=== PATIENT | male | born 1955 | race Hispanic/Latino ===

== ENCOUNTER 2020-08-14 13:07 | Inpatient (IN) | payer BC, OTHER ==
[~2020-08-14] VITALS: Ht 177.8 cm; Wt 139.5 kg
[2020-08-14] MEDS ORDERED: SODIUM CHLORIDE 0.9% 1000ML 1,000 ML IV STA (13:44)
[2020-08-14] MEDS ORDERED: CEFEPIME 2 GM/NS 0.9% 100 ML 100 ML IV ONE (14:00)
[2020-08-14 14:28] LABS: BASOPHILS % 0.3 % (0.0-1.0); EOSINOPHILS # (AUTO) 0.1 (0.0-0.4); EOSINOPHILS % 0.5 % (0.0-6.0); HEMATOCRIT 44.2 % (38.2-49.6); HEMOGLOBIN 14.3 g/dL (14.0-18.0); LYMPHOCYTES # (AUTO) 1.3 (1.0-3.2); LYMPHOCYTES % 14.4 % (18.0-39.1); MEAN CORPUSCULAR HGB CONC 32.4 g/dL (31-35); MEAN CORPUSCULAR VOLUME 92.9 fL (81-99); MONOCYTES # (AUTO) 0.8 (0.2-0.8); MONOCYTES % 8.4 % (4.4-11.3); NEUTROPHILS # (AUTO) 6.9 (2.1-6.9); NEUTROPHILS % 75.1 % (38.7-80.0); PLATELET COUNT 181 x10e3/uL (140-360); RED BLOOD COUNT 4.76 x10e6/uL (4.3-5.7); RED CELL DISTRIBUTION WIDTH 12.2 % (11.7-14.4)
[2020-08-14] MEDS ORDERED: VANCOMYCIN 1GM/NS 250 ML 250 ML IV ONE (14:30)
[2020-08-14 14:39] LABS: INR 1.09; PROTHROMBIN TIME 14.7 seconds (11.9-14.5)
[2020-08-14 14:40] LABS: PARTIAL THROMBOPLASTIN TIME 32.8 seconds (23.8-35.5)
--- NOTE | 2020-08-14 14:41 | Diagnostic Imaging Report ---
EXAMINATION: CHEST SINGLE (PORTABLE) INDICATION: Lower extremity edema COMPARISON: None FINDINGS: LINES/TUBES:None LUNGS:The lungs are well-inflated. There is perihilar fullness and indistinctness of the pulmonary vasculature. Patchy left greater than right bibasilar opacities. PLEURA:No pleural effusion or pneumothorax. MEDIASTINUM:The cardiomediastinal silhouette appears enlarged. BONES/SOFT TISSUES:No acute osseous injury. ABDOMEN:No free air under the diaphragm. IMPRESSION: Very megaly and pulmonary interstitial edema. Left greater than right patchy bibasilar opacities may represent component of airspace edema or subsegmental atelectasis. Superimposed aspiration or pneumonia is less likely. Signed by: Annamaria Briseno MD on 08/14/2020 2:37 PM
[2020-08-14 14:43] LABS: ALBUMIN 3.9 g/dL (3.5-5.0); ALBUMIN/GLOBULIN RATIO 1.2 (0.8-2.0); ANION GAP 15.3 mmol/L (8-16); CALCIUM 8.9 mg/dL (8.4-10.2); CREATININE, SERUM 1.89 mg/dL (0.72-1.25); POTASSIUM 5.3 mmol/L (3.5-5.1)
[2020-08-14 15:00] LABS: B-TYPE NATRIURETIC PEPTIDE2 117.1 pg/mL (0-100)
[2020-08-14] MEDS ORDERED: INSULIN REGULAR, HUMAN 100 UNIT/1 ML 3ML VIAL IV ONE (15:30)
--- NOTE | 2020-08-14 15:47 | NUR ---
REPEAT LACTIC ACID LEVEL DRAWN AND SENT TO LAB
--- NOTE | 2020-08-14 17:03 | Emergency Department Note ---
History of Present Illnes History of Present Illness Chief Complaint: Extremity Trauma/Pain History of Present Illness This is a 65 year old male Patient in from home after being sent by Dr. Soares's office for evaluation of a red and swollen left lower extremity for DVT. Patient reports that his leg began to get red and swollen on Wednesday afternoon. Patient reports that it is very painful. Patient states that he has h ad a blood clot in his leg in the past and has been on Eliquis since then 5mg PO BID. Historian: Patient Arrival Mode: Car Freight Booker Required: No Onset (how long ago): week(s) Location: LEFT LEG Quality: SWELLING, RED Radiation: Reports non-radiation Severity: moderate Onset quality: gradual Timing of current episode: constant Progression: worsening Chronicity: recurrent Context: Denies recent illness Relieving factors: none Exacerbating factors: none Associated symptoms: Reports denies other symptoms Past Medical/Family History Physician Review I have reviewed the patient's past medical and family history. Any updates have been documented here. Past Medical History Recent Fever: No Clinical Suspicion of Infectio: No New/Unexplained Change in Ment: No Past Medical History: Hypertension, Diabetes, A-Fib, DVT/PE, Chronic Kidney Disease Other Surgery: Nail in right toe. Social History Smoking Cessation: Unknown if ever smoked Counseling Performed: No Alcohol Use: None Any Illegal Drug Use: No TB Exposure/Symptoms: No Physically hurt or threatened: No Family History Family history of heart diseas: No Other Any Pre-Existing Lines (PICC,: No Review of Systems Review of Systems Constitutional: Reports no symptoms EENTM: Reports no symptoms Cardiovascular: Reports no symptoms Respiratory: Reports no symptoms Gastrointestinal: Reports no symptoms Genitourinary: Reports no symptoms Musculoskeletal: Reports as per HPI Integumentary: Reports as per HPI Neurological: Reports no symptoms Psychological: Reports no symptoms Endocrine: Reports no symptoms Hematological/Lymphatic: Reports no symptoms Physical Exam Related Data Allergies: Coded Allergies: No Known Allergies (Unverified , 08/14/20) Triage Vital Signs Vital Signs Date Time Temp Pulse Resp B/P (MAP) Pulse Ox O2 Delivery O2 Flow Rate FiO2 08/14/20 13:27 97.7 113 17 127/91 100 Room Air Vital signs reviewed: Yes Physical Exam CONSTITUTIONAL Constitutional: Present well-developed, Present well-nourished, Present obese HENT HENT: Present normocephalic, Present atraumatic, Present oropharynx clear/moist, Present nose normal HENT L/R: Present left ext ear normal, Present right ext ear normal EYES Eyes: Reports PERRL, Reports conjunctivae normal NECK Neck: Present ROM normal PULMONARY Pulmonary: Present effort normal, Present breath sounds normal CARDIOVASCULAR Cardiovascular: Present regular rhythm, Present heart sounds normal, Present capillary refill normal, Present normal rate GASTROINTESTINAL Abdominal: Present soft, Present nontender, Present bowel sounds normal GENITOURINARY Genitourinary: Present exam deferred SKIN Skin: Present erythema (LLE FROM FOOT TO KNEE, SLIGHT INCREASED WARMTH) MUSCULOSKELETAL Musculoskeletal: Present edema (3+ LLE, TENDERNESS CIRCUMFERENTIALLY) NEUROLOGICAL Neurological: Present alert, Present oriented x 3, Present no gross motor or sensory deficits PSYCHOLOGICAL Psychological: Present mood/affect normal, Present judgement normal Results Laboratory Result Diagram: 08/14/20 1353 08/14/20 1353 Laboratory Laboratory Tests Test 08/14/20 15:40 08/14/20 13:53 Lactic Acid Level 1.4 mmol/L (0.5-2.0) 2.8 mmol/L (0.5-2.0) White Blood Count 9.18 x10e3/uL (4.8-10.8) Red Blood Count 4.76 x10e6/uL (4.3-5.7) Hemoglobin 14.3 g/dL (14.0-18.0) Hematocrit 44.2 % (38.2-49.6) Mean Corpuscular Volume 92.9 fL (81-99) Mean Corpuscular Hemoglobin 30.0 pg (28-32) Mean Corpuscular Hemoglobin Concent 32.4 g/dL (31-35) Red Cell Distribution Width 12.2 % (11.7-14.4) Platelet Count 181 x10e3/uL (140-360) Neutrophils (%) (Auto) 75.1 % (38.7-80.0) Lymphocytes (%) (Auto) 14.4 % (18.0-39.1) Monocytes (%) (Auto) 8.4 % (4.4-11.3) Eosinophils (%) (Auto) 0.5 % (0.0-6.0) Basophils (%) (Auto) 0.3 % (0.0-1.0) Neutrophils # (Auto) 6.9 (2.1-6.9) Lymphocytes # (Auto) 1.3 (1.0-3.2) Monocytes # (Auto) 0.8 (0.2-0.8) Eosinophils # (Auto) 0.1 (0.0-0.4) Basophils # (Auto) 0.0 (0.0-0.1) Absolute Immature Granulocyte (auto 0.12 x10e3/uL (0-0.1) Prothrombin Time 14.7 seconds (11.9-14.5) Prothromb Time International Ratio 1.09 Activated Partial Thromboplast Time 32.8 seconds (23.8-35.5) D-Dimer Quantitative (PE/DVT) 0.37 ug/mLFEU (0.00-0.45) Sodium Level 137 mmol/L (136-145) Potassium Level 5.3 mmol/L (3.5-5.1) Chloride Level 99 mmol/L (98-107) Carbon Dioxide Level 28 mmol/L (22-29) Anion Gap 15.3 mmol/L (8-16) Blood Urea Nitrogen 24 mg/dL (7-26) Creatinine 1.89 mg/dL (0.72-1.25) Estimat Glomerular Filtration Rate 36 ML/MIN (60-) BUN/Creatinine Ratio 13 (6-25) Glucose Level 445 mg/dL (74-118) Calcium Level 8.9 mg/dL (8.4-10.2) Total Bilirubin 0.7 mg/dL (0.2-1.2) Aspartate Amino Transf (AST/SGOT) 17 IU/L (5-34) Alanine Aminotransferase (ALT/SGPT) 25 IU/L (0-55) Alkaline Phosphatase 129 IU/L (40-150) Creatine Kinase 43 IU/L (30-200) Creatine Kinase MB 2.00 ng/mL (0-5.0) Troponin I 0.011 ng/mL (0-0.300) B-Type Natriuretic Peptide 117.1 pg/mL (0-100) Total Protein 7.1 g/dL (6.5-8.1) Albumin 3.9 g/dL (3.5-5.0) Globulin 3.2 g/dL (2.3-3.5) Albumin/Globulin Ratio 1.2 (0.8-2.0) Lab results reviewed: Yes Imaging Imaging results reviewed: Yes Assessment & Plan Medical Decision Making MDM LLE EXTREMITY ERYTHEMA/WARMTH/SWELLING - CBC, CHEM, ECG, CARDIACS, LACTIC, BLOOD CX'S, D-DIMER, VENOUS DOPPLER - R/O CELLULITIS VS DVT, SEPSIS, RENAL INSUFF, ELECTROLYTE ABNL Reassessment Reassessment ADMIT TO DR SOARES, ALSO SPOKE WITH DR CABRERA Assessment & Plan Final Impression: (1) Cellulitis (2) Hyperglycemia (3) Renal insufficiency Depart Disposition: ADMITTED Last Vital Signs Date Time Temp Pulse Resp B/P (MAP) Pulse Ox O2 Delivery O2 Flow Rate FiO2 08/14/20 13:58 97.9 102 18 132/88 97 08/14/20 13:27 Room Air Medications in the ED Sodium Chloride 1,000 ml @ 0 mls/hr Q0M STAT IV Last administered on 08/14/20at 14:27; Admin Dose 250 MLS/HR; Start 08/14/20 at 13:44; Stop 08/14/20 at 13:48; Status DC Vancomycin HCl 250 ml @ 167 mls/hr NOW ONCE IV Last administered on 08/14/20at 14:47; Admin Dose 167 MLS/HR; Start 08/14/20 at 14:30; Stop 08/14/20 at 15:59; Status DC Cefepime HCl 100 ml @ 200 mls/hr NOW ONCE IV Last administered on 08/14/20at 14:27; Admin Dose 200 MLS/HR; Start 08/14/20 at 14:00; Stop 08/14/20 at 14:29; Status DC Insulin Human Regular 12 unit ONCE ONCE IV Last administered on 08/14/20at 15:48; Admin Dose 12 UNIT; Start 08/14/20 at 15:30; Stop 08/14/20 at 15:33; Status DC ANGUS BENDER MD Aug 14, 2020 17:03
[2020-08-14] MEDS ORDERED: SODIUM CHLORIDE 0.9% 1000ML 1,000 ML IV SCH (17:30)
[2020-08-14] MEDS ORDERED: ONDANSETRON HCL INJ 2MG/ML 2ML 2 MG/ML VIAL IV PRN (17:30)
[2020-08-14] MEDS ORDERED: DEXTROSE 50% SYRINGE 50 ML IV PRN (17:45)
--- NOTE | 2020-08-14 19:01 | NUR ---
RECEIVED REPORT FROM Tayo SHEFFIELD. PATIENT ARRIVED TO THE UNIT @ 1834. PATIENT IN STABLE CONDITION, NO S/S OF DISTRESS NOTED. RESPIRATIONS EVEN AND NONLABORED. TELEMETRY APPLIED. IV SITE ASYMPTOMATIC AND PATENT, TRANSPARENT DRESSING C/D/I. BED IN LOWEST POSITION AND LOCKED, SIDE RAILS X 2, NONSKID SOCKS APPLIED. CALL LIGHT WITHIN REACH.
--- NOTE | 2020-08-14 19:13 | NUR ---
COMPLETED BEDSIDE REPORT AND ROUNDING WITH ONCOMING NIGHT NURSE.PATIENT IN STABLE CONDITION, NO S/S OF DISTRESS NOTED. RESPIRATIONS EVEN AND NONLABORED. TELEMETRY APPLIED. IV SITE ASYMPTOMATIC AND PATENT, TRANSPARENT DRESSING C/D/I. BED IN LOWEST POSITION AND LOCKED, SIDE RAILS X 2, NONSKID SOCKS APPLIED. CALL LIGHT WITHIN REACH.
[2020-08-14 20:00] VITALS: BP 139/91
[2020-08-14 20:45] VITALS: BP 139/91
[2020-08-14] MEDS: INSULIN LISPRO 100 UNIT/1 ML 3ML VIAL SQ SCH (21:00)
[2020-08-14 21:25] VITALS: BP 139/91
[2020-08-14 22:38] LABS: CREATINE KINASE MB 2.3 ng/mL (0-5.0)
[2020-08-15] VITALS (8 sets, daily range): BP systolic 123–144; BP diastolic 82–98
[2020-08-15] MEDS: CEFEPIME 1GM/NS 0.9% 50 ML 50 ML IV SCH ×2 (01:33→13:37)
[2020-08-15 05:11] LABS: BASOPHILS # (AUTO) 0.1 (0.0-0.1); BASOPHILS % 0.5 % (0.0-1.0); EOSINOPHILS # (AUTO) 0.1 (0.0-0.4); EOSINOPHILS % 0.7 % (0.0-6.0); HEMATOCRIT 39.1 % (38.2-49.6); HEMOGLOBIN 12.8 g/dL (14.0-18.0); LYMPHOCYTES # (AUTO) 1.3 (1.0-3.2); LYMPHOCYTES % 13.1 % (18.0-39.1); MEAN CORPUSCULAR HEMOGLOBIN 29.6 pg (28-32); MEAN CORPUSCULAR HGB CONC 32.7 g/dL (31-35); MEAN CORPUSCULAR VOLUME 90.5 fL (81-99); MONOCYTES # (AUTO) 0.9 (0.2-0.8); MONOCYTES % 9.2 % (4.4-11.3); NEUTROPHILS # (AUTO) 7.6 (2.1-6.9); NEUTROPHILS % 75.2 % (38.7-80.0); PLATELET COUNT 163 x10e3/uL (140-360); RED BLOOD COUNT 4.32 x10e6/uL (4.3-5.7); RED CELL DISTRIBUTION WIDTH 12.4 % (11.7-14.4)
[2020-08-15 05:45] LABS: ALBUMIN 3.4 g/dL (3.5-5.0); ALBUMIN/GLOBULIN RATIO 1.2 (0.8-2.0); CALCIUM 8.3 mg/dL (8.4-10.2); CREATININE, SERUM 1.53 mg/dL (0.72-1.25)
[2020-08-15 06:19] LABS: CREATINE KINASE MB 2.6 ng/mL (0-5.0)
--- NOTE | 2020-08-15 07:00 | NUR ---
RECEIVED BEDSIDE REPORT WITH OFF GOING NIGHT NURSE. PATIENT IN STABLE CONDITION, NO S/S OF DISTRESS NOTED. RESPIRATIONS EVEN AND NONLABORED. IV SITE ASYMPTOMATIC AND PATENT, TRANSPARENT DRESSING C/D/I. BED IN LOWEST POSITION AND LOCKED, SIDE RAILS X 2, NONSKID SOCKS APPLIED. CALL LIGHT WITHIN REACH.
[2020-08-15] MEDS: INSULIN LISPRO 100 UNIT/1 ML 3ML VIAL SQ SCH ×5 (07:30→21:30)
[2020-08-15] MEDS ORDERED: ATORVASTATIN CA20 MG PO (08:27)
[2020-08-15] MEDS ORDERED: GLIPIZIDE5 MG PO (08:27)
[2020-08-15] MEDS ORDERED: METOPROLOL TART25 MG PO (08:27)
[2020-08-15] MEDS ORDERED: LISINOPRIL10 MG PO (08:27)
[2020-08-15] MEDS ORDERED: ELIQUIS5 M1 PO (08:27)
[2020-08-15] MEDS ORDERED: AMIODARONE HCL200 MG PO (08:27)
[2020-08-15] MEDS ORDERED: TRAZODONE HCL50 MG PO (08:27)
[2020-08-15] MEDS ORDERED: SODIUM CHLORIDE 0.9% 250ML 250 ML ONE (13:42)
[2020-08-15] MEDS: VANCOMYCIN 1GM/NS 250 ML 250 ML IV SCH (17:44)
--- NOTE | 2020-08-15 19:38 | Progress Note ---
DATE: SUBJECTIVE: The patient is seen and evaluated. Available labs and notes reviewed. Discussed with Dr. Martínez. REVIEW OF SYSTEMS: No nausea, vomiting, fever, chills, chest pain, or shortness of breath. Complaining of left leg edema and redness which started on Wednesday with progressive worsening. Otherwise, no nausea, vomiting, fever, chills, chest pain, or shortness of breath. MEDICATIONS: The patient is on cefepime. LABORATORY STUDIES: White count 10.09, hemoglobin 12.8, and platelet 163. Sodium 138, potassium 5, and creatinine 1.53. Serology; COVID-19 PCR pending. MICROBIOLOGY: Blood culture negative so far. PHYSICAL EXAMINATION: VITAL SIGNS: Temperature 99.3, pulse 98, respirations 20, blood pressure 123/82. GENERAL: Alert and oriented, in no acute distress. CV: S1-S2. CHEST: Equal expansion. Clear to auscultation. No acute distress. HEENT: Moist. No pallor. No JVD. EXTREMITIES: Left lower extremity erythema from the toes up to the knee, some pinkish color and tight skin. ASSESSMENT AND PLAN: 1. Cellulitis of left lower extremity. 2. Acute on chronic renal insufficiency. 3. Diabetes. 4. Left lower extremity pain. 5. Hypertension. Status post venous Doppler, start the patient on cefepime. Creatinine improved. We will add vancomycin IV a g a day in addition to cefepime. We will change his cefepime to daily from q.12 hours. Further management of this patient is based on daily findings on laboratory and physical examination. Dictated by Lorenzo Harris PA-C (Al) Angel Martínez MD /MODL /[id number]
[2020-08-16] VITALS (8 sets, daily range): BP systolic 128–158; BP diastolic 83–100
[2020-08-16] MEDS ORDERED: CEFEPIME HCL 1 GM VIAL IV SCH (09:00)
[2020-08-16] MEDS: CEFEPIME 1GM/NS 0.9% 50 ML 50 ML IV SCH (09:05)
--- NOTE | 2020-08-16 09:39 | Progress Note ---
DATE: 08/16/2020 SUBJECTIVE: Mr. Amin is a 65-year-old male with history of diabetes, hypertension, hyperlipidemia, and acute renal failure. He came to the clinic to see me complaining of left lower extremity edema, erythema and pain. He was sent to the emergency room for admission, admitted, and he was found to have cellulitis and was started on IV antibiotics. PHYSICAL EXAMINATION: GENERAL: Today, he is awake and alert. VITAL SIGNS: Temperature is 98.4, blood pressure 133/99. HEART: Regular rate. LUNGS: Clear to auscultation. ABDOMEN: Distended and soft. EXTREMITIES: The left lower extremity still with edema and erythema. LABORATORY DATA: Blood cultures, no growth. Chest x-ray negative. On the blood work, white count 10.09, hemoglobin 12.8, and hematocrit 39.1. COVID test negative. Potassium 5.0, creatinine 1.53. Glucose 280. ASSESSMENT AND PLAN: On this patient is, 1. Left lower extremity cellulitis. 2. Acute on chronic renal failure. 3. Diabetes type 2 with hyperglycemia. 4. 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 5. Hypertension. 6. Hyperlipidemia. The plan at the present time is to continue IV antibiotics. We are going to follow up on the progress. Once the patient is a little more stable, he may be switched to p.o. antibiotics previous to discharge home. Continue ADA diet. Continue with sliding scale with insulin and continue other home medications. All this was discussed with the patient. All questions were answered to satisfaction. MD NATALYA Artis/MIGUE /[id number]
[2020-08-16] MEDS: INSULIN LISPRO 100 UNIT/1 ML 3ML VIAL SQ SCH ×3 (10:50→16:30)
--- NOTE | 2020-08-16 11:09 | NUR ---
Called/Paged Dr. Oates answering service at [phone] regarding medication reconciliation. Awaiting call back.
[2020-08-16] MEDS ORDERED: LISINOPRIL 20 MG TAB PO ONE (11:45)
[2020-08-16] MEDS ORDERED: AMIODARONE HCL 200 MG TAB PO ONE (11:45)
[2020-08-16] MEDS ORDERED: ACETAMINOPHEN 325 MG TAB PO PRN (11:45)
[2020-08-16] MEDS: APIXABAN 5 MG TABLET PO SCH (16:31)
[2020-08-16] MEDS: GLIPIZIDE 5 MG TAB PO SCH (16:31)
[2020-08-16] MEDS: METOPROLOL TARTRATE 25 MG TAB PO SCH (16:32)
[2020-08-16] MEDS: VANCOMYCIN 1GM/NS 250 ML 250 ML IV SCH (18:30)
--- NOTE | 2020-08-16 19:10 | NUR ---
BEDSIDE SHIFT REPORT RECEIVED. PATIENT IS RESTING IN BED, AAOX3. RESP EVEN AND UNLABORED. LEFT LEG CELLULITIS, RED AND SWOLLEN NOTED. EDUCATED PT ABOUT FALL PRECAUTIONS. PT VERBALIZED UNDERSTANDING. BED IS LOW AND LOCKED. SIDE RAILS X2. CALL LIGHT WITH IN EASY REACH. BED ALARM IS ON. ALL SAFETY MEASURES IN PLACE. PT DENIES NEEDS AT THIS TIME.
--- NOTE | 2020-08-16 19:51 | Progress Note ---
DATE: SUBJECTIVE: The patient is seen and evaluated. Available labs and notes reviewed. Discussed with Dr. Martínez. REVIEW OF SYSTEMS: Improved left lower extremity cellulitis, erythema, and edema. No nausea, vomiting, fever, chills, chest pain, shortness of breath, headache, rash, or dysuria. PHYSICAL EXAMINATION: VITAL SIGNS: Temperature 98.1, pulse 96, respirations 22, and blood pressure 128/95. GENERAL: Alert and oriented, in no acute distress. CV: S1 and S2. CHEST: Equal expansion. Clear to auscultation. No acute distress. HEENT: Moist. No pallor. No JVD. EXTREMITIES: Improved left lower extremity erythema and edema. The patient seems to be happy with his progress. MEDICATIONS: List reviewed. From ID point of view, the patient is on vancomycin IV and cefepime. LABORATORY STUDIES: White count of 10.09, hemoglobin 12.8, and platelet 163. Creatinine 1.53. No new CBC or BMP from today yet. Blood culture, negative 48 hours. Doppler left lower extremity negative for acute DVT, however, the patient has a chronic DVT in FV and POPV. ASSESSMENT AND PLAN: 1. Cellulitis of left lower extremity, improved. 2. Chronic acute renal insufficiency, improved creatinine. 3. Diabetes. 4. Left lower extremity pain. 5. Chronic deep venous thrombosis, left lower extremity. 6. Hypertension. 7. Continue with vancomycin IV and cefepime. Monitor the patient's renal function. PT/OT. Elevate lower extremities. Further management of this patient is based on daily findings on laboratory and physical examination. Discussed with Dr. Martínez in details. Dictated by Lorenzo Harris PA-C (Al) Angel Martínez MD /MODL /[id number]
[2020-08-16] MEDS: ATORVASTATIN 20 MG TAB PO SCH (20:43)
[2020-08-16] MEDS: TRAZODONE HCL 50 MG TAB PO SCH (20:43)
[2020-08-16] MEDS ORDERED: TRAZODONE HCL 50 MG TAB PO PRN (21:00)
[2020-08-17] VITALS (9 sets, daily range): BP systolic 126–146; BP diastolic 75–99
[2020-08-17] MEDS: INSULIN LISPRO 100 UNIT/1 ML 3ML VIAL SQ SCH ×4 (07:30→21:15)
[2020-08-17] MEDS: CEFEPIME 1GM/NS 0.9% 50 ML 50 ML IV SCH (09:06)
[2020-08-17] MEDS: APIXABAN 5 MG TABLET PO SCH ×2 (09:07→16:18)
[2020-08-17] MEDS: AMIODARONE HCL 200 MG TAB PO SCH (09:07)
[2020-08-17] MEDS: LISINOPRIL 20 MG TAB PO SCH (09:07)
[2020-08-17] MEDS: METOPROLOL TARTRATE 25 MG TAB PO SCH ×2 (09:07→16:20)
[2020-08-17] MEDS: GLIPIZIDE 5 MG TAB PO SCH ×2 (09:08→16:18)
[2020-08-17] MEDS: VANCOMYCIN 1GM/NS 250 ML 250 ML IV SCH (13:22)
--- NOTE | 2020-08-17 13:59 | Progress Note ---
DATE: SUBJECTIVE: The patient is seen and evaluated. Available labs and notes reviewed. REVIEW OF SYSTEMS: The patient is happy with his progress. Left lower extremity erythema has improved. Edema has improved. Pain improved. Pain is only when he puts his foot there. PHYSICAL EXAMINATION: VITAL SIGNS: Temperature 98.1, pulse 82, respirations 16, blood pressure 135/80. GENERAL: Alert and oriented, no acute distress. CV: S1, S2. CHEST: Equal expansion. Clear to auscultation. No acute distress. ABDOMEN: Soft, nontender. No distention. HEENT: Moist. No pallor. No JVD. EXTREMITIES: Left lower extremity cellulitis, improved, erythema and edema, not as tender. MEDICATIONS: Reviewed. From ID point of view, the patient is on cefepime and vancomycin IV. LABORATORY STUDIES: No new CBC or BMP available. Serology: Coronavirus PCR 08/14 negative. Toxicology: Vancomycin trough 7.4. MICROBIOLOGY: Blood culture negative. RADIOLOGY STUDIES: No new radiology studies available. ASSESSMENT AND PLAN: 1. Left lower extremity cellulitis, improved. 2. Chronic on acute renal insufficiency. 3. Diabetes. 4. History of chronic deep venous thrombosis, left lower extremity. 5. Hypertension. 6. Obesity. 7. Continue with antibiotics. Vancomycin level is low. We will increase the dosage. Continue with the elevation of his left lower extremity. Continue PT/OT. Further management of this patient is based on daily findings on laboratory and physical examination. Dictated by Lorenzo Harris PA-C (Al) Angel Martínez MD /MODL /[id number]
--- NOTE | 2020-08-17 19:07 | NUR ---
report given to oncoming nurse, walking rounds complete.
[2020-08-17] MEDS: TRAZODONE HCL 50 MG TAB PO SCH (20:32)
[2020-08-17] MEDS: ATORVASTATIN 20 MG TAB PO SCH (20:32)
[2020-08-18] VITALS (7 sets, daily range): BP systolic 115–146; BP diastolic 85–95
[2020-08-18] MEDS: VANCOMYCIN 1GM/NS 250 ML 250 ML IV SCH (00:59)
[2020-08-18] MEDS: METOPROLOL TARTRATE 25 MG TAB PO SCH ×2 (09:00→17:00)
[2020-08-18] MEDS: AMIODARONE HCL 200 MG TAB PO SCH (09:04)
[2020-08-18] MEDS: APIXABAN 5 MG TABLET PO SCH ×2 (09:05→17:00)
[2020-08-18] MEDS: LISINOPRIL 20 MG TAB PO SCH (09:05)
[2020-08-18] MEDS: CEFEPIME 1GM/NS 0.9% 50 ML 50 ML IV SCH (09:05)
[2020-08-18] MEDS: GLIPIZIDE 5 MG TAB PO SCH ×2 (09:05→16:30)
[2020-08-18] MEDS: INSULIN LISPRO 100 UNIT/1 ML 3ML VIAL SQ SCH ×4 (10:19→21:00)
--- NOTE | 2020-08-18 11:58 | NUR ---
INFECTIOUS DISEASE PROGRESS NOTE DR MJ CABRERA SUBJECTIVE: The patient is seen and evaluated. Available labs and notes reviewed. REVIEW OF SYSTEMS: The patient is happy with his progress. Left lower extremity erythema has improved. Edema has improved. Pain improved ALL 14 POINT ROS NEG UNLESS OTHERWISE DOCUMENTED PHYSICAL EXAMINATION: VITAL SIGNS: reviewed GENERAL: Alert and oriented, no acute distress. CV: S1, S2. CHEST: Equal expansion. Clear to auscultation. No acute distress. ABDOMEN: Soft, nontender. No distention. HEENT: Moist. No pallor. No JVD. EXTREMITIES: Left lower extremity cellulitis, improved, erythema and edema, not as tender. MEDICATIONS: Reviewed. LABORATORY STUDIES: per chart MICROBIOLOGY: Blood culture negative. RADIOLOGY STUDIES: No new radiology studies available. ASSESSMENT AND PLAN: 1. Left lower extremity cellulitis, improved. 2. Chronic on acute renal insufficiency. 3. Diabetes. 4. History of chronic deep venous thrombosis, left lower extremity. 5. Hypertension. 6. Obesity. Repeat CMP today Changed to Clindamycin Can keep Cefepime leg clinically improved Will likely d/c home with oral Doxy and Cipro if continues to improve Sissy Santos MSN, [employer], [employer]- Mj Cabrera M.D
[2020-08-18 12:49] LABS: ALBUMIN 3.6 g/dL (3.5-5.0); ANION GAP 15.3 mmol/L (8-16); CALCIUM 9.3 mg/dL (8.4-10.2); CREATININE, SERUM 1.79 mg/dL (0.72-1.25); POTASSIUM 5.3 mmol/L (3.5-5.1)
[2020-08-18] MEDS: CLINDAMYCIN 600MG / 50ML 50 ML IV SCH ×2 (13:14→18:06)
--- OUTSIDE RECORDS SUMMARY | 2020-08-18 15:37 | XMS REPORT | Continuity of Care Document ---
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 Name Role Phone [employer] Information Exchange Unavailable Un available Problems Problem Status Onset Date Classification Date Reported Comments Source LEG PAIN OR INJURY Active 02/24/2019 [facility] PULMONARY EMBOLUS, DVT Active 02/24/2019 [facility] DX: EDEMA, LEG PAIN Active 02/17/2019 [facility] Type 2 diabetes mellitus with foot ulcer 10/27/2018 05/10/2019 [facility] UNK Active 1 12/19/2017 [facility] RT DX: STAT NOT CLA Active 10/18/2018 [facility] Discharge Diagnosis: Abrasion of ankle, left, infected 07/13/2016 07/16/2016 [facility] Discharge Diagnosis: Leg edema, left 07/13/2016 07/16/2016 [facility] CELLULITIS Active 07/13/2016 [facility] ABDOMINAL PAIN Active 10/28/2015 [facility] HYPONATREMIA, DEHYDRATION, AFIB, JERRY Active 10/28/2015 [facility] 753.10 Active 05/06/2015 [facility] Atrial fibrillation (disorder) Active 02/01/2015 Problem 07/16/2016 Data migrated from [employer] on . Data migrated from [employer] on 04/23/15. [facility] SOB Active 0 02/01/2015 [facility] Acute renal failure syndrome (disorder) Active 11/12/2014 Problem 05/11/2015 1Data migrated from [employer] on 04/20/15. [facility] Renal mass (finding) Active 11/12/2014 Problem 05/11/2015 21Data migrated from [employer] on . [facility] JERRY, GASTROENTERITIS Active 11/06/2014 [facility] ABD PIAN Active 11/06/2014 [facility] Neck pain (finding) Active 11/05/2014 Problem 07/15/2019 Data migrated from [employer] on 04/20. [facility] Dehydration (disorder) Active 11/05/2014 Problem 05/11/2015 9Data migrated from [employer] on 03/24 . [facility] Dyspnea (finding) Active 11/05/2014 Problem 05/11/2015 10Data migrated from [employer] on . [facility] Palpitations (finding) Active 11/05/2014 Problem 05/11/2015 18Data migrated from [employer] on . [facility] Microalbuminuria (finding) Act dariusz 08/24/2014 Problem 05/11/2015 15Data migrated from [employer] on . [facility] Body mass index 30+ - obesity (finding) Resolved 02/02/2014 Problem 07/15/2019 Data migrated from [employer] on 04/20/15. [facility] Premature atrial contraction (disorder) Active 02/02/2014 Problem 05/11/2015 19Data migrated fro m [employer] on 04/20/15. [facility] Allergic rhinitis (disorder) A ctive 05/11/2013 Problem 07/15/2019 Data migrated from [employer] on 04/20. [facility] Anemia (disorder) Active 05/11/2013 Problem 07/15/2019 Data migrated from [employer] on 04/20. [facility] Bilateral cataracts (disorder) Active 05/11/2013 Problem 07/15/2019 Data migrated from [employer] on 04/20. [facility] Internal hemorrhoids (disorder) Active 05/11/2013 Problem 07/15/2019 Data migrated from [employer] on 04/20. [facility] Benign essential hypertension (disorder) Active 05/11/2013 Problem 05/11/2015 5Data migrated from [employer] on 04/20/15. [facility] Benign hypertension (disorder) Active Problem [facility] [place] Chronic atrial fibrillation (disorder) Active Problem [facility] [place] Chronic kidney disease stage 3 (disorder) Active Problem 07/15/2019 [facility] Deformity of hand (finding) Ac tive Problem [facility] [place] Diabetes mellitus (disorder) A ctive Problem [facility] [place] Edema of lower extremity (finding) Active Problem [facility] [place] Hypertensive disorder, systemic arterial (disorder) Resolved Problem 07/15/2019 [facility] Hyperkalemia (disorder) Resolv ed Problem Data migrated from [employer] on 04/20/15. [facility] Knee pain (finding) Active Problem 07/15/2019 [facility] Long-term current use of insulin (situation) Active Problem 07/15/2019 [facility] Mixed hyperlipidemia (disorder) Active Problem [facility] [place] Morbid obesity (disorder) Acti ve Problem [facility] [place] Obesity (disorder) Active Problem 07/15/2019 [facility] [place] Onychomycosis of toenails (disorder) Active Problem Data migrated from [employer] on 04/20. [facility] Primary insomnia (disorder) Ac tive Problem [facility] [place] Shoulder pain (finding) Active Problem 07/15/2019 [facility] [place] Simple renal cyst (disorder) A ctive Problem 3.2 cm rt cyst, sono05/08/15, stable [facility] Skin lesion (disorder) Active Problem 07/15/2019 [facility] [place] Sunburn (disorder) Active Problem 07/15/2019 [facility] [place] Tinea pedis (disorder) Active Problem 07/15/2019 [facility] [place] Diabetes mellitus type 2 (disorder) Active Problem [facility] Hyperlipidemia (disorder) Acti ve Problem Data migrated from [employer] on 04/20/15. [facility] Chronic renal impairment (disorder) Active Problem 8Data migrated from [employer] on 03/24 . [facility] Eruption of skin (disorder) Ac tive Problem 11Data migrated from [employer] on . [facility] Kidney stone (disorder) Active Problem 05/11/2015 [facility] Renal failure syndrome (disorder) Active Problem [facility] Type II diabetes mellitus well controlled (finding) Active Problem 05/11/2015 23[facility] Deep venous thrombosis of lower extremity (disorder) Active Problem 07/15/2019 [facility] Pulmonary thromboembolism (disorder) [facility] Cutaneous abscess of right foot 05/10/2019 [facility] Puncture wound without foreign body, rig ht foot, initial encounter 05/08/2019 [facility] Abnormal findings on diagnostic imaging of other specified body structures 05/08/2019 [facility] Non-pressure chronic ulcer of other part of right foot with unspecified severity 05/10/2019 [facility] Type 2 diabetes mellitus with diabetic c hronic kidney disease 05/10/2019 [facility] Hypertensive chronic kidney disease with stage 1 through stage 4 chronic kidney disease, or unspecified chronic kidney disease 05/10/2019 [facility] Chronic kidney disease, unspecified 05/10/2019 [facility] Unspecified atrial fibrillation 05/10/2019 [facility] Hyperlipidemia, unspecified 05/10/2019 [facility] jail (current) use of anticoagulants 05/10/2019 [facility] 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 05/10/2019 [facility] Abscess of toe of right foot A ctive Diagnosis 1 12/23/2017 [facility] Type 2 diabetes mellitus with diabetic n europathy, without long-term current use of insulin Active Problem 10/22/2018 [facility] Anticoagulant long-term use Ac tive Problem 11/2017 [facility] Puncture wound of right foot, initial encounter Active Diagnosis 10/22/2018 [facility] KIDNEY INJURY NOS-CLOSED Active [facility] 719.46 Active [facility] ATRIAL FIBRILLATION Active [facility] CYSTIC KIDNEY DISEAS NOS Active [facility] DEHYDRATION Active [facility] XRAY Active [facility] CUTANEOUS ABSCESS OF RIGHT FOOT Active [facility] OTHER PULMONARY EMBOLISM WITHOUT ACUTE C Active [facility] ACUTE EMBOLISM AND THOMBOS UNSP DEEP VN Active [facility] Medications Medication Details Route Status Patient Instructions Ordering Provider Order Date Source 3 ML insulin detemir 100 UNT/ML Prefille d Syringe [Levemir] 60 unit, SUB-Q, Daily, # 60 mL, 0 Refill (s), Pharmacy: [id number] Active 07/12/2019 [facility] pioglitazone 45 mg oral tablet 45 mg = 1 tab, PO, Daily, # 90 tab, 1 Refill(s), Pharmacy: [facility] [id number] Active 06/19/2019 [facility] lisinopril 20 mg oral tablet 2 0 mg = 1 tab, PO, Daily, # 90 tab, 1 Refill(s), Pharmacy: [facility] Active 06/19/2019 [facility] Glipizide 10 MG Oral Tablet 10 mg = 1 tab, PO, BID- Before Meals, change from glyburide, # 180 tab, 1 Refill(s), Pharmacy: [facility] Active 06/19/2019 [facility] atorvastatin 20 mg oral tablet 20 mg = 1 tab, PO, Daily, # 90 tab, 1 Refill(s), Pharmacy: [id number] Active 06/19/2019 [facility] Trazodone Hydrochloride 50 MG Oral Tablet 50 mg = 1 tab, PO, Bedtime, # 90 tab, 1 Refill(s), Pharmacy: [facility] Active 06/19/2019 [facility] Trazodone Hydrochloride 50 MG Oral Tablet 50 mg = 1 tab, PO, Bedtime, 0 Refill(s) Inactive 06/19/2019 [facility] apixaban 5 MG Oral Tablet [Eliquis] 5 mg, PO, Q12H, # 60 tab, 0 Refill(s) Active 03/06/2019 [facility] apixaban 5 MG Oral Tablet [Eliquis] 5 mg, PO, Q12H, 0 Refill(s) Inactive 03/06/2019 [facility] Digoxin 0.125 MG Oral Tablet N otes: Take on an Empty Stomach (Same as: Lanoxin) Inactive 02/28/2019 [facility] apixaban Notes: Same as: Eliqu is Inactive 02/28/2019 [facility] Warfarin Notes: Nurse to ensur e documentation of patient education per anticoagulation policy. Avoid large intake of vitamin-K containing foods diet. WASTE: F/P - P Waste Black; E - P Waste Black (Same As: Coumadin) No Longer Active 02/26/2019 [facility] Warfarin Notes: Nurse to ensur e documentation of patient education per anticoagulation policy. Avoid large intake of vitamin-K containing foods diet. WASTE: F/P - P Waste Black; E - P Waste Black (Same As: Coumadin) Inactive 02/25/2019 [facility] pioglitazone Notes: (Same as: Actos) No Longer Active 02/25/2019 [facility] Lisinopril Notes: (Same as: Pr inivil, Zestril) No Longer Active 02/25/2019 [facility] Digoxin 0.125 MG Oral Tablet N otes: Take on an Empty Stomach (Same as: Lanoxin) No Longer Active 02/25/2019 [facility] atorvastatin Notes: (Same As: Lipitor) No Longer Active 02/25/2019 [facility] Glipizide 10 MG Oral Tablet No bhumika: (Same as: Glucotrol) 30 min before meals. No Longe r Active 02/25/2019 [facility] Heparin 80 unit/kg Bolus (Heparin Dosing Weight) Route: IVP, PRN, 7,400 unit, 7.4 mL, Drug form: INJ, PRN, Heparin Protocol, Start date: 02/25/19 3:11:00 CDT Stop date: 02/28/19 8:00:00 CDT No Longer Active 02/25/2019 [facility] Heparin 40 unit/kg Bolus (Heparin Dosing Weight) Route: IVP, PRN, 3,700 unit, 3.7 mL, Drug form: INJ, PRN, Heparin Protocol, Start date: 02/25/19 3:11:00 CDT Stop date: 02/28/19 8:00:00 CDT No Longer Active 02/25/2019 [facility] heparin additive 25,000 unit [18 unit/kg /hr] + Premix Diluent Dextrose 5% 500 mL 500 mL, Rate: 33.44 ml/hr, Infuse over: 15 hr, Route: IV, Dosing Weight 92.9 kg, Total Volume: 500 mL, Start date: 02/25/19 3:11:00 CDT, Stop date: 02/28/19 8:00:00 CDT, 2.16, m2 No Longer Active 02/25/2019 [facility] Trazodone Hydrochloride 50 MG Oral Tablet Notes: (Same As: Desyrel) No Longer Active 02/25/2019 [facility] Enoxaparin 30 mg, Route: SUB-Q , Drug form: INJ, [id number], Dosing Weight 122.727, kg, Start date: 02/24/19 20:00:00 CDT, Duration: 30 day, Stop date: 03/26/19 8:00:00 CDT Inactive 02/25/2019 [facility] Insulin Lispro Notes: (Same as : Humalog ) Roll in palms of hands gently; Do not shake `vigorously. "Single Patient Use Only " WASTE: F/P - Black; E - Municipal Trash Bin Stable for 28 days at room temp erature. Expires in days from Date No Longer Active 02/25/2019 [facility] Glucagon 1 mg, Route: IM, Drug form: PDR/INJ, PRN, Dosing Weight 122.727, kg, PRN Blood Glucose Results, Start date: 02/24/19 19:33:00 CDT, Duration: 30 day, Stop date: 03/26/19 19:32:00 CDT No Longer Active 02/25/2019 [facility] Dextrose 50% Syringe 25 gm, 50 mL, Route: IVP, Drug Form: INJ, Dosing Weight 122.727, kg, PRN, PRN Blood Glucose Results, Start date: 02/24/19 19:33:00 CDT, Duration: 30 day, Stop date: 03/26/19 19:32:00 CDT No Longer Active 02/25/2019 [facility] Cartia XT Notes: (Same as:Lois harris CD) Before meals. DO NOT CRUSH. No Longer Active 02/24/2019 [facility] AMIODarone 900 mg in D5W 500 ml IV 900 m g + Dextrose 5% in Water IV 482 mL 2 mg/ml. Use Glass Bottle or Non PVC Ba g "Use 0.22 micron in-line filter" MEDICATION WASTE Product Size: 900 mg Product Wasted: ___ mg No Longer Active 02/24/2019 [facility] Amiodarone 2 mg/ml. "Recommen dation: Use an in-line filter during administration for continuous infusions to reduce the incidence of phlebitis" (Same as Codarone) MEDICATION WASTE Product Size: 150 mg Product Wasted: ___ mg Inactive 02/24/2019 [facility] Sodium Chloride 0.9% (Bolus) IV 250 mL, 250 ml/hr, Infuse Over: 1 hr, Route: IV, 250, Drug form: INJ, ONCE, Priority: STAT, Dosing Weight 122.727 kg, Start date: 02/24/19 16:11:00 CDT, Stop date: 02/24/19 16:11:00 CDT Inactive 02/24/2019 [facility] Enoxaparin Notes: Nurse to ens ure documentation of patient education per anticoagulation policy. (Same as: Lovenox) Inactive 02/24/2019 [facility] 3 ML Insulin Lispro 100 UNT/ML Pen Injector [Humalog] 20 unit, SUB-Q, TID-Before Meals, # 60 mL, 0 Refill(s), Pharmacy: [id number] Active 10/24/2018 [facility] fentaNYL (ANES) Route: IV, Manuel g form: INJ, ONCE, Stop date: 10/21/18 12:51:00 [employer] EMPLOYEE Inactive 10/21/2018 [facility] midazolam (ANES) Route: IV, Dr ug form: SOLN, ONCE, Stop date: 10/21/18 12:51:00 [employer] EMPL[employer]EE Inactive 10/21/2018 [facility] famotidine (ANES) Route: IV, D rug form: INJ, ONCE, Stop date: 10/21/18 12:51:00 [employer] EMPLOYEE Inactive 10/21/2018 [facility] metoclopramide (ANES) Route: I V, Drug form: INJ, ONCE, Stop date: 10/21/18 12:51:00 [employer] EMPLOYEE Inactive 10/21/2018 [facility] ondansetron (ANES) Route: IV, Drug form: INJ, ONCE, Stop date: 10/21/18 12:51:00 [employer] EMPLOYEE Inactive 10/21/2018 [facility] lidocaine (ANES) Route: IV, Dr ug form: INJ, ONCE, Stop date: 10/21/18 12:37:00 [employer] EMPLOYEE Inactive 10/21/2018 [facility] Amidate (ANES) Route: IV, Drug form: INJ, ONCE, Stop date: 10/21/18 12:37:00 [employer] EMPLOYEE Inactive 10/21/2018 [facility] ceFAZolin (ANES) Route: IV, Dr ug form: INJ, ONCE, Stop date: 10/21/18 12:37:00 [employer] SU[employer] EMPLOYEE Inactive 10/21/2018 [facility] Lactated Ringers Injection IV (ANES) 1000 mL Route: IV, Total Volume: 1,000, Start date: 10/21/18 11:44:00 [employer] SUPPORT EMPLOYEE, Stop date: 10/21/18 12:44:00 [employer] EMPLOYEE Inactive 10/21/2018 [facility] Calcium Chloride 0.0014 MEQ/ML / Potassi um Chloride 0.004 MEQ/ML / Sodium Chloride 0.103 MEQ/ML / Sodium Lactate 0.028 MEQ/ML Injectable Solution 1,000 mL, Rate: 25 ml/hr, Infuse over: 4 0 hr, Route: IV, Dosing Weight 121.591 kg, Total Volume: 1,000, Start date: 10/21/18 10:36:00 [employer] SUPPORT EMPLOYEE, Duration: 30 day, Stop date: 11/20/18 10:35:00 [employer] SUPPORT EMPLOYEE, 2.48, m2 Inactive 10/21/2018 [facility] Tylenol/Codeine #3 1 tablet as needed Orally Active 300-30 MG Orally every 6 hrs Jesus 10/21/2018 [facility] Clickfine Insulin Pen Sweet 31G 6mm=1/4 inch 1 ea, SUB-Q, QID, # 400 ea, 4 Refill(s) No Longer Active 10/20/2018 [facility] 3 ML insulin detemir 100 UNT/ML Prefille d Syringe [Levemir] 60 unit, SUB-Q, Daily, # 60 mL, 1 Refill (s), Pharmacy: [id number] Active 10/20/2018 [facility] 3 ML Insulin, Aspart, Human 100 UNT/ML P en Injector [NovoLog] 20 unit, SUB-Q, TID-Before Meals, dose i ncrease, # 60 mL, 1 Refill(s), Pharmacy: [id number] No Longer Active 10/20/2018 [facility] 3 ML Insulin, Aspart, Human 100 UNT/ML P en Injector [NovoLog] 15 unit, SUB-Q, TID-Before Meals Inactive 10/20/2018 [facility] cephalexin 500 mg oral capsule 500 mg = 1 cap, PO, Q6H, # 40 cap, 0 Refill(s), [facility]: [facility] No Longer Active 10/17/2018 [facility] ciprofloxacin 500 mg oral tablet 500 mg = 1 tab, PO, Q12H, X 10 day, # 20 tab, 0 Refill(s), [facility]acy: [facility] No Longer Active 10/17/2018 [facility] Trazodone Hydrochloride 50 MG Oral Tablet 50 mg = 1 tab, PO, Bedtime, # 90 tab, 1 Refill(s), Pharmacy: [facility] No Longer Active 10/10/2018 [facility] pioglitazone 45 mg oral tablet 45 mg = 1 tab, PO, Daily, # 90 tab, 1 Refill(s), Pharmacy: [facility] [id number] Active 10/10/2018 [facility] lisinopril 20 mg oral tablet 2 0 mg = 1 tab, PO, Daily, # 90 tab, 1 Refill(s), Pharmacy: [facility] Active 10/10/2018 [facility] Glipizide 10 MG Oral Tablet 10 mg = 1 tab, PO, BID- Before Meals, change from glyburide, # 180 tab, 1 Refill(s), Pharmacy: [facility] Active 10/10/2018 [facility] atorvastatin 20 mg oral tablet 20 mg = 1 tab, PO, Daily, # 90 tab, 1 Refill(s), Pharmacy: [facility] Active 10/10/2018 [facility] apixaban 2.5 MG Oral Tablet [Eliquis] 2.5 mg = 1 tab, PO, BID, # 180 tab, 1 Refill(s), Pharmacy: [facility] No Longer Active 10/10/2018 [facility] atorvastatin 40 mg oral tablet 40 mg = 1 tab, PO, Daily, discontinue simvastatin when supply finishs, # 90 tab, 1 Refill(s), Pharmacy: [facility] Inactive 08/11/2018 [facility] simvastatin 40 mg oral tablet 40 mg = 1 tab, PO, Bedtime, 0 Refill(s) Inactive 08/11/2018 [facility] Trazodone Hydrochloride 50 MG Oral Tablet 50 mg = 1 tab, PO, Bedtime, # 90 tab, 1 Refill(s), Pharmacy: [facility] Active 04/29/2018 [facility] pioglitazone 45 mg oral tablet 45 mg = 1 tab, PO, Daily, # 90 tab, 1 Refill(s), Pharmacy: [facility] Active 04/29/2018 [facility] lisinopril 20 mg oral tablet 2 0 mg = 1 tab, PO, Daily, # 90 tab, 1 Refill(s), Pharmacy: [facility] Active 04/29/2018 [facility] 3 ML insulin detemir 100 UNT/ML Prefille d Syringe [Levemir] 45 unit, SUB-Q, Daily, # 30 mL, 1 Refill (s), Pharmacy: [facility] Active 04/29/2018 [facility] glyBURIDE 5 mg oral tablet 10 mg = 2 tab, PO, BID, # 360 tab, 1 Refill(s), Pharmacy: [facility] Active 04/29/2018 [facility] Digoxin 0.125 MG Oral Tablet 1 25 microgram = 1 tab, PO, Daily, # 90 tab, 1 Refill(s), Pharmacy: [facility] Active 04/29/2018 [facility] apixaban 2.5 MG Oral Tablet [Eliquis] 2.5 mg = 1 tab, PO, BID, # 180 tab, 1 Refill(s), Pharmacy: [facility] Active 04/29/2018 [facility] AMIODarone 200 mg oral tablet 200 mg = 1 tab, PO, Daily, # 90 tab, 0 Refill(s), Pharmacy: [facility] Active 04/29/2018 [facility] atorvastatin 20 mg oral tablet 20 mg = 1 tab, PO, Bedtime, # 90 tab, 1 Refill(s), Pharmacy: [facility] Active 04/29/2018 [facility] Ketoconazole 20 MG/ML Topical Cream 1 appl, TOP, BID, # 60 gm, 1 Refill(s), Pharmacy: [id number] Active 04/29/2018 [facility] 24 HR Diltiazem Hydrochloride 180 MG Ext ended Release Capsule [Cartia] 180 mg = 1 cap, PO, BID, # 180 cap, 1 Re fill(s), Pharmacy: [facility] Active 04/29/2018 [facility] 3 ML insulin detemir 100 UNT/ML Prefille d Syringe [Levemir] 45 unit, SUB-Q, Daily, # 15 mL, 3 Refill (s), Pharmacy: [place] [id number] Active 10/07/2017 [facility] Trazodone Hydrochloride 50 MG Oral Tablet 50 mg = 1 tab, PO, Bedtime, # 30 tab, 3 Refill(s), Pharmacy: [place] [id number] Active 10/04/2017 [facility] Amoxicillin 875 MG / Clavulanate 125 MG Oral Tablet [Augmentin 875-mg] 1 tab, Route: PO, Dosing Weight 128.182, kg, ONCE, Start date: 07/13/16 17:44:00 CDT, Stop date: 07/13/16 17:44:00 CDT Inactive 07/13/2016 [facility] Amoxicillin 500 MG / Clavulanate 125 MG Oral Tablet [Augmentin 500-mg] 1 tab, PO, Q8H, X 7 day, # 21 tab, 0 Ref ill(s), Pharmacy: [place] [id number] Active 07/13/2016 [facility] Amoxicillin 500 MG / Clavulanate 125 MG Oral Tablet [Augmentin 500-mg] Notes: With food. (Same as: Augmentin 50 0) Inactive 07/13/2016 [facility] Saline Flush 0.9% Notes: (Same as: BD Posiflush) Inactive 07/13/2016 [facility] magnesium sulfate 2 gm, 50 mL, Route: IVPB, Drug form: INJ, ONCE, Dosing Weight 113.1, kg, Total dose = 2 gm, Start date: 11/04/15 11:14:00, Duration: 1 doses or times, Stop date: 11/04/15 11:14:00 Inactive 11/04/2015 [facility] diltiazem 180 mg/24 hours oral capsule, extended release 180 mg = 1 cap, PO, BID, # 60 cap, 0 Refill(s) Active 11/04/2015 [facility] 3 ML insulin detemir 100 UNT/ML Prefille d Syringe [Levemir] 10 unit, SUB-Q, Bedtime, 1 box with supp lies or equivalent covered product, # 15 mL, 0 Refill(s) Active 11/04/2015 [facility] Aspirin 325 MG Enteric Coated Tablet 325 mg = 1 tab, PO, Daily, 0 Refill(s) Active 11/04/2015 [facility] Neutra-Phos Notes: (Same as: N eutra-Phos) Each 1.25 gm pkt has 250mg phosphorous. Mix w/2.5oz water and stir. Inactive 11/04/2015 [facility] Magnesium Sulfate Notes: (Same as: MgSO4) MEDICATION WASTE Product Size: 1000 mg Product Wasted: ___ mg Inactive 11/04/2015 [facility] Clonidine Hydrochloride 0.1 MG Oral Tablet Notes: (Same As: Catapres) No Longer Active 11/03/2015 [facility] potassium chloride Notes: ([facility] as: K-Dur 20) "Do Not Crush" With food and full glass of water Inactive 11/03/2015 [facility] potassium chloride Notes: ([facility] as: K-Dur 20) "Do Not Crush" With food and full glass of water Inactive 11/03/2015 [facility] potassium chloride Notes: ([facility] as: K-Dur 20) "Do Not Crush" With food and full glass of water Inactive 11/02/2015 [facility] potassium chloride Notes: ([facility] as: K-Dur 20) "Do Not Crush" With food and full glass of water Inactive 11/02/2015 [facility] Sodium Chloride 0.9% IV 1,000 mL 1,000 mL, Rate: 60 ml/hr, Infuse over: 16.7 hr, Route: IV, Dosing Weight 113.1 kg, Total Volume: 1,000, Start date: 11/01/15 14:13:00, Duration: 30 day, Stop date: 12/01/15 14:12:00 No Longer Active 11/01/2015 [facility] Zosyn Notes: (Same as: Zosyn) Dosing based on Piperacillin component No Longer Active 11/01/2015 [facility] Sodium Chloride 0.9% IV 1,000 mL 1,000 mL, Rate: 100 ml/hr, Infuse over: 10 hr, Route: IV, Dosing Weight 113.1 kg, Total Volume: 1,000, Start date: 10/31/15 13:58:00, Duration: 30 day, Stop date: 11/30/15 13:57:00 No Longer Active 10/31/2015 [facility] Zofran Notes: (Same as: Zofran ) MEDICATION WASTE Product Size: 4 mg Product Wasted: ___ mg No Longer Active 10/31/2015 [facility] Morphine Notes: (Same as:MORPh ine Sulfate) No Longer Active 10/31/2015 [facility] Please discontinue diltiazem drip if n o longer running Please discontinue diltiazem drip if n o longer running, ATTN: NETTIE, Drug form: MISC, Route: MISC, QSHIFT, 10/31/15 0:00:00, Duration: 30 day, Stop date: 11/29/15 16:00:00 Inactive 10/31/2015 [facility] digoxin 125 mcg (0.125 mg) oral tablet Notes: Take on an Empty Stomach (Same as: Lanoxin) No Longer Active 10/30/2015 [facility] Cardizem CD Notes: (Same as:Ca rdizem CD) Before meals. DO NOT CRUSH. No Longer Activ e 10/30/2015 [facility] Sodium Chloride 0.9% IV 1,000 mL 1,000 mL, Rate: 60 ml/hr, Infuse over: 16.7 hr, Route: IV, Dosing Weight 113.1 kg, Total Volume: 1,000, Start date: 10/30/15 12:04:00, Duration: 30 day, Stop date: 11/29/15 12:03:00 No Longer Active 10/30/2015 [facility] Amiodarone Notes: (Same as: Co rdarone) No Longer Active 10/30/2015 [facility] Sodium Chloride 0.9% IV 1000 mL 1,000 mL, Rate: 100 ml/hr, Infuse over: 10 hr, Route: IV, Dosing Weight 113.1 kg, Total Volume: 1,000, Start date: 10/30/15 0:30:00, Duration: 30 day, Stop date: 11/29/15 0:29:00 Inactive 10/30/2015 [facility] Levemir Notes: Same as Levemir Do not hold insulin without contacting prescriber "single patient use only" No Longer Active 10/30/2015 [facility] Simvastatin Notes: (Same as: Z ocor) No Longer Active 10/30/2015 [facility] NS 1000 mL 1,000 mL, Rate: 100 ml/hr, Infuse over: 10 hr, Route: IV, Dosing Weight 113.1 kg, Total Volume: 1,000, Start date: 10/29/15 18:10:00, Duration: 30 day, Stop date: 11/28/15 18:09:00 Inactive 10/30/2015 [facility] NS + KCL 20mEq/L 1000ml (Premix) 1,000 mL Notes: PREMIX IV - Do Not Alter No Longer Active 10/30/2015 [facility] Digoxin Notes: (Same as: Lanox in) Inactive 10/29/2015 [facility] potassium chloride 40 mEq, Rou te: PO, Drug form: ERTAB, ONCE, Dosing Weight 113.1, kg, Priority: NOW, Start date: 10/29/15 17:23:00, Stop date: 10/29/15 17:23:00 Inactive 10/29/2015 [facility] Eliquis Notes: Same as: Eliquis No Longer Active 10/29/2015 [facility] Glyburide Notes: (Same as: Deavn willis Diabeta) Take with meals. No Longer Active 10/29/2015 [facility] Imodium A-D Notes: (Same as: I modium) MAX adult dose is 8 caps/day No Longer Active 10/29/2015 [facility] potassium chloride Notes: (Babatunde e as: K-Dur 20) "Do Not Crush" With food and full glass of water Inactive 10/29/2015 [facility] Saline Flush 0.9% Notes: (Same as: BD Posiflush) No Longer Active 10/29/2015 [facility] Eliquis Notes: Same as: Eliquis No Longer Active 10/29/2015 [facility] Insulin, Aspart, Human Notes: Roll in palms of hands gently; Do not shake vigorously. (Same as: NovoLOG) "single patient use only" Stable for 28 days at room temperature. Expires in days from Date Inactive 10/28/2015 [facility] Insulin regular Notes: (Same a s: Humulin R and NovoLIN R) (Do not shake) Inactive 10/28/2015 [facility] Insulin, Aspart, Human Notes: Roll in palms of hands gently; Do not shake vigorously. (Same as: NovoLOG) "single patient use only" Stable for 28 days at room temperature. Expires in days from Date No Longer Active 10/28/2015 [facility] Glucagon 1 mg, Route: IM, Drug form: PDR/INJ, PRN, Dosing Weight 113.636, kg, PRN Blood Glucose Results, Start date: 10/28/15 17:28:00, Duration: 30 day, Stop date: 11/27/15 17:27:00 No Longer Active 10/28/2015 [facility] Dextrose 50% Syringe 25 gm, 50 mL, Route: IVP, Drug Form: INJ, Dosing Weight 113.636, kg, PRN, PRN Blood Glucose Results, Start date: 10/28/15 17:28:00, Duration: 30 day, Stop date: 11/27/15 17:27:00 No Longer Active 10/28/2015 [facility] Metoclopramide 10 MG Oral Tablet 10 mg = 1 tab, PO, Daily, 0 Refill(s) No Longer Active 10/28/2015 [facility] Aspirin 325 MG Enteric Coated Tablet Notes: (Do Not Crush) Do not crush or chew. No Longer Active 10/28/2015 [facility] Saline Flush 0.9% Notes: (Same as: BD Posiflush) No Longer Active 10/28/2015 [facility] Ondansetron Notes: (Same as: Gwen langford) No Longer Active 10/28/2015 [facility] Sodium Chloride 0.154 MEQ/ML Injectable Solution 1,000 mL, Rate: 150 ml/hr, Infuse over: 6.7 hr, Route: IV, Dosing Weight 113.636 kg, Total Volume: 1,000, Start date: 10/28/15 15:44:00, Duration: 30 day, Stop date: 11/27/15 15:43:00 No Longer Active 10/28/2015 [facility] NS + KCL 20mEq/L 1000ml (Premix) 1,000 mL Notes: PREMIX IV - Do Not Alter No Longer Active 10/28/2015 [facility] potassium chloride Notes: (Babatunde e as: K-Dur 20) "Do Not Crush" With food and full glass of water Inactive 10/28/2015 [facility] Insulin regular Notes: (Same a s: Humulin R and NovoLIN R) (Do not shake) Inactive 10/28/2015 [facility] Sodium Chloride 0.154 MEQ/ML Injectable Solution 500 mL, 500 ml/hr, Infuse Over: 1 hr, Route: IV, 500, Drug form: INJ, ONCE, Priority: STAT, Dosing Weight 113.636 kg, Start date: 10/28/15 13:59:00, Duration: 1 doses or times, Stop date: 10/28/15 13:59:00 Inactive 10/28/2015 [facility] Diltiazem Notes: (Same as: Car dizem) No Longer Active 10/28/2015 [facility] Saline Flush 0.9% Notes: (Same as: BD Posiflush) No Longer Active 10/28/2015 [facility] Sodium Chloride 0.154 MEQ/ML Injectable Solution 1,000 mL, Infuse Over: 1 hr, Route: IV, ONCE, Priority: STAT, Dosing Weight 113.636 kg, Start date: 10/28/15 11:53:00, Duration: 1 doses or times, Stop date: 10/28/15 11:53:00 Inactive 10/28/2015 [facility] Metoclopramide Notes: (Same as : Reglan) Inactive 10/28/2015 [facility] Famotidine Notes: (Same as: Pe pcid) Can be dilute in 5- 10cc NS IVP: Slow IV push over at least 2 minutes. Inactive 10/28/2015 [facility] Amiodarone Notes: (Same as: Co rdarone) Inactive 10/28/2015 [facility] aspirin 325 mg tablet Notes: T johanny with food. No Longer Active 02/03/2015 [facility] pioglitazone Notes: (Same as: Actos) No Longer Active 02/03/2015 [facility] Lisinopril Notes: (Same as: Pr inivil, Zestril) No Longer Active 02/03/2015 [facility] Glyburide Notes: (Same as: Devan ronase, Diabeta) Take with meals. No Longer Active 02/03/2015 [facility] Simvastatin Notes: (Same as: Z ocor) Inactive 02/03/2015 [facility] Metoprolol Tartrate 50 mg oral tablet 50 mg = 1 tab, PO, BID, # 60 tab, 0 Refill(s) Active 02/02/2015 [facility] Aspirin 81 MG Enteric Coated Tablet 81 mg = 1 tab, PO, Daily, # 30 tab, 0 Refill(s) Active 02/02/2015 [facility] metoprolol extended release No bhumika: (Same as: Toprol XL) May split tab, but do not crush. Inactive 02/02/2015 [facility] Digoxin Notes: (Same as: Lanox in) Inactive 02/02/2015 [facility] Betapace Notes: (Same As: Beta pace) Inactive 02/02/2015 [facility] Influenza Virus Vaccine, Inactivated A-B [id number] (H3N2)-like virus (B-Sqpyive-084-2007 [facility] X-175C) strain / Influenza Virus Vaccine, Inactivated D-Fygwetlu-11-2006, IVR-148 (H1N1) strain / Influenza Virus Vaccine, Inactivated, T-Trthtvt-9-lik Notes: (Same as: Fluzone Quadrivalent) Inactive 02/02/2015 [facility] digoxin Notes: (Same as: Lanox in) Inactive 02/02/2015 [facility] Digoxin Notes: (Same as: Lanox in) Inactive 02/02/2015 [facility] Ondansetron Notes: (Same as: Gwen langford) No Longer Active 02/02/2015 [facility] Acetaminophen Notes: Do not ex ceed 4 gm/day. (Same as: Tylenol) No Longer Active 02/02/2015 [facility] Morphine Notes: (Same as:MORPh ine Sulfate) No Longer Active 02/02/2015 [facility] lisinopril 20 mg oral tablet 2 0 mg = 1 tab, PO, Daily, # 30 tab, 0 Refill(s) Active 02/02/2015 [facility] diltiazem 125 mg + Sodium Chloride 0.9% (titrate) 100 mL Notes: (Same as: Cardizem) No Longer Active 02/02/2015 [facility] Digoxin Notes: Take on an Empt y Stomach (Same as: Lanoxin) Inactive 02/02/2015 [facility] Lovenox Notes: (Same as: Loven ox) Inactive 02/02/2015 [facility] Digoxin Notes: (Same as: Lanox in) Inactive 02/02/2015 [facility] metoprolol tartrate Notes: (Sa me as: Lopressor) Inactive 02/02/2015 [facility] Cardizem 20 mg, Route: IVP, ON CE, Dosing Weight 124.545, kg, Priority: STAT, Start date: 02/01/15 18:07:00, Stop date: 02/01/15 18:07:00 Inactive 02/01/2015 [facility] aspirin 325 mg tablet 325 mg, Route: PO, Drug form: TAB, ONCE, Dosing Weight 124.545, kg, Priority: STAT, Start date: 02/01/15 18:07:00, Stop date: 02/01/15 18:07:00 Inactive 02/01/2015 [facility] Sodium Chloride 0.154 MEQ/ML Injectable Solution 1,000 mL, Infuse Over: 1 hr, Route: IV, ONCE, Priority: STAT, Dosing Weight 124.545 kg, Start date: 02/01/15 18:07:00, Duration: 1 doses or times, Stop date: 02/01/15 18:07:00 Inactive 02/01/2015 [facility] Saline Flush 0.9% Notes: (Same as: BD Posiflush) No Longer Active 02/01/2015 [facility] Ondansetron 4 mg, Route: IVP, ONCE, Dosing Weight 124.545, kg, Priority: STAT, Start date: 02/01/15 18:07:00, Stop date: 02/01/15 18:07:00 Inactive 02/01/2015 [facility] pioglitazone 45 mg oral tablet 45 mg = 1 tab, PO, Daily, # 30 tab, 0 Refill(s) Active 11/07/2014 [facility] ciprofloxacin 500 mg oral tablet 500 mg, PO, BID, 0 Refill(s) No Longer Active 11/07/2014 [facility] Metformin 500 mg, PO, BID, 0 R efill(s) No Longer Active 11/07/2014 [facility] simvastatin 40 mg oral tablet 40 mg = 1 tab, PO, Bedtime, # 30 tab, 0 Refill(s) Active 11/07/2014 [facility] glyBURIDE 5 mg oral tablet 10 mg = 2 tab, PO, BID, 0 Refill(s) Active 11/07/2014 [facility] lisinopril 20 mg oral tablet 2 0 mg = 1 tab, PO, Daily, # 30 tab, 0 Refill(s) No Longer Active 11/07/2014 [facility] Saline Flush 0.9% Notes: (Same as: BD Posiflush) No Longer Active 11/06/2014 [facility] Sodium Chloride 0.0769 MEQ/ML Injectable Solution 1,000 mL, Rate: 150 ml/hr, Infuse over: 6.7 hr, Route: IV, Dosing Weight 114.091 kg, Total Volume: 1,000, Start date: 11/06/14 15:33:00, Duration: 30 day, Stop date: 12/06/14 15:32:00 No Longer Active 11/06/2014 [facility] Ondansetron Notes: (Same as: Gwen langford) No Longer Active 11/06/2014 [facility] Sodium Chloride 0.154 MEQ/ML Injectable Solution 1,000 mL, 1,000 ml/hr, Infuse Over: 1 hr, Route: IV, ONCE, Priority: STAT, Dosing Weight 114.091 kg, Start date: 11/06/14 13:31:00, Duration: 1 doses or times, Stop date: 11/06/14 13:31:00 Inactive 11/06/2014 [facility] Ketoconazole not defined NA [facility] Cephalexin not defined NA [facility] Digoxin not defined NA [facility] Atorvastatin not defined NA [facility] Aspirin not defined NA [facility] Eliquis not defined NA [facility] Ciprofloxacin not defined NA [facility] Clickfine Pen Sweet not defi ángela NA [facility] Pioglitazone HCl not defined NA [facility] Levemir Flexpen not defined NA [facility] GlipiZIDE not defined NA [facility] Trazadone not defined NA [facility] Lisinopril not defined NA [facility] Allergies, Adverse Reactions, Alerts Substance Category Reaction Severity Reaction type Status Date Reported Comments Source No Known Medication Allergies Assertion Drug aller gy [facility] NKFA Assertion Food allergy Active [facility] Immunizations Immunization Date Given Site Status Last Updated Comments Source diphtheria/pertussis, acel/tetanus adult<sup>1</sup> 10/17/2018 Left Deltoid completed Michele Result Comment: Patient waited 15 minutes, no allergic reaction noted. [facility] pneumococcal 13-valent vaccine 04/29/2018 Right Deltoid completed Michele [facility] pneumococcal 23-valent vaccine<sup>2</sup> 02/27/2011 completed GE Result Comment: pneumovax. Migrated from OBS ; Data migrated from [employer] on 12/24/2015. [facility] pneumococcal 23-valent vaccine<sup>1</sup> 02/27/2011 completed GE Result Comment: pneumovax. Migrated from OBS ; Data migrated from [employer] on 12/24/2015. [facility] tetanus-diphtheria toxoids<sup>3</sup> 04/05/2009 completed G E Result Comment: historical. Migrated fro m OBS ; Data migrated from [employer] on 12/24/2015. [facility] tetanus-diphtheria toxoids<sup>2</sup> 04/05/2009 completed G E Result Comment: historical. Migrated fro m OBS ; Data migrated from [employer] on 12/24/2015. [facility] Results Order Name Results Value Reference Range Date Interpretation Comments Source ELECTROLYTES AGAP 6.4 10.0 - 20.0 02/28/2019 [facility] ELECTROLYTES eGFR 39 02/28/2019 Result Comment: The eGFR is calculated using the CKD-EPI formula. In most young, healthy individuals the eGFR will be >90 mL/min/1.73m2. The eGFR declines with age. An eGFR of 60-89 may be normal in some populations, particularly the elderly, for whom the CKD-EPI formula has not been extensively validated. Use of the eGFR is not recommended in the following populations:

Individuals with unstable creatinine concentrations, including patients and those with serious co-morbid conditions.

Patients with extremes in muscle mass or diet.

The data above are obtained from the National Kidney Disease Education Program (NKDEP) which additionally recommends that when the eGFR is used in patients with extremes of body mass index for purposes of drug dosing, the eGFR should be multiplied by the estimated BMI. [facility] ELECTROLYTES Glucose Lvl 184 70 - 99 02/28/2019 [facility] ELECTROLYTES BUN 25 7 - 22 02/28/2019 [facility] ELECTROLYTES Creatinine Lvl 1.7 8 0.50 - 1.40 02/28/2019 [facility] ELECTROLYTES Sodium Lvl 138 135 - 145 02/28/2019 [facility] ELECTROLYTES CO2 27 24 - 32 02/28/2019 [facility] ELECTROLYTES Chloride Lvl 109 95 - 109 02/28/2019 [facility] ELECTROLYTES Potassium Lvl 4.4 3.5 - 5.1 02/28/2019 [facility] ELECTROLYTES Calcium Lvl 9.0 8.5 - 10.5 02/28/2019 [facility] HEMATOLOGY Lymphocytes # 2.2 1.0 - 5.5 02/28/2019 [facility] HEMATOLOGY Basophils # 0.1 0.0 - 0.2 02/28/2019 [facility] HEMATOLOGY Monocytes # 0.4 0.0 - 0.8 02/28/2019 [facility] HEMATOLOGY Eosinophils # 0.2 0.0 - 0.5 02/28/2019 [facility] HEMATOLOGY Lymphocytes 31.0 20.0 - 40.0 02/28/2019 [facility] HEMATOLOGY Eosinophils 2.9 0.0 - 4.0 02/28/2019 [facility] HEMATOLOGY Basophils 0.8 0.0 - 1.0 02/28/2019 [facility] HEMATOLOGY Monocytes 6.1 2.0 - 12.0 02/28/2019 [facility] HEMATOLOGY Segs 59.2 45.0 - 75.0 02/28/2019 [facility] HEMATOLOGY Neutrophils # 4.2 1.5 - 8.1 02/28/2019 [facility] HEMATOLOGY PTT 55.3 22.9 - 35.8 02/28/2019 [facility] HEMATOLOGY RDW 14.0 11.5 - 14.5 02/28/2019 [facility] HEMATOLOGY MCHC 33.7 32.0 - 36.0 02/28/2019 [facility] HEMATOLOGY MPV 8.1 7.4 - 10.4 02/28/2019 [facility] HEMATOLOGY Platelet 192 133 - 450 02/28/2019 [facility] HEMATOLOGY WBC 7.1 3.7 - 10.4 02/28/2019 [facility] HEMATOLOGY RBC 4.65 4.70 - 6.10 02/28/2019 [facility] HEMATOLOGY MCV 85.6 80.0 - 94.0 02/28/2019 [facility] HEMATOLOGY Hct 39.8 42.0 - 54.0 02/28/2019 [facility] HEMATOLOGY Hgb 13.4 14.0 - 18.0 02/28/2019 [facility] HEMATOLOGY MCH 28.8 27.0 - 31.0 02/28/2019 [facility] HEMATOLOGY PTT 81.7 22.9 - 35.8 02/28/2019 [facility] HEMATOLOGY PT 13.5 12.0 - 14.7 02/28/2019 [facility] HEMATOLOGY INR 1.05 0.85 - 1.17 02/28/2019 [facility] HEMATOLOGY INR 0.98 0.85 - 1.17 02/27/2019 [facility] HEMATOLOGY PT 12.8 12.0 - 14.7 02/27/2019 [facility] HEMATOLOGY PTT 59.4 22.9 - 35.8 02/27/2019 [facility] CHEM PANEL BUN 21 7 - 22 02/27/2019 [facility] CHEM PANEL Creatinine Lvl 1.77 0.50 - 1.40 02/27/2019 [facility] CHEM PANEL Sodium Lvl 139 135 - 145 02/27/2019 [facility] CHEM PANEL Glucose Lvl 189 70 - 99 02/27/2019 [facility] CHEM PANEL Potassium Lvl 4.1 3.5 - 5.1 02/27/2019 [facility] CHEM PANEL Chloride Lvl 109 95 - 109 02/27/2019 [facility] CHEM PANEL CO2 26 24 - 32 02/27/2019 [facility] CHEM PANEL Calcium Lvl 9.0 8.5 - 10.5 02/27/2019 [facility] CHEM PANEL eGFR 39 02/27/2019 Result Comment: The eGFR is calculated using the CKD-EPI formula. In most young, healthy individuals the eGFR will be >90 mL/min/1.73m2. The eGFR declines with age. An eGFR of 60-89 may be normal in some populations, particularly the elderly, for whom the CKD-EPI formula has not been extensively validated. Use of the eGFR is not recommended in the following populations:

Individuals with unstable creatinine concentrations, including patients and those with serious co-morbid conditions.

Patients with extremes in muscle mass or diet.

The data above are obtained from the National Kidney Disease Education Program (NKDEP) which additionally recommends that when the eGFR is used in patients with extremes of body mass index for purposes of drug dosing, the eGFR should be multiplied by the estimated BMI. [facility] CHEM PANEL AGAP 8.1 10.0 - 20.0 02/27/2019 [facility] HEMATOLOGY Eosinophils # 0.2 0.0 - 0.5 02/27/2019 [facility] HEMATOLOGY Monocytes # 0.5 0.0 - 0.8 02/27/2019 [facility] HEMATOLOGY Segs 58.7 45.0 - 75.0 02/27/2019 [facility] HEMATOLOGY Lymphocytes 31.0 20.0 - 40.0 02/27/2019 [facility] HEMATOLOGY Monocytes 6.7 2.0 - 12.0 02/27/2019 [facility] HEMATOLOGY Eosinophils 3.0 0.0 - 4.0 02/27/2019 [facility] HEMATOLOGY Neutrophils # 4.4 1.5 - 8.1 02/27/2019 [facility] HEMATOLOGY Basophils 0.6 0.0 - 1.0 02/27/2019 [facility] Lymphocytes # 2.3 1.0 - 5.5 02/27/2019 [facility] Hct 40.8 42.0 - 54.0 02/27/2019 [facility] MCV 84.5 80.0 - 94.0 02/27/2019 [facility] MCH 28.6 27.0 - 31.0 02/27/2019 [facility] RDW 13.7 11.5 - 14.5 02/27/2019 [facility] MPV 8.1 7.4 - 10.4 02/27/2019 [facility] MCHC 33.9 32.0 - 36.0 02/27/2019 [facility] RBC 4.82 4.70 - 6.10 02/27/2019 [facility] Hgb 13.8 14.0 - 18.0 02/27/2019 [facility] Platelet 191 133 - 450 02/27/2019 [facility] WBC 7.5 3.7 - 10.4 02/27/2019 [facility] INR 1.01 0.85 - 1.17 02/27/2019 [facility] PT 13.1 12.0 - 14.7 02/27/2019 [facility] CARDIAC ENZYMES BNP 61 <=100 pg/mL 02/25/2019 [facility] ELECTROLYTES AGAP 9.0 10.0 - 20.0 02/25/2019 [facility] ELECTROLYTES eGFR 55 02/25/2019 Result Comment: The eGFR is calculated using the CKD-EPI formula. In most young, healthy individuals the eGFR will be >90 mL/min/1.73m2. The eGFR declines with age. An eGFR of 60-89 may be normal in some populations, particularly the elderly, for whom the CKD-EPI formula has not been extensively validated. Use of the eGFR is not recommended in the following populations:

Individuals with unstable creatinine concentrations, including patients and those with serious co-morbid conditions.

Patients with extremes in muscle mass or diet.

The data above are obtained from the National Kidney Disease Education Program (NKDEP) which additionally recommends that when the eGFR is used in patients with extremes of body mass index for purposes of drug dosing, the eGFR should be multiplied by the estimated BMI. [facility] ELECTROLYTES Potassium Lvl 4.0 3.5 - 5.1 02/25/2019 [facility] ELECTROLYTES Calcium Lvl 8.7 8.5 - 10.5 02/25/2019 [facility] ELECTROLYTES CO2 24 24 - 32 02/25/2019 [facility] ELECTROLYTES Sodium Lvl 136 135 - 145 02/25/2019 [facility] ELECTROLYTES Chloride Lvl 107 95 - 109 02/25/2019 [facility] ELECTROLYTES Creatinine Lvl 1.3 5 0.50 - 1.40 02/25/2019 [facility] ELECTROLYTES BUN 23 7 - 22 02/25/2019 [facility] ELECTROLYTES Glucose Lvl 166 70 - 99 02/25/2019 [facility] HEMATOLOGY Monocytes # 0.6 0.0 - 0.8 02/25/2019 [facility] HEMATOLOGY Lymphocytes # 1.9 1.0 - 5.5 02/25/2019 [facility] HEMATOLOGY Eosinophils # 0.2 0.0 - 0.5 02/25/2019 [facility] HEMATOLOGY Neutrophils # 4.4 1.5 - 8.1 02/25/2019 [facility] HEMATOLOGY Basophils 0.5 0.0 - 1.0 02/25/2019 [facility] HEMATOLOGY Lymphocytes 26.6 20.0 - 40.0 02/25/2019 [facility] HEMATOLOGY Segs 61.6 45.0 - 75.0 02/25/2019 [facility] HEMATOLOGY Eosinophils 3.0 0.0 - 4.0 02/25/2019 [facility] HEMATOLOGY Monocytes 8.3 2.0 - 12.0 02/25/2019 [facility] HEMATOLOGY RDW 13.9 11.5 - 14.5 02/25/2019 [facility] MCH 29.0 27.0 - 31.0 02/25/2019 [facility] MCHC 34.2 32.0 - 36.0 02/25/2019 [facility] HEMATOLOGY Hct 40.4 42.0 - 54.0 02/25/2019 [facility] HEMATOLOGY MCV 84.6 80.0 - 94.0 02/25/2019 [facility] HEMATOLOGY Hgb 13.8 14.0 - 18.0 02/25/2019 [facility] HEMATOLOGY WBC 7.1 3.7 - 10.4 02/25/2019 [facility] HEMATOLOGY RBC 4.78 4.70 - 6.10 02/25/2019 [facility] HEMATOLOGY MPV 8.3 7.4 - 10.4 02/25/2019 [facility] HEMATOLOGY Platelet 203 133 - 450 02/25/2019 [facility] SPECIAL CHEMISTRY Hgb A1C 7.9 <=5.6 % 02/25/2019 [facility] CARDIAC ENZYMES Troponin-I <0.02 0.00 - 0.40 02/24/2019 [facility] LEVOFLOXACIN:SUSC:PT:ISOLATE:ORDQN:DEVAN Gram Stain Report No Wbc'S Or Organisms Seen 10/21/2018 [facility] LEVOFLOXACIN:SUSC:PT:ISOLATE:ORDQN:DEVAN Culture: Wound/Abscess w/Gram Stain Growth In Subculture Broth Only : Staphylococcus Species, Not S. aureus 10/21/2018 [facility] LEVOFLOXACIN:SUSC:PT:ISOLATE:ORDQN:DEVAN Staphylococcus Species, Not S. aureus Staphylococcus Species, Not S. aureus 10/21/2018 [facility] Culture: Anaerobic No Anaerobes Is olated 10/21/2018 [facility] CHEM PANEL eGFR 39 10/20/2018 Result Comment: The eGFR is calculated using the CKD-EPI formula. In most young, healthy individuals the eGFR will be >90 mL/min/1.73m2. The eGFR declines with age. An eGFR of 60-89 may be normal in some populations, particularly the elderly, for whom the CKD-EPI formula has not been extensively validated. Use of the eGFR is not recommended in the following populations:

Individuals with unstable creatinine concentrations, including patients and those with serious co-morbid conditions.

Patients with extremes in muscle mass or diet.

The data above are obtained from the National Kidney Disease Education Program (NKDEP) which additionally recommends that when the eGFR is used in patients with extremes of body mass index for purposes of drug dosing, the eGFR should be multiplied by the estimated BMI. [facility] CHEM PANEL Chloride Lvl 103 95 - 109 10/20/2018 [facility] CHEM PANEL Potassium Lvl 4.8 3.5 - 5.1 10/20/2018 [facility] CHEM PANEL CO2 21 24 - 32 10/20/2018 [facility] CHEM PANEL AGAP 16.8 10.0 - 20.0 10/20/2018 [facility] CHEM PANEL Calcium Lvl 9.0 8.5 - 10.5 10/20/2018 [facility] CHEM PANEL Sodium Lvl 136 135 - 145 10/20/2018 [facility] CHEM PANEL BUN 27 7 - 22 10/20/2018 [facility] CHEM PANEL Creatinine Lvl 1.80 0.50 - 1.40 10/20/2018 [facility] CHEM PANEL Glucose Lvl 420 70 - 99 10/20/2018 Result Comment: Critical Result(s) guerra diomedes Parson at 10/20/2018 11:38 by DMF. Read back OK. [facility] HEMATOLOGY Eosinophils # 0.1 0.0 - 0.5 10/20/2018 [facility] HEMATOLOGY Lymphocytes # 1.2 1.0 - 5.5 10/20/2018 [facility] HEMATOLOGY Monocytes # 0.5 0.0 - 0.8 10/20/2018 [facility] HEMATOLOGY Neutrophils # 6.2 1.5 - 8.1 10/20/2018 [facility] HEMATOLOGY Segs 76.5 45.0 - 75.0 10/20/2018 [facility] HEMATOLOGY Basophils 0.5 0.0 - 1.0 10/20/2018 [facility] HEMATOLOGY Lymphocytes 14.9 20.0 - 40.0 10/20/2018 [facility] HEMATOLOGY Monocytes 6.4 2.0 - 12.0 10/20/2018 [facility] HEMATOLOGY Eosinophils 1.7 0.0 - 4.0 10/20/2018 [facility] HEMATOLOGY Platelet 200 133 - 450 10/20/2018 [facility] HEMATOLOGY MCHC 33.8 32.0 - 36.0 10/20/2018 [facility] HEMATOLOGY RDW 13.0 11.5 - 14.5 10/20/2018 [facility] HEMATOLOGY MPV 9.6 7.4 - 10.4 10/20/2018 [facility] HEMATOLOGY MCV 86.8 80.0 - 94.0 10/20/2018 [facility] MCH 29.3 27.0 - 31.0 10/20/2018 [facility] HEMATOLOGY Hct 44.3 42.0 - 54.0 10/20/2018 [facility] HEMATOLOGY Hgb 15.0 14.0 - 18.0 10/20/2018 [facility] HEMATOLOGY RBC 5.10 4.70 - 6.10 10/20/2018 [facility] HEMATOLOGY WBC 8.1 3.7 - 10.4 10/20/2018 [facility] SPECIAL CHEMISTRY Hgb A1C 10.7 <=5.6 % 10/20/2018 [facility] CHEM PANEL Lactic Acid Lvl 1.5 0.5 - 2.2 07/13/2016 [facility] TOXICOLOGY Digoxin Lvl 0.4 0.8 - 2.0 07/13/2016 [facility] CHEM PANEL Phosphorus 3.3 2.5 - 4.5 07/13/2016 [facility] CHEM PANEL Magnesium Lvl 2.0 1.8 - 2.4 07/13/2016 [facility] CHEM PANEL Ketone Quantitative 0.10 <=0.27 mmol/L 07/13/2016 [facility] CHEM PANEL eGFR 41 07/13/2016 Result Comment: The eGFR is calculated using the CKD-EPI formula. In most young, healthy individuals the eGFR will be >90 mL/min/1.73m2. The eGFR declines with age. An eGFR of 60-89 may be normal in some populations, particularly the elderly, for whom the CKD-EPI formula has not been extensively validated. Use of the eGFR is not recommended in the following populations:

Individuals with unstable creatinine concentrations, including patients and those with serious co-morbid conditions.

Patients with extremes in muscle mass or diet.

The data above are obtained from the National Kidney Disease Education Program (NKDEP) which additionally recommends that when the eGFR is used in patients with extremes of body mass index for purposes of drug dosing, the eGFR should be multiplied by the estimated BMI. [facility] CHEM PANEL Bili Total 0.5 0.2 - 1.3 07/13/2016 [facility] CHEM PANEL AST 11 0 - 37 07/13/2016 [facility] CHEM PANEL Alk Phos 138 39 - 136 07/13/2016 [facility] CHEM PANEL ALT 23 0 - 65 07/13/2016 [facility] CHEM PANEL Calcium Lvl 8.7 8.5 - 10.5 07/13/2016 [facility] CHEM PANEL Total Protein 7.4 6.4 - 8.4 07/13/2016 [facility] CHEM PANEL Albumin Lvl 3.7 3.5 - 5.0 07/13/2016 [facility] CHEM PANEL Chloride Lvl 103 95 - 109 07/13/2016 [facility] CHEM PANEL CO2 26 24 - 32 07/13/2016 [facility] CHEM PANEL Creatinine Lvl 1.72 0.50 - 1.40 07/13/2016 [facility] CHEM PANEL BUN 25 7 - 22 07/13/2016 [facility] CHEM PANEL Glucose Lvl 288 70 - 99 07/13/2016 [facility] CHEM PANEL Potassium Lvl 4.7 3.5 - 5.1 07/13/2016 [facility] CHEM PANEL Sodium Lvl 135 135 - 145 07/13/2016 [facility] CHEM PANEL A/G Ratio 1.0 0.7 - 1.6 07/13/2016 [facility] CHEM PANEL Globulin 3.7 2.7 - 4.2 07/13/2016 [facility] CHEM PANEL B/C Ratio 15 6 - 25 07/13/2016 [facility] CHEM PANEL AGAP 10.7 10.0 - 20.0 07/13/2016 [facility] CHEM PANEL Lactic Acid Lvl 1.3 0.5 - 2.2 07/13/2016 [facility] HEMATOLOGY Monocytes # 0.5 0.0 - 0.8 07/13/2016 [facility] HEMATOLOGY Segs-Bands # 5.2 1.5 - 8.1 07/13/2016 [facility] HEMATOLOGY Lymphocytes # 1.4 1.0 - 5.5 07/13/2016 [facility] HEMATOLOGY Eosinophils # 0.1 0.0 - 0.5 07/13/2016 [facility] HEMATOLOGY Basophils 0.5 0.0 - 1.0 07/13/2016 [facility] HEMATOLOGY Eosinophils 1.0 0.0 - 4.0 07/13/2016 [facility] HEMATOLOGY Monocytes 6.8 2.0 - 12.0 07/13/2016 [facility] HEMATOLOGY Lymphocytes 19.2 20.0 - 40.0 07/13/2016 [facility] HEMATOLOGY Segs 72.5 45.0 - 75.0 07/13/2016 [facility] HEMATOLOGY MPV 8.6 7.4 - 10.4 07/13/2016 [facility] HEMATOLOGY WBC 7.2 3.7 - 10.4 07/13/2016 [facility] HEMATOLOGY MCH 29.3 27.0 - 31.0 07/13/2016 [facility] HEMATOLOGY Platelet 217 133 - 450 07/13/2016 [facility] HEMATOLOGY RBC 4.84 4.70 - 6.10 07/13/2016 [facility] HEMATOLOGY Hgb 14.2 14.0 - 18.0 07/13/2016 [facility] HEMATOLOGY RDW 12.9 11.5 - 14.5 07/13/2016 [facility] HEMATOLOGY MCHC 34.0 32.0 - 36.0 07/13/2016 [facility] HEMATOLOGY MCV 86.0 80.0 - 94.0 07/13/2016 [facility] HEMATOLOGY Hct 41.7 42.0 - 54.0 07/13/2016 [facility] CHEM PANEL A/G Ratio 0.8 0.7 - 1.6 11/04/2015 [facility] CHEM PANEL AGAP 11.7 10.0 - 20.0 11/04/2015 [facility] CHEM PANEL B/C Ratio 5 6 - 25 11/04/2015 [facility] CHEM PANEL Globulin 2.5 2.0 - 4.0 11/04/2015 [facility] CHEM PANEL eGFR 41 11/04/2015 Result Comment: The eGFR is calculated using the CKD-EPI formula. In most young, healthy individuals the eGFR will be >90 mL/min/1.73m2. The eGFR declines with age. An eGFR of 60-89 may be normal in some populations, particularly the elderly, for whom the CKD-EPI formula has not been extensively validated. Use of the eGFR is not recommended in the following populations:

Individuals with unstable creatinine concentrations, including patients and those with serious co-morbid conditions.

Patients with extremes in muscle mass or diet.

The data above are obtained from the National Kidney Disease Education Program (NKDEP) which additionally recommends that when the eGFR is used in patients with extremes of body mass index for purposes of drug dosing, the eGFR should be multiplied by the estimated BMI. [facility] CHEM PANEL Potassium Lvl 3.7 3.5 - 5.1 11/04/2015 [facility] CHEM PANEL Sodium Lvl 139 135 - 145 11/04/2015 [facility] CHEM PANEL Chloride Lvl 109 95 - 109 11/04/2015 [facility] CHEM PANEL Alk Phos 81 39 - 136 11/04/2015 [facility] CHEM PANEL Bili Total 0.5 0.2 - 1.3 11/04/2015 [facility] CHEM PANEL AST 7 0 - 37 11/04/2015 [facility] CHEM PANEL CO2 22 24 - 32 11/04/2015 [facility] CHEM PANEL Calcium Lvl 7.5 8.5 - 10.5 11/04/2015 [facility] CHEM PANEL BUN 9 7 - 22 11/04/2015 [facility] CHEM PANEL Creatinine Lvl 1.74 0.50 - 1.40 11/04/2015 [facility] CHEM PANEL Glucose Lvl 114 70 - 99 11/04/2015 [facility] CHEM PANEL Total Protein 4.6 6.4 - 8.4 11/04/2015 [facility] CHEM PANEL ALT 16 0 - 65 11/04/2015 [facility] CHEM PANEL Albumin Lvl 2.1 3.5 - 5.0 11/04/2015 [facility] CHEM PANEL Phosphorus 2.4 2.5 - 4.5 11/04/2015 [facility] CHEM PANEL Magnesium Lvl 1.5 1.8 - 2.4 11/04/2015 [facility] HEMATOLOGY Basophils 0.3 0.0 - 1.0 11/04/2015 [facility] HEMATOLOGY Eosinophils 1.0 0.0 - 4.0 11/04/2015 [facility] HEMATOLOGY Monocytes 11.2 2.0 - 12.0 11/04/2015 [facility] HEMATOLOGY Lymphocytes 13.0 20.0 - 40.0 11/04/2015 [facility] HEMATOLOGY Segs-Bands # 7.9 1.5 - 8.1 11/04/2015 [facility] HEMATOLOGY RBC Morph Lashawn l (11/04/15 4:08 AM) 11/04/2015 [facility] HEMATOLOGY Segs 74.5 45.0 - 75.0 11/04/2015 [facility] HEMATOLOGY Plt Morph Lashawn l (11/04/15 4:08 AM) 11/04/2015 [facility] HEMATOLOGY Eosinophils # 0.1 0.0 - 0.5 11/04/2015 [facility] HEMATOLOGY Monocytes # 1.2 0.0 - 0.8 11/04/2015 [facility] HEMATOLOGY Lymphocytes # 1.4 1.0 - 5.5 11/04/2015 [facility] HEMATOLOGY MPV 7.9 7.4 - 10.4 11/04/2015 [facility] HEMATOLOGY MCHC 33.6 32.0 - 36.0 11/04/2015 [facility] HEMATOLOGY Platelet 262 133 - 450 11/04/2015 [facility] HEMATOLOGY RDW 13.2 11.5 - 14.5 11/04/2015 [facility] HEMATOLOGY MCV 87.2 80.0 - 94.0 11/04/2015 [facility] HEMATOLOGY Hct 36.7 42.0 - 54.0 11/04/2015 [facility] HEMATOLOGY Hgb 12.3 14.0 - 18.0 11/04/2015 [facility] MCH 29.2 27.0 - 31.0 11/04/2015 [facility] HEMATOLOGY RBC 4.21 4.70 - 6.10 11/04/2015 [facility] HEMATOLOGY WBC 10.6 3.7 - 10.4 11/04/2015 [facility] URINE AND STOOL UA Mucus Few /LPF None Seen /LPF 11/03/2015 [facility] URINE AND STOOL UA Uric Ac Qian Many /HPF None Seen /HPF 11/03/2015 [facility] URINE AND STOOL UA Urobilinogen <=1.0 mg/dL 0.1 - 1.0 11/03/[address] [facility] [address] URINE AND STOOL UA Sq Epi None Seen 11/03/2015 [facility] URINE AND STOOL UA Turbidity Marked *ABN* (11/03/15 4:49 PM) Clear 11/03/2015 [facility] URINE AND STOOL UA Color Yellow *NA* (11/03/15 4:49 PM) Yellow 11/03/2015 [facility] URINE AND STOOL UA Protein 30 mg/dL Negative mg/dL 11/03/2015 [facility] URINE AND STOOL UA pH 5.0 5.0 - 8.0 11/03/2015 [facility] URINE AND STOOL UA Ketones Trace mg/dL Negative mg/dL 11/03/[address] [facility] [address] URINE AND STOOL UA Glucose 50 mg/dL Negative mg/dL 11/03/2015 [facility] URINE AND STOOL UA Spec Grav 1.014 <=1.030 11/03/2015 [facility] URINE AND STOOL UA Blood Large *ABN* (11/03/15 4:49 PM) Negative 11/03/2015 [facility] URINE AND STOOL UA Nitrite Negative (11/03/15 4:49 PM) Negative 11/03/2015 [facility] URINE AND STOOL UA Leuk Est Negative (11/03/15 4:49 PM) Negative 11/03/2015 [facility] URINE AND STOOL UA Bili Negative *NA* (11/03/15 4:49 PM) Negative 11/03/2015 [facility] URINE AND STOOL UA WBC 4 0 - 5 11/03/2015 [facility] URINE AND STOOL UA RBC 114 0 - 2 11/03/2015 [facility] URINE AND STOOL UA Bacteria Occasional /HPF None Seen /HPF 11/03/2015 [facility] URINE AND STOOL UA Gran Cast 3 11/03/2015 [facility] CHEM PANEL Calcium Lvl 7.8 8.5 - 10.5 11/03/2015 [facility] CHEM PANEL Glucose Lvl 88 70 - 99 11/03/2015 [facility] CHEM PANEL CO2 19 24 - 32 11/03/2015 [facility] CHEM PANEL Chloride Lvl 108 95 - 109 11/03/2015 [facility] CHEM PANEL Potassium Lvl 3.3 3.5 - 5.1 11/03/2015 [facility] CHEM PANEL Sodium Lvl 137 135 - 145 11/03/2015 [facility] CHEM PANEL BUN 11 7 - 22 11/03/2015 [facility] CHEM PANEL eGFR 48 11/03/2015 Result Comment: The eGFR is calculated using the CKD-EPI formula. In most young, healthy individuals the eGFR will be >90 mL/min/1.73m2. The eGFR declines with age. An eGFR of 60-89 may be normal in some populations, particularly the elderly, for whom the CKD-EPI formula has not been extensively validated. Use of the eGFR is not recommended in the following populations:

Individuals with unstable creatinine concentrations, including patients and those with serious co-morbid conditions.

Patients with extremes in muscle mass or diet.

The data above are obtained from the National Kidney Disease Education Program (NKDEP) which additionally recommends that when the eGFR is used in patients with extremes of body mass index for purposes of drug dosing, the eGFR should be multiplied by the estimated BMI. [facility] CHEM PANEL Creatinine Lvl 1.54 0.50 - 1.40 11/03/2015 [facility] CHEM PANEL AGAP 13.3 10.0 - 20.0 11/03/2015 [facility] HEMATOLOGY Hgb 13.4 14.0 - 18.0 11/03/2015 [facility] RBC 4.58 4.70 - 6.10 11/03/2015 [facility] WBC 10.3 3.7 - 10.4 11/03/2015 [facility] MCV 87.6 80.0 - 94.0 11/03/2015 [facility] MCH 29.3 27.0 - 31.0 11/03/2015 [facility] Hct 40.1 42.0 - 54.0 11/03/2015 [facility] MCHC 33.4 32.0 - 36.0 11/03/2015 [facility] RDW 13.3 11.5 - 14.5 11/03/2015 [facility] Platelet 263 133 - 450 11/03/2015 [facility] MPV 8.3 7.4 - 10.4 11/03/2015 [facility] Lymphocytes # 0.9 1.0 - 5.5 11/03/2015 [facility] Monocytes # 0.8 0.0 - 0.8 11/03/2015 [facility] Lymphocytes 9.1 20.0 - 40.0 11/03/2015 [facility] Segs 82.6 45.0 - 75.0 11/03/2015 [facility] HEMATOLOGY Monocytes 7.5 2.0 - 12.0 11/03/2015 [facility] HEMATOLOGY Segs-Bands # 8.5 1.5 - 8.1 11/03/2015 [facility] HEMATOLOGY Basophils 0.4 0.0 - 1.0 11/03/2015 [facility] HEMATOLOGY Eosinophils 0.4 0.0 - 4.0 11/03/2015 [facility] CHEM PANEL Albumin Lvl 2.0 3.5 - 5.0 11/02/2015 [facility] CHEM PANEL ALT 18 0 - 65 11/02/2015 [facility] CHEM PANEL Bili Total 0.4 0.2 - 1.3 11/02/2015 [facility] CHEM PANEL AST 10 0 - 37 11/02/2015 [facility] CHEM PANEL Alk Phos 91 39 - 136 11/02/2015 [facility] CHEM PANEL eGFR 42 11/02/2015 Result Comment: The eGFR is calculated using the CKD-EPI formula. In most young, healthy individuals the eGFR will be >90 mL/min/1.73m2. The eGFR declines with age. An eGFR of 60-89 may be normal in some populations, particularly the elderly, for whom the CKD-EPI formula has not been extensively validated. Use of the eGFR is not recommended in the following populations:

Individuals with unstable creatinine concentrations, including patients and those with serious co-morbid conditions.

Patients with extremes in muscle mass or diet.

The data above are obtained from the National Kidney Disease Education Program (NKDEP) which additionally recommends that when the eGFR is used in patients with extremes of body mass index for purposes of drug dosing, the eGFR should be multiplied by the estimated BMI. [facility] CHEM PANEL CO2 20 24 - 32 11/02/2015 [facility] CHEM PANEL Calcium Lvl 7.8 8.5 - 10.5 11/02/2015 [facility] CHEM PANEL Total Protein 5.2 6.4 - 8.4 11/02/2015 [facility] CHEM PANEL Potassium Lvl 3.1 3.5 - 5.1 11/02/2015 [facility] CHEM PANEL Chloride Lvl 109 95 - 109 11/02/2015 [facility] CHEM PANEL Creatinine Lvl 1.70 0.50 - 1.40 11/02/2015 [facility] CHEM PANEL Sodium Lvl 135 135 - 145 11/02/2015 [facility] CHEM PANEL Glucose Lvl 100 70 - 99 11/02/2015 [facility] CHEM PANEL BUN 19 7 - 22 11/02/2015 [facility] CHEM PANEL AGAP 9.1 10.0 - 20.0 11/02/2015 [facility] CHEM PANEL A/G Ratio 0.6 0.7 - 1.6 11/02/2015 [facility] CHEM PANEL B/C Ratio 11 6 - 25 11/02/2015 [facility] CHEM PANEL Globulin 3.2 2.0 - 4.0 11/02/2015 [facility] HEMATOLOGY WBC 7.1 3.7 - 10.4 11/02/2015 [facility] HEMATOLOGY MCV 87.2 80.0 - 94.0 11/02/2015 [facility] HEMATOLOGY Hct 37.3 42.0 - 54.0 11/02/2015 [facility] HEMATOLOGY Platelet 233 133 - 450 11/02/2015 [facility] HEMATOLOGY MPV 8.5 7.4 - 10.4 11/02/2015 [facility] HEMATOLOGY RBC 4.28 4.70 - 6.10 11/02/2015 [facility] HEMATOLOGY Hgb 12.5 14.0 - 18.0 11/02/2015 [facility] HEMATOLOGY MCHC 33.6 32.0 - 36.0 11/02/2015 [facility] HEMATOLOGY MCH 29.3 27.0 - 31.0 11/02/2015 [facility] HEMATOLOGY RDW 13.1 11.5 - 14.5 11/02/2015 [facility] HEMATOLOGY Sed Rate 29 0 - 15 11/02/2015 [facility] HEMATOLOGY Eosinophils 1.3 0.0 - 4.0 11/02/2015 [facility] HEMATOLOGY Monocytes 10.3 2.0 - 12.0 11/02/2015 [facility] HEMATOLOGY Basophils 0.2 0.0 - 1.0 11/02/2015 [facility] HEMATOLOGY Eosinophils # 0.1 0.0 - 0.5 11/02/2015 [facility] HEMATOLOGY Lymphocytes 19.4 20.0 - 40.0 11/02/2015 [facility] HEMATOLOGY Segs 68.8 45.0 - 75.0 11/02/2015 [facility] HEMATOLOGY Monocytes # 0.7 0.0 - 0.8 11/02/2015 [facility] HEMATOLOGY Lymphocytes # 1.4 1.0 - 5.5 11/02/2015 [facility] HEMATOLOGY Segs-Bands # 4.9 1.5 - 8.1 11/02/2015 [facility] CARDIAC ENZYMES BNP 57 <=100 pg/mL 11/01/2015 [facility] HEMATOLOGY RBC Morph Lashawn l (10/31/15 7:22 AM) 10/31/2015 [facility] HEMATOLOGY Plt Morph Lashawn l (10/31/15 7:22 AM) 10/31/2015 [facility] CHEM PANEL Amylase Lvl 36 25 - 115 10/29/2015 [facility] CHEM PANEL Lipase Lvl 368 73 - 393 10/29/2015 [facility] CHEM PANEL B/C Ratio 20 6 - 25 10/29/2015 [facility] CHEM PANEL Globulin 3.3 2.0 - 4.0 10/29/2015 [facility] CHEM PANEL A/G Ratio 0.7 0.7 - 1.6 10/29/2015 [facility] CHEM PANEL AST 11 0 - 37 10/29/2015 [facility] CHEM PANEL ALT 20 0 - 65 10/29/2015 [facility] CHEM PANEL Alk Phos 94 39 - 136 10/29/2015 [facility] CHEM PANEL Bili Total 0.7 0.2 - 1.3 10/29/2015 [facility] CHEM PANEL Albumin Lvl 2.4 3.5 - 5.0 10/29/2015 [facility] CHEM PANEL Total Protein 5.7 6.4 - 8.4 10/29/2015 [facility] SPECIAL CHEMISTRY Hgb A1C 10.8 <=5.6 % 10/29/2015 [facility] BACTERIAL - SEROLOGY MRSA by PCR Negative (10/28/15 11:26 PM) 10/29/2015 [facility] URINE CHEM U Prot/Creat 0.9 10/28/2015 [facility] URINE CHEM U Creatinine 91.80 10/28/2015 [facility] URINE CHEM U Protein 86.0 10/28/2015 [facility] CARDIAC ENZYMES Troponin-I <0.02 0.00 - 0.40 10/28/2015 [facility] CHEM PANEL Lipase Lvl 569 73 - 393 10/28/2015 [facility] HEMATOLOGY INR 1.00 0.85 - 1.17 10/28/2015 [facility] HEMATOLOGY PT 13.5 12.0 - 14.7 10/28/2015 [facility] HEMATOLOGY PTT 30.3 22.9 - 35.8 10/28/2015 [facility] IMMUNOLOGY [place]-Hep C Ab Negat dariusz *NA* (10/28/15 12:05 PM) Negative 10/28/2015 [facility] MOLECULAR DIAGNOSTIC C difficile DNA Negative (10/28/15 12:05 PM) Negative 10/28/2015 [facility] TOXICOLOGY Digoxin Lvl 0.4 0.8 - 2.0 10/28/2015 [facility] CARDIAC ENZYMES CK MB 2.2 0.5 - 3.6 02/02/2015 [facility] CARDIAC ENZYMES Troponin-I <0.02 0.00 - 0.40 02/02/2015 [facility] CARDIAC ENZYMES Total CK 50 12 - 191 02/02/2015 [facility] CARDIAC ENZYMES CK MB Index 4.4 0.0 - 2.5 02/02/2015 [facility] LIPIDS VLDL 20 02/02/2015 [facility] LIPIDS LDL (Calculated) 65 <=99 mg/dL 02/02/2015 [facility] LIPIDS CHD Risk 3.83 4.00 - 7.30 02/02/2015 [facility] LIPIDS Chol 115 <=199 mg/dL 02/02/2015 [facility] LIPIDS HDL 30 >=61 mg/dL 02/02/2015 [facility] LIPIDS Trig 98 <=149 mg/dL 02/02/2015 [facility] THYROID PANEL TSH 1.140 0.360 - 3.740 02/02/2015 [facility] CARDIAC ENZYMES Troponin-I <0.02 0.00 - 0.40 02/02/2015 [facility] CARDIAC ENZYMES Total CK 51 12 - 191 02/02/2015 [facility] CARDIAC ENZYMES CK MB 2.3 0.5 - 3.6 02/02/2015 [facility] CARDIAC ENZYMES CK MB Index 4.0 0.0 - 2.5 02/01/2015 [facility] CARDIAC ENZYMES Total CK 75 12 - 191 02/01/2015 [facility] CARDIAC ENZYMES Troponin-I <0.02 0.00 - 0.40 02/01/2015 [facility] CARDIAC ENZYMES CK MB 3.0 0.5 - 3.6 02/01/2015 [facility] CHEM PANEL Magnesium Lvl 1.8 1.8 - 2.4 02/01/2015 [facility] CHEM PANEL eGFR 46 02/01/2015 <sup>1</sup>Result Comment: The eGFR is calculated using the CKD-EPI formula. In most young, healthy individuals the eGFR will be >90 mL/min/1.73m2. The eGFR declines with age. An eGFR of 60-89 may be normal in some populations, particularly the elderly, for whom the CKD-EPI formula has not been extensively validated. Use of the eGFR is not recommended in the following populations:& lt;br/>
Individuals with unstable creatinine concentrations, including patients and those with serious co-morbid conditions.

Patients with extremes in muscle mass or diet.

The data above are obtained from the National Kidney Disease Education Program (NKDEP) which additionally recommends that when the eGFR is used in patients with extremes of body mass index for purposes of drug dosing, the eGFR should be multiplied by the estimated BMI. [facility] CHEM PANEL Total Protein 7.3 6.4 - 8.4 02/01/2015 [facility] CHEM PANEL ALT 21 0 - 65 02/01/2015 [facility] CHEM PANEL Albumin Lvl 3.8 3.5 - 5.0 02/01/2015 [facility] CHEM PANEL A/G Ratio 1.1 0.7 - 1.6 02/01/2015 [facility] CHEM PANEL Globulin 3.5 2.0 - 4.0 02/01/2015 [facility] CHEM PANEL B/C Ratio 16 6 - 25 02/01/2015 [facility] CHEM PANEL AGAP 13.2 10.0 - 20.0 02/01/2015 [facility] CHEM PANEL Creatinine Lvl 1.6 0.5 - 1.4 02/01/2015 [facility] CHEM PANEL CO2 23 24 - 32 02/01/2015 [facility] CHEM PANEL Alk Phos 97 39 - 136 02/01/2015 [facility] CHEM PANEL AST 13 0 - 37 02/01/2015 [facility] CHEM PANEL Bili Total 0.4 0.2 - 1.3 02/01/2015 [facility] CHEM PANEL Glucose Lvl 126 70 - 99 02/01/2015 <sup>2</sup>Interpretive Data: Adult ref erence range values reflect the clinical guidelines
of the [place] [employer]. [facility] CHEM PANEL BUN 26 7 - 22 02/01/2015 [facility] CHEM PANEL Chloride Lvl 110 95 - 109 02/01/2015 [facility] CHEM PANEL Calcium Lvl 8.7 8.5 - 10.5 02/01/2015 [facility] CHEM PANEL Sodium Lvl 142 135 - 145 02/01/2015 [facility] CHEM PANEL Potassium Lvl 4.2 3.5 - 5.1 02/01/2015 [facility] CHEM PANEL Phosphorus 3.1 2.5 - 4.5 02/01/2015 [facility] HEMATOLOGY Basophils # 0.1 0.0 - 0.2 02/01/2015 [facility] HEMATOLOGY Eosinophils # 0.1 0.0 - 0.5 02/01/2015 [facility] HEMATOLOGY Monocytes # 0.5 0.0 - 0.8 02/01/2015 [facility] HEMATOLOGY Lymphocytes # 1.8 1.0 - 5.5 02/01/2015 [facility] HEMATOLOGY Segs-Bands # 5.2 1.5 - 8.1 02/01/2015 [facility] HEMATOLOGY Basophils 0.7 0.0 - 1.0 02/01/2015 [facility] HEMATOLOGY Eosinophils 1.8 0.0 - 4.0 02/01/2015 [facility] Segs 67.7 45.0 - 75.0 02/01/2015 [facility] Monocytes 6.5 2.0 - 12.0 02/01/2015 [facility] Lymphocytes 23.3 20.0 - 40.0 02/01/2015 [facility] MCHC 34.1 32.0 - 36.0 02/01/2015 [facility] MCH 29.5 27.0 - 31.0 02/01/2015 [facility] WBC 7.7 3.7 - 10.4 02/01/2015 [facility] MCV 86.6 80.0 - 94.0 02/01/2015 [facility] Hgb 13.0 14.0 - 18.0 02/01/2015 [facility] Hct 38.1 42.0 - 54.0 02/01/2015 [facility] RBC 4.40 4.70 - 6.10 02/01/2015 [facility] Platelet 212 133 - 450 02/01/2015 [facility] MPV 8.6 7.4 - 10.4 02/01/2015 [facility] RDW 13.9 11.5 - 14.5 02/01/2015 [facility] INR 0.98 0.85 - 1.17 02/01/2015 <sup>3</sup>Interpretive Data: RECOMMEND ED RANGES FOR PROTIME INR:
2.0-3.0 for most medical and surgical thromboembolic states.
2.5-3.5 for artificial heart valves and recurrent embolism.

INR SHOULD BE USED ONLY FOR PATIENTS ON STABLE ANTICOAGULANT THERAPY. [facility] PT 13.0 12.0 - 14.7 02/01/2015 [facility] PTT 30.6 22.9 - 35.8 02/01/2015 <sup>4</sup>Interpretive Data: Heparin T herapeutic Range: 57 - 92 Seconds [facility] ELECTROLYTES AGAP 10.7 10.0 - 20.0 11/08/2014 [facility] ELECTROLYTES eGFR 43 11/08/2014 <sup>1</sup>Result Comment: The eGFR is calculated using the CKD-EPI formula. In most young, healthy individuals the eGFR will be >90 mL/min/1.73m2. The eGFR declines with age. An eGFR of 60-89 may be normal in some populations, particularly the elderly, for whom the CKD-EPI formula has not been extensively validated. Use of the eGFR is not recommended in the following populations:& lt;br/>
Individuals with unstable creatinine concentrations, including patients and those with serious co-morbid conditions.

Patients with extremes in muscle mass or diet.

The data above are obtained from the National Kidney Disease Education Program (NKDEP) which additionally recommends that when the eGFR is used in patients with extremes of body mass index for purposes of drug dosing, the eGFR should be multiplied by the estimated BMI. [facility] ELECTROLYTES Calcium Lvl 8.5 8.5 - 10.5 11/08/2014 [facility] ELECTROLYTES CO2 21 24 - 32 11/08/2014 [facility] ELECTROLYTES Creatinine Lvl 1.7 0.5 - 1.4 11/08/2014 [facility] ELECTROLYTES BUN 28 7 - 22 11/08/2014 [facility] ELECTROLYTES Glucose Lvl 162 70 - 99 11/08/2014 <sup>4</sup>Interpretive Data: Adult ref erence range values reflect the clinical guidelines
of the [place] [employer]. [facility] ELECTROLYTES Chloride Lvl 110 95 - 109 11/08/2014 [facility] ELECTROLYTES Sodium Lvl 137 135 - 145 11/08/2014 [facility] ELECTROLYTES Potassium Lvl 4.7 3.5 - 5.1 11/08/2014 [facility] HEMATOLOGY Basophils # 0.1 0.0 - 0.2 11/08/2014 [facility] HEMATOLOGY Eosinophils # 0.1 0.0 - 0.5 11/08/2014 [facility] HEMATOLOGY Segs-Bands # 3.1 1.5 - 8.1 11/08/2014 [facility] HEMATOLOGY Eosinophils 2.4 0.0 - 4.0 11/08/2014 [facility] HEMATOLOGY Basophils 1.4 0.0 - 1.0 11/08/2014 [facility] Monocytes # 0.6 0.0 - 0.8 11/08/2014 [facility] Lymphocytes # 2.0 1.0 - 5.5 11/08/2014 [facility] Segs 52.0 45.0 - 75.0 11/08/2014 [facility] Lymphocytes 34.4 20.0 - 40.0 11/08/2014 [facility] Monocytes 9.8 2.0 - 12.0 11/08/2014 [facility] MCV 85.7 80.0 - 94.0 11/08/2014 [facility] RDW 12.7 11.5 - 14.5 11/08/2014 [facility] MCH 30.3 27.0 - 31.0 11/08/2014 [facility] MCHC 35.4 32.0 - 36.0 11/08/2014 [facility] Platelet 203 133 - 450 11/08/2014 [facility] MPV 8.3 7.4 - 10.4 11/08/2014 [facility] Hgb 13.3 14.0 - 18.0 11/08/2014 [facility] Hct 37.6 42.0 - 54.0 11/08/2014 [facility] RBC 4.38 4.70 - 6.10 11/08/2014 [facility] WBC 5.9 3.7 - 10.4 11/08/2014 [facility] ELECTROLYTES Potassium Lvl 4.8 3.5 - 5.1 11/07/2014 [facility] ELECTROLYTES Creatinine Lvl 1.9 0.5 - 1.4 11/07/2014 [facility] ELECTROLYTES Sodium Lvl 137 135 - 145 11/07/2014 [facility] ELECTROLYTES eGFR 37 11/07/2014 <sup>2</sup>Result Comment: The eGFR is calculated using the CKD-EPI formula. In most young, healthy individuals the eGFR will be >90 mL/min/1.73m2. The eGFR declines with age. An eGFR of 60-89 may be normal in some populations, particularly the elderly, for whom the CKD-EPI formula has not been extensively validated. Use of the eGFR is not recommended in the following populations:& lt;br/>
Individuals with unstable creatinine concentrations, including patients and those with serious co-morbid conditions.

Patients with extremes in muscle mass or diet.

The data above are obtained from the National Kidney Disease Education Program (NKDEP) which additionally recommends that when the eGFR is used in patients with extremes of body mass index for purposes of drug dosing, the eGFR should be multiplied by the estimated BMI. [facility] ELECTROLYTES Calcium Lvl 8.0 8.5 - 10.5 11/07/2014 [facility] ELECTROLYTES Chloride Lvl 111 95 - 109 11/07/2014 [facility] ELECTROLYTES AST 11 0 - 37 11/07/2014 [facility] ELECTROLYTES Alk Phos 108 39 - 136 11/07/2014 [facility] ELECTROLYTES BUN 36 7 - 22 11/07/2014 [facility] ELECTROLYTES CO2 19 24 - 32 11/07/2014 [facility] ELECTROLYTES B/C Ratio 19 6 - 25 11/07/2014 [facility] ELECTROLYTES AGAP 11.8 10.0 - 20.0 11/07/2014 [facility] ELECTROLYTES Glucose Lvl 177 70 - 99 11/07/2014 <sup>5</sup>Interpretive Data: Adult ref erence range values reflect the clinical guidelines
of the [place] [employer]. [facility] ELECTROLYTES Albumin Lvl 3.2 3.5 - 5.0 11/07/2014 [facility] ELECTROLYTES Globulin 2.8 2.0 - 4.0 11/07/2014 [facility] ELECTROLYTES Total Protein 6.0 6.4 - 8.4 11/07/2014 [facility] ELECTROLYTES ALT 23 0 - 65 11/07/2014 [facility] ELECTROLYTES A/G Ratio 1.1 0.7 - 1.6 11/07/2014 [facility] ELECTROLYTES Bili Total 0.5 0.2 - 1.3 11/07/2014 [facility] HEMATOLOGY MCHC 35.1 32.0 - 36.0 11/07/2014 [facility] HEMATOLOGY MPV 8.2 7.4 - 10.4 11/07/2014 [facility] HEMATOLOGY RDW 13.1 11.5 - 14.5 11/07/2014 [facility] HEMATOLOGY Platelet 210 133 - 450 11/07/2014 [facility] HEMATOLOGY Hct 38.0 42.0 - 54.0 11/07/2014 [facility] HEMATOLOGY MCV 86.5 80.0 - 94.0 11/07/2014 [facility] HEMATOLOGY WBC 5.9 3.7 - 10.4 11/07/2014 [facility] HEMATOLOGY Hgb 13.4 14.0 - 18.0 11/07/2014 [facility] HEMATOLOGY RBC 4.40 4.70 - 6.10 11/07/2014 [facility] HEMATOLOGY MCH 30.4 27.0 - 31.0 11/07/2014 [facility] HEMATOLOGY Eosinophils # 0.1 0.0 - 0.5 11/07/2014 [facility] HEMATOLOGY Monocytes # 0.5 0.0 - 0.8 11/07/2014 [facility] HEMATOLOGY Segs-Bands # 3.4 1.5 - 8.1 11/07/2014 [facility] HEMATOLOGY Lymphocytes # 1.9 1.0 - 5.5 11/07/2014 [facility] HEMATOLOGY Basophils 0.5 0.0 - 1.0 11/07/2014 [facility] HEMATOLOGY Lymphocytes 31.8 20.0 - 40.0 11/07/2014 [facility] HEMATOLOGY Segs 56.9 45.0 - 75.0 11/07/2014 [facility] HEMATOLOGY Monocytes 8.8 2.0 - 12.0 11/07/2014 [facility] HEMATOLOGY Eosinophils 2.0 0.0 - 4.0 11/07/2014 [facility] SPECIAL CHEMISTRY Hgb A1C 8.8 <=5.6 % 11/07/2014 [facility] CHEM PANEL Lactic Acid Lvl 0.5 0.5 - 2.2 11/06/2014 [facility] CARDIAC ENZYMES Troponin-I <0.02 0.00 - 0.40 11/06/2014 [facility] CARDIAC ENZYMES Total CK 99 12 - 191 11/06/2014 [facility] CARDIAC ENZYMES CK MB Index 6.2 0.0 - 2.5 11/06/2014 [facility] CARDIAC ENZYMES CK MB 6.1 0.5 - 3.6 11/06/2014 [facility] CHEM PANEL eGFR 20 11/06/2014 <sup>3</sup>Result Comment: The eGFR is calculated using the CKD-EPI formula. In most young, healthy individuals the eGFR will be >90 mL/min/1.73m2. The eGFR declines with age. An eGFR of 60-89 may be normal in some populations, particularly the elderly, for whom the CKD-EPI formula has not been extensively validated. Use of the eGFR is not recommended in the following populations:& lt;br/>
Individuals with unstable creatinine concentrations, including patients and those with serious co-morbid conditions.

Patients with extremes in muscle mass or diet.

The data above are obtained from the National Kidney Disease Education Program (NKDEP) which additionally recommends that when the eGFR is used in patients with extremes of body mass index for purposes of drug dosing, the eGFR should be multiplied by the estimated BMI. [facility] CHEM PANEL Sodium Lvl 136 135 - 145 11/06/2014 [facility] CHEM PANEL Creatinine Lvl 3.2 0.5 - 1.4 11/06/2014 [facility] CHEM PANEL Potassium Lvl 4.3 3.5 - 5.1 11/06/2014 [facility] CHEM PANEL Chloride Lvl 112 95 - 109 11/06/2014 [facility] CHEM PANEL Calcium Lvl 8.1 8.5 - 10.5 11/06/2014 [facility] CHEM PANEL Glucose Lvl 236 70 - 99 11/06/2014 <sup>6</sup>Interpretive Data: Adult ref erence range values reflect the clinical guidelines
of the [place] [employer]. [facility] CHEM PANEL AGAP 14.3 10.0 - 20.0 11/06/2014 [facility] CHEM PANEL BUN 59 7 - 22 11/06/2014 [facility] CHEM PANEL CO2 14 24 - 32 11/06/2014 [facility] CHEM PANEL Total Protein 6.9 6.4 - 8.4 11/06/2014 [facility] CHEM PANEL B/C Ratio 18 6 - 25 11/06/2014 [facility] CHEM PANEL Albumin Lvl 3.3 3.5 - 5.0 11/06/2014 [facility] CHEM PANEL A/G Ratio 0.9 0.7 - 1.6 11/06/2014 [facility] CHEM PANEL Alk Phos 117 39 - 136 11/06/2014 [facility] CHEM PANEL Bili Total 0.3 0.2 - 1.3 11/06/2014 [facility] CHEM PANEL ALT 24 0 - 65 11/06/2014 [facility] CHEM PANEL AST 13 0 - 37 11/06/2014 [facility] CHEM PANEL Globulin 3.6 2.0 - 4.0 11/06/2014 [facility] HEMATOLOGY Hgb 14.4 14.0 - 18.0 11/06/2014 [facility] HEMATOLOGY Hct 41.0 42.0 - 54.0 11/06/2014 [facility] HEMATOLOGY MCV 86.1 80.0 - 94.0 11/06/2014 [facility] HEMATOLOGY MCH 30.3 27.0 - 31.0 11/06/2014 [facility] HEMATOLOGY MCHC 35.2 32.0 - 36.0 11/06/2014 [facility] WBC 6.9 3.7 - 10.4 11/06/2014 [facility] RBC 4.76 4.70 - 6.10 11/06/2014 [facility] Platelet 224 133 - 450 11/06/2014 [facility] RDW 13.1 11.5 - 14.5 11/06/2014 [facility] MPV 8.3 7.4 - 10.4 11/06/2014 [facility] Lymphocytes 23.0 20.0 - 40.0 11/06/2014 [facility] HEMATOLOGY Eosinophils 0.9 0.0 - 4.0 11/06/2014 [facility] Monocytes 6.7 2.0 - 12.0 11/06/2014 [facility] Segs-Bands # 4.7 1.5 - 8.1 11/06/2014 [facility] Basophils 0.5 0.0 - 1.0 11/06/2014 [facility] Lymphocytes # 1.6 1.0 - 5.5 11/06/2014 [facility] Eosinophils # 0.1 0.0 - 0.5 11/06/2014 [facility] Segs 68.9 45.0 - 75.0 11/06/2014 [facility] Monocytes # 0.5 0.0 - 0.8 11/06/2014 [facility] Pathology Reports No Data Provided for This Section Diagnostic Reports Report Value Date Source Chest Pulmonary Embolism CTA Clinical Indication: Left lower leg pain for two weeks. pt had US done this a.m.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 01/11/2017 Active [facility]patient [id number] ADRIENNE PALENCIA 04/12/2017 Active [facility] Outpatient [id number] ADRIENNE PALENCIA 07/27/2017 Active [facility] Outpatient [id number] ADRIENNE PALENCIA 10/04/2017 Active [facility] [id number] Adrienne Palencia 10/04/2017 10/05/2017 [facility] Outpatient [id number] ADRIENNE PALENCIA 10/07/2017 Active [facility]patient [id number] Adrienne Palencia 10/07/2017 10/08/2017 [facility] Outpatient [id number] ADRIENNE PALENCIA 11/10/2017 Active [facility] Ambulatory Pre-Reg [id number] Adrienne Palencia 11/10/2017 11/10/2017 [facility] Outpatient [id number] ADRIENNE PALENCIA 04/29/2018 Active [facility] Outpatient [id number] Adrienne Palencia 04/29/2018 04/30/2018 [facility] Outpatient [id number] ADRIENNE PALENCIA 06/24/2018 Active [facility]patient [id number] Adrienne Palencia 06/24/2018 06/25/2018 [facility] Outpatient [id number] ADRIENNE PALENCIA 08/11/2018 Active [facility] Outpatient [id number] Adrienne Palencia 08/11/2018 08/12/2018 [facility] Outpatient [id number] ADRIENNE PALENCIA 10/10/2018 Active [facility] Outpatient [id number] Adrienne Palencia 10/10/2018 10/11/2018 [facility] Outpatient [id number] ADRIENNE APLENCIA 10/17/2018 Active [facility] Outpatient [id number] Adrienne Palencia 10/17/2018 10/18/2018 [facility] Outpatient [id number] ADRIENNE PALENCIA 10/18/2018 Active [facility] Outpatient [id number] Adrienne Palencia 10/18/2018 10/19/2018 [facility] Outpatient [id number] Timo Lee 10/18/2018 10/19/2018 [facility] Outpatient [id number] ADRIENNE PALENCIA 10/19/2018 Active [facility] Outpatient [id number] Adrienne Palencia 10/19/2018 10/20/2018 [facility] Outpatient [id number] ADRIENNE PALENCIA 10/20/2018 Active [facility] Outpatient [id number] Adrienne Palencia 10/20/2018 10/21/2018 [facility] Day Surgery [id number] Timo Lee 10/21/2018 10/21/2018 [facility] Phone Message [id number] 10/24/2018 10/26/2018 [facility] Outpatient [id number] ADRIENNE PALENCIA 11/01/2018 Active [facility] Outpatient [id number] Adrienne Palencia 11/01/2018 11/02/2018 [facility] Outpatient [id number] ADRIENNE PALENCIA 11/07/2018 Active [facility] Outpatient [id number] Adrienne Palencia 11/07/2018 11/08/2018 [facility] Outpatient [id number] ADRIENNE PALENCIA 11/28/2018 Active [facility] Outpatient [id number] Adrienne Palencia 11/28/2018 11/29/2018 [facility] Outpatient [id number] ADRIENNE PALENCIA 01/09/2019 Active [facility] Ambulatory Pre-Reg [id number] Adrienne Palencia 01/09/2019 01/09/2019 [facility] Phone Message [id number] 01/18/2019 01/20/2019 [facility] Outpatient [id number] ZHMODESTA PALENCIA 01/24/2019 Active [facility] Outpatient [id number] Zhdaijaeliane Slime 01/24/2019 01/25/2019 [facility] Phone Message [id number] 02/15/2019 02/17/2019 [facility] Phone Message [id number] 02/21/2019 02/23/2019 [facility] Outpatient [id number] Nitin Formanr 02/24/2019 02/25/2019 [facility] Inpatient [id number] John Cool 02/24/2019 02/28/2019 [facility] Outpatient [id number] Adrienne Palencia 03/06/2019 Active [facility] Outpatient [id number] Zhmodesta Palencia 03/06/2019 03/07/2019 [facility] Outpatient [id number] Adrienne Palencia 05/02/2019 Active [facility] Outpatient [id number] Zhmodesta Palencia 05/02/2019 05/03/2019 [facility] Outpatient [id number] Adrienne Palencia 06/19/2019 Active [facility] Outpatient [id number] Zhmodesta Palencia 06/19/2019 06/20/2019 [facility] Outpatient [id number] Zhihao Slime 07/12/2019 Active [facility] Outpatient [id number] Rosa Elenamodesta Palencia 07/12/2019 07/13/2019 Medical [facility] Procedures Procedure Code Date Perfomer Comments Source Diabetic retinopathy screening [id number] 07/04/2018 Medical [facility] Diabetic retinopathy screening<sup>1</sup> [id number] 02/19/2017 Dr. Nelson [facility] Colonoscopy [id number] 01/01/2016 [facility] Diabetic foot examination [id number] 05/03/2015 Medical [facility] Assessment and Plan Assessment and Plan Date Source Extracted from:Title: Clinical Document Author: Hanna Ford MD Date: 02/28/19 Pulmonary and Critical Care Progress Note [facility] Sujective/overnight events: Chart reviewed. He is been transitioned to [facility]. No acute events overnight. Review of systems: General: No fevers, no chills, no night sweats Respiratory: No dysppnea, no persistent cough, no sputum production, no hemoptysis Cardiac: No chest pain, no palpitations, no lower extremity edema GI: No diarrhea, no nauea, no vomiting, no abdominal pain, no constipation Scheduled Meds (9): 02/28/19 apixaban 10 mg PO BID 03/07/19 apixaban 5 mg PO BID 02/25/19 atorvastatin 20 mg PO Daily 02/28/19 digoxin (digoxin 125 mcg (0.125 mg) oral tablet) 125 microgram PO Every Other Day 02/24/19 diltiazem (Cartia XT) 180 mg PO BID 02/25/19 glipiZIDE (glipiZIDE 10 mg oral tablet) 10 mg PO BID-Before Meals 02/25/19 lisinopril 5 mg PO Daily 02/25/19 pioglitazone 45 mg PO Daily 02/24/19 trazodone (trazodone 50 mg oral tablet) 50 mg PO Bedtime Continuous Infusions: None Labs (Last four charted values) WBC 7.1 (FEB 28) 7.5 (FEB 27) 7.1 (FEB 25) 7.1 (FEB 24) Hgb L 13.4 (FEB 28) L 13.8 (FEB 08) L 13.8 (FEB 06) L 13.8 (FEB 05) Hct L 39.8 (FEB 28) L 40.8 (FEB 27) L 40.4 (FEB 25) L 40.5 (FEB 05) Plt 192 (FEB 28) 191 (FEB 08) 203 (FEB 06) 199 (FEB 05) Na 138 (FEB 09) 139 (FEB 08) 136 (FEB 06) 138 (FEB 05) K 4.4 (FEB 28) 4.1 (FEB 08) 4.0 (FEB 25) 4.7 (FEB 05) CO2 27 (FEB 28) 26 (FEB 08) 24 (FEB 06) L 23 (FEB 05) Cl 109 (FEB 28) 109 (FEB 08) 107 (FEB 06) 107 (FEB 05) Cr H 1.78 (FEB 28) H 1.77 (FEB 27) 1.35 (FEB 25) H 1.54 (FEB 24) BUN H 25 (FEB 28) 21 (FEB 27) H 23 (FEB 25) H 27 (FEB 24) Glucose Random H 184 (FEB 28) H 189 (FEB 27) H 166 (FEB 25) H 213 (FEB 24) Ca 9.0 (FEB 28) 9.0 (FEB 27) 8.7 (FEB 25) 9.3 (FEB 24) PT 13.5 (FEB 27) 12.8 (FEB 27) 13.1 (FEB 27) 13.2 (FEB 26) INR 1.05 (FEB 27) 0.98 (FEB 27) 1.01 (FEB 27) 1.02 (FEB 26) PTT H 55.3 (FEB 28) H 81.7 (FEB 27) H 59.4 (FEB 27) H 77.4 (FEB 27) Troponin <0.02 (FEB 24) Objective: I&O Record In Out Bal 02/28 24hr Tot 0 0 0 02/27 24hr Tot 184 0 184 02/28/2019 08:00 SpO2 percent 95 02/28/2019 00:04 Oxygen Therapy Mode Room air Vital Signs (last 24 hrs) Last Charted Temp Oral 97.2 DegF (FEB 28 08:00) Heart Rate Peripheral 77 bpm (FEB 28:) Resp Rate 16 BRMIN (FEB 28:) SBP 111 mmHg (FEB 28:) DBP 66 mmHg (FEB 28 08:00) SpO2 95 % (FEB 28:) Exam: General: No acute distress HEENT: No pallor, anicteric sclera CV: RRR, no murmur Resp: CTAB Abd: Soft, NTTP, ND, +BS Extremities: No c/c/e Neuro: A&Ox3, non focal Skin: No break down Problems: 1. Bilateral pulmonary emboli 2. LLE DVT, unprovoked 3. Chronic atrial fibrillation 4. Diabetes 5. Obesity 6. Hypertension 7. History of atrial fibrillation Plan: Hemo-dynamically very stable. He is oxygenating well on room air. Baseline echocardiogram pending.. He is been transitioned to Eliquis. He will follow-up with hematology as well as his drawer in plain loom for his atrial fibrillation on discharge. Hanna Ford MD Pulmonary and Critical Care Medicine Extracted from:Title: Clinical Document Author: Hanna Ford MD Date: 02/24/19 Pulmonary and Critical Care Consult Note [facility] Reason for consult: Pulmonary embolus HPI: Patient is a 63-year-old male past medical history of obesity, diabetes, hypertension, chronic atrial fibrillation on Eliquis who presented to the emergency room after lower extremity ultrasound done showed a extensive DVT in the left lower extremity involving the entire length of the femoral vein and popliteal vein. The patient states he saw Dr. Rodriguez in the clinic about 8 days ago and had been complaining of lower extremity edema on the left. He actually had run out of his Eliquis a few weeks ago as he was unable to afford it. CT PE protocol was then done and revealed a right upper lobe, right middle lobe and bilateral lower lobe segmental pulmonary emboli. There is some dilation of the right atrium and right ventricle however no intraventricular septal bowing was seen on CT. His labs are notable for creatinine of 1.54, troponin 0.02. He is admitted to [facility] for management of his pulmonary embolus and lower extremity DVT. He is currently chest pain-free. He denies any shortness of breath. He is actually asymptomatic other than the left lower extremity edema. He is oxygenating well on room air and hemodynamically stable. He denies any recent immobility, travel or surgery. He is a non-smoker. Denies any prior history of [place] E. Review of systems: 10 point review systems as per HPI other woods negative Allergies Allergies (1) Active Reaction NKDA None documented Procedure History Diabetic retinopathy screenin07/04/18 Diabetic retinopathy screenin02/19/17 Colonoscopy: 01/01/16 Diabetic foot examination: 05/03/15 Past Medical History HTN (hypertension) Diabetes Family History Brother: DM - Diabetes mellitus Social History Alcohol Details: Current, Type Beer. Frequency: 1-2 times per year.; Comment(s): socially Tobacco Details: Use: Never smoker. Type: Cigarettes. Tobacco smoke exposure: None. Did the Patient Smoke Cigarettes Anytime During the Last 365 Days? No. Cessation Counseling Provided? No. Substance Abuse Details: Use: None. Home Meds No qualifying data available Scheduled Meds (7): 02/25/19 atorvastatin 20 mg PO Daily 02/25/19 digoxin (digoxin 125 mcg (0.125 mg) oral tablet) 125 microgram PO Daily 02/24/19 diltiazem (Cartia XT) 180 mg PO BID 02/25/19 glipiZIDE (glipiZIDE 10 mg oral tablet) 10 mg PO BID-Before Meals 02/25/19 lisinopril 20 mg PO Daily 02/25/19 pioglitazone 45 mg PO Daily 02/24/19 trazodone (trazodone 50 mg oral tablet) 50 mg PO Bedtime Continuous Infusions (2): 02/24/19 AMIODarone 900 mg + Dextrose 5% in Water IV 482 mL (AMIODarone 900 mg in D5W 500 ml IV 900 mg + Dextrose 5% in Water IV 482 mL) 900 mg 1 mg/min for 6 hours, then reduce to 0.5 mg/min 02/25/19 heparin 25,000 unit [18 unit/kg /hr] + Premix Diluent Dextrose 5% 500 mL (heparin additive 25,000 unit [18 unit/kg/hr] + Premix Diluent Dextrose 5% 500 mL) 500 mL 44.18 ml/hr Labs (Last four charted values) WBC 7.3 (FEB 24) Hgb 15.3 (FEB 24) Hct 45.4 (FEB 24) Plt 210 (FEB 24) Na 138 (FEB 24) K 4.7 (FEB 24) CO2 L 23 (FEB 24) Cl 107 (FEB 24) Cr H 1.54 (FEB 24) BUN H 27 (FEB 24) Glucose Random H 213 (FEB 24) Ca 9.3 (FEB 24) PT 13.1 (FEB 24) INR 1.01 (FEB 24) PTT 31.3 (FEB 24) Troponin <0.02 (FEB 24) All Imaging reviewed. Objective: I&O Record In Out Bal 02/24 24hr Tot 600 0 600 02/23 24hr Tot 0 0 0 Lines, Tubes, and Drains: 02/24/2019 09:02 Peripheral Lines: Antec ubital Left 20 gauge Over the needle catheter 02/24/2019 16:16 SpO2 percent 97 02/24/2019 14:36 Oxygen Therapy Mode Room air Vital Signs (last 24 hrs) Last Charted Temp Oral 97.7 DegF (FEB 24 16:16) Heart Rate Peripheral 60 bpm (FEB 24 16:16) Resp Rate 16 BRMIN (FEB 24 16:16) SBP 116 mmHg (FEB 24 16:16) DBP 69 mmHg (FEB 24 16:16) SpO2 97 % (FEB 24 16:16) Weight 122.72 kg (FEB 24 14:30) Height 177.8 cm (FEB 24:30) BMI 38.82 (FEB 24:) Exam: General: No acute distress, obese HEENT: No pallor, anicteric sclera CV: RRR, no murmur Resp: CTAB Abd: soft, NTTP, ND, +BS Ext: No c/c/e Neuro: A&Ox3, non focal exam Skin: No breakdown Problems: Bilateral pulmonary embolus Left lower extremity DVT Chronic atrial fibrillation Hypertension Diabetes Obesity Plan: He is hemodynamically stable and oxygenating well on room air. Troponin is within normal limits. Will check BNP. The VTE seems to be unprovoked. Hematology is being consulted. Will go ahead and start heparin gtt. He may need to be bridged to coumadin as he could not afford a NOAC. Discussed with cardiology. TTE is pending. TTE is pending. Hanna Ford MD Pulmonary and Critical Care Medicine 02/28/2019 [facility] Extracted from:Title: Clinical Document Author: Ximena Kenny MD Date: 11/04/15 Progress Note Gastroenterology and Hepatology ASSESSMENT /PLAN: 1. Severe diarrhea with electrolyte imb alance, dehydration ; clinically stable. CT abd/plevis with pneumatosis intestinalis and small bowel thickening - improved. 2. Acute or chronic renal failure. 3. Atrial fibrillation. 4. Diabetes. 5. Hypertension. Ok to dc home; may benefit from elective endoscopy. SUBJECTIVE: Patient seen and examined at bedside. Events of the day reviewed with nursing staff. No new complaints. Review of Systems: (-)=Negative,(+)=Positive 1) Const: (-) fever, (-) weight change 2) Skin: (-) rash, (-) bleeding 3) HEENT: (-) difficulty swallowing, (-) swelling 4) Eyes: (-) vision changes, (-) bleedin g 5) Neuro: (-) weakness, (-) headaches 6) Resp: (-) dyspnea on exertion, (-) co ugh 7) Cardio: (-) chest pain, (-) orthopnea 8) GI: (-) blood in stool, (-) reflux 9) : (-) dysuria, (-) bloody discharge 10) Endo: (-) heat intolerance, (-) cold intolerance OBJECTIVE: Vitals: See below General: Alert , Oriented x 3 CVS: s1s2 RRR Resp: CTA Bilaterally Abd : Soft, NT, ND , BS + Ext : no edema SURVEILLANCE OFFICER: No gross motor/sensory defects Vitals Tmp(F) Tmp(C) Ttype BP MAP Pulse RR SpO2 FIO2 ETCO2 11/04 11:19 97.9 36.61 oral 109/68 --- 74 17 95 --- --- 11/04 08:00 98.5 36.94 oral 119/81 --- 98 17 97 --- --- 11/04 07:44 ---- ---- ---- - ---- --- --- 16 95 21% --- 11/04 04:00 98.4 36.89 oral 108/63 --- 74 18 96 --- --- 11/04 00:00 99.1 37.28 oral 104/67 --- 97 18 96 --- --- 24 Hr Tmax: 99.1F (37.28c) at 11/04 00:0 0 Vital Signs are the last 5 in the past 48 hours. 24 Hr Tmin: 97.7F (36.50c) at 11/03 20: 00 Weights are the last 5 in 60 days, plus initial. Date Wt(kg) Wt(lb) Ht(cm) Ht(in) Method BMI 10/29 113.10 248.82 Measured 10/28 (initial) 113.64 250.00 Estimated 36.0 10/28 177.80 70.00 Stated Most Recent Scores: 11/04/15 Pain Intensity NRS (0-10) 0 11/04/15 [place] Score 22 11/04/15 [place] Coma Score 15 11/04/15 [facility] Fall Score 7 Lines, Tubes, and Drains: 10/29/2015 02:45 Peripheral Lines: Upper arm Left 20 gauge Over the needle catheter 10/28/2015 11:23 Peripheral Lines: Antec ubital Left 20 gauge Over the needle catheter (no surgical procedures documented) I&O Record In Out Bal 11/04 24hr Tot 700 0 700 11/03 24hr Tot 2882 0 2882 24hr Labs 11/04 1037 Glucose POC 184 H 11/04 0624 Glucose POC 105 H 11/04 0408 Sodium Lvl 139 Potassium Lvl 3.7 Chloride Lvl 109 CO2 22 L AGAP 11.7 Glucose Lvl 114 H Creatinine Lvl 1.74 H BUN 9 B/C Ratio 5 L Total Protein 4.6 L Albumin Lvl 2.1 L Globulin 2.5 A/G Ratio 0.8 Calcium Lvl 7.5 L ALT 16 AST 7 Alk Phos 81 Bili Total 0.5 eGFR 41 Magnesium Lvl 1.5 L Phosphorus 2.4 L WBC 10.6 H RBC 4.21 L Hgb 12.3 L Hct 36.7 L MCV 87.2 MCH 29.2 MCHC 33.6 RDW 13.2 Platelet 262 MPV 7.9 Segs 74.5 Monocytes 11.2 Lymphocytes 13.0 L Eosinophils 1.0 Basophils 0.3 Segs-Bands # 7.9 Lymphocytes # 1.4 Monocytes # 1.2 H Eosinophils # 0.1 RBC Morph Normal Plt Morph Normal 11/03 2105 Glucose POC 189 H 11/03 1649 UA Color Yellow UA Turbidity Marked UA Spec Grav 1.014 UA pH 5.0 UA Protein 30 UA Glucose 50 UA Ketones Trace UA Bili Negative UA Blood Large UA Urobilinogen <=1.0 UA Nitrite Negative UA Leuk Est Negative UA RBC 114 H UA WBC 4 UA Bacteria Occasional UA Mucus Few UA Sq Epi None Seen UA Uric Ac Qian Many UA Gran Cast 3 11/03 1534 Glucose POC 119 H Scheduled Meds (10): AMIODarone 200 mg PO Daily [eMAR Schedule: (11/04/15) 09:00] [Future Dose: 11/05/15 09:00] apixaban (Eliquis) 2.5 mg PO BID [eMAR Schedule: (11/04/15) 09:00, 17:00] aspirin (aspirin 325 mg tablet, enteric coated) 325 mg PO Daily [Last Rescheduled Dt/Tm: 10/28/15 16:18:00] [eMAR Schedule: (11/04/15) 09:00] [Future Dose: 11/05/15 09:00] digoxin (digoxin 125 mcg (0.125 mg) oral tablet) 0.125 mg PO Every Other Day [Last Rescheduled Dt/Tm: 11/01/15 9:00:00] [Future Dose: 11/05/15 09:00] diltiazem (Cardizem CD) 180 mg PO BID [Last Rescheduled Dt/Tm: 10/31/15 9:00:00] [eMAR Schedule: (11/04/15) 09:00, 17:00] glyBURIDE 10 mg PO BID-Meals [eMAR Schedule: (11/04/15) 08:00, 17:00] insulin detemir (Levemir) 10 unit SUB-Q Bedtime [eMAR Schedule: (11/04/15) 21:00] [Future Dose: 11/05/15 21:00] piperacillin-tazobactam + Sodium Chloride 0.9% IV 100 mL (Zosyn + Sodium Chloride 0.9% IV 100 mL) 3.375 gm IVPB ABXQ8H 25 ml/hr [eMAR Schedule: (11/04/15) 03:00, 11:00, 19:00; (11/05/15) 03:00] simvastatin 10 mg PO Bedtime [eMAR Schedule: (11/04/15) 21:00] [Future Dose: 11/05/15 21:00] sodium chloride (Saline Flush 0.9%) 10 ml IVP Q12H [eMAR Schedule: (11/04/15) 09:00, 21:00] Unscheduled Meds: None PRN Meds (14): Dextrose 50% in Water IV (Dextrose 50% Syringe) 12.5 gm IVP PRN Dextrose 50% in Water IV (Dextrose 50% Syringe) 25 gm IVP PRN cloNIDine (cloNIDine 0.1 mg oral tablet) 0.1 mg PO Q4H glucagon 1 mg IM PRN insulin aspart 2 unit SUB-Q TID-Before Meals insulin aspart 4 unit SUB-Q TID-Before Meals insulin aspart 6 unit SUB-Q TID-Before Meals insulin aspart 8 unit SUB-Q TID-Before Meals insulin aspart 10 unit SUB-Q TID-Before Meals loperamide (Imodium A-D) 2 mg PO Q6H morphine Sulfate 1 mg IV Q3H ondansetron 4 mg PO Q8H ondansetron (Zofran) 4 mg IV Q4H sodium chloride (Saline Flush 0.9%) 10 ml IVP PRN One Time Meds (4): (Deleted) magnesium sulfate + Sodium Chl oride 0.9% IV 50 mL 2 gm IVPB ONCE 27 ml/hr (Completed) magnesium sulfate 2 gm IVPB ONCE 25 ml/hr (Completed) potassium chloride 40 mEq PO ONCE (Completed) potassium phosphate-sodium p hosphate (Neutra-Phos) 1 pkt PO ONCE Continuous Infusions (1): Sodium Chloride 0.9% IV 1,000 mL 1,000 mL 60 ml/hr Stool Color: Green Stool Description: Liquid, Loose Type of Bladder Control: Voluntary Type of Urinary Elimination: Continent 11/04/2015 [facility] Plan of Care No Data Provided for This Section Social History Social History Date Source Social History TypeResponse Alcohol Current, Type Beer. Frequency: 1-2 times per year.1 Substance Abuse Use: None. Smoking Status Never smoker; Type: Cigarettes; Exposure to Tobacco Smoke None; Cigarette Smoking Last 365 Days No; Reg Smoking Cessation Counseling No entered on: 07/12/19 1socially 07/12/2019 [facility] Social History TypeResponse Substance Abuse Use: None. Alcohol Current, Type Beer. Frequency: 1-2 times per year.1 Smoking Status Never smoker; Type: Cigarettes; Exposure to Tobacco Smoke None; Cigarette Smoking Last 365 Days No; Reg Smoking Cessation Counseling No entered on: 05/02/19 1socially 05/02/2019 [facility] Family History No Data Provided for This Section Advance Directives No Data Provided for This Section Functional Status No Data Provided for This Section
--- OUTSIDE RECORDS SUMMARY | 2020-08-18 15:38 | XMS REPORT | Continuity of Care Document ---
Author Author [facility] t Organization [facility] Address [address] [place] [address] Phone Unavailable Care Team Providers Care Books Binder Name Role Phone Marie BENDER Attphys Unavailable Adrienne Lawson Attphys Ana Cool Attphys Nitin Rodriguez Attphys Salma Lee Attphys Rigo Solorio Attphys Ana Cool Admphys Nitin Rodriguez Admphys Problems Condition Name Condition Details Condition Category Status Onset Date Resolution Date Last Treatment Date Treating Clinician Comments Source LEG PAIN OR INJURY LEG PAIN OR INJURY Active 02/24/2019 [facility] Active 2019-02-24 00:00:00 2019-02-24 10:05:00 Jonn Deutsch PULMONARY EMBOLUS, DVT PULM ONARY EMBOLUS, DVT Active 02/24/2019 [facility] Active 2019-02-24 00:00:00 2019-02-28 17:25:00 Jonn Deutsch DX: EDEMA, LEG PAIN DX: EDEMA, LEG PAIN Active 02/17/2019 [facility] Active 2019-02-17 00:00:00 2019-02-24 06:30:00 Jonn Deutsch UNK UNK Active 10/19/2018 [facility] Active 2018-10-19 00:00:00 2018-10-21 08:38:00 Rosita Deutsch RT DX: STAT NOT CLA RT DX: STAT NOT CLA Active 10/18/2018 [facility] Ac tive 2018-10-18 00:00:00 2018-10-18 16:47:00 M [facility] CELLULITIS CELL ULITIS Active 07/13/2016 [facility] Active 2016-07-13 00:00:00 2016-07-13 14:41:00 [facility] ABDOMINAL PAIN ABDO RYAN PAIN Active 10/28/2015 [facility] Active 2015-10-28 00:00:00 2015-10-28 13:37:00 [facility] HYPONATREMIA, DEHYDRATION, AFIB, JERRY HYPONATREMIA, DEHYDRATION, AFIB, JERRY Active 10/28/2015 [facility] Ac tive 2015-10-28 00:00:00 2015-11-01 15:33:00 M [facility] 753.10 753. 10 Active 05/06/2015 [facility] Active 2015-05-06 00:00:00 2015-05-08 10:24:00 [facility] Atrial fibrillation (disorder) Atrial fibrillation (disorder) Active 02/01/2015 Problem 07/16/2016 Data migrated from [employer] on 05/29/15.Data migrated from [employer] on 04/23/15. [facility] Problem Active 2015-02-01 00:00:00 2016-07-16 03:40:53 M [facility] SOB SOB Active 02/01/2015 [facility] Active 2015-02-01 00:00:00 2015-02-04 14:58:00 M [facility] Acute renal failure syndrome (disorder) Acute renal failure syndrome (disorder) Active 11/12/2014 Problem 05/11/2015 1Data migrated from [employer] on 04/20/15. [facility] Problem Active 2014-11-12 00:0 0:00 2015-05-11 05:31:30 [facility] Renal mass (finding) Tricia l mass (finding) Active 11/12/2014 Problem 05/11/2015 21Data migrated from [employer] on 04/20/15. [facility] Problem Active 2014-11-12 00:00:00 2015-05-11 05:31:30 [facility] JERRY, GASTROENTERITIS JERRY, GASTROENTERITIS Active 11/06/2014 [facility] Active 2014-11-06 00:00:00 2014-11-08 07:23:00 [facility] ABD PIAN ABD PIAN Active 11/06/2014 [facility] Active 2014-11-06 00:00:00 2014-11-06 14:32:00 [facility] Neck pain (finding) Neck pain (finding) Active 11/05/2014 Problem 07/15/2019 Data migrated from [employer] on 04/20/15. [facility] Problem Active 2014-11-05 00:00:00 2019-07-15 00:47:58 [facility] Dehydration (disorder) Dehy dration (disorder) Active 11/05/2014 Problem 05/11/2015 9Data migrated from [employer] on 04/20/15. [facility] Problem Active 2014-11-05 00:00:00 2015-05-11 05:31:30 [facility] Dyspnea (finding) Dysp wero (finding) Active 11/05/2014 Problem 05/11/2015 10Data migrated from [employer] on 04/20/15. [facility] Problem Active 2014-11-05 00:00:00 2015-05-11 05:31:30 [facility] Palpitations (finding) Palp itations (finding) Active 11/05/2014 Problem 05/11/2015 18Data migrated from [employer] on 04/20/15. [facility] Problem Active 2014-11-05 00:00:00 2015-05-11 05:31:30 [facility] Microalbuminuria (finding) [place] roalbuminuria (finding) Active 08/24/2014 Problem 05/11/2015 15Data migrated from [employer] on 04/20/15. [facility] Problem Active 2014-08-24 00:00:00 2015-05-11 05:31:30 [facility] Premature atrial contraction (disorder) Premature atrial contraction (disorder) Active 02/02/2014 Problem 05/11/2015 19Data migrated from [employer] on 04/20/15. [facility] Problem Active 2014-02-02 00: 00:00 2015-05-11 05:31:30 [facility] Allergic rhinitis (disorder) A llergic rhinitis (disorder) Active 05/11/2013 Problem 07/15/2019 Data migrated from [employer] on 04/20/15. [facility] Problem Active 2013-05-11 00:0 0:00 2019-07-15 00:47:58 [facility] [place] Anemia (disorder) Anem ia (disorder) Active 05/11/2013 Problem 07/15/2019 Data migrated from [employer] on 04/20/15. [facility] Problem Active 2013-05-11 00:00:00 2019-07-15 00:47:58 [facility] [place] Bilateral cataracts (disorder) Bilateral cataracts (disorder) Active 05/11/2013 Problem 07/15/2019 Data migrated from [employer] on 04/20/15. [facility] Problem Active 2013-05-11 00:0 0:00 2019-07-15 00:47:58 [facility] [place] Internal hemorrhoids (disorder) Internal hemorrhoids (disorder) Active 05/11/2013 Problem 07/15/2019 Data migrated from [employer] on 04/20/15. [facility] Problem Active 2013-05-11 00:0 0:00 2019-07-15 00:47:58 [facility] Benign essential hypertension (disorder) Benign essential hypertension (disorder) Active 05/11/2013 Problem 05/11/2015 5Data migrated from [employer] on 04/20/15. [facility] Problem Activ e 2013-05-11 00:00:00 2015-05-11 05:31:30 [facility] Get Cutaneous abscess of right foot Cutaneous abscess of right foot 05/10/2019 [facility] Problem 2019-05-10 14 :26:26 [facility] Puncture wound without foreign body, right foot, initi al encounter Puncture wound without foreign body, right foot, initial encounter 05/08/2019 [facility] Problem 2019-05-08 11:16:53 [facility] Abnormal findings on diagnostic imaging of other speci fied body structures Abnormal findings on diagnostic imaging of other specified body structures 05/08/2019 [facility] Problem 11:16:53 [facility] Non-pressure chronic ulcer of other part of right foot with unspecified severity Non-pressure chr onic ulcer of other part of right foot with unspecified severity 05/10/2019 [facility] Problem 2019-05-10 14:26:26 [facility] Type 2 diabetes mellitus with diabetic chronic kidney disease Type 2 diabetes mellitus with diabetic chronic kidney disease 05/10/2019 [facility] Problem 2019-05-10 14:26:26 Tn ayala Deutsch Hypertensive chronic kidney disease with stage 1 through stage 4 chronic kidney disease, or unspecified chronic kidney disease Hypertensive chronic kidney disease with stage 1 through stage 4 chronic kidney disease, or unspecified chronic kidney disease 05/10/2019 [facility] Problem 2019-05-10 14:26:26 Hieu Deutsch Chronic kidney disease, unspecified Chronic kidney disease, unspecified 05/10/2019 [facility] Problem 2019-05-10 14:26:26 [facility]ann Unspecified atrial fibrillation Unspecified atrial fibrillation 05/10/2019 [facility] Problem 2019-05-10 14:26:26 [facility] Hyperlipidemia, unspecified Hy perlipidemia, unspecified 05/10/2019 [facility] Problem 2019-05-10 14:26:2 6 [facility] terminal carman (current) use of anticoagulants terminal carman (current) use of anticoagulants 05/10/2019 [facility] Problem 2019-05-10 14:26:26 [facility] terminal carman (current) use of insulin terminal carman (current) use of insulin 05/10/2019 [facility] Problem 2019-04-22 9 14:26:26 [facility] Hypertensive disorder, systemic arterial (disorder) Hypertensive disorder, systemic arterial (disorder) Resolved Problem 07/15/2019 [facility] Problem Resolved 2019-07-15 00:47:58 [facility] Hyperkalemia (disorder) Hype rkalemia (disorder) Resolved Problem 07/15/2019 Data migrated from [facility] on 04/20/15. Medical [facility] Problem Resolved 2019-07-15 00:47:58 [facility] Benign hypertension (disorder) Benign hypertension (disorder) Active Problem 07/15/2019 [facility] Problem Active 2019-07-15 00:47:58 [facility] Chronic atrial fibrillation (disorder) Chronic atrial fibrillation (disorder) Active Problem 07/15/2019 [facility] Problem Active 2019-07-15 00:47:58 [facility] Chronic kidney disease stage 3 (disorder) Chronic kidney disease stage 3 (disorder) Active Problem 07/15/2019 Medical [facility] Problem Active 2019-07-15 00:47:58 J Luis Deutsch Deformity of hand (finding) De formity of hand (finding) Active Problem 07/15/2019 [facility] Problem Active 2019-07-15 00:47:58 [facility] Diabetes mellitus (disorder) D iabetes mellitus (disorder) Active Problem 07/15/2019 [facility] Problem Active 2019-07-15 00:47:58 [facility] Edema of lower extremity (finding) Edema of lower extremity (finding) Active Problem 07/15/2019 [facility] Problem Active 2019-07-15 00:47:58 [facility] Knee pain (finding) Knee pain (finding) Active Problem 07/15/2019 [facility] Problem Active 00:47:58 [facility] Long-term current use of insulin (situation) Long-term current use of insulin (situation) Active Problem 07/15/2019 [facility] Problem Active 2019-07-15 00:47:58 J Luisduane ladd Get Mixed hyperlipidemia (disorder) Mixed hyperlipidemia (disorder) Active Problem 07/15/2019 [facility] Problem Active 2019-07-15 00:47:58 [facility] Morbid obesity (disorder) Morb id obesity (disorder) Active Problem 07/15/2019 [facility] Problem Active 2019-07-15 00:47:58 [facility] Obesity (disorder) Obes ity (disorder) Active Problem 07/15/2019 Medical [facility] Problem Active 00:47:58 [facility] Onychomycosis of toenails (disorder) Onychomycosis of toenails (disorder) Active Problem 07/15/2019 Data migrated from [facility] on 04/20/15. [facility] Active 00:47:58 [facility] Primary insomnia (disorder) Pr imary insomnia (disorder) Active Problem 07/15/2019 [facility] Problem Active 2019-07-15 00:47:58 [facility] Shoulder pain (finding) Shou lder pain (finding) Active Problem 07/15/2019 Medical [facility] Problem Active 2019-07-15 00:47:58 [facility] Simple renal cyst (disorder) S imple renal cyst (disorder) Active Problem 07/15/2019 3.2 cm rt cyst, sono05/08/15, stable [facility] Problem Active 2019-07-15 00:47:5 8 [facility] Skin lesion (disorder) Skin lesion (disorder) Active Problem 07/15/2019 [facility] Problem Active 2019-07-15 00:47:58 [facility] Sunburn (disorder) Sunb urn (disorder) Active Problem 07/15/2019 Medical [facility] Problem Active 00:47:58 [facility] Get Tinea pedis (disorder) Indy a pedis (disorder) Active Problem 07/15/2019 Medical [facility] Problem Active 2019-07-15 00:47:58 [facility] Get Diabetes mellitus type 2 (disorder) Diabetes mellitus type 2 (disorder) Active Problem 05/11/2015 [facility] Problem Active 2015-05-11 05:31:30 [facility] Hyperlipidemia (disorder) Hype rlipidemia (disorder) Active Problem 07/16/2016 Data migrated from [employer] on 04/20/15. [facility] Problem Active 2016-07-16 03:40:53 [facility] Get Chronic renal impairment (disorder) Chronic renal impairment (disorder) Active Problem 05/11/2015 8Data migrated from [employer] on 04/20/15. [facility] Problem Active 2015-05-11 05:31:3 0 [facility] Get Eruption of skin (disorder) Er uption of skin (disorder) Active Problem 05/11/2015 11Data migrated from [employer] on 04/20/15. [facility] Problem Active 2015-05-11 05:31:30 J Luis Deutsch Kidney stone (disorder) Kidn ey stone (disorder) Active Problem 05/11/2015 [facility] Problem Active 2015-05-11 05:31:3 0 [facility] Get Renal failure syndrome (disorder) Renal failure syndrome (disorder) Active Problem 05/11/2015 [facility] Problem Active 2015-05-11 05:31:30 Jonn Deutsch Type II diabetes mellitus well controlled (finding) Type II diabetes mellitus well controlled (finding) Active Problem 05/11/2015 23Data migrated from [employer] on 04/20/15. [facility] Problem Active 2015-05-11 05:31:30 Jonn Deutsch Deep venous thrombosis of lower extremity (disorder) Deep venous thrombosis of lower extremity (disorder) Active Problem 07/15/2019 [facility] Problem Active 00:47:58 Jonn Deutsch Pulmonary thromboembolism (disorder) Pulmonary thromboembolism (disorder) Active Problem 07/15/2019 Medical [facility] Problem Active 2019-07-15 00:47:58 J Luis Deutsch Type 2 diabetes mellitus with diabetic n europathy, without long-term current use of insulin Type 2 diabetes mellitus with diabetic neuropathy, without long-term current use of insulin Active Problem 10/22/2018 [facility] Problem Active 2018-10-22 03:45:26 Jonn Deutsch KIDNEY INJURY NOS-CLOSED KIDN EY INJURY NOS-CLOSED Active [facility] Diagnosis Active 2014-11-08 07:23:00 Jonn Deutsch 719.46 719. 46 Active [facility] Active 2015-06-08 15:35:00 Jonn Deutsch ATRIAL FIBRILLATION ATRI AL FIBRILLATION Active [facility] Diagnosis Active 2015-02-04 14:58:00 Tn ayala Get CYSTIC KIDNEY DISEAS NOS CYST IC KIDNEY DISEAS NOS Active [facility] Diagnosis Active 2015-05-08 10:24:00 Jonn Deutsch DEHYDRATION DEHY DRATION Active [facility] Diagnosis Active 2015-11-01 15:33:00 Hieu Deutsch XRAY XRAY Active [facility] Diagnosis Active 2016-06-22 10:51:00 Jonn Deutsch CUTANEOUS ABSCESS OF RIGHT FOOT CUTANEOUS ABSCESS OF RIGHT FOOT Active [facility] Diagnosis Active 2018-10-18 16 :47:00 Jonn Deutsch OTHER PULMONARY EMBOLISM WITHOUT ACUTE C OTHER PULMONARY EMBOLISM WITHOUT ACUTE C Active [facility] Diagnosis Active 2019-02-28 17:25:00 Jonn Deutsch ACUTE EMBOLISM AND THOMBOS UNSP DEEP VN ACUTE EMBOLISM AND THOMBOS UNSP DEEP VN Active [facility] Diagnosis Active 2019-02-28 17:25:00 Jonn Deutsch Type 2 diabetes mellitus with foot ulcer Type 2 diabetes mellitus with foot ulcer 10/27/2018 05/10/2019 [facility] Problem 2018-10-27 04:14:35 2019-05-10 14:26:26 2019-05-10 14:26:26 [facility] Discharge Diagnosis: Abrasion of ankle, left, infected Discharge Diagnosis: Abrasion of ankle, left, infected 07/13/2016 07/16/2016 [facility] Problem 2016-07-13 05:00:00 2016-07-16 03:40:53 2016-06 03:40:53 [facility] Discharge Diagnosis: Leg edema, left Discharge Diagnosis: Leg edema, left 07/13/2016 07/16/2016 [facility] Problem 2016-07-13 05:00:00 2016-07-16 03:40:53 2016-07-16 03:40:53 [facility] History of Past Illness Condition Name Condition Details Condition Category Status Onset Date Resolution Date Last Treatment Date Treating Clinician Comments Source Body mass index 30+ - obesity (finding) Body mass index 30+ - obesity (finding) Resolved 02/02/2014 Problem 07/15/2019 Data migrated from [employer] on 04/20/15. [facility] Group[facility] Problem Resol taylor 2014-02-02 00:00:00 2019-07-15 00:47:58 2019-07-15 00:47:58 [facility] Allergies, Adverse Reactions, Alerts Allergy Name Allergy Type Status Severity Reaction(s) Onset Date Inacti ve Date Treating Clinician Comments Source No Known Medication Allergies No Known Medication Allergies Active [facility]FA NKFA [facility] Social Habit Start Date Stop Date Quantity Comments Source Social History 2019-05-02 13:11:11 2019-05-02 13:11:11 [facility] Medications Ordered Medication Name Filled Medication Name Start Date Stop Da te Current Medication? Ordering Clinician Indication Dosage Frequency Signature (SIG) Comments Components Source 3 ML insulin detemir 100 UNT/ML Prefilled Syringe [Levemir] 2019-07-12 14:53:57 Yes 60 unit, S UB-Q, Daily, # 60 mL, 0 Refill(s), Pharmacy: [facility] [address] [place] [address] pioglitazone 45 mg oral tablet 2019-06-19 14:21:26 Yes 45 mg = 1 tab, PO, Daily, # 90 tab, 1 Refill(s), Pharmacy: [address] lisinopril 20 mg oral tablet 2019-06-19 14:21:24 Yes 20 mg = 1 tab, PO, Daily, # 90 tab, 1 Refill(s), Pharmacy: [facility] [address] [place] [address] Glipizide 10 MG Oral Tablet 2019-06-19 14:21:19 Yes 10 mg = 1 tab, PO, BID-Before Meals, change from glyburide, # 180 tab, 1 Refill(s), Pharmacy: [facility] [address] [place] [address] atorvastatin 20 mg oral tablet 2019-06-19 14:21:13 Yes 20 mg = 1 tab, PO, Daily, # 90 tab, 1 Refill(s), Pharmacy: [facility] [address] [place] [address] Trazodone Hydrochloride 50 MG Oral Tablet 2019-06-19 14:21:00 Yes 50 mg = 1 tab, PO, Bedtime, # 90 tab, 1 Refill(s), Pharmacy: [facility] [id number] Jonn Deutsch Trazodone Hydrochloride 50 MG Oral Tablet 2019-06-19 13:49:00 No 50 mg = 1 tab, PO, Bedtime, 0 Refill(s) Mem oriart Moffettann apixaban 5 MG Oral Tablet [Eliquis] 2019-03-06 14:42:00 Yes 5 mg, PO, Q12H, # 60 tab, 0 Refill(s) [facility] Get apixaban 5 MG Oral Tablet [Eliquis] 2019-03-06 14:12:00 No 5 mg, PO, Q12H, 0 Refill(s) Jonn Moffettann Digoxin 0.125 MG Oral Tablet 2019-02-28 14:00:00 No Notes: Take on an Empty Stomach (Same as: Lanoxin) [facility] oriart Moffettann apixaban 2019-02-28 14:00:00 No Notes: Same as: Eliquis [facility] Warfarin 2019-02-26 22:00:00 No Notes: Nurse to ensure documentation of patient education per anticoagulation policy. Avoid large intake of vitamin- K containing foods diet. WASTE: F/P - P Waste Black; E - P Waste Black (Same As: Coumadin) [facility] Warfarin 2019-02-25 22:00:00 No Notes: Nurse to ensure documentation of patient education per anticoagulation policy. Avoid large intake of vitamin- K containing foods diet. WASTE: F/P - P Waste Black; E - P Waste Black (Same As: Coumadin) [facility] Get pioglitazone 2019-02-25 14:00:00 No Notes: (Same as: Actos) [facility] Lisinopril 2019-02-25 14:00:00 No Notes: (Same as: Prinivil, Zestril) [facility] Get Digoxin 0.125 MG Oral Tablet 2019-02-25 14:00:00 No Notes: Take on an Empty Stomach (Same as: Lanoxin) [facility] 2019-02-25 14:00:00 No Notes: (Same As: Lipitor) [facility] Glipizide 10 MG Oral Tablet 2019-02-25 12:30:00 No Notes: (Same as: Glucotrol) 30 min before meals. Marilee hughes Get Heparin 80 unit/kg Bolus (Heparin Dosing Weight) 2019-02-25 08:1 1:00 No Route: IVP, PRN, 7,400 unit, 7.4 mL, Drug form: INJ, PRN, Heparin Protocol, Start date: 02/25/19 3:11:00 CDT Stop date: 02/28/19 8:00:00 CDT Jonn Deutsch Heparin 40 unit/kg Bolus (Heparin Dosing Weight) 2019-02-25 08:1 1:00 No Route: IVP, PRN, 3,700 unit, 3.7 mL, Drug form: INJ, PRN, Heparin Protocol, Start date: 02/25/19 3:11:00 CDT Stop date: 02/28/19 8:00:00 CDT Jonn Deutsch heparin additive 25,000 unit [18 unit/kg /hr] + Premix Diluent Dextrose 5% 500 mL 2019-02-25 08:11:00 No 500 mL, Rate: 33.44 ml/hr, Infuse over: 15 hr, Route: IV, Dosing Weight 92.9 kg, Total Volume: 500 mL, Start date: 02/25/19 3:11:00 CDT, Stop date: 02/28/19 8:00:00 CDT, 2.16, m2 Jonn Deutsch Trazodone Hydrochloride 50 MG Oral Tablet 2019-02-25 02:00:00 No Notes: (Same As: Sammy) Jonn thornton Enoxaparin 2019-02-25 01:00:00 No 30 mg, Route: SUB-Q, Drug form: INJ, [id number], Dosing Weight 122.727, kg, Start date: 02/24/19 20:00:00 CDT, Duration: 30 day, Stop date: 03/26/19 8:00:00 CDT [facility] Insulin Lispro 2019-02-25 00:33:00 No Notes: (Same as: Humalog ) Roll in palms of hands gently; Do not shake `vigorously. "Single Patient Use Only " WASTE: F/P - Black; E - Municipal Trash Bin Stable for 28 days at room temperature. Expires in days from Date [facility] Get Glucagon 2019-02-25 00:33:00 No 1 mg, Route: IM, Drug form: PDR/INJ, PRN, Dosing Weight 122.727, kg, PRN Blood Glucose Results, Start date: 02/24/19 19:33:00 CDT, Duration: 30 day, Stop date: 03/26/19 19:32:00 CDT [facility] Get Dextrose 50% Syringe 2019-02-25 00:33:00 No 25 gm, 50 mL, Route: IVP, Drug Form: INJ, Dosing Weight 122.727, kg, PRN, PRN Blood Glucose Results, Start date: 02/24/19 19:33:00 CDT, Duration: 30 day, Stop date: 03/26/19 19:32:00 CDT [facility] Get Cartia XT 2019-02-24 23:44:00 No Notes: (Same as:Dony TREADWELL) Before meals. DO NOT CRUSH. [facility] AMIODarone 900 mg in D5W 500 ml IV 900 mg + Dextrose 5% in W ater IV 482 mL 2019-02-24 23:44:00 No 2 mg/ml. Use Glass Bottle or Non PVC Bag "Use 0.22 micron in-line filter" MEDICATION WASTE Product Size: 900 mg Product Wasted: ___ mg [facility] Amiodarone 2019-02-24 23:44:00 No 2 mg/ml. "Recommendation: Use an in-line filter during administration for continuous infusions to reduce the incidence of phlebitis" (Same as Codarone) MEDICATION WASTE Product Size: 150 mg Product Wasted: ___ mg [facility] Sodium Chloride 0.9% (Bolus) IV 2019-02-24 21:11:00 No 250 mL, 250 ml/hr, Infuse Over: 1 hr, Route: IV, 250, Drug form: INJ, ONCE, Priority: STAT, Dosing Weight 122.727 kg, Start date: 02/24/19 16:11:00 CDT, Stop date: 02/24/19 16:11:00 CDT [facility] Enoxaparin 2019-02-24 18:08:00 No Notes: Nurse to ensure documentation of patient education per anticoagulation policy. (Same as: Lovenox) [facility] 3 ML Insulin Lispro 100 UNT/ML Pen Injector [Humalog] 2018-10-24 19:51:00 Yes 20 unit, SUB-Q, TID-Before Meals, # 60 mL, 0 Refill(s), Pharmacy: [id number] [facility] Get Ketoconazole 2018-10-22 03:45:26 Yes Timo Lee not defined [facility] Cephalexin 2018-10-22 03:45:26 Yes Timo Lee not defined [facility] Digoxin 2018-10-22 03:45:26 Yes Timo Lee no t defined [facility] Atorvastatin 2018-10-22 03:45:26 Yes Timo Lee not defined [facility] Aspirin 2018-10-22 03:45:26 Yes Timo Lee no t defined [facility] Eliquis 2018-10-22 03:45:26 Yes Timo Lee no t defined [facility] Ciprofloxacin 2018-10-22 03:45:26 Yes Timo Lee not defined [facility] Clickfine Pen Ironside 2018-10-22 03:45:26 Yes Timo morenot not defined [facility] Pioglitazone HCl 2018-10-22 03:45:26 Yes Timo Lee not defined [facility] Levemir Flexpen 2018-10-22 03:45:26 Yes Timo Lee not defined [facility] GlipiZIDE 2018-10-22 03:45:26 Yes Timo Lee not defined [facility] Trazadone 2018-10-22 03:45:26 Yes Timo Lee not defined [facility] Lisinopril 2018-10-22 03:45:26 Yes Timo Lee not defined [facility] fentaNYL (ANES) 2018-10-21 18:51:00 No Route: IV, Drug form: INJ, ONCE, Stop date: 10/21/18 12:51:00 [employer] [facility] midazolam (ANES) 2018-10-21 18:51:00 No Route: IV, Drug form: SOLN, ONCE, Stop date: 10/21/18 12:51:00 [employer] [facility] famotidine (ANES) 2018-10-21 18:51:00 No Route: IV, Drug form: INJ, ONCE, Stop date: 10/21/18 12:51:00 [employer] Rosita randy Deutsch metoclopramide (ANES) 2018-10-21 18:51:00 No Route: IV, Drug form: INJ, ONCE, Stop date: 10/21/18 12:51:00 [employer] Jonn Deutsch ondansetron (ANES) 2018-10-21 18:51:00 No Route: IV, Drug form: INJ, ONCE, Stop date: 10/21/18 12:51:00 [employer] Jonn Deutsch lidocaine (ANES) 2018-10-21 18:37:00 No Route: IV, Drug form: INJ, ONCE, Stop date: 10/21/18 12:37:00 [employer] Rosita randy Deutsch Amidate (ANES) 2018-10-21 18:37:00 No Route: IV, Drug form: INJ, ONCE, Stop date: 10/21/18 12:37:00 [employer] Rosita randy Deutsch ceFAZolin (ALMAS) 2018-10-21 18:37:00 No Route: IV, Drug form: INJ, ONCE, Stop date: 10/21/18 12:37:00 [employer] Rosita randy Deutsch Lactated Ringers Injection IV (ALMAS) 1000 mL 2018-10-21 17:44:00 No Route: IV, Total Volume: 1,000, Start date: 10/21/18 11:44:00 [employer], Stop date: 10/21/18 12:44:00 [employer] Jonn Deutsch Calcium Chloride 0.0014 MEQ/ML / Potassi um Chloride 0.004 MEQ/ML / Sodium Chloride 0.103 MEQ/ML / Sodium Lactate 0.028 MEQ/ML Injectable Solution 2018-10-21 16:36:00 No 1,000 mL, Rate: 25 ml/hr, Infuse over: 40 hr, Route: IV, Dosing Weight 121.591 kg, Total Volume: 1,000, Start date: 10/21/18 10:36:00 [employer], Duration: 30 day, Stop date: 11/20/18 10:35:00 [employer], 2.48, m2 Jonn Deutsch Tylenol/Codeine #3 2018-10-21 00:00:00 Yes Timo Verduzco t 1 tablet as needed Jonn Deutsch Clickfine Insulin Pen Ironside 31G 6mm=1/4 inch 2018-10-20 21:44: 16 No 1 ea, SUB-Q, QID, # 400 ea, 4 Refill(s) [facility] 3 ML insulin detemir 100 UNT/ML Prefilled Syringe [Levemir] 2018-10-20 21:22:18 Yes 60 unit, S UB-Q, Daily, # 60 mL, 1 Refill(s), Pharmacy: [facility] [address] [place] [address] 3 ML Insulin, Aspart, Human 100 UNT/ML Pen Injector [NovoLog ] 2018-10-20 21:22:00 No 20 unit, S UB-Q, TID-Before Meals, dose increase, # 60 mL, 1 Refill(s), Pharmacy: [address] 3 ML Insulin, Aspart, Human 100 UNT/ML Pen Injector [NovoLog ] 2018-10-20 21:20:00 No 15 unit, SUB-Q, TID-Before Me als [facility] cephalexin 500 mg oral capsule 2018-10-17 15:07:00 No 500 mg = 1 cap, PO, Q6H, # 40 cap, 0 Refill(s), Pharmacy: [facility] ciprofloxacin 500 mg oral tablet 2018-10-17 15:07:00 No 500 mg = 1 tab, PO, Q12H, X 10 day, # 20 tab, 0 Refill(s), Pharmacy: [facility] Trazodone Hydrochloride 50 MG Oral Tablet 2018-10-10 15:13:31 No 50 mg = 1 tab, PO, Bedtime, # 90 tab, 1 Refill(s), Pharmacy: [address] pioglitazone 45 mg oral tablet 2018-10-10 15:13:28 Yes 45 mg = 1 tab, PO, Daily, # 90 tab, 1 Refill(s), Pharmacy: [address] lisinopril 20 mg oral tablet 2018-10-10 15:13:24 Yes 20 mg = 1 tab, PO, Daily, # 90 tab, 1 Refill(s), Pharmacy: [address] Glipizide 10 MG Oral Tablet 2018-10-10 15:13:21 Yes 10 mg = 1 tab, PO, BID-Before Meals, change from glyburide, # 180 tab, 1 Refill(s), Pharmacy: [address] atorvastatin 20 mg oral tablet 2018-10-10 15:13:16 Yes 20 mg = 1 tab, PO, Daily, # 90 tab, 1 Refill(s), Pharmacy: [address] apixaban 2.5 MG Oral Tablet [Eliquis] 2018-10-10 15:13:12 N o 2.5 mg = 1 tab, PO, BID, # 180 tab, 1 Refill(s), Pharmacy: [address] atorvastatin 40 mg oral tablet 2018-08-11 14:05:00 No 40 mg = 1 tab, PO, Daily, discontinue simvastatin when supply finishs, # 90 tab, 1 Refill(s), Pharmacy: [facility] simvastatin 40 mg oral tablet 2018-08-11 13:33:00 No 40 mg = 1 tab, PO, Bedtime, 0 Refill(s) [facility] cuco Trazodone Hydrochloride 50 MG Oral Tablet 2018-04-29 16:22:28 Yes 50 mg = 1 tab, PO, Bedtime, # 90 tab, 1 Refill(s), Pharmacy: [facility] pioglitazone 45 mg oral tablet 2018-04-29 16:22:23 Yes 45 mg = 1 tab, PO, Daily, # 90 tab, 1 Refill(s), Pharmacy: [facility] lisinopril 20 mg oral tablet 2018-04-29 16:22:18 Yes 20 mg = 1 tab, PO, Daily, # 90 tab, 1 Refill(s), Pharmacy: [facility] 3 ML insulin detemir 100 UNT/ML Prefilled Syringe [Levemir] 2018-04-29 16:22:14 Yes 45 unit, S UB-Q, Daily, # 30 mL, 1 Refill(s), Pharmacy: [facility] glyBURIDE 5 mg oral tablet 2018-04-29 16:22:09 Yes 10 mg = 2 tab, PO, BID, # 360 tab, 1 Refill(s), Pharmacy: [facility] Digoxin 0.125 MG Oral Tablet 2018-04-29 16:21:00 Yes 125 microgram = 1 tab, PO, Daily, # 90 tab, 1 Refill(s), Pharmacy: [facility] apixaban 2.5 MG Oral Tablet [Eliquis] 2018-04-29 16:21:00 Y es 2.5 mg = 1 tab, PO, BID, # 180 tab, 1 Refill(s), Pharmacy: [facility] AMIODarone 200 mg oral tablet 2018-04-29 16:21:00 Yes 200 mg = 1 tab, PO, Daily, # 90 tab, 0 Refill(s), Pharmacy: [facility] atorvastatin 20 mg oral tablet 2018-04-29 16:21:00 Yes 20 mg = 1 tab, PO, Bedtime, # 90 tab, 1 Refill(s), Pharmacy: [facility] Ketoconazole 20 MG/ML Topical Cream 2018-04-29 16:21:00 Yes 1 appl, TOP, BID, # 60 gm, 1 Refill(s), Pharmacy: [facility] [address] [place] [address] 24 HR Diltiazem Hydrochloride 180 MG Extended Release Capsul e [Cartia] 2018-04-29 16:21:00 Yes 180 mg = 1 cap, PO, BID, # 180 cap, 1 Refill(s), Pharmacy: [facility] 3 ML insulin detemir 100 UNT/ML Prefilled Syringe [Levemir] 2017-10-07 20:23:39 Yes 45 unit, S UB-Q, Daily, # 15 mL, 3 Refill(s), Pharmacy: [address] Trazodone Hydrochloride 50 MG Oral Tablet 2017-10-04 16:07:00 Yes 50 mg = 1 tab, PO, Bedtime, # 30 tab, 3 Refill(s), Pharmacy: [address] Amoxicillin 875 MG / Clavulanate 125 MG Oral Tablet [Augment in 875-mg] 2016-07-13 22:44:00 No 1 tab, Route: PO, Dosing Weight 128.182, kg, ONCE, Start date: 07/13/16 17:44:00 CDT, Stop date: 07/13/16 17:44:00 CDT Jonn Kelso Amoxicillin 500 MG / Clavulanate 125 MG Oral Tablet [Augment in 500-mg] 2016-07-13 22:09:00 Yes 1 tab, PO, Q8H, X 7 day, # 21 tab, 0 Refill(s), Pharmacy: [place] [address] Jonn Deutsch Amoxicillin 500 MG / Clavulanate 125 MG Oral Tablet [Augment in 500-mg] 2016-07-13 22:07:00 No Notes: With food. (Same as: Augmentin 500) Jonn Deutsch Saline Flush 0.9% 2016-07-13 18:31:00 No Notes: (Same as: BD Posiflush) Jonn Deutsch magnesium sulfate 2015-11-04 17:14:00 No 2 gm, 50 mL, Route: IVPB, Drug form: INJ, ONCE, Dosing Weight 113.1, kg, Total dose = 2 gm, Start date: 11/04/15 11:14:00, Duration: 1 doses or times, Stop date: 11/04/15 11:14:00 Jonn Deutsch diltiazem 180 mg/24 hours oral capsule, extended release 2015-11-04 15:59:00 Yes 180 mg = 1 cap, PO, BID, # 60 ca p, 0 Refill(s) Jonn Deutsch 3 ML insulin detemir 100 UNT/ML Prefilled Syringe [Levemir] 2015-11-04 15:59:00 Yes 10 unit, S UB-Q, Bedtime, 1 box with supplies or equivalent covered product, # 15 mL, 0 Refill(s) Jonn Deutsch Aspirin 325 MG Enteric Coated Tablet 2015-11-04 15:59:00 Ye s 325 mg = 1 tab, PO, Daily, 0 Refill(s) Jonn Deutsch Neutra-Phos 2015-11-04 15:48:00 No Notes: (Same as: Neutra-Phos) Each 1.25 gm pkt has 250mg phosphorous. Mix w/2.5oz water and stir. Jonn Deutsch Magnesium Sulfate 2015-11-04 15:48:00 No Notes: (Same as: MgSO4) MEDICATION WASTE Product Size: 1000 mg Product Wasted: ___ mg Jonn Deutsch Clonidine Hydrochloride 0.1 MG Oral Tablet 2015-11-03 19:12:00 No Notes: (Same As: Catapres) [facility] Zuhair timothy potassium chloride 2015-11-03 17:51:00 No Notes: (Same as: K-Dur 20) "Do Not Crush" With food and full glass of water [facility] Get potassium chloride 2015-11-03 16:37:00 No Notes: (Same as: K-Dur 20) "Do Not Crush" With food and full glass of water [facility] potassium chloride 2015-11-02 18:08:00 No Notes: (Same as: K-Dur 20) "Do Not Crush" With food and full glass of water [facility] potassium chloride 2015-11-02 15:21:00 No Notes: (Same as: K-Dur 20) "Do Not Crush" With food and full glass of water [facility] [place] Sodium Chloride 0.9% IV 1,000 mL 2015-11-01 20:13:00 No 1,000 mL, Rate: 60 ml/hr, Infuse over: 16.7 hr, Route: IV, Dosing Weight 113.1 kg, Total Volume: 1,000, Start date: 11/01/15 14:13:00, Duration: 30 day, Stop date: 12/01/15 14:12:00 [facility] [place] Zosyn 2015-11-01 01:00:00 No Notes: (Same as: Zosyn) Dosing based on Piperacillin component [facility] Kayli nn Sodium Chloride 0.9% IV 1,000 mL 2015-10-31 19:58:00 No 1,000 mL, Rate: 100 ml/hr, Infuse over: 10 hr, Route: IV, Dosing Weight 113.1 kg, Total Volume: 1,000, Start date: 10/31/15 13:58:00, Duration: 30 day, Stop date: 11/30/15 13:57:00 [facility] Get Zofran 2015-10-31 14:14:00 No Notes: (Same as: Zofran) MEDICATION WASTE Product Size: 4 mg Product Wasted: ___ mg [facility] Morphine 2015-10-31 06:18:00 No Not es: (Same as:MORPhine Sulfate) [facility] Please discontinue diltiazem drip if no longer running 2015-10-31 06:00:00 No Please disco ntinue diltiazem drip if no longer running, ATTN: NETTIE, Drug form: MISC, Route: MISC, SONAL, 10/31/15 0:00:00, Duration: 30 day, Stop date: 11/29/15 16:00:00 Jonn Deutsch digoxin 125 mcg (0.125 mg) oral tablet 2015-10-30 23:54:00 No Notes: Take on an Empty Stomach (Same as: Lanoxin) Jonn Moffettann Cardizem CD 2015-10-30 23:52:00 No Notes: (Same as:Cardizem CD) Before meals. DO NOT CRUSH. Jonn Juan johnson Sodium Chloride 0.9% IV 1,000 mL 2015-10-30 18:04:00 No 1,000 mL, Rate: 60 ml/hr, Infuse over: 16.7 hr, Route: IV, Dosing Weight 113.1 kg, Total Volume: 1,000, Start date: 10/30/15 12:04:00, Duration: 30 day, Stop date: 11/29/15 12:03:00 Jonn Deutsch Amiodarone 2015-10-30 15:00:00 No Notes: (S silvano as: Cordarone) Jonn Deutsch Sodium Chloride 0.9% IV 1000 mL 2015-10-30 06:30:00 No 1,000 mL, Rate: 100 ml/hr, Infuse over: 10 hr, Route: IV, Dosing Weight 113.1 kg, Total Volume: 1,000, Start date: 10/30/15 0:30:00, Duration: 30 day, Stop date: 11/29/15 0:29:00 Jonn Deutsch Levemir 2015-10-30 03:00:00 No Notes: Same as Levemir Do not hold insulin without contacting prescriber "single patient use only" Jonn Moffettann Simvastatin 2015-10-30 03:00:00 No Notes: ( Same as: Zocor) Jonn Deutsch NS 1000 mL 2015-10-30 00:10:00 No 1,000 mL, Rate: 100 ml/hr, Infuse over: 10 hr, Route: IV, Dosing Weight 113.1 kg, Total Volume: 1,000, Start date: 10/29/15 18:10:00, Duration: 30 day, Stop date: 11/28/15 18:09:00 Jonn Deutsch NS + KCL 20mEq/L 1000ml (Premix) 1,000 mL 2015-10-30 00:03:00 No Notes: PREMIX IV - Do Not Alter Memoria l Get Digoxin 2015-10-29 23:50:00 No Notes: (Same as: Lanoxin) Jonn Moffettann potassium chloride 2015-10-29 23:23:00 No 40 mEq, Route: PO, Drug form: ERTAB, ONCE, Dosing Weight 113.1, kg, Priority: NOW, Start date: 10/29/15 17:23:00, Stop date: 10/29/15 17:23:00 M emoriart Moffettann Eliquis 2015-10-29 23:00:00 No Notes: Same as: Trina [facility] Get Glyburide 2015-10-29 23:00:00 No Notes: (Same as: Micronase, Diabeta) Take with meals. Jonn Zuhair timothy Imodium A-D 2015-10-29 10:33:00 No Notes: (Same as: Imodium) MAX adult dose is 8 caps/day Jonn Moffettan n potassium chloride 2015-10-29 06:16:00 No Notes: (Same as: K-Dur 20) "Do Not Crush" With food and full glass of water [facility] Get Saline Flush 0.9% 2015-10-29 03:00:00 No Notes: (Same as: BD Posiflush) [facility] Get Eliluzis 2015-10-29 03:00:00 No Notes: Same as: Trina [facility] Insulin, Aspart, Human 2015-10-28 23:35:00 No Notes: Roll in palms of hands gently; Do not shake vigorously. (Same as: NovoLOG) "single patient use only" Stable for 28 days at room temperature. Expires in days from Date [facility] Get Insulin regular 2015-10-28 23:35:00 No Notes: (Same as: Humulin R and NovoLIN R) (Do not shake) [facility] Insulin, Aspart, Human 2015-10-28 23:28:00 No Notes: Roll in palms of hands gently; Do not shake vigorously. (Same as: NovoLOG) "single patient use only" Stable for 28 days at room temperature. Expires in days from Date Jonn Get Glucagon 2015-10-28 23:28:00 No 1 mg, Route: IM, Drug form: PDR/INJ, PRN, Dosing Weight 113.636, kg, PRN Blood Glucose Results, Start date: 10/28/15 17:28:00, Duration: 30 day, Stop date: 11/27/15 17:27:00 Jonn Deutsch Dextrose 50% Syringe 2015-10-28 23:28:00 No 25 gm, 50 mL, Route: IVP, Drug Form: INJ, Dosing Weight 113.636, kg, PRN, PRN Blood Glucose Results, Start date: 10/28/15 17:28:00, Duration: 30 day, Stop date: 11/27/15 17:27:00 Jonn Deutsch Metoclopramide 10 MG Oral Tablet 2015-10-28 22:54:00 No 10 mg = 1 tab, PO, Daily, 0 Refill(s) Jonn beltre Aspirin 325 MG Enteric Coated Tablet 2015-10-28 22:18:00 No Notes: (Do Not Crush) Do not crush or chew. Tn ayala Deutsch Saline Flush 0.9% 2015-10-28 21:44:00 No Notes: (Same as: BD Posiflush) Jonn Deutsch Ondansetron 2015-10-28 21:44:00 No Notes: ( Same as: Zofran) Jonn Deutsch Sodium Chloride 0.154 MEQ/ML Injectable Solution 2015-10-28 21:4 4:00 No 1,000 mL, Rate: 150 ml/hr, I nfuse over: 6.7 hr, Route: IV, Dosing Weight 113.636 kg, Total Volume: 1,000, Start date: 10/28/15 15:44:00, Duration: 30 day, Stop date: 11/27/15 15:43:00 Fab Douglas NS + KCL 20mEq/L 1000ml (Premix) 1,000 mL 2015-10-28 21:24:00 No Notes: PREMIX IV - Do Not Alter Marilee Deutsch potassium chloride 2015-10-28 19:59:00 No Notes: (Same as: K-Dur 20) "Do Not Crush" With food and full glass of water Jonn Deutsch Insulin regular 2015-10-28 19:59:00 No Notes: (Same as: Humulin R and NovoLIN R) (Do not shake) Jonn Deutsch Sodium Chloride 0.154 MEQ/ML Injectable Solution 2015-10-28 19:5 9:00 No 500 mL, 500 ml/hr, Infuse Ov er: 1 hr, Route: IV, 500, Drug form: INJ, ONCE, Priority: STAT, Dosing Weight 113.636 kg, Start date: 10/28/15 13:59:00, Duration: 1 doses or times, Stop date: 10/28/15 13:59:00 Jonn Deutsch Diltiazem 2015-10-28 19:58:00 No Notes: (Sa me as: Cardizem) Jonn Deutsch Saline Flush 0.9% 2015-10-28 17:53:00 No Notes: (Same as: BD Posiflush) Jonn Deutsch Sodium Chloride 0.154 MEQ/ML Injectable Solution 2015-10-28 17:5 3:00 No 1,000 mL, Infuse Over: 1 hr, Route: IV, ONCE, Priority: STAT, Dosing Weight 113.636 kg, Start date: 10/28/15 11:53:00, Duration: 1 doses or times, Stop date: 10/28/15 11:53:00 Jonn Deutsch Metoclopramide 2015-10-28 17:53:00 No Notes : (Same as: Reglan) Jonn Deutsch Famotidine 2015-10-28 17:53:00 No Notes: (Same as: Pepcid) Can be dilute in 5-10cc NS IVP: Slow IV push over at least 2 minutes. [facility] [place] Amiodarone 2015-10-28 17:51:00 No Notes: (S silvano as: Cordarone) [facility] [place] aspirin 325 mg tablet 2015-02-03 14:00:00 No Notes: Take with food. [facility] Get pioglitazone 2015-02-03 14:00:00 No Notes: (Same as: Actos) [facility] Get Lisinopril 2015-02-03 14:00:00 No Notes: (Same as: Prinivil, Zestril) Jonn Deutsch Glyburide 2015-02-03 13:00:00 No Notes: (Same as: Micronase, Diabeta) Take with meals. Jonn aguirre Simvastatin 2015-02-03 02:00:00 No Notes: ( Same as: Zocor) Jonn Deutsch Metoprolol Tartrate 50 mg oral tablet 2015-02-02 22:35:00 Y es 50 mg = 1 tab, PO, BID, # 60 tab, 0 Refill(s) Jonn Deutsch Aspirin 81 MG Enteric Coated Tablet 2015-02-02 22:35:00 Yes 81 mg = 1 tab, PO, Daily, # 30 tab, 0 Refill(s) Jonn Deutsch metoprolol extended release 2015-02-02 22:03:00 No Notes: (Same as: Toprol XL) May split tab, but do not crush. Jonn Deutsch Digoxin 2015-02-02 21:56:00 No Notes: (Same as: Lanoxin) Jonn Deutsch Betapace 2015-02-02 20:48:00 No Notes: (Babatunde e As: Betapace) Jonn Deutsch Influenza Virus Vaccine, Inactivated A-B [id number] (H3N2)-like virus ([id number] [facility] [id number][place] strain / Influenza Virus Vaccine, Inactivated [id number], IVR-148 (H1N1) strain / Influenza Virus Vaccine, Inactivated, [id number]-lik 2015-02-02 14:00:00 Yes Notes: (Same as: Fluzone Quadrivalent) Jonn Deutsch digoxin 2015-02-02 05:59:00 No Notes: (Same as: Lanoxin) [facility] Get Digoxin 2015-02-02 05:00:00 No Notes: (Same as: Lanoxin) Jonn Deutsch Ondansetron 2015-02-02 02:57:00 No Notes: ( Same as: Zofran) Jonn Deutsch Acetaminophen 2015-02-02 02:57:00 No Notes: Do not exceed 4 gm/day. (Same as: Tylenol) Jonn Deutsch Morphine 2015-02-02 02:57:00 No Not es: (Same as:MORPhine Sulfate) Jonn Deutsch lisinopril 20 mg oral tablet 2015-02-02 00:53:00 Yes 20 mg = 1 tab, PO, Daily, # 30 tab, 0 Refill(s) Memoria l [place] diltiazem 125 mg + Sodium Chloride 0.9% (titrate) 100 mL 2015-02-02 00:26:00 No Notes: (Same as: Cardizem) [facility] Digoxin 2015-02-02 00:26:00 No Notes: Take on an Empty Stomach (Same as: Lanoxin) [facility] Lovenox 2015-02-02 00:25:00 No Notes: (Same as: Lovenox) [facility] Digoxin 2015-02-02 00:25:00 No Notes: (Same as: Lanoxin) [facility] metoprolol tartrate 2015-02-02 00:24:00 No Notes: (Same as: Lopressor) [facility] Cardizem 2015-02-01 23:07:00 No 20 mg, Route: IVP, ONCE, Dosing Weight 124.545, kg, Priority: STAT, Start date: 02/01/15 18:07:00, Stop date: 02/01/15 18:07:00 [facility] aspirin 325 mg tablet 2015-02-01 23:07:00 No 325 mg, Route: PO, Drug form: TAB, ONCE, Dosing Weight 124.545, kg, Priority: STAT, Start date: 02/01/15 18:07:00, Stop date: 02/01/15 18:07:00 [facility] Sodium Chloride 0.154 MEQ/ML Injectable Solution 2015-02-01 23:0 7:00 No 1,000 mL, Infuse Over: 1 hr, Route: IV, ONCE, Priority: STAT, Dosing Weight 124.545 kg, Start date: 02/01/15 18:07:00, Duration: 1 doses or times, Stop date: 02/01/15 18:07:00 [facility] Saline Flush 0.9% 2015-02-01 23:07:00 No Notes: (Same as: BD Posiflush) [facility] Ondansetron 2015-02-01 23:07:00 No 4 mg, Route: IVP, ONCE, Dosing Weight 124.545, kg, Priority: STAT, Start date: 02/01/15 18:07:00, Stop date: 02/01/15 18:07:00 Jonn Deutsch pioglitazone 45 mg oral tablet 2014-11-07 01:44:00 Yes 45 mg = 1 tab, PO, Daily, # 30 tab, 0 Refill(s) Me ayala Deutsch ciprofloxacin 500 mg oral tablet 2014-11-07 01:44:00 No 500 mg, PO, BID, 0 Refill(s) Jonn Deutsch Metformin 2014-11-07 01:44:00 No 500 mg, PO , BID, 0 Refill(s) Jonn Deutsch simvastatin 40 mg oral tablet 2014-11-07 01:44:00 Yes 40 mg = 1 tab, PO, Bedtime, # 30 tab, 0 Refill(s) J Luis Deutsch glyBURIDE 5 mg oral tablet 2014-11-07 01:44:00 Yes 10 mg = 2 tab, PO, BID, 0 Refill(s) Jonn Deutsch lisinopril 20 mg oral tablet 2014-11-07 01:44:00 No 20 mg = 1 tab, PO, Daily, # 30 tab, 0 Refill(s) Marilee Deutsch Saline Flush 0.9% 2014-11-06 21:33:00 No Notes: (Same as: BD Posiflush) Jonn Deutsch Sodium Chloride 0.0769 MEQ/ML Injectable Solution 2014-11-06 21:33:00 No 1,000 mL, Rate: 150 ml/hr, Infuse over: 6.7 hr, Route: IV, Dosing Weight 114.091 kg, Total Volume: 1,000, Start date: 11/06/14 15:33:00, Duration: 30 day, Stop date: 12/06/14 15:32:00 Fab Douglas Ondansetron 2014-11-06 21:33:00 No Notes: ( Same as: Zofran) Jonn Deutsch Sodium Chloride 0.154 MEQ/ML Injectable Solution 2014-11-06 19:3 1:00 No 1,000 mL, 1,000 ml/hr, Infus e Over: 1 hr, Route: IV, ONCE, Priority: STAT, Dosing Weight 114.091 kg, Start date: 11/06/14 13:31:00, Duration: 1 doses or times, Stop date: 11/06/14 13:31:00 J Luis Deutsch Vital Signs Vital Name Observation Time Observation Value Comments Source Systolic (mm Hg) 2019-07-12 14:06:00 J Luis rial [place] Diastolic (mm Hg) 2019-07-12 14:06:00 [facility] Get Heart Rate 2019-07-12 14:06:00 [facility] [place] Respitory Rate 2019-07-12 14:06:00 [facility] Get Temperature Oral (F) 2019-07-12 14:06:00 98.0 F [facility] [place] Height 2019-07-12 14:06:00 177.8 cm [facility] [place] Weight 2019-07-12 14:06:00 [facility] [place] BMI Calculated 2019-07-12 14:06:00 [facility] Get Weight 2019-06-19 13:44:00 [facility] BMI Calculated 2019-06-19 13:44:00 [facility] Get Temperature Oral (F) 2019-06-19 13:44:00 97.9 F [facility] Height 2019-06-19 13:44:00 177.8 cm [facility] Get Systolic (mm Hg) 2019-06-19 13:44:00 J Luis rial [place] Diastolic (mm Hg) 2019-06-19 13:44:00 [facility] Get Respitory Rate 2019-06-19 13:44:00 [facility] Get Heart Rate 2019-06-19 13:44:00 [facility] Weight 2019-05-02 13:10:00 [facility] [place] BMI Calculated 2019-05-02 13:10:00 [facility] Get Height 2019-05-02 13:10:00 177.8 cm [facility] Get Temperature Oral (F) 2019-05-02 13:10:00 97.9 F [facility] Heart Rate 2019-05-02 13:10:00 [facility] Respitory Rate 2019-05-02 13:10:00 [facility] [place] Systolic (mm Hg) 2019-05-02 13:10:00 J Luis rial [place] Diastolic (mm Hg) 2019-05-02 13:10:00 [facility] Get BMI Calculated 2019-03-06 14:11:00 [facility] [place] Weight 2019-03-06 14:11:00 [facility] [place] Height 2019-03-06 14:11:00 177.8 cm [facility] Get Heart Rate 2019-03-06 14:11:00 [facility] Get Respitory Rate 2019-03-06 14:11:00 [facility] [place] Temperature Oral (F) 2019-03-06 14:11:00 98.1 F [facility] Get Systolic (mm Hg) 2019-03-06 14:11:00 J Luis rial [place] Diastolic (mm Hg) 2019-03-06 14:11:00 [facility] Get Heart Rate 2019-02-28 13:00:00 [facility] Get Respitory Rate 2019-02-28 13:00:00 [facility] Get Systolic (mm Hg) 2019-02-28 13:00:00 J Luis rial [place] Diastolic (mm Hg) 2019-02-28 13:00:00 [facility] Get Temperature Oral (F) 2019-02-28 13:00:00 97.2 F [facility] Get Temperature Oral (F) 2019-02-28 09:30:00 98.1 F [facility] Get Heart Rate 2019-02-28 09:30:00 [facility] [place] Respitory Rate 2019-02-28 09:30:00 [facility] [place] Systolic (mm Hg) 2019-02-28 09:30:00 J Luis rial [place] Diastolic (mm Hg) 2019-02-28 09:30:00 [facility] Get Temperature Oral (F) 2019-02-28 05:04:00 98.3 F [facility] Get Systolic (mm Hg) 2019-02-28 05:04:00 J Luis rial [place] Diastolic (mm Hg) 2019-02-28 05:04:00 [facility] Get Heart Rate 2019-02-28 05:04:00 [facility] [place] Respitory Rate 2019-02-28 05:04:00 [facility] [place] Weight 2019-02-24 19:30:00 [facility] Get BMI Calculated 2019-02-24 19:30:00 [facility] [place] Height 2019-02-24 19:30:00 177.8 cm [facility] Get Height 2019-02-24 13:10:00 177.8 cm [facility] Get BMI Calculated 2019-02-24 13:10:00 [facility] [place] Weight 2019-02-24 13:10:00 [facility] [place] Weight 2019-01-24 14:20:00 [facility] [place] BMI Calculated 2019-01-24 14:20:00 [facility] [place] Height 2019-01-24 14:20:00 177.8 cm [facility] [place] Respitory Rate 2019-01-24 14:20:00 [facility] Get Temperature Oral (F) 2019-01-24 14:20:00 98.5 F [facility] Get Systolic (mm Hg) 2019-01-24 14:20:00 J Luis rial Get Diastolic (mm Hg) 2019-01-24 14:20:00 [facility] [place] Heart Rate 2019-01-24 14:20:00 [facility] BMI Calculated 2018-11-28 20:35:00 [facility] Weight 2018-11-28 20:35:00 [facility] Height 2018-11-28 20:35:00 177.8 cm [facility] [place] Temperature Oral (F) 2018-11-28 20:35:00 98.1 F [facility] [place] Respitory Rate 2018-11-28 20:35:00 [facility] Heart Rate 2018-11-28 20:35:00 [facility] [place] Systolic (mm Hg) 2018-11-28 20:35:00 J [facility] [place] Diastolic (mm Hg) 2018-11-28 20:35:00 [facility] [place] Height 2018-11-07 16:59:00 177.8 cm [facility] Weight 2018-11-07 16:59:00 [facility] BMI Calculated 2018-11-07 16:59:00 [facility] [place] Systolic (mm Hg) 2018-11-07 16:59:00 J [facility] [place] Diastolic (mm Hg) 2018-11-07 16:59:00 [facility] [place] Heart Rate 2018-11-07 16:59:00 [facility] Respitory Rate 2018-11-07 16:59:00 [facility] [place] Temperature Oral (F) 2018-11-07 16:59:00 97.8 F [facility] Weight 2018-11-01 20:46:00 [facility] BMI Calculated 2018-11-01 20:46:00 [facility] Height 2018-11-01 20:46:00 177.8 cm [facility] [place] Respitory Rate 2018-11-01 20:46:00 [facility] Temperature Oral (F) 2018-11-01 20:46:00 97.6 F [facility] [place] Heart Rate 2018-11-01 20:46:00 [facility] Systolic (mm Hg) 2018-11-01 20:46:00 J Luis [facility] [place] Diastolic (mm Hg) 2018-11-01 20:46:00 [facility] Get Respitory Rate 2018-10-21 19:15:00 [facility] Systolic (mm Hg) 2018-10-21 19:15:00 [facility] Get Diastolic (mm Hg) 2018-10-21 19:15:00 [facility] [place] Respitory Rate 2018-10-21 19:00:00 [facility] [place] Systolic (mm Hg) 2018-10-21 19:00:00 J Luis [facility] Get Diastolic (mm Hg) 2018-10-21 19:00:00 [facility] Get Systolic (mm Hg) 2018-10-21 18:45:00 J [facility] [place] Diastolic (mm Hg) 2018-10-21 18:45:00 [facility] Get Respitory Rate 2018-10-21 18:45:00 [facility] [place] Heart Rate 2018-10-21 16:39:00 [facility] [place] BMI Calculated 2018-10-20 21:03:00 [facility] Get Temperature Oral (F) 2018-10-20 21:03:00 97.8 F [facility] Height 2018-10-20 21:03:00 177.8 cm [facility] [place] Weight 2018-10-20 21:03:00 [facility] Get Heart Rate 2018-10-20 21:03:00 [facility] Get Respitory Rate 2018-10-20 21:03:00 [facility] Get Systolic (mm Hg) 2018-10-20 21:03:00 J Luis [facility] Get Diastolic (mm Hg) 2018-10-20 21:03:00 [facility] Get Heart Rate 2018-10-20 15:40:00 [facility] [place] Temperature Oral (F) 2018-10-20 15:40:00 97.9 F [facility] Get Height 2018-10-20 15:34:00 177.8 cm [facility] [place] Weight 2018-10-20 15:34:00 [facility] Get BMI Calculated 2018-10-20 15:34:00 [facility] Get BMI Calculated 2018-10-19 17:00:00 [facility] Get Height 2018-10-19 17:00:00 177.8 cm [facility] Get Weight 2018-10-19 17:00:00 [facility] Get Temperature Oral (F) 2018-10-19 17:00:00 98.0 F [facility] Get Heart Rate 2018-10-19 17:00:00 [facility] [place] Respitory Rate 2018-10-19 17:00:00 [facility] Get Systolic (mm Hg) 2018-10-19 17:00:00 J Luis [facility] Get Diastolic (mm Hg) 2018-10-19 17:00:00 [facility] [place] Weight 2018-10-18 15:45:00 [facility] [place] Height 2018-10-18 15:45:00 177.8 cm [facility] [place] BMI Calculated 2018-10-18 15:45:00 [facility] Get Temperature Oral (F) 2018-10-18 15:45:00 98.0 F [facility] Get Heart Rate 2018-10-18 15:45:00 [facility] Get Respitory Rate 2018-10-18 15:45:00 [facility] Get Systolic (mm Hg) 2018-10-18 15:45:00 J Luis [facility] Get Diastolic (mm Hg) 2018-10-18 15:45:00 [facility] [place] Heart Rate 2018-10-17 14:29:00 [facility] [place] Respitory Rate 2018-10-17 14:29:00 [facility] al Get Temperature Oral (F) 2018-10-17 14:29:00 98.0 F [facility] [place] Height 2018-10-17 14:29:00 177.8 cm [facility] Systolic (mm Hg) 2018-10-17 14:29:00 J Luis [facility] Get Diastolic (mm Hg) 2018-10-17 14:29:00 [facility] Get Weight 2018-10-17 14:29:00 [facility] [place] BMI Calculated 2018-10-17 14:29:00 [facility] al Get BMI Calculated 2018-10-10 14:50:00 [facility] [place] Height 2018-10-10 14:50:00 177.8 cm [facility] [place] Weight 2018-10-10 14:50:00 [facility] [place] Temperature Oral (F) 2018-10-10 14:50:00 98.0 F [facility] Get Respitory Rate 2018-10-10 14:50:00 [facility] [place] Systolic (mm Hg) 2018-10-10 14:50:00 J Luis [facility] [place] Diastolic (mm Hg) 2018-10-10 14:50:00 [facility] Get Heart Rate 2018-10-10 14:50:00 [facility] [place] Height 2018-08-11 13:29:00 177.8 cm [facility] [place] Weight 2018-08-11 13:29:00 [facility] Get BMI Calculated 2018-08-11 13:29:00 [facility] Get Systolic (mm Hg) 2018-08-11 13:29:00 J Luis [facility] [place] Diastolic (mm Hg) 2018-08-11 13:29:00 [facility] Get Temperature Oral (F) 2018-08-11 13:29:00 97.4 F [facility] Respitory Rate 2018-08-11 13:29:00 [facility] Get Heart Rate 2018-08-11 13:29:00 [facility] Get BMI Calculated 2018-06-24 15:48:00 [facility] [place] Systolic (mm Hg) 2018-06-24 15:48:00 J Luis [facility] Get Diastolic (mm Hg) 2018-06-24 15:48:00 [facility] Get Temperature Oral (F) 2018-06-24 15:48:00 97.8 F [facility] [place] Heart Rate 2018-06-24 15:48:00 [facility] [place] Respitory Rate 2018-06-24 15:48:00 [facility] [place] Weight 2018-06-24 15:48:00 [facility] [place] Height 2018-06-24 15:48:00 177.8 cm [facility] Get Weight 2018-04-29 15:33:00 [facility] [place] BMI Calculated 2018-04-29 15:33:00 [facility] [place] Systolic (mm Hg) 2018-04-29 15:33:00 J Luis [facility] Get Diastolic (mm Hg) 2018-04-29 15:33:00 [facility] Get Height 2018-04-29 15:33:00 177.8 cm [facility] [place] Temperature Oral (F) 2018-04-29 15:33:00 97.5 F [facility] Get Heart Rate 2018-04-29 15:33:00 [facility] [place] Respitory Rate 2018-04-29 15:33:00 [facility] al Get BMI Calculated 2017-10-07 20:05:00 [facility] Get Weight 2017-10-07 20:05:00 [facility] Get Height 2017-10-07 20:05:00 177.8 cm [facility] [place] Temperature Oral (F) 2017-10-07 20:05:00 97.5 F [facility] [place] Respitory Rate 2017-10-07 20:05:00 [facility] [place] Systolic (mm Hg) 2017-10-07 20:05:00 J Luis [facility] [place] Diastolic (mm Hg) 2017-10-07 20:05:00 [facility] Get Heart Rate 2017-10-07 20:05:00 [facility] Get Height 2017-10-04 15:50:00 177.8 cm [facility] Get Weight 2017-10-04 15:50:00 [facility] [place] BMI Calculated 2017-10-04 15:50:00 [facility] Get Systolic (mm Hg) 2017-10-04 15:50:00 J Luis rial Get Diastolic (mm Hg) 2017-10-04 15:50:00 [facility] [place] Temperature Oral (F) 2017-10-04 15:50:00 98.4 F [facility] Get Heart Rate 2017-10-04 15:50:00 [facility] Get Respitory Rate 2017-10-04 15:50:00 [facility] Get Heart Rate 2016-07-13 22:33:00 [facility] [place] Temperature Oral (F) 2016-07-13 22:33:00 98.2 F [facility] Systolic (mm Hg) 2016-07-13 22:33:00 J Luis [facility] [place] Diastolic (mm Hg) 2016-07-13 22:33:00 [facility] [place] Respitory Rate 2016-07-13 22:33:00 [facility] Get Weight 2016-07-13 17:53:00 [facility] Get BMI Calculated 2016-07-13 17:53:00 [facility] Get Height 2016-07-13 17:53:00 177.8 cm [facility] Get Temperature Oral (F) 2016-07-13 17:53:00 98.0 F [facility] Get Heart Rate 2016-07-13 17:53:00 [facility] Get Respitory Rate 2016-07-13 17:53:00 [facility] [place] Systolic (mm Hg) 2016-07-13 17:53:00 J Luis [facility] [place] Diastolic (mm Hg) 2016-07-13 17:53:00 [facility] [place] Height 2016-06-22 15:57:00 177.8 cm [facility] [place] Weight 2016-06-22 15:57:00 [facility] [place] BMI Calculated 2016-06-22 15:57:00 [facility] Get Heart Rate 2015-11-04 17:19:00 [facility] Get Temperature Oral (F) 2015-11-04 17:19:00 97.9 F [facility] [place] Systolic (mm Hg) 2015-11-04 17:19:00 J Luis [facility] [place] Diastolic (mm Hg) 2015-11-04 17:19:00 [facility] [place] Respitory Rate 2015-11-04 17:19:00 [facility] Get Respitory Rate 2015-11-04 14:00:00 [facility] Get Systolic (mm Hg) 2015-11-04 14:00:00 J Luis [facility] Get Diastolic (mm Hg) 2015-11-04 14:00:00 [facility] [place] Temperature Oral (F) 2015-11-04 14:00:00 98.5 F [facility] [place] Heart Rate 2015-11-04 14:00:00 [facility] Get Respitory Rate 2015-11-04 13:44:00 [facility] Get Systolic (mm Hg) 2015-11-04 10:00:00 J Luis [facility] [place] Diastolic (mm Hg) 2015-11-04 10:00:00 [facility] [place] Temperature Oral (F) 2015-11-04 10:00:00 98.4 F [facility] Get Heart Rate 2015-11-04 10:00:00 [facility] Get Weight 2015-10-29 04:39:00 [facility] [place] BMI Calculated 2015-10-29 04:39:00 [facility] [place] Height 2015-10-29 04:39:00 177.8 cm [facility] [place] Height 2015-10-28 15:05:00 177.8 cm [facility] [place] BMI Calculated 2015-10-28 15:05:00 [facility] Get Weight 2015-10-28 15:05:00 [facility] [place] Systolic (mm Hg) 2015-02-02 19:00:00 J Luis [facility] Get Diastolic (mm Hg) 2015-02-02 19:00:00 [facility] Get Respitory Rate 2015-02-02 19:00:00 [facility] [place] Systolic (mm Hg) 2015-02-02 18:00:00 J Luis rial Get Diastolic (mm Hg) 2015-02-02 18:00:00 [facility] Get Respitory Rate 2015-02-02 18:00:00 [facility] [place] Temperature Oral (F) 2015-02-02 17:00:00 98.0 F [facility] [place] Systolic (mm Hg) 2015-02-02 17:00:00 J Luis rial Get Diastolic (mm Hg) 2015-02-02 17:00:00 [facility] Get Respitory Rate 2015-02-02 17:00:00 [facility] Get Temperature Oral (F) 2015-02-02 13:00:00 97.9 F [facility] [place] Temperature Oral (F) 2015-02-02 09:19:00 98.1 F [facility] [place] Weight 2015-02-02 03:12:00 [facility] Get BMI Calculated 2015-02-02 03:12:00 [facility] [place] Height 2015-02-02 03:12:00 177.8 cm [facility] Get Heart Rate 2015-02-02 01:58:00 [facility] [place] Heart Rate 2015-02-02 01:31:00 [facility] [place] Heart Rate 2015-02-01 23:53:00 [facility] [place] Weight 2015-02-01 22:47:00 [facility] [place] BMI Calculated 2015-02-01 22:47:00 [facility] [place] Height 2015-02-01 22:47:00 177.8 cm [facility] Get Systolic (mm Hg) 2014-11-08 13:59:00 J Luis rial [place] Diastolic (mm Hg) 2014-11-08 13:59:00 [facility] Get Respitory Rate 2014-11-08 13:59:00 [facility] [place] Temperature Oral (F) 2014-11-08 13:59:00 97.7 F [facility] [place] Heart Rate 2014-11-08 13:59:00 [facility] [place] Diastolic (mm Hg) 2014-11-08 10:00:00 [facility] [place] Systolic (mm Hg) 2014-11-08 10:00:00 J Luis rial [place] Heart Rate 2014-11-08 10:00:00 [facility] Get Temperature Oral (F) 2014-11-08 10:00:00 97.8 F [facility] [place] Heart Rate 2014-11-08 06:00:00 [facility] Get Temperature Oral (F) 2014-11-08 06:00:00 97.6 F [facility] Systolic (mm Hg) 2014-11-08 06:00:00 J Luis wilberto [place] Diastolic (mm Hg) 2014-11-08 06:00:00 [facility] Get Respitory Rate 2014-11-07 22:00:00 [facility] al Get Respitory Rate 2014-11-07 18:00:00 [facility] Get Weight 2014-11-07 01:58:00 [facility] [place] BMI Calculated 2014-11-07 01:58:00 [facility] [place] Height 2014-11-07 01:58:00 177.8 cm [facility] [place] Weight 2014-11-06 18:18:00 [facility] Get BMI Calculated 2014-11-06 18:18:00 Mem[facility] al Get Height 2014-11-06 18:18:00 177.8 cm [facility] Get Procedures Procedure Date / Time Performed Performing Clinician [facility] e Diabetic retinopathy screening 2018-07-04 05:00:00 [facility] Diabetic retinopathy screening<sup>1</sup> 2017-02-19 05:00:00 [facility] Get Colonoscopy 2016-01-01 06:00:00 [facility]tre Diabetic foot examination 2015-05-03 05:00:00 Tn morial [place] Encounters Start Date/Time End Date/Time Encounter Type Admission Type [facility] Care Department Encounter ID Source 2019-02-24 11:36:00 Inpatient E [facility] MED [id number] 2019-07-12 11:30:00 2019-07-12 23:59:59 Outpatient Adrienne Lawson [facility] [id number] 2019-06-19 12:00:00 2019-06-19 23:59:59 Outpatient Adrienne Lawson [facility] [id number] 2019-05-02 08:15:00 2019-05-02 23:59:59 Outpatient Adrienne Lawson [facility] [id number] 2019-03-06 11:00:00 2019-03-06 23:59:59 Outpatient Adrienne Lawson [facility] [id number] 2019-02-24 08:05:00 2019-02-28 12:30:00 Outpatient Kurtis Cool [facility] [id number] 2019-02-24 06:22:00 2019-02-24 23:59:00 Outpatient Andres Rodriguez v [facility] [id number] 2019-02-21 13:19:00 2019-02-22 23:59:59 Outpatient [facility] [id number] 2019-02-15 09:31:00 2019-02-16 23:59:59 Outpatient [facility] [id number] 2019-01-24 08:15:00 2019-01-24 23:59:59 Outpatient Lulu Rosa Elenamekhi Becker [facility] [id number] 2019-01-18 16:42:00 2019-01-19 23:59:59 Outpatient [facility] [id number] 2019-01-09 08:15:00 2019-01-09 08:15:00 Outpatient Lulu Adrienne Becker [facility] MG [id number] 2018-11-28 14:15:00 2018-11-28 23:59:59 Outpatient Adrienne Lawson [facility] MG [id number] 2018-11-07 11:00:00 2018-11-07 23:59:59 Outpatient Adrienne Lawson [facility] MG [id number] 2018-11-01 14:30:00 2018-11-01 23:59:59 [id number] 2018-10-24 10:54:00 2018-10-25 23:59:59 Outpatient [facility] [id number] 2018-10-21 13:37:00 2018-10-21 13:37:00 Outpatient [id number] 2018-10-21 08:38:00 2018-10-21 13:28:00 Outpatient Timo Lee [facility] [id number] 2018-10-20 16:15:00 2018-10-20 23:59:59 Outpatient Adrienne Lawson [facility] [id number] 2018-10-20 15:37:00 2018-10-20 15:37:00 Outpatient [facility] [place] [id number] eClinicalWorks 2018-10-20 14:49:00 2018-10-20 14:49:00 Outpatient [facility] [place] [id number] eClinicalWorks 2018-10-19 11:00:00 2018-10-19 23:59:59 Outpatient Ardienne Lawson [facility] [id number] 2018-10-19 14:25:00 2018-10-19 14:25:00 Outpatient [facility] [place] [id number] eClinicalWorks 2018-10-18 09:30:00 2018-10-18 23:59:59 Outpatient Adrienne Lawson [facility] [id number] 2018-10-18 16:40:00 2018-10-18 23:59:00 Outpatient Jesus Timo Salma [facility] [id number] 2018-10-17 08:15:00 2018-10-17 23:59:59 Outpatient Adrienne Lawson [facility] [id number] 2018-10-10 09:15:00 2018-10-10 23:59:59 Outpatient Adrienne Lawson [facility] [id number] 2018-08-11 08:30:00 2018-08-11 23:59:59 Outpatient Adrienne Lawson [facility] [id number] 2018-06-24 10:30:00 2018-06-24 23:59:59 Outpatient Adrienne Lawson [facility] [id number] 2018-04-29 10:30:00 2018-04-29 23:59:59 Outpatient Adrienne Lawson [facility] [id number] 2017-11-10 16:00:00 2017-11-10 16:00:00 Outpatient Adrienne Lawson [facility] [id number] 2017-10-07 14:15:00 2017-10-07 23:59:59 Outpatient Adrienne Lawson [facility] [id number] 2017-10-04 10:00:00 2017-10-04 23:59:59 Outpatient Adrienne Lawson [facility] [id number] 2016-07-13 12:50:00 2016-07-13 17:49:00 Outpatient Vijay Solorio [place] [id number] 2016-06-22 10:50:00 2016-06-22 23:59:00 Outpatient Adrienne Lawson E [place] [id number] 2015-10-28 08:48:00 2015-11-04 14:38:00 Outpatient Kurtis Cool [place] [id number] 2015-05-08 10:14:00 2015-05-08 23:59:00 Outpatient Adrienne Lawson [place] [id number] 2015-02-01 17:37:00 2015-02-02 19:10:00 Outpatient Andres Rodriguez v [place] [id number] 2014-11-06 12:03:00 2014-11-08 10:57:00 Outpatient Kurtis Cool [place] [id number] Results Test Description Test Time Test Comments Results Result Comments Source CHEST SINGLE (PORTABLE) 2020-08-14 14:36:00 [place] [address] Patient Name: MAKENZIE TEIXEIRA MR #: [id number] : 1955 Age/Sex: 65/M Req #: [id number] Adm Physician: Ordered by: ANGUS BENDER MD Report #: [id number] Location: ER Room/Bed: Procedure: [id number] DX/CHEST SINGLE (PORTABLE) Exam Date: 08/14/20 Exam Time: 1400 REPORT STATUS: Signed EXAMINATION: CHEST SINGLE (PORTABLE) INDICATION: Lower extremity edema COMPARISON: None FINDINGS: LINES/TUBES:None LUNGS:The lungs are well-inflated. There is perihilar fullness and indistinctness of the pulmonary vasculature. P atchy left greater than right bibasilar opacities. PLEURA:No pleural effusion or pneumothorax. MEDIASTINUM:The cardiomediastinal silhouette appears enlarged. BONES/SOFT TISSUES:No acute osseous injury. ABDOMEN:No free air under the diaphragm. IMPRESSION: Very megaly and pulmonary interstitial edema. Left greater than right patchy bibasilar opacities may represent component of airspace edema or subsegmental atelectasis. Superimposed aspiration or pneumonia is less likely. Signed by: Shanon Bey MD on 08/14/2020 2:37 PM Dictated By: SHANON BEY MD [id number] Transcribed By: ABIGAIL on 08/14/20 1437 COPY TO: ANGUS BENDER MD ELECTROLYTES 2019-02-28 10:35:00 6.4 Mem orial Get ELECTROLYTES 2019-02-28 10:35:00 39 Mem orial Get ELECTROLYTES 2019-02-28 10:35:00 184 [facility] [place] ELECTROLYTES 2019-02-28 10:35:00 25 [facility] [place] ELECTROLYTES 2019-02-28 10:35:00 1.78 [facility] [place] ELECTROLYTES 2019-02-28 10:35:00 138 [facility] [place] ELECTROLYTES 2019-02-28 10:35:00 27 [facility] [place] ELECTROLYTES 2019-02-28 10:35:00 109 [facility] [place] ELECTROLYTES 2019-02-28 10:35:00 4.4 Mem orial Get ELECTROLYTES 2019-02-28 10:35:00 9.0 Mem orial Get HEMATOLOGY 2019-02-28 10:35:00 2.2 Memor ial Get HEMATOLOGY 2019-02-28 10:35:00 0.1 Memor ial [place] HEMATOLOGY 2019-02-28 10:35:00 0.4 Memor ial [place] HEMATOLOGY 2019-02-28 10:35:00 0.2 Memor ial Get HEMATOLOGY 2019-02-28 10:35:00 31.0 Memor ial [place] HEMATOLOGY 2019-02-28 10:35:00 2.9 Memor ia Get HEMATOLOGY 2019-02-28 10:35:00 0.8 Memor ia [place] HEMATOLOGY 2019-02-28 10:35:00 6.1 Memor ia Get HEMATOLOGY 2019-02-28 10:35:00 59.2 Memor [facility] [place] HEMATOLOGY 2019-02-28 10:35:00 4.2 Memor ia [place] HEMATOLOGY 2019-02-28 10:35:00 Test Item PTT (test code = PTT) 55.3 s 22.9-35.8 [facility] NrbofhaFJVZYTGWGI1671-64-66 10:35:0014.0[facility] 2019-02-28 10:35:0033.7[facility] OscrgruZTZDRDOWMO3617-75-83 10:35:008.1[facility] JjoxbrkMSGQPBNBBO9270-26-04 10:35:10467Fibuqzvn ZgyzjekTHEGBJWKLF0003-08-67 10:35:007.1[facility] KfwtrtoRHOWCKTJXM9352-95-69 10:35:004.65[facility] DJPNNNATSR6349-50-83 10:35:0085.6[facility] BbyoofvRJYJKRCWUN8118-74-79 10:35:00 39.8[facility] AzmcqtlDWGZQUDGIP2409-56-62 10:35:0013.4[facility]annHEMATOLOGY 2019-02-28 10:35:00* Test Item Value Reference Range Interpretation Comments MCH (test code = MCH) 28.8 pg 27.0-31.0 [facility]NY[facility]ELK[facility]27[facility]-13 04:16:00* Test Item Value Reference Range Interpretation Comments PTT (test code = PTT) 81.7 s 22.9-35.8 [facility]roeAkomsddHYWLGXBJUE4935-75-58 04:16:00* Test Item Value Reference Range Interpretation Comments PT (test code = PT) 13.5 s 12.0-14.7 [facility]roeAuwwpdxOYRJHKGZCH4713-33-84 04:16:00* Test Item Value Reference Range Interpretation Comments INR (test code = INR) 1.05 1 0.85-1.17 [facility]roeWdmlmrbQLYJQWWGXO2191-40-14 22:23:00* Test Item Value Reference Range Interpretation Comments INR (test code = INR) 0.98 1 0.85-1.17 [facility] IizfrgzOBUAATPNSK1074-28-45 22:23:00* Test Item Value Reference Range Interpretation Comments PT (test code = PT) 12.8 s 12.0-14.7 [facility] EytkbybPHKXIXDCFG0327-31-88 22:23:00* Test Item Value Reference Range Interpretation Comments PTT (test code = PTT) 59.4 s 22.9-35.8 [facility]annCHEM CCTPP3289-44-62 08:25:0021[facility] HermannCHEM PANEL 2019-02-27 08:25:001.77[facility] HermannCHEM OJJXX8637-73-70 08:25:74204Vonizpmi HermannCHEM JWTIW8428-41-98 08:25:38770Csleslln HermannCHEM QBJSU3816-02-98 08:25:004.1[facility] HermannCHEM HRPXA4974-49-99 08:25:41223Svzaoxav HermannCHEM IFYLB5649-51-38 08:25:0026[facility] HermannCHEM HHRMY4655-99-14 08:25:009.0 [facility]annCHEM CMFVP8496-80-44 08:25:0039[facility] HermannCHEM PANEL 2019-02-27 08:25:008.1[facility] LfaeebsKNFPTABVXO7223-29-07 08:25:000.2[facility] PhjwegzQRYUPGSWAV5992-65-60 08:25:000.5[facility] HefzpbvUBLPWGMTWE7240-46-82 08:25:0058.7[facility] BpaqcijXGYMASPLDR9367-93-09 08:25:0031.0[facility] SNBFNWVOCT3928-90-92 08:25:006.7[facility] KzkzfwbXZWPTEDKQL5690-93-38 08:25:003.0 [facility] TghopnyLKGBUCOENR3354-46-59 08:25:004.4[facility] HermannHEMATOLOGY 2019-02-27 08:25:000.6[facility] DjdrjaaCADVHTPIJT7555-03-30 08:25:002.3[facility] BmhvojcJQFORWEPAQ9504-57-01 08:25:0040.8[facility] AunlpjvAGBEZUZCCQ8588-88-00 08:25:0084.5[facility] WohzogzXGXKQNZMNO0182-68-25 08:25:00* Test Item Value Reference Range Interpretation Comments MCH (test code = MCH) 28.6 pg 27.0-31.0 [facility] GmzriccBEOQUFFAOW6619-83-76 08:25:0013.7[facility] HermannHEMATOLOGY 2019-02-27 08:25:008.1[facility] QvjmsbuOHRIXTCHGM7225-75-60 08:25:0033.9[facility] ZgcjdkdYNLNLZECAH1138-37-66 08:25:004.82[facility] AabvdhlUHUZPZNWQI3479-67-42 08:25:0013.8[facility] OvuxndqLLCORBJJWN3132-23-81 08:25:32220Huiikdik [place] XZZSRUNICF4631-61-95 08:25:007.5[facility] NoqtfnxJEGBFQQLKM8160-54-37 08:25:00* Test Item Value Reference Range Interpretation Comments INR (test code = INR) 1.01 1 0.85-1.17 [facility] VyzyhkrFVWZVRRCBI5519-56-81 08:25:00* Test Item Value Reference Range Interpretation Comments PT (test code = PT) 13.1 s 12.0-14.7 [facility] HermannCARDIAC ORHJTJN8377-56-70 08:39:0061[facility] HermannELECTROLYTES 2019-02-25 08:39:009.0[facility] JjlxrcfRXFXGSQYBWZE2711-62-91 08:39:0055[facility] PyrzozmRWOCIZKVVUVO0890-38-19 08:39:004.0[facility] HswzjqbSQYVKMNNQVMA3447-81-44 08:39:008.7[facility] UvjoghbRXICGQRPZUMJ5192-43-19 08:39:0024[facility] Get ONSOKUPNVUIT6259-65-49 08:39:03079Ulmpueaz KxmfesoKMDVCDXBFGZY5836-03-21 08:39:69301Zzczrevx AivtloyDPXKBHGHTIIS2933-61-89 08:39:001.35[facility] GNYMJYKESAQT5623-70-96 08:39:0023[facility] AnmztuvTPAQGBJBBAJH2303-61-05 08:39:00 166[facility] FvyujswTFCECHZDCQ4402-37-70 08:39:000.6[facility] HermannHEMATOLOGY 2019-02-25 08:39:001.9[facility] JhageiuEEBCIBUIWU9829-25-63 08:39:000.2[facility] OffgwvwGFEAGCLYAC4021-12-24 08:39:004.4[facility] MbnonvjLZNKJNZBEX5313-91-43 08:39:000.5[facility] BmpagicJYYYABOSCC6144-45-80 08:39:0026.6[facility] Get DWNNPSQAEK5774-72-49 08:39:0061.6[facility] XccgupkXMNDUEYMVO9975-26-31 08:39:00 3.0[facility] EytljoqBIHCCXLDRW0347-17-26 08:39:008.3[facility] HermannHEMATOLOGY 2019-02-25 08:39:0013.9[facility] EqpjxpxGIKJOWNPQS7831-16-26 08:39:00* Test Item Value Reference Range Interpretation Comments MCH (test code = MCH) 29.0 pg 27.0-31.0 [facility] FovhvjjEONSHIAING7287-37-69 08:39:0034.2[facility] HermannHEMATOLOGY 2019-02-25 08:39:0040.4[facility] TzqlxwyXCYNUFQXID4246-83-81 08:39:0084.6[facility] EvfpvuaSKUSFPRNTN4359-41-06 08:39:0013.8[facility] ZclxhphUQVFHLXZON4311-40-49 08:39:007.1[facility] RzwknqmFBPKIRIVNR8765-30-29 08:39:004.78[facility] Get GRHGSEUWVE2491-42-63 08:39:008.3[facility] AlyhsprVJVLDUOPPS9467-74-10 08:39:36055 [facility] HermannSPECIAL ZXABOURKA5123-85-78 08:39:007.9[facility] HermannCARDIAC VUPJXYZ7190-79-83 15:28:00<0.02[facility] Get LEVOFLOXACIN:SUSC:PT:ISOLATE:ORDQN:ZUR8818-40-22 18:31:00Staphylococcus Species, Not S. aureusMemorial HermannCHEM OQEOR2282-72-23 16:09:0039[facility] CHEM ZFFDZ0608-93-81 16:09:47793Jnovvqjv HermannCHEM TPKFX9814-15-67 16:09:004.8 [facility] HermannCHEM VUUWX1170-19-31 16:09:0021[facility] HermannCHEM PANEL 2018-10-20 16:09:0016.8[facility] HermannCHEM FJBII0205-36-99 16:09:009.0[facility]annCHEM EYQZG1792-45-14 16:09:28847Lnarqoju HermannCHEM HQLSI4624-08-96 16:09:0027[facility]annCHEM QWMKH4478-20-38 16:09:001.80[facility]annCHEM FFJRP9527-89-91 16:09:78141Wwahsghz FouwogbVZYGPISLWQ8038-71-43 16:09:000.1 [facility] ZeywymzWMKLEPFOGF7209-73-84 16:09:001.2[facility]annHEMATOLOGY 2018-10-20 16:09:000.5[facility] QhndrytXYXGYCOKGV2904-34-56 16:09:006.2[facility] DrlazgnTFNAAXVBAG5238-62-42 16:09:0076.5[facility] GzrdubkNSFMUHPZPI3437-39-63 16:09:000.5[facility] XulnfflMLWRJPYITZ5263-95-59 16:09:0014.9[facility] Get JFANLGEQKX8531-25-86 16:09:006.4[facility] IfmfswkKWQPJZVETJ4138-50-01 16:09:001.7 [facility] NtboexqVWRJLIQORN5270-58-23 16:09:09726Lchqmvlu HermannHEMATOLOGY 2018-10-20 16:09:0033.8[facility] SxgxhvvGPNQTJQPHL8843-01-92 16:09:0013.0[facility] GigykdqHPXHMFIHOO2011-54-38 16:09:009.6[facility] RrpywbmRARKAJYJIL4132-53-23 16:09:0086.8[facility] RxauhjuCNVAXRKCUC1910-79-32 16:09:00* Test Item Value Reference Range Interpretation Comments MCH (test code = MCH) 29.3 pg 27.0-31.0 [facility] UripqboMVTLWZJFJM0091-76-18 16:09:0044.3[facility] HermannHEMATOLOGY 2018-10-20 16:09:0015.0[facility] EronfzzVWGNXNLBUD3764-33-63 16:09:005.10[facility] TcuyzvzJTPHWSUVOT7074-12-83 16:09:008.1[facility] HermannSPECIAL CHEMISTRY 2018-10-20 16:09:0010.7[facility]annCHEM SFRRR1337-01-90 20:35:001.5[facility] DaykswjOFZUFEKPWY9834-88-35 20:10:170.4[facility]annCHEM UWXFQ1026-05-98 18:53:003.3[facility]annCHEM KDGXU1679-42-51 18:53:002.0[facility]annCHEM FUZCS2025-97-84 18:53:000.10[facility]annCHEM RQCDS8922-20-05 18:53:0041 [facility]annCHEM YPCUC6794-63-07 18:53:000.5[facility]annCHEM PANEL 2016-07-13 18:53:0011[facility]annCHEM OIJYM7958-50-85 18:53:27808Aenkcazm HermannCHEM HWAEP3683-17-53 18:53:0023[facility]annCHEM GGICH6107-14-78 18:53:008.7[facility]annCHEM UNFIL0804-64-56 18:53:007.4[facility]annCHEM UXQDT9769-57-17 18:53:003.7[facility]annCHEM AANZQ3434-48-69 18:53:42642 [facility]annCHEM KHJSB6639-55-27 18:53:0026[facility]annCHEM PANEL 2016-07-13 18:53:001.72[facility]annCHEM TEHXB1695-91-73 18:53:0025[facility]annCHEM SVCFY4751-57-20 18:53:09644Cogpvuob HermannCHEM VZXNT9707-52-34 18:53:004.7[facility]annCHEM JIYEV7287-14-29 18:53:67328Xvournac HermannCHEM ABUIQ7992-29-12 18:53:001.0[facility]annCHEM DJQFH2789-86-33 18:53:003.7 [facility]annCHEM NZSGM5845-52-39 18:53:0015[facility]annCHEM PANEL 2016-07-13 18:53:0010.7[facility]annCHEM QSWVH0328-05-60 18:53:001.3[facility] PlwcussXKAYHDBSHQ4496-72-26 18:53:000.5[facility] IkbdeorGOOJVKTAZC0188-42-40 18:53:005.2[facility] VblutolNDQSPAYQCD2723-22-88 18:53:001.4[facility] Get TWBOHLZIEV7904-11-84 18:53:000.1[facility] CxtnlqyAHOCRTDEPY6239-95-33 18:53:000.5 [facility] GackvctHUQWBWGHND2328-36-55 18:53:001.0[facility] HermannHEMATOLOGY 2016-07-13 18:53:006.8[facility] HywopjtLSZMSFZNYQ4116-55-45 18:53:0019.2[facility] YnbgxafLDSLDWNWFI5690-09-83 18:53:0072.5[facility] JlxiaddZRNMYACEIJ9501-00-88 18:53:008.6[facility] CpcbfrqYLCMKDOCCP9372-62-05 18:53:007.2[facility] UDTYMAGMSH5384-55-52 18:53:00* Test Item Value Reference Range Interpretation Comments MCH (test code = MCH) 29.3 pg 27.0-31.0 [facility] UdmmyvuLZPRHYZIZJ7982-61-78 18:53:23651Xdyxfymc HermannHEMATOLOGY 2016-07-13 18:53:004.84[facility] McialklBWPLKWFJIJ9437-73-99 18:53:0014.2[facility] JhojuitQINRWXLGXT5607-25-01 18:53:0012.9[facility] UpphlwfWEERFKATBX3525-40-09 18:53:0034.0[facility] MqwyeewXPKUXLDDAC5963-21-41 18:53:0086.0[facility] OVLHVPNNZQ6494-92-52 18:53:0041.7[facility] HermannCHEM OVRWM4540-26-14 10:08:00 0.8[facility] HermannCHEM VTBOD1412-29-93 10:08:0011.7[facility] HermannCHEM PANEL 2015-11-04 10:08:005[facility] HermannCHEM CWTQR9577-22-97 10:08:002.5[facility] HermannCHEM GOKUJ0496-59-24 10:08:0041[facility] HermannCHEM ICUWW5892-56-93 10:08:003.7[facility] HermannCHEM GIJEX6816-86-79 10:08:14612Ihhnhtlz HermannCHEM SDXHK2563-79-91 10:08:43315Zcjdecab HermannCHEM GGVFG5774-86-61 10:08:0081 [facility]annCHEM WGQYC5168-22-11 10:08:000.5[facility] HermannCHEM PANEL 2015-11-04 10:08:007[facility] HermannCHEM RRSIA9641-65-21 10:08:0022[facility]annCHEM VKSWW2975-26-46 10:08:007.5[facility] HermannCHEM EDHVL2041-10-61 10:08:009[facility]annCHEM MFSAZ7443-35-83 10:08:001.74[facility]annCHEM MDKNJ7065-25-63 10:08:35252Jadjiaun HermannCHEM BHBHB5986-23-80 10:08:004.6 [facility]annCHEM TAAGA3817-86-18 10:08:0016[facility] HermannCHEM PANEL 2015-11-04 10:08:002.1[facility] HermannCHEM KHFKK5892-87-52 10:08:002.4[facility] HermannCHEM ODCGE8829-47-64 10:08:001.5[facility] GimvjrcFMRYXAUFWU0340-11-24 10:08:000.3[facility] FbnyrsiVFFZDCXTDL1927-71-11 10:08:001.0[facility] QLBNPMPFHZ8627-57-22 10:08:0011.2[facility] IsehzaxLNWVKQCKZI5115-49-20 10:08:00 13.0[facility] VsnqymsCYHIQUCRAZ6048-62-19 10:08:007.9[facility] HermannHEMATOLOGY 2015-11-04 10:08:00Normal (11/04/15 4:08 AM)[facility] TodazhlXQTAGXLMIR2165-07-96 10:08:0074.5[facility] GbtbkvkQLKJNANAXQ1301-47-50 10:08:00Normal (11/04/15 4:08 AM)[facility] QpzyvoxWCINFFDBAK2100-15-23 10:08:000.1[facility] HermannHEMATOLOGY 2015-11-04 10:08:001.2[facility] BcmrdstSYSMBYJDSK9802-69-09 10:08:001.4[facility] VizzknmUPQWQVRKVO4555-19-27 10:08:007.9[facility] PgmtqaaTURVXLSUXN9592-79-47 10:08:0033.6[facility] RvvrdlyFBVXXJJQFP3895-44-94 10:08:65568Rlpidizi Get MRKTPNRDFW9092-41-06 10:08:0013.2[facility] YmxrcyoGPWHPRLDSR8825-74-67 10:08:00 87.2[facility] BiurjttAECVCIZJBZ1851-25-95 10:08:0036.7[facility] HermannHEMATOLOGY 2015-11-04 10:08:0012.3[facility] VxtwatrNMVMLPJFIY0551-52-06 10:08:00* Test Item Value Reference Range Interpretation Comments MCH (test code = MCH) 29.2 pg 27.0-31.0 [facility] RtvszuiHBPRSUCHJW2228-88-18 10:08:004.21[facility] HermannHEMATOLOGY 2015-11-04 10:08:0010.6[facility] HermannURINE AND DFQNA6340-67-57 22:49:00Marked *ABN*(11/03/15 4:49 PM)[facility] AND HIMXS0653-68-58 22:49:00Yellow *NA*(11/03/15 4:49 PM)[facility] AND COENP0847-30-41 22:49:005.0 [facility] AND OVZMY3805-78-08 22:49:001.014[facility]annUR[facility] AND TTNYZ5367-20-49 22:49:00Large *ABN*(11/03/15 4:49 PM)[facility] AND PDHRR9938-38-66 22:49:00Negative (11/03/15 4:49 PM)[facility] AND GHWXR1034-69-78 22:49:00Negative (11/03/15 4:49 PM)[facility] AND NAOCR9380-62-66 22:49:00Negative *NA*(11/03/15 4:49 PM)[facility] AND VFXII3609-12-75 22:49:004[facility] AND DRZCN8935-96-88 22:49:61967 [facility] AND INCQR3537-58-72 22:49:003[facility] HermannCHEM PANEL 2015-11-03 11:44:007.8[facility] HermannCHEM PCVLY3419-15-74 11:44:0088[facility] HermannCHEM LXKEE6500-17-41 11:44:0019[facility]annCHEM ZHAMS0159-73-18 11:44:79689Nmwighnb HermannCHEM MVYDQ9790-52-71 11:44:003.3[facility] HermannCHEM TJVGY0753-43-50 11:44:05877Lieoaciw HermannCHEM EZJFG5366-02-82 11:44:0011 [facility]annCHEM HBFEI6117-94-91 11:44:0048[facility] HermannCHEM PANEL 2015-11-03 11:44:001.54[facility] HermannCHEM AGVSN9713-86-19 11:44:0013.3[facility] OgfgtjqFLCUQVMEVF1123-25-73 11:44:0013.4[facility] IxyxsbpQGUEBNMSKQ4433-55-05 11:44:004.58[facility] HbvjofqVPKLDEEXUY7812-99-54 11:44:0010.3[facility] OMHEMKDMIM5975-42-62 11:44:0087.6[facility] MsqqxciOKLISPLFGV9041-82-94 11:44:00* Test Item Value Reference Range Interpretation Comments MCH (test code = MCH) 29.3 pg 27.0-31.0 [facility] ZrncwhhODAYNPWDPK3793-27-29 11:44:0040.1[facility] HermannHEMATOLOGY 2015-11-03 11:44:0033.4[facility] AedcjlpVPWRMCQOJV0536-09-19 11:44:0013.3[facility] WkrkyhfZSTTKFSAKU2883-44-07 11:44:86975Apsmyakk QfqzzdkTDSUBKONJH7815-74-28 11:44:008.3[facility] IpylxrsSXMCLKYJVA1849-51-34 11:44:000.9[facility] CGIHDNGQTF6009-31-11 11:44:000.8[facility] RghgiriLRHHKEEXVJ1046-18-48 11:44:009.1 [facility] RqdtjesYEDBKBNJHL9909-16-36 11:44:0082.6[facility] HermannHEMATOLOGY 2015-11-03 11:44:007.5[facility] AxeagwnLZOUOOPZKH8282-08-16 11:44:008.5[facility] PsvjhvxGNTABQKCFQ6127-44-41 11:44:000.4[facility] KfflrziUKERTXMSZH0979-40-80 11:44:000.4[facility] HermannCHEM NXJGQ6924-99-03 10:47:002.0[facility] HermannCHEM KWCZR3566-68-10 10:47:0018[facility]annCHEM DCFHF6434-11-47 10:47:000.4 [facility] HermannCHEM HIMBA4814-34-25 10:47:0010[facility] HermannCHEM PANEL 2015-11-02 10:47:0091[facility] HermannCHEM APVNL2718-62-22 10:47:0042[facility] HermannCHEM STXOU9261-72-17 10:47:0020[facility]annCHEM TYAWX0228-30-26 10:47:007.8[facility] HermannCHEM MHBAT1088-84-29 10:47:005.2[facility] HermannCHEM AXQIM0575-35-26 10:47:003.1[facility] HermannCHEM MLMWD9733-59-65 10:47:33187 [facility]annCHEM MYHAA5194-19-09 10:47:001.70[facility] HermannCHEM PANEL 2015-11-02 10:47:58032Qymqrzjr HermannCHEM RQAZW2748-08-49 10:47:32514Xakytfmm HermannCHEM TLWKA9977-28-92 10:47:0019[facility] HermannCHEM YEWDK5103-12-74 10:47:009.1[facility] HermannCHEM GKUFW1151-96-42 10:47:000.6[facility] HermannCHEM IDCCV6454-16-95 10:47:0011[facility]annCHEM JDQHC2521-62-08 10:47:003.2 [facility] AreaznlUBJXUHGAXA1980-93-93 10:47:007.1[facility] HermannHEMATOLOGY 2015-11-02 10:47:0087.2[facility] NzpvreiWAIIDOENHL7080-20-61 10:47:0037.3[facility] ZvqmfapWGSSKHSXYQ2967-05-31 10:47:25344Cosbzabn RlxnoaxUYCFLTWPWE0982-79-08 10:47:008.5[facility] NcjqprbDUJEBQZEGZ1291-81-78 10:47:004.28[facility] ZUDUSTDFHI6474-34-09 10:47:0012.5[facility] TpxkbtsGYWYBQDBZK8090-98-93 10:47:00 33.6[facility] FkvwbzeDPTARDCTUX3496-92-87 10:47:00* Test Item Value Reference Range Interpretation Comments MCH (test code = MCH) 29.3 pg 27.0-31.0 [facility] GzfslvuEXDVZCTQUW0780-92-34 10:47:0013.1[facility] HermannHEMATOLOGY 2015-11-02 10:47:0029[facility] DelthziTRAUYDWRSD5578-78-20 10:47:001.3[facility] HpkhjotCXGKYKOMHY6499-35-96 10:47:0010.3[facility] RmgtljgQCFWIDPTIC5916-14-63 10:47:000.2[facility] JwzmrhsGOSNTZRQQB0395-65-77 10:47:000.1[facility] EESMCZINBV7541-14-30 10:47:0019.4[facility] SlcjobnPHTCLOMBGV8784-64-31 10:47:00 68.8[facility] ZxbbdsnVZJQIUGVAS8650-15-89 10:47:000.7[facility] HermannHEMATOLOGY 2015-11-02 10:47:001.4[facility] BpglwdbBKYBBCQCQL5470-16-76 10:47:004.9[facility] HermannCARDIAC RBQDVMG5860-49-21 10:09:0057[facility] DrtflcnMUVRIXVOMJ6482-15-89 13:22:27Normal (10/31/15 7:22 AM)[facility] BiefwqxSVMWXQBBDF1998-62-16 13:22:27 Normal (10/31/15 7:22 AM)[facility] HermannCHEM QQSLC5077-17-51 13:06:0036[facility]annCHEM TMRZN8283-98-62 13:06:86436Murwqbsg HermannCHEM BJJRU6425-54-77 13:06:0020[facility] HermannCHEM NJAXP1346-19-96 13:06:003.3[facility] HermannCHEM JHSSY9603-28-41 13:06:000.7[facility] HermannCHEM AFSEM3507-84-24 13:06:0011 [facility]annCHEM IADVP5502-09-59 13:06:0020[facility] HermannCHEM PANEL 2015-10-29 13:06:0094[facility] HermannCHEM EWWCF5188-43-65 13:06:000.7[facility] HermannCHEM BGLTW9410-43-62 13:06:002.4[facility] HermannCHEM JBOJA6725-21-69 13:06:005.7[facility] HermannSPECIAL XTSRPXAEF2558-25-99 13:06:0010.8[facility] HermannBACTERIAL - JSRYSJKH8814-92-69 05:26:00Negative (10/28/15 11:26 PM) [facility]annURINE RMEC7561-41-00 23:04:000.9[facility]annURINE CHEM 2015-10-28 23:04:0091.80[facility]annURINE UJMV6512-58-50 23:04:0086.0 [facility] HermannCARDIAC XFMWTVB9876-35-98 18:05:00<0.02[facility] HermannCHEM GTRHZ6563-06-93 18:05:21284Voqgcexz FoylnswUDWVPYPJOH3369-80-57 18:05:001.00 [facility] UcsvkmcIROXALLILT3492-36-16 18:05:00* Test Item Value Reference Range Interpretation Comments PT (test code = PT) 13.5 s 12.0-14.7 [facility] LdxjssbIVUSNIPMUW2089-54-43 18:05:00* Test Item Value Reference Range Interpretation Comments PTT (test code = PTT) 30.3 s 22.9-35.8 [facility] TsvdspkVSCCTXJCGO8775-54-01 18:05:00Negative *NA*(10/28/15 12:05 PM) [facility] HermannMOLECULAR DGSWLELAVX2301-16-43 18:05:00Negative (10/28/15 12:05 PM)[facility] UikyudkHBMPOPXOAI0242-33-23 18:05:000.4[facility] HermannCARDIAC WNXLNMC6476-45-52 08:45:002.2[facility] HermannCARDIAC FJLNNRL4889-23-72 08:45:00< 0.02[facility] HermannCARDIAC FOHOWVB0885-69-27 08:45:0050[facility] HermannCARDIAC AOICJOS8907-74-51 08:45:004.4[facility] HtxvezcUNDNGO6878-69-20 08:45:0020[facility] QrnhggzSGKVXV6095-30-07 08:45:0065[facility] CwvfjuqSPHXSY9709-11-67 08:45:003.83 [facility] QyvnqgkBWKTXV8143-03-46 08:45:74591Bjxrnvgs TovzbiiDHVPJG8866-45-15 08:45:0030[facility] YihehlaXXSFTR2366-62-58 08:45:0098[facility] HermannTHYROID EQWWR8076-89-61 08:45:001.140[facility] HermannCARDIAC SPQCOQM9305-64-01 04:55:00< 0.02[facility] HermannCARDIAC RTPMRUY9231-84-26 04:55:0051[facility] HermannCARDIAC MXLLJWX9833-08-35 04:55:002.3[facility] HermannCARDIAC ADCYQQO5470-68-73 23:21:00 4.0[facility] HermannCARDIAC OLYQANE7940-82-88 23:21:0075[facility]annCARDIAC DIXXVRM9217-44-52 23:21:00<0.02[facility] HermannCARDIAC FBQTWDF3460-15-17 23:21:003.0[facility] HermannCHEM AGVQE9142-09-58 23:21:001.8[facility] HermannCHEM ZIESZ0880-05-95 23:21:0046[facility] HermannCHEM VJMRP4724-31-61 23:21:007.3 [facility] HermannCHEM YSQVJ5792-54-09 23:21:0021[facility] HermannCHEM PANEL 2015-02-01 23:21:003.8[facility] HermannCHEM YPBWW4516-07-12 23:21:001.1[facility] HermannCHEM WHEAY2195-78-04 23:21:003.5[facility] HermannCHEM RJASA5917-64-29 23:21:0016[facility]annCHEM WLYPV4660-70-97 23:21:0013.2[facility] HermannCHEM LAEFM4617-09-96 23:21:001.6[facility]annCHEM HEUOB6358-73-96 23:21:0023 [facility]annCHEM NTIZF9975-47-96 23:21:0097[facility] HermannCHEM PANEL 2015-02-01 23:21:0013[facility] HermannCHEM HCHHV0575-11-31 23:21:000.4[facility] HermannCHEM MOETV3506-60-40 23:21:21899Flscxhdx HermannCHEM MUFYZ4895-09-32 23:21:0026[facility] HermannCHEM ZLJEU3543-89-04 23:21:27873Layghdui HermannCHEM SAZDN8889-52-58 23:21:008.7[facility] HermannCHEM FTNTP1670-27-74 23:21:73422 [facility]annCHEM JBGRW1531-89-78 23:21:004.2[facility] HermannCHEM PANEL 2015-02-01 23:21:003.1[facility] KfsvfmjSLERKZDTBD9290-03-65 23:21:000.1[facility] YedeezdOMXNVLOPOK0699-94-54 23:21:000.1[facility] BkocqceZICMJFRSLC0043-44-97 23:21:000.5[facility] SvooruwHFNTSJUQAW8307-39-26 23:21:001.8[facility] Gte SNYQDXWMEO7981-39-91 23:21:005.2[facility] XymydilBMWGQWAKZV0043-94-60 23:21:000.7 [facility] TaskxxnJUHKSIQWVY0759-42-65 23:21:001.8[facility] HermannHEMATOLOGY 2015-02-01 23:21:0067.7[facility] SbsgpcuOMLYGYJFNM7825-85-16 23:21:006.5[facility] VjqzarbSXEDSHDMZF3216-02-09 23:21:0023.3[facility] QfcaxydHCTZRPZBUC9653-03-00 23:21:0034.1[facility] QefemopABYUGMVTQU7659-51-08 23:21:00* Test Item Value Reference Range Interpretation Comments MCH (test code = MCH) 29.5 pg 27.0-31.0 [facility] UsvwkisXUJMMPHLUA4429-15-26 23:21:007.7[facility] HermannHEMATOLOGY 2015-02-01 23:21:0086.6[facility] WvmmgvvMNHMVLUZCP7876-09-60 23:21:0013.0[facility] IbrcsssSEPSMFPJST9838-36-47 23:21:0038.1[facility] LqgftoyKRWLFEXWWT9803-99-96 23:21:004.40[facility] ZklyhfhWEYZTBXEOP7606-70-46 23:21:38432Hivbrlxm [place] LQCRBYOHBD7045-40-62 23:21:008.6[facility] CzpewutBUDJXOUTDP2222-35-49 23:21:00 13.9[facility] GrprfchQTLLZNRNVN8767-26-32 23:21:000.98[facility] HermannHEMATOLOGY 2015-02-01 23:21:00* Test Item Value Reference Range Interpretation Comments PT (test code = PT) 13.0 s 12.0-14.7 [facility] QmyywyiONMOPSGYDU1984-51-99 23:21:00* Test Item Value Reference Range Interpretation Comments PTT (test code = PTT) 30.6 s 22.9-35.8 [facility] KziizyaWREOIKNRRKPW0063-29-86 09:51:0010.7[facility] HermannELECTROLYTES 2014-11-08 09:51:0043[facility] IecwfacPSHXHJAGKLSP1368-76-24 09:51:008.5[facility] DaksfvpZNLWHFRWHFTO0164-44-45 09:51:0021[facility] AzusqsvXFYRGFDUWCDE5165-32-19 09:51:001.7[facility] BpceaqgWGAUTBJQBBGC6026-27-36 09:51:0028[facility] YHXRGDTQNYCQ7094-06-27 09:51:39102Mwddqhnm MhfgqumEICBLQACCOXO0882-43-81 09:51:75574Oldfmkqw NnktufhVVDZAAGMJKEL8556-98-40 09:51:59924Eqtafnof Get BPMVEFTUEDZB2798-65-84 09:51:004.7[facility] MdrqqexNADWMRBBPF5147-09-17 09:51:00 0.1[facility] JxpntbhLQBNGMGAMH8749-82-93 09:51:000.1[facility] HermannHEMATOLOGY 2014-11-08 09:51:003.1[facility] DosehklQIZDBZYATH6819-15-17 09:51:002.4[facility] VrbjgbgCIXEVXSLBE0159-53-30 09:51:001.4[facility] YxpqdoqEYJRTFCVYI7849-38-70 09:51:000.6[facility] SjecwmnLEHCHSOLQE5495-51-09 09:51:002.0[facility] XOYYJFNISJ3774-04-38 09:51:0052.0[facility] HlnqebdHRYBJCCBPJ6302-18-27 09:51:00 34.4[facility] DnnajzyNJXCETLNDO6186-19-01 09:51:009.8[facility] HermannHEMATOLOGY 2014-11-08 09:51:0085.7[facility] ZtvouddDIYICZAINV4387-03-24 09:51:0012.7[facility] JksqypqGQAVNYCUOP5092-75-32 09:51:00* Test Item Value Reference Range Interpretation Comments MCH (test code = MCH) 30.3 pg 27.0-31.0 [facility] DijgcedODQDGEWUIG2489-46-53 09:51:0035.4[facility] HermannHEMATOLOGY 2014-11-08 09:51:10200Zeucqyro EdqditqPKKAZJHCFZ7573-10-26 09:51:008.3[facility] UwxrnfoOOQBOSZEUA5460-27-65 09:51:0013.3[facility] DynhnijIJDHVGDGCK2079-63-70 09:51:0037.6[facility] PjbotorVNZDFYVCKQ4425-69-62 09:51:004.38[facility] PQUZEAQAKI6184-74-24 09:51:005.9[facility] FggbwpeUCUGIEVLWSYG4816-13-46 17:18:00 4.8[facility] GlgppqaZFPGUOCFSXMZ8594-19-70 17:18:001.9[facility] Get FTVVUZRCRGFG8490-41-81 17:18:26209Vvuyfyjb EsjdvxqWGKSQZTDZFOS7809-21-09 17:18:0037[facility] PklvjkoRHHWFDCZVHUB9562-05-75 17:18:008.0[facility] Get MNRBZOTTAHPO1274-97-11 17:18:91194Kennxvrc GreifomXLTUWKJZKWKB0310-30-13 17:18:0011[facility] ZrwwigfVWEJPIJBFOBU7325-24-86 17:18:59219Wbjemiud [place] EDSXHTFKXPOE9213-63-78 17:18:0036[facility] ZvqkfukUVBFUOAENVNZ0434-55-73 17:18:00 19[facility] DuzuodoOCQEZPSEKEHS5637-49-01 17:18:0019[facility] HermannELECTROLYTES 2014-11-07 17:18:0011.8[facility] RlsaxnxYOVGRIXNNNFN1988-64-35 17:18:38866 [facility] EznirluZVLKUHNTZIYE6100-23-04 17:18:003.2[facility] HermannELECTROLYTES 2014-11-07 17:18:002.8[facility] DllasnoZLCBNIBNCHMR1055-48-38 17:18:006.0[facility] DcfhkmkFZYGECTZHVLQ5061-86-30 17:18:0023[facility] BrfwehoXVELQEPZMHJY6147-60-24 17:18:001.1[facility] XihpekjPPMMKRHLONST1400-13-30 17:18:000.5[facility] QPEJSKJFJD3372-62-45 17:18:0035.1[facility] VqyrodaERTNPDIAIX9896-91-63 17:18:00 8.2[facility] YhxsvijFYECEYEHWB2393-39-94 17:18:0013.1[facility] HermannHEMATOLOGY 2014-11-07 17:18:08642Cdfpgdmx KrptopyKUEHZNQIDM5135-96-46 17:18:0038.0[facility] OkncmuiFQVTXMEEZW7906-72-51 17:18:0086.5[facility] PocvtvrFFNHFUXVUB5576-17-73 17:18:005.9[facility] JgalqitDHSPMMSCDH5999-98-59 17:18:0013.4[facility] MYVOABQDYQ6120-59-81 17:18:004.40[facility] RjirbbtBHUIEWCPJH3412-59-80 17:18:00* Test Item Value Reference Range Interpretation Comments MCH (test code = MCH) 30.4 pg 27.0-31.0 [facility] GaooducKYSYLPBOQJ4075-26-37 17:18:000.1[facility] HermannHEMATOLOGY 2014-11-07 17:18:000.5[facility] JwbedtkTZWPQTYTVP4062-46-62 17:18:003.4[facility] AfvkexoAVUKMOQHTW1715-08-26 17:18:001.9[facility] UzkrhxqDVIEOORKIA6539-36-42 17:18:000.5[facility] SqxakwdBWVZKYUIBO8206-50-01 17:18:0031.8[facility] Get LQBZFGNLSS0349-78-26 17:18:0056.9[facility] ZvwpzpsJGIOJIEEIO4608-81-75 17:18:00 8.8[facility] RptwncoKQGTLSTXMK4233-15-39 17:18:002.0[facility] HermannSPECIAL AFWSAEDLX1961-15-59 17:18:008.8[facility] HermannCHEM OKRLD7055-74-41 20:02:000.5 [facility] HermannCARDIAC OESNREH3223-07-98 18:49:00<0.02[facility] HermannCARDIAC FGZLDMN4605-21-84 18:49:0099[facility] HermannCARDIAC ZEIWZGX4441-11-65 18:49:00 6.2[facility] HermannCARDIAC YZQOUJO7893-10-96 18:49:006.1[facility] HermannCHEM THOKE4036-55-77 18:49:0020[facility] HermannCHEM CHOOZ1412-25-51 18:49:40655 [facility]annCHEM LTIAG6425-84-81 18:49:003.2[facility] HermannCHEM PANEL 2014-11-06 18:49:004.3[facility] HermannCHEM WGGKP8937-67-25 18:49:67668Ddnymtdv HermannCHEM RVBSY4264-72-20 18:49:008.1[facility] HermannCHEM CRLYC4187-83-83 18:49:71618Pkpvdepa HermannCHEM BDLLQ7359-10-81 18:49:0014.3[facility] HermannCHEM UJSXN8755-07-01 18:49:0059[facility] HermannCHEM WZEGL7835-95-16 18:49:0014 [facility] HermannCHEM IVRXY8920-26-18 18:49:006.9[facility] HermannCHEM PANEL 2014-11-06 18:49:0018[facility] HermannCHEM HUIKG4948-43-24 18:49:003.3[facility] HermannCHEM DHLKM4364-41-13 18:49:000.9[facility] HermannCHEM OYXKH7179-36-89 18:49:02964Hrfqisfa HermannCHEM FCZAY7077-85-06 18:49:000.3[facility] HermannCHEM UTIYC8651-35-74 18:49:0024[facility] HermannCHEM ZKAUT2004-46-11 18:49:0013 [facility] HermannCHEM VSRTE5286-45-27 18:49:003.6[facility] HermannHEMATOLOGY 2014-11-06 18:49:0014.4[facility] DpjoyibYYCIXLCRPQ2115-74-26 18:49:0041.0[facility] AkuasopOFKMIGNXFB8323-80-51 18:49:0086.1[facility] MabjytmWNBZNGCCEG3440-73-87 18:49:00* Test Item Value Reference Range Interpretation Comments MCH (test code = MCH) 30.3 pg 27.0-31.0 [facility] IpfyoimMWASBDPJRT8378-44-14 18:49:0035.2[facility] HermannHEMATOLOGY 2014-11-06 18:49:006.9[facility] HmfgmapOGYLJVWFKH6818-60-63 18:49:004.76[facility] KfmdflnRDRQXOKUJC5150-98-17 18:49:28982Hvndmccy VucjekpVWBTRPHVQV8061-87-20 18:49:0013.1[facility] CngfibqQEMXMFDFXS5215-27-89 18:49:008.3[facility] Get KAHKGZJLNV3850-21-80 18:49:0023.0[facility] VavtgotELCNVPIFLT8862-91-12 18:49:00 0.9[facility] WuvbauwQYXLUBGEKQ5374-60-40 18:49:006.7[facility]annHE[facility]OLOGY 2014-11-06 18:49:004.7[facility] QxpokqaZHYLDGPSJF3274-79-97 18:49:000.5[facility] IgjsieiYKTFBPMDTL8675-06-17 18:49:001.6[facility] WgaetfqGQQREGYLBI1720-03-96 18:49:000.1[facility] YkjboykJYJKPBMGSW2116-84-63 18:49:0068.9[facility] Get OWWGRCSEBO9586-99-88 18:49:000.5[facility] [place]
--- OUTSIDE RECORDS SUMMARY | 2020-08-18 15:43 | XMS REPORT | Continuity of Care Document ---
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 Level Name Role Phone [employer] Unavailable Un available Problems Problem Status Onset Date Classification Date Reported Comments Source LEG PAIN OR INJURY Active 02/24/2019 [facility] PULMONARY EMBOLUS, DVT Active 02/24/2019 [facility] DX: EDEMA, LEG PAIN Active 02/17/2019 [facility] Type 2 diabetes mellitus with foot ulcer 10/27/2018 05/10/2019 [facility] UNK Active 1 12/19/2017 [facility] RT DX: STAT NOT CLA Active 10/18/2018 [facility] Discharge Diagnosis: Abrasion of ankle, left, infected 07/13/2016 07/16/2016 [facility] Discharge Diagnosis: Leg edema, left 07/13/2016 07/16/2016 [facility] CELLULITIS Active 07/13/2016 [facility] ABDOMINAL PAIN Active 10/28/2015 [facility] HYPONATREMIA, DEHYDRATION, AFIB, JERRY Active 10/28/2015 [facility] 753.10 Active 05/06/2015 [facility] Atrial fibrillation (disorder) Active 02/01/2015 Problem 07/16/2016 Data migrated from [employer] on . Data migrated from [employer] on 04/23/15. [facility] SOB Active 0 02/01/2015 [facility] Acute renal failure syndrome (disorder) Active 11/12/2014 Problem 05/11/2015 1Data migrated from [employer] on 04/20/15. [facility] Renal mass (finding) Active 11/12/2014 Problem 05/11/2015 21Data migrated from [employer] on . [facility] JERRY, GASTROENTERITIS Active 11/06/2014 [facility] ABD PIAN Active 11/06/2014 [facility] Neck pain (finding) Active 11/05/2014 Problem 07/15/2019 Data migrated from [employer] on 04/20. [facility] Dehydration (disorder) Active 11/05/2014 Problem 05/11/2015 9Data migrated from [employer] on 03/24 . [facility] Dyspnea (finding) Active 11/05/2014 Problem 05/11/2015 10Data migrated from [employer] on . [facility] Palpitations (finding) Active 11/05/2014 Problem 05/11/2015 18Data migrated from [employer] on . [facility] Microalbuminuria (finding) Act dariusz 08/24/2014 Problem 05/11/2015 15Data migrated from [employer] on . [facility] Body mass index 30+ - obesity (finding) Resolved 02/02/2014 Problem 07/15/2019 Data migrated from [employer] on 04/20/[facility]. [facility] Premature [facility] contraction (disorder) Active 02/02/2014 Problem 05/11/2015 19Data migrated fro m [employer] on 04/20/15. [facility] Allergic rhinitis (disorder) A ctive 05/11/2013 Problem 07/15/2019 Data migrated from [employer] on 04/20. [facility] Anemia ([facility]order) Active 05/11/2013 Problem 07/15/2019 Data migrated from [employer] on 04/20. [facility] Bilateral cataracts (disorder) Active 05/11/2013 Problem 07/15/2019 Data migrated from [employer] on 04/20. Medical [facility] Internal hemorrhoids (disorder) Active 05/11/2013 Problem 07/15/2019 Data migrated from [employer] on 04/20. [facility] Benign essential hypertension (disorder) Active 05/11/2013 Problem 05/11/2015 5Data migrated from [employer] on 04/20/15. [facility] Benign hypertension (disorder) Active Problem [facility] [place] Chronic atrial fibrillation (disorder) Active Problem [facility] [place] Chronic kidney disease stage 3 (disorder) Active Problem 07[facility]15/[facility] Deformity of hand (finding) Ac tive Problem [facility] [place] Diabetes mellitus (disorder) A ctive Problem [facility] [place] Edema of lower extremity (finding) Active Problem [facility] [place] Hypertensive disorder, systemic arterial (disorder) Resolved Problem 07/15/2019 [facility] Hyperkalemia (disorder) Resolv ed Problem Data migrated from [employer] on 04/20/15. [facility] Knee pain (finding) Active Problem 07/15/2019 [facility] Long-term current use of insulin (situation) Active Problem 07/15/2019 [facility] Mixed hyperlipidemia (disorder) Active Problem [facility] [place] Morbid obesity (disorder) Acti ve Problem [facility] [place] Obesity (disorder) Active Problem 07/15/2019 [facility] [place] Onychomycosis of toenails (disorder) Active Problem Data migrated from [employer] on 04/20. [facility] Primary insomnia (disorder) Ac tive Problem [facility] [place] Shoulder pain (finding) Active Problem 07/15/2019 [facility] [place] Simple renal cyst (disorder) A ctive Problem 3.2 cm rt cyst, sono05/08/15, stable [facility] Skin lesion (disorder) Active Problem 07/15/2019 [facility] [place] Sunburn (disorder) Active Problem 07/15/2019 [facility] [place] Tinea pedis (disorder) Active Problem 07/15/2019 [facility] [place] Diabetes mellitus type 2 (disorder) Active Problem [facility] Hyperlipidemia (disorder) Acti ve Problem Data migrated from [employer] on 04/20/15. [facility] Chronic renal impairment (disorder) Active Problem 8Data migrated from [employer] on 03/24 . [facility] Eruption of skin (disorder) Ac tive Problem 11Data migrated from [employer] on . [facility] Kidney stone (disorder) Active Problem 05/11/2015 [facility] Renal failure syndrome (disorder) Active Problem [facility] Type II diabetes mellitus well controlled (finding) Active Problem 05/11/2015 23[facility]. [facility] Deep venous thrombosis of lower extremity (disorder) Active Problem 07/15/2019 [facility] Pulmonary thromboembolism (disorder) [facility] Cutaneous abscess of right foot 05/10/2019 [facility] Puncture wound without foreign body, rig ht foot, initial encounter 05/08/2019 [facility] Abnormal findings on diagnostic imaging of other specified body structures 05/08/2019 [facility] Non-pressure chronic ulcer of other part of right foot with unspecified severity 05/10/2019 [facility] Type 2 diabetes mellitus with diabetic c hronic kidney disease 05/10/2019 [facility] Hypertensive chronic kidney disease with stage 1 through stage 4 chronic kidney disease, or unspecified chronic kidney disease 05/10/2019 [facility] Chronic kidney disease, unspecified 05/10/2019 [facility] Unspecified atrial fibrillation 05/10/2019 [facility] Hyperlipidemia, unspecified 05/10/2019 [facility] custodial (current) use of anticoagulants 05/10/2019 [facility] 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 05/10/2019 [facility] Abscess of toe of right foot A ctive Diagnosis 1 12/23/2017 [facility] Type 2 diabetes mellitus with diabetic n europathy, without long-term current use of insulin Active Problem 10/22/2018 [facility] Anticoagulant long-term use Ac tive Problem 11/2017 [facility] Puncture wound of right foot, initial encounter Active Diagnosis 10/22/2018 [facility] KIDNEY INJURY NOS-CLOSED Active [facility] 719.46 Active [facility] ATRIAL FIBRILLATION Active [facility] CYSTIC KIDNEY DISEAS NOS Active [facility] DEHYDRATION Active [facility] XRAY Active [facility] CUTANEOUS ABSCESS OF RIGHT FOOT Active [facility] OTHER PULMONARY EMBOLISM WITHOUT ACUTE C Active [facility] ACUTE EMBOLISM AND THOMBOS UNSP DEEP VN Active [facility] Medications Medication Details Route Status Patient Instructions Ordering Provider Order Date Source 3 ML insulin detemir 100 UNT/ML Prefille d Syringe [Levemir] 60 unit, SUB-Q, Daily, # 60 mL, 0 Refill (s), Pharmacy: [id number] Active 07/12/[facility] pioglitazone 45 mg oral tablet 45 mg = 1 tab, PO, Daily, # 90 tab, 1 Refill(s), Pharmacy: [facility] 342 Active 06/19/2019 [facility] lisinopril 20 mg oral tablet 2 0 mg = 1 tab, PO, Daily, # 90 tab, 1 Refill(s), Pharmacy: [facility] Active 06/19/2019 [facility] Glipizide 10 MG Oral Tablet 10 mg = 1 tab, PO, BID- Before Meals, change from glyburide, # 180 tab, 1 Refill(s), Pharmacy: [facility] Active 06/19/2019 [facility] atorvastatin 20 mg oral tablet 20 mg = 1 tab, PO, Daily, # 90 tab, 1 Refill(s), Pharmacy: [facility] Active 06/19/2019 [facility] Trazodone Hydrochloride 50 MG Oral Tablet 50 mg = 1 tab, PO, Bedtime, # 90 tab, 1 Refill(s), Pharmacy: [facility] Active 06/19/2019 [facility] Trazodone [...] Empty Stomach (Same as: Lanoxin) Inactive 02/28/2019 [facility] apixaban Notes: Same as: Eliqu is Inactive 02/28/2019 [facility] Warfarin Notes: Nurse to ensur e documentation of patient education per anticoagulation policy. Avoid large intake of vitamin-K containing foods diet. WASTE: F/P - P Waste Black; E - P Waste Black (Same As: Coumadin) No Longer Active 02/26/2019 [facility] Warfarin Notes: Nurse to ensur e documentation of patient education per anticoagulation policy. Avoid large intake of vitamin-K containing foods diet. WASTE: F/P - P Waste Black; E - P Waste Black (Same As: Coumadin) Inactive 02/25/2019 [facility] pioglitazone Notes: (Same as: Actos) No Longer Active 02/25/2019 [facility] Lisinopril Notes: (Same as: Pr inivil, Zestril) No Longer Active 02/25/2019 [facility] Digoxin 0.125 MG Oral Tablet N otes: Take on an Empty Stomach (Same as: Lanoxin) No Longer Active 02/25/2019 [facility] atorvastatin Notes: (Same As: Lipitor) No Longer Active 02/25/2019 [facility] Glipizide 10 MG Oral Tablet No bhumika: (Same as: Glucotrol) 30 min before meals. No Longe r Active 02/25/2019 [facility] Heparin 80 unit/kg Bolus (Heparin Dosing Weight) Route: IVP, PRN, 7,400 unit, 7.4 mL, Drug form: INJ, PRN, Heparin Protocol, Start date: 02/25/19 3:11:00 CDT Stop date: 02/28/19 8:00:00 CDT No Longer Active 02/25/2019 [facility] Heparin 40 unit/kg Bolus (Heparin Dosing Weight) Route: IVP, PRN, 3,700 unit, 3.7 mL, Drug form: INJ, PRN, Heparin Protocol, Start date: 02/25/19 3:11:00 CDT Stop date: 02/28/19 8:00:00 CDT No Longer Active 02/25/2019 [facility] heparin additive 25,000 unit [18 unit/kg /hr] + Premix Diluent Dextrose 5% 500 mL 500 mL, Rate: 33.44 ml/hr, Infuse over: 15 hr, Route: IV, Dosing Weight 92.9 kg, Total Volume: 500 mL, Start date: 02/25/19 3:11:00 CDT, Stop date: 02/28/19 8:00:00 CDT, 2.16, m2 No Longer Active 02/25/2019 [facility] Trazodone Hydrochloride 50 MG Oral Tablet Notes: (Same As: Desyrel) No Longer Active 02/25/2019 [facility] Enoxaparin 30 mg, Route: SUB-Q , Drug form: INJ, [id number], Dosing Weight 122.727, kg, Start date: 02/24/19 20:00:00 CDT, Duration: 30 day, Stop date: 03/26/19 8:00:00 CDT Inactive 02/25/2019 [facility] Insulin Lispro Notes: (Same as : Humalog ) Roll in palms of hands gently; Do not shake `vigorously. "Single Patient Use Only " WASTE: F/P - Black; E - Municipal Trash Bin Stable for 28 days at room temp erature. Expires in days from Date No Longer Active 02/25/2019 [facility] Glucagon 1 mg, Route: IM, Drug form: PDR/INJ, PRN, Dosing Weight 122.727, kg, PRN Blood Glucose Results, Start date: 02/24/19 19:33:00 CDT, Duration: 30 day, Stop date: 03/26/19 19:32:00 CDT No Longer Active 02/25/2019 [facility] Dextrose 50% Syringe 25 gm, 50 mL, Route: IVP, Drug Form: INJ, Dosing Weight 122.727, kg, PRN, PRN Blood Glucose Results, Start date: 02/24/19 19:33:00 CDT, Duration: 30 day, Stop date: 03/26/19 19:32:00 CDT No Longer Active 02/25/2019 [facility] Cartia XT Notes: (Same as:Lois harris CD) Before meals. DO NOT CRUSH. No Longer Active 02/24/2019 [facility] AMIODarone 900 mg in D5W 500 ml IV 900 m g + Dextrose 5% in Water IV 482 mL 2 mg/ml. Use Glass Bottle or Non PVC Ba g "Use 0.22 micron in-line filter" MEDICATION WASTE Product Size: 900 mg Product Wasted: ___ mg No Longer Active 02/24/2019 [facility] Amiodarone 2 mg/ml. "Recommen dation: Use an in-line filter during administration for continuous infusions to reduce the incidence of phlebitis" (Same as Codarone) MEDICATION WASTE Product Size: 150 mg Product Wasted: ___ mg Inactive 02/24/2019 [facility] Sodium Chloride 0.9% (Bolus) IV 250 mL, 250 ml/hr, Infuse Over: 1 hr, Route: IV, 250, Drug form: INJ, ONCE, Priority: STAT, Dosing Weight 122.727 kg, Start date: 02/24/19 16:11:00 CDT, Stop date: 02/24/19 16:11:00 CDT Inactive 02/24/2019 [facility] Enoxaparin Notes: Nurse to ens ure documentation of patient education per anticoagulation policy. (Same as: Lovenox) Inactive 02/24/2019 [facility] 3 ML Insulin Lispro 100 UNT/ML Pen Injector [Humalog] 20 unit, SUB-Q, TID-Before Meals, # 60 mL, 0 Refill(s), Pharmacy: [facility] Active 10/24/2018 [facility] fentaNYL (ANES) Route: IV, Manuel g form: INJ, ONCE, Stop date: 10/21/18 12:51:00 EDI SPECIALIST Inactive 10/21/2018 [facility] midazolam (ANES) Route: IV, Dr ug form: SOLN, ONCE, Stop date: 10/21/18 12:51:00 EDI SPECIALIST Inactive 10/21/2018 [facility] famotidine (ANES) Route: IV, D rug form: INJ, ONCE, Stop date: 10/21/18 12:51:00 EDI SPECIALIST Inactive 10/21/2018 [facility] metoclopramide (ANES) Route: I V, Drug form: INJ, ONCE, Stop date: 10/21/18 12:51:00 EDI SPECIALIST Inactive 10/21/2018 [facility] ondansetron (ANES) Route: IV, Drug form: INJ, ONCE, Stop date: 10/21/18 12:51:00 EDI SPECIALIST Inactive 10/21/2018 [facility] lidocaine (ANES) Route: IV, Dr ug form: INJ, ONCE, Stop date: 10/21/18 12:37:00 EDI SPECIALIST Inactive 10/21/2018 [facility] Amidate (ANES) Route: IV, Drug form: INJ, ONCE, Stop date: 10/21/18 12:37:00 EDI SPECIALIST Inactive 10/21/2018 [facility] ceFAZolin (ANES) Route: IV, Dr ug form: INJ, ONCE, Stop date: 10/21/18 12:37:00 EDI SPECIALIST Inactive 10/21/2018 [facility] Lactated Ringers Injection IV (ANES) 1000 mL Route: IV, Total Volume: 1,000, Start date: 10/21/18 11:44:00 EDI SPECIALIST, Stop date: 10/21/18 12:44:00 EDI SPECIALIST Inactive 10/21/2018 [facility] Calcium Chloride 0.0014 MEQ/ML / Potassi um Chloride 0.004 MEQ/ML / Sodium Chloride 0.103 MEQ/ML / Sodium Lactate 0.028 MEQ/ML Injectable Solution 1,000 mL, Rate: 25 ml/hr, Infuse over: 4 0 hr, Route: IV, Dosing Weight 121.591 kg, Total Volume: 1,000, Start date: 10/21/18 10:36:00 EDI SPECIALIST, Duration: 30 day, Stop date: 11/20/18 10:35:00 EDI SPECIALIST, 2.48, m2 Inactive 10/21/2018 [facility] Tylenol/Codeine #3 1 tablet as needed Orally Active 300-30 MG Orally every 6 hrs Jesus 10/21/2018 [facility] Clickfine Insulin Pen [place] 31G 6mm=1/4 inch 1 ea, SUB-Q, QID, # 400 ea, 4 Refill(s) No Longer Active 10/20/2018 [facility] 3 ML insulin detemir 100 UNT/ML Prefille d Syringe [Levemir] 60 unit, SUB-Q, Daily, # 60 mL, 1 Refill (s), Pharmacy: [facility] Active 10/20/2018 [facility] 3 ML Insulin, Aspart, Human 100 UNT/ML P en Injector [NovoLog] 20 unit, SUB-Q, TID-Before Meals, dose i ncrease, # 60 mL, 1 Refill(s), Pharmacy: [facility] No Longer Active 10/20/2018 Medical [...] Bedtime, # 90 tab, 1 Refill(s), Pharmacy: [facility] No Longer Active 10/10/2018 [facility] pioglitazone 45 mg oral tablet 45 mg = 1 tab, PO, Daily, # 90 tab, 1 Refill(s), Pharmacy: [facility] 342 Active 10/10/2018 [facility] lisinopril 20 mg oral tablet 2 0 mg = 1 tab, PO, Daily, # 90 tab, 1 Refill(s), Pharmacy: [facility] Active 10/10/2018 [facility] Glipizide 10 MG Oral Tablet 10 mg = 1 tab, PO, BID- Before Meals, change from glyburide, # 180 tab, 1 Refill(s), Pharmacy: [facility] Active 10/10/2018 [facility] atorvastatin 20 mg oral tablet 20 mg = 1 tab, PO, Daily, # 90 tab, 1 Refill(s), Pharmacy: [facility] Active 10/10/2018 [facility] apixaban 2.5 MG Oral Tablet [Eliquis] 2.5 mg = 1 tab, PO, BID, # 180 tab, 1 Refill(s), Pharmacy: [facility] No Longer Active 10/10/2018 [facility] atorvastatin 40 mg oral tablet 40 mg = 1 tab, PO, Daily, discontinue simvastatin when supply finishs, # 90 tab, 1 Refill(s), Pharmacy: [facility] Inactive 08/11/2018 [facility] simvastatin 40 mg oral tablet 40 mg = 1 tab, PO, Bedtime, 0 Refill(s) Inactive 08/11/2018 [facility] Trazodone Hydrochloride 50 MG Oral Tablet 50 mg = 1 tab, PO, Bedtime, # 90 tab, 1 Refill(s), Pharmacy: [facility] Active 04/29/2018 [facility] pioglitazone 45 mg oral tablet 45 mg = 1 tab, PO, Daily, # 90 tab, 1 Refill(s), Pharmacy: [facility] Active 04/29/2018 [facility] lisinopril 20 mg oral tablet 2 0 mg = 1 tab, PO, Daily, # 90 tab, 1 Refill(s), Pharmacy: [facility] Active 04/29/2018 [facility] 3 ML insulin detemir 100 UNT/ML Prefille d Syringe [Levemir] 45 unit, SUB-Q, Daily, # 30 mL, 1 Refill (s), Pharmacy: [facility] Active 04/29/2018 [facility] glyBURIDE 5 mg oral tablet 10 mg = 2 tab, PO, BID, # 360 tab, 1 Refill(s), Pharmacy: [facility] Active 04/29/2018 [facility] Digoxin 0.125 MG Oral Tablet 1 25 microgram = 1 tab, PO, Daily, # 90 tab, 1 Refill(s), Pharmacy: [facility] Active 04/29/2018 [facility] apixaban 2.5 MG Oral Tablet [Eliquis] 2.5 mg = 1 tab, PO, BID, # 180 tab, 1 Refill(s), Pharmacy: [facility] Active 04/29/2018 [facility] AMIODarone 200 mg oral tablet 200 mg = 1 tab, PO, Daily, # 90 tab, 0 Refill(s), Pharmacy: [facility] Active 04/29/2018 [facility] atorvastatin 20 mg oral tablet 20 mg = 1 tab, PO, Bedtime, # 90 tab, 1 Refill(s), Pharmacy: [facility] Active 04/29/2018 [facility] Ketoconazole 20 MG/ML Topical Cream 1 appl, TOP, BID, # 60 gm, 1 Refill(s), Pharmacy: [facility]25 Active 04/29/2018 [facility] 24 HR Diltiazem Hydrochloride 180 MG Ext ended Release Capsule [Cartia] 180 mg = 1 cap, PO, BID, # 180 cap, 1 Re fill(s), Pharmacy: [facility] Active 04/29/2018 [facility] 3 ML insulin detemir 100 UNT/ML Prefille d Syringe [Levemir] 45 unit, SUB-Q, Daily, # 15 mL, 3 Refill (s), Pharmacy: [place] [address] Active 10/07/2017 [facility] Trazodone Hydrochloride 50 MG Oral Tablet 50 mg = 1 tab, PO, Bedtime, # 30 tab, 3 Refill(s), Pharmacy: [place] [address] Active 10/04/2017 [facility] Amoxicillin 875 MG / Clavulanate 125 MG Oral Tablet [Augmentin 875-mg] 1 tab, Route: PO, Dosing Weight 128.182, kg, ONCE, Start date: 07/13/16 17:44:00 CDT, Stop date: 07/13/16 17:44:00 CDT Inactive 07/13/2016 [facility] Amoxicillin 500 MG / Clavulanate 125 MG Oral Tablet [Augmentin 500-mg] 1 tab, PO, Q8H, X 7 day, # 21 tab, 0 Ref ill(s), Pharmacy: [place] [address] Active 07/13/2016 [facility] Amoxicillin 500 MG / Clavulanate 125 MG Oral Tablet [Augmentin 500-mg] Notes: With food. (Same as: Augmentin 50 0) Inactive 07/13/2016 [facility] Saline Flush 0.9% Notes: (Same as: BD Posiflush) Inactive 07/13/2016 [facility] magnesium sulfate 2 gm, 50 mL, Route: IVPB, Drug form: INJ, ONCE, Dosing Weight 113.1, kg, Total dose = 2 gm, Start date: 11/04/15 11:14:00, Duration: 1 doses or times, Stop date: 11/04/15 11:14:00 Inactive 11/04/2015 [facility] diltiazem 180 mg/24 hours oral capsule, extended release 180 mg = 1 cap, PO, BID, # 60 cap, 0 Refill(s) Active 11/04/2015 [facility] 3 ML insulin detemir 100 UNT/ML Prefille d Syringe [Levemir] 10 unit, SUB-Q, Bedtime, 1 box with supp lies or equivalent covered product, # 15 mL, 0 Refill(s) Active 11/04/2015 [facility] Aspirin 325 MG Enteric Coated Tablet 325 mg = 1 tab, PO, Daily, 0 Refill(s) Active 11/04/2015 [facility] Neutra-Phos Notes: (Same as: N eutra-Phos) Each 1.25 gm pkt has 250mg phosphorous. Mix w/2.5oz water and stir. Inactive 11/04/2015 [facility] Magnesium Sulfate Notes: (Same as: MgSO4) MEDICATION WASTE Product Size: 1000 mg Product Wasted: ___ mg Inactive 11/04/2015 [facility] Clonidine Hydrochloride 0.1 MG Oral Tablet Notes: (Same As: Catapres) No Longer Active 11/03/2015 [facility] potassium chloride Notes: ([facility] as: K-Dur 20) "Do Not Crush" With food and full glass of water Inactive 11/03/2015 [facility] potassium chloride Notes: ([facility] as: K-Dur 20) "Do Not Crush" With food and full glass of water Inactive 11/03/2015 [facility] potassium chloride Notes: ([facility] e as: K-Dur 20) "Do Not Crush" With food and full glass of water Inactive 11/02/2015 [facility] potassium chloride Notes: ([facility] as: K-Dur 20) "Do Not Crush" With food and full glass of water Inactive 11/02/2015 [facility] Sodium Chloride 0.9% IV 1,000 mL 1,000 mL, Rate: 60 ml/hr, Infuse over: 16.7 hr, Route: IV, Dosing Weight 113.1 kg, Total Volume: 1,000, Start date: 11/01/15 14:13:00, Duration: 30 day, Stop date: 12/01/15 14:12:00 No Longer Active 11/01/2015 [facility] Zosyn Notes: (Same as: Zosyn) Dosing based on Piperacillin component No Longer Active 11/01/2015 [facility] Sodium Chloride 0.9% IV 1,000 mL 1,000 mL, Rate: 100 ml/hr, Infuse over: 10 hr, Route: IV, Dosing Weight 113.1 kg, Total Volume: 1,000, Start date: 10/31/15 13:58:00, Duration: 30 day, Stop date: 11/30/15 13:57:00 No Longer Active 10/31/2015 [facility] Zofran Notes: (Same as: Zofran ) MEDICATION WASTE Product Size: 4 mg Product Wasted: ___ mg No Longer Active 10/31/2015 [facility] Morphine Notes: (Same as:MORPh ine Sulfate) No Longer Active 10/31/2015 [facility] Please discontinue diltiazem drip if n o longer running Please discontinue diltiazem drip if n o longer running, ATTN: NETTIE, Drug form: MISC, Route: MISC, QSHIFT, 10/31/15 0:00:00, Duration: 30 day, Stop date: 11/29/15 16:00:00 Inactive 10/31/2015 [facility] digoxin 125 mcg (0.125 mg) oral tablet Notes: Take on an Empty Stomach (Same as: Lanoxin) No Longer Active 10/30/2015 [facility] Cardizem CD Notes: (Same as:Ca rdizem CD) Before meals. DO NOT CRUSH. No Longer Activ e 10/30/2015 [facility] Sodium Chloride 0.9% IV 1,000 mL 1,000 mL, Rate: 60 ml/hr, Infuse over: 16.7 hr, Route: IV, Dosing Weight 113.1 kg, Total Volume: 1,000, Start date: 10/30/15 12:04:00, Duration: 30 day, Stop date: 11/29/15 12:03:00 No Longer Active 10/30/2015 [facility] Amiodarone Notes: (Same as: Co rdarone) No Longer Active 10/30/2015 [facility] Sodium Chloride 0.9% IV 1000 mL 1,000 mL, Rate: 100 ml/hr, Infuse over: 10 hr, Route: IV, Dosing Weight 113.1 kg, Total Volume: 1,000, Start date: 10/30/15 0:30:00, Duration: 30 day, Stop date: 11/29/15 0:29:00 Inactive 10/30/2015 [facility] Levemir Notes: Same as Levemir Do not hold insulin without contacting prescriber "single patient use only" No Longer Active 10/30/2015 [facility] Simvastatin Notes: (Same as: Z ocor) No Longer Active 10/30/2015 [facility] NS 1000 mL 1,000 mL, Rate: 100 ml/hr, Infuse over: 10 hr, Route: IV, Dosing Weight 113.1 kg, Total Volume: 1,000, Start date: 10/29/15 18:10:00, Duration: 30 day, Stop date: 11/28/15 18:09:00 Inactive 10/30/2015 [facility] NS + KCL 20mEq/L 1000ml (Premix) 1,000 mL Notes: PREMIX IV - Do Not Alter No Longer Active 10/30/2015 [facility] Digoxin Notes: (Same as: Lanox in) Inactive 10/29/2015 [facility] potassium chloride 40 mEq, Rou te: PO, Drug form: ERTAB, ONCE, Dosing Weight 113.1, kg, Priority: NOW, Start date: 10/29/15 17:23:00, Stop date: 10/29/15 17:23:00 Inactive 10/29/2015 [facility] Eliquis Notes: Same as: Eliquis No Longer Active 10/29/2015 [facility] Glyburide Notes: (Same as: Devan willis Diabeta) Take with meals. No Longer Active 10/29/2015 [facility] Imodium A-D Notes: (Same as: I modium) MAX adult dose is 8 caps/day No Longer Active 10/29/2015 [facility] potassium chloride Notes: (Babatunde e as: K-Dur 20) "Do Not Crush" With food and full glass of water Inactive 10/29/2015 [facility] Saline Flush 0.9% Notes: (Same as: BD Posiflush) No Longer Active 10/29/2015 [facility] Eliquis Notes: Same as: Eliquis No Longer Active 10/29/2015 [facility] Insulin, Aspart, Human Notes: Roll in palms of hands gently; Do not shake vigorously. (Same as: NovoLOG) "single patient use only" Stable for 28 days at room temperature. Expires in days from Date Inactive 10/28/2015 [facility] Insulin regular Notes: (Same a s: Humulin R and NovoLIN R) (Do not shake) Inactive 10/28/2015 [facility] Insulin, Aspart, Human Notes: Roll in palms of hands gently; Do not shake vigorously. (Same as: NovoLOG) "single patient use only" Stable for 28 days at room temperature. Expires in days from Date No Longer Active 10/28/2015 [facility] Glucagon 1 mg, Route: IM, Drug form: PDR/INJ, PRN, Dosing Weight 113.636, kg, PRN Blood Glucose Results, Start date: 10/28/15 17:28:00, Duration: 30 day, Stop date: 11/27/15 17:27:00 No Longer Active 10/28/2015 [facility] Dextrose 50% Syringe 25 gm, 50 mL, Route: IVP, Drug Form: INJ, Dosing Weight 113.636, kg, PRN, PRN Blood Glucose Results, Start date: 10/28/15 17:28:00, Duration: 30 day, Stop date: 11/27/15 17:27:00 No Longer Active 10/28/2015 [facility] Metoclopramide 10 MG Oral Tablet 10 mg = 1 tab, PO, Daily, 0 Refill(s) No Longer Active 10/28/2015 [facility] Aspirin 325 MG Enteric Coated Tablet Notes: (Do Not Crush) Do not crush or chew. No Longer Active 10/28/2015 [facility] Saline Flush 0.9% Notes: (Same as: BD Posiflush) No Longer Active 10/28/2015 [facility] Ondansetron Notes: (Same as: Gwen langford) No Longer Active 10/28/2015 [facility] Sodium Chloride 0.154 MEQ/ML Injectable Solution 1,000 mL, Rate: 150 ml/hr, Infuse over: 6.7 hr, Route: IV, Dosing Weight 113.636 kg, Total Volume: 1,000, Start date: 10/28/15 15:44:00, Duration: 30 day, Stop date: 11/27/15 15:43:00 No Longer Active 10/28/2015 [facility] NS + KCL 20mEq/L 1000ml (Premix) 1,000 mL Notes: PREMIX IV - Do Not Alter No Longer Active 10/28/2015 [facility] potassium chloride Notes: (Babatunde e as: K-Dur 20) "Do Not Crush" With food and full glass of water Inactive 10/28/2015 [facility] Insulin regular Notes: (Same a s: Humulin R and NovoLIN R) (Do not shake) Inactive 10/28/2015 [facility] Sodium Chloride 0.154 MEQ/ML Injectable Solution 500 mL, 500 ml/hr, Infuse Over: 1 hr, Route: IV, 500, Drug form: INJ, ONCE, Priority: STAT, Dosing Weight 113.636 kg, Start date: 10/28/15 13:59:00, Duration: 1 doses or times, Stop date: 10/28/15 13:59:00 Inactive 10/28/2015 [facility] Diltiazem Notes: (Same as: Car dizem) No Longer Active 10/28/2015 [facility] Saline Flush 0.9% Notes: (Same as: BD Posiflush) No Longer Active 10/28/2015 [facility] Sodium Chloride 0.154 MEQ/ML Injectable Solution 1,000 mL, Infuse Over: 1 hr, Route: IV, ONCE, Priority: STAT, Dosing Weight 113.636 kg, Start date: 10/28/15 11:53:00, Duration: 1 doses or times, Stop date: 10/28/15 11:53:00 Inactive 10/28/2015 [facility] Metoclopramide Notes: (Same as : Reglan) Inactive 10/28/2015 [facility] Famotidine Notes: (Same as: Pe pcid) Can be dilute in 5- 10cc NS IVP: Slow IV push over at least 2 minutes. Inactive 10/28/2015 [facility] Amiodarone Notes: (Same as: Co rdarone) Inactive 10/28/2015 [facility] aspirin 325 mg tablet Notes: T johanny with food. No Longer Active 02/03/2015 [facility] pioglitazone Notes: (Same as: Actos) No Longer Active 02/03/2015 [facility] Lisinopril Notes: (Same as: Pr inivil, Zestril) No Longer Active 02/03/2015 [facility] Glyburide Notes: (Same as: Devan ronase, Diabeta) Take with meals. No Longer Active 02/03/2015 [facility] Simvastatin Notes: (Same as: Z ocor) Inactive 02/03/2015 [facility] Metoprolol Tartrate 50 mg oral tablet 50 mg = 1 tab, PO, BID, # 60 tab, 0 Refill(s) Active 02/02/2015 [facility] Aspirin 81 MG Enteric Coated Tablet 81 mg = 1 tab, PO, Daily, # 30 tab, 0 Refill(s) Active 02/02/2015 [facility] metoprolol extended release No bhumika: (Same as: Toprol XL) May split tab, but do not crush. Inactive 02/02/2015 [facility] Digoxin Notes: (Same as: Lanox in) Inactive 02/02/2015 [facility] Betapace Notes: (Same As: Beta pace) Inactive 02/02/2015 [facility] Influenza Virus Vaccine, Inactivated A-B [id number] (H3N2)-like virus ([id number] [facility] X-175C) strain / Influenza Virus Vaccine, Inactivated C-[id number], IVR-148 (H1N1) strain / Influenza Virus Vaccine, Inactivated, U-Cgoqskk-3-lik Notes: (Same as: Fluzone Quadrivalent) Inactive 02/02/2015 [facility] digoxin Notes: (Same as: Lanox in) Inactive 02/02/2015 [facility] Digoxin Notes: (Same as: Lanox in) Inactive 02/02/2015 [facility] Ondansetron Notes: (Same as: Gwen langford) No Longer Active 02/02/2015 [facility] Acetaminophen Notes: Do not ex ceed 4 gm/day. (Same as: Tylenol) No Longer Active 02/02/2015 [facility] Morphine Notes: (Same as:MORPh ine Sulfate) No Longer Active 02/02/2015 [facility] lisinopril 20 mg oral tablet 2 0 mg = 1 tab, PO, Daily, # 30 tab, 0 Refill(s) Active 02/02/2015 [facility] diltiazem 125 mg + Sodium Chloride 0.9% (titrate) 100 mL Notes: (Same as: Cardizem) No Longer Active 02/02/2015 [facility] Digoxin Notes: Take on an Empt y Stomach (Same as: Lanoxin) Inactive 02/02/2015 [facility] Lovenox Notes: (Same as: Loven ox) Inactive 02/02/2015 [facility] Digoxin Notes: (Same as: Lanox in) Inactive 02/02/2015 [facility] metoprolol tartrate Notes: (Sa me as: Lopressor) Inactive 02/02/2015 [facility] Cardizem 20 mg, Route: IVP, ON CE, Dosing Weight 124.545, kg, Priority: STAT, Start date: 02/01/15 18:07:00, Stop date: 02/01/15 18:07:00 Inactive 02/01/2015 [facility] aspirin 325 mg tablet 325 mg, Route: PO, Drug form: TAB, ONCE, Dosing Weight 124.545, kg, Priority: STAT, Start date: 02/01/15 18:07:00, Stop date: 02/01/15 18:07:00 Inactive 02/01/2015 [facility] Sodium Chloride 0.154 MEQ/ML Injectable Solution 1,000 mL, Infuse Over: 1 hr, Route: IV, ONCE, Priority: STAT, Dosing Weight 124.545 kg, Start date: 02/01/15 18:07:00, Duration: 1 doses or times, Stop date: 02/01/15 18:07:00 Inactive 02/01/2015 [facility] Saline Flush 0.9% Notes: (Same as: BD Posiflush) No Longer Active 02/01/2015 [facility] Ondansetron 4 mg, Route: IVP, ONCE, Dosing Weight 124.545, kg, Priority: STAT, Start date: 02/01/15 18:07:00, Stop date: 02/01/15 18:07:00 Inactive 02/01/2015 [facility] pioglitazone 45 mg oral tablet 45 mg = 1 tab, PO, Daily, # 30 tab, 0 Refill(s) Active 11/07/2014 [facility] ciprofloxacin 500 mg oral tablet 500 mg, PO, BID, 0 Refill(s) No Longer Active 11/07/2014 [facility] Metformin 500 mg, PO, BID, 0 R efill(s) No Longer Active 11/07/2014 [facility] simvastatin 40 mg oral tablet 40 mg = 1 tab, PO, Bedtime, # 30 tab, 0 Refill(s) Active 11/07/2014 [facility] glyBURIDE 5 mg oral tablet 10 mg = 2 tab, PO, BID, 0 Refill(s) Active 11/07/2014 [facility] lisinopril 20 mg oral tablet 2 0 mg = 1 tab, PO, Daily, # 30 tab, 0 Refill(s) No Longer Active 11/07/2014 [facility] Saline Flush 0.9% Notes: (Same as: BD Posiflush) No Longer Active 11/06/2014 [facility] Sodium Chloride 0.0769 MEQ/ML Injectable Solution 1,000 mL, Rate: 150 ml/hr, Infuse over: 6.7 hr, Route: IV, Dosing Weight 114.091 kg, Total Volume: 1,000, Start date: 11/06/14 15:33:00, Duration: 30 day, Stop date: 12/06/14 15:32:00 No Longer Active 11/06/2014 [facility] Ondansetron Notes: (Same as: Gwen langford) No Longer Active 11/06/2014 [facility] Sodium Chloride 0.154 MEQ/ML Injectable Solution 1,000 mL, 1,000 ml/hr, Infuse Over: 1 hr, Route: IV, ONCE, Priority: STAT, Dosing Weight 114.091 kg, Start date: 11/06/14 13:31:00, Duration: 1 doses or times, Stop date: 11/06/14 13:31:00 Inactive 11/06/2014 [facility] Ketoconazole not defined NA [facility] Cephalexin not defined NA [facility] Digoxin not defined NA [facility] Atorvastatin not defined NA [facility] Aspirin not defined NA [facility] Eliquis not defined NA [facility] Ciprofloxacin not defined NA [facility] Clickfine Pen [place] not defi ángela NA [facility] Pioglitazone HCl not defined NA [facility] Levemir Flexpen not defined NA [facility] GlipiZIDE not defined NA [facility] Trazadone not defined NA [facility] Lisinopril not defined NA [facility] Allergies, Adverse Reactions, Alerts Substance Category Reaction Severity Reaction type Status Date Reported Comments Source No Known Medication Allergies Assertion Drug aller gy [facility] NKFA Assertion Food allergy Active [facility] Immunizations Immunization Date Given Site Status Last Updated Comments Source diphtheria/pertussis, acel/tetanus adult<sup>1</sup> 10/17/2018 Left Deltoid completed Michele Result Comment: Patient waited 15 minutes, no allergic reaction noted. [facility] pneumococcal 13-valent vaccine 04/29/2018 Right Deltoid completed Michele [facility] pneumococcal 23-valent vaccine<sup>2</sup> 02/27/2011 completed GE Result Comment: pneumovax. Migrated from OBS ; Data migrated from [employer] on 12/24/2015. [facility] pneumococcal 23-valent vaccine<sup>1</sup> 02/27/2011 completed GE Result Comment: pneumovax. Migrated from OBS ; Data migrated from [employer] on 12/24/2015. [facility] tetanus-diphtheria toxoids<sup>3</sup> 04/05/2009 completed G E Result Comment: historical. Migrated fro m OBS ; Data migrated from [employer] on 12/24/2015. [facility] tetanus-diphtheria toxoids<sup>2</sup> 04/05/2009 completed G E Result Comment: historical. Migrated fro m OBS ; Data migrated from [employer] on 12/24/2015. [facility] Results Order Name Results Value Reference Range Date Interpretation Comments Source ELECTROLYTES AGAP 6.4 10.0 - 20.0 02/28/2019 [facility] ELECTROLYTES eGFR 39 02/28/2019 Result Comment: [...] should be multiplied by the estimated BMI. [facility] ELECTROLYTES Glucose Lvl 184 70 - 99 02/28/2019 [facility] ELECTROLYTES BUN 25 7 - 22 02/28/2019 [facility] ELECTROLYTES Creatinine Lvl 1.7 8 0.50 - 1.40 02/28/2019 [facility] ELECTROLYTES Sodium Lvl 138 135 - 145 02/28/2019 [facility] ELECTROLYTES CO2 27 24 - 32 02/28/2019 [facility] ELECTROLYTES Chloride Lvl 109 95 - 109 02/28/2019 [facility] ELECTROLYTES Potassium Lvl 4.4 3.5 - 5.1 02/28/2019 [facility] ELECTROLYTES Calcium Lvl 9.0 8.5 - 10.5 02/28/2019 [facility] HEMATOLOGY Lymphocytes # 2.2 1.0 - 5.5 02/28/2019 [facility] HEMATOLOGY Basophils # 0.1 0.0 - 0.2 02/28/2019 [facility] HEMATOLOGY Monocytes # 0.4 0.0 - 0.8 02/28/2019 [facility] HEMATOLOGY Eosinophils # 0.2 0.0 - 0.5 02/28/2019 [facility] HEMATOLOGY Lymphocytes 31.0 20.0 - 40.0 02/28/2019 [facility] Eosinophils 2.9 0.0 - 4.0 02/28/2019 [facility] HEMAT[facility]Y Basophils 0.8 0.0 - 1.0 02/28/2019 [facility] HEMATOLOGY Monocytes 6.1 2.0 - 12.0 02/28/2019 [facility] HEMATOLOGY Segs 59.2 45.0 - 75.0 02/28/2019 [facility] HEMATOLOGY Neutrophils # 4.2 1.5 - 8.1 02/28/2019 [facility] HEMATOLOGY PTT 55.3 22.9 - 35.8 02/28/2019 [facility] HEMATOLOGY RDW 14.0 11.5 - 14.5 02/28/2019 [facility] HEMATOLOGY MCHC 33.7 32.0 - 36.0 02/28/2019 [facility] HEMATOLOGY MPV 8.1 7.4 - 10.4 02/28/2019 [facility] HEMATOLOGY Platelet 192 133 - 450 02/28/2019 [facility] HEMATOLOGY WBC 7.1 3.7 - 10.4 02/28/2019 [facility] HEMATOLOGY RBC 4.65 4.70 - 6.10 02/28/2019 [facility] HEMATOLOGY MCV 85.6 80.0 - 94.0 02/28/2019 [facility] HEMATOLOGY Hct 39.8 42.0 - 54.0 02/28/2019 [facility] HEMATOLOGY Hgb 13.4 14.0 - 18.0 02/28/2019 [facility] HEMATOLOGY MCH 28.8 27.0 - 31.0 02/28/2019 [facility] HEMATOLOGY PTT 81.7 22.9 - 35.8 02/28/2019 [facility] HEMATOLOGY PT 13.5 12.0 - 14.7 02/28/2019 [facility] HEMATOLOGY INR 1.05 0.85 - 1.17 02/28/2019 [facility] HEMATOLOGY INR 0.98 0.85 - 1.17 02/27/2019 [facility] HEMATOLOGY PT 12.8 12.0 - 14.7 02/27/2019 [facility] HEMATOLOGY PTT 59.4 22.9 - 35.8 02/27/2019 [facility] CHEM PANEL BUN 21 7 - 22 02/27/2019 [facility] CHEM PANEL Creatinine Lvl 1.77 0.50 - 1.40 02/27/2019 [facility] CHEM PANEL Sodium Lvl 139 135 - 145 02/27/2019 [facility] CHEM PANEL Glucose Lvl 189 70 - 99 02/27/2019 [facility] CHEM PANEL Potassium Lvl 4.1 3.5 - 5.1 02/27/2019 [facility] CHEM PANEL Chloride Lvl 109 95 - 109 02/27/2019 [facility] CHEM PANEL CO2 26 24 - 32 02/27/2019 [facility] CHEM PANEL Calcium Lvl 9.0 8.5 - 10.5 02/27/2019 [facility] CHEM PANEL eGFR 39 02/27/2019 Result [...] should be multiplied by the estimated BMI. [facility] CHEM PANEL AGAP 8.1 10.0 - 20.0 02/27/2019 [facility] HEMATOLOGY Eosinophils # 0.2 0.0 - 0.5 02/27/2019 [facility] HEMATOLOGY Monocytes # 0.5 0.0 - 0.8 02/27/2019 [facility] HEMATOLOGY Segs 58.7 45.0 - 75.0 02/27/2019 [facility] HEMATOLOGY Lymphocytes 31.0 20.0 - 40.0 02/27/2019 [facility] HEMATOLOGY Monocytes 6.7 2.0 - 12.0 02/27/2019 [facility] HEMATOLOGY Eosinophils 3.0 0.0 - 4.0 02/27/2019 [facility] HEMATOLOGY Neutrophils # 4.4 1.5 - 8.1 02/27/2019 [facility] HEMATOLOGY Basophils 0.6 0.0 - 1.0 02/27/2019 [facility] Lymphocytes # 2.3 1.0 - 5.5 02/27/2019 [facility] Hct 40.8 42.0 - 54.0 02/27/2019 [facility] MCV 84.5 80.0 - 94.0 02/27/2019 [facility] MCH 28.6 27.0 - 31.0 02/27/2019 [facility] RDW 13.7 11.5 - 14.5 02/27/2019 [facility] MPV 8.1 7.4 - 10.4 02/27/2019 [facility] MCHC 33.9 32.0 - 36.0 02/27/2019 [facility] RBC 4.82 4.70 - 6.10 02/27/2019 [facility] Hgb 13.8 14.0 - 18.0 02/27/2019 [facility] Platelet 191 133 - 450 02/27/2019 [facility] WBC 7.5 3.7 - 10.4 02/27/2019 [facility] INR 1.01 0.85 - 1.17 02/27/2019 [facility] PT 13.1 12.0 - 14.7 02/27/2019 [facility] CARDIAC ENZYMES BNP 61 <=100 pg/mL 02/25/2019 [facility] ELECTROLYTES AGAP 9.0 10.0 - 20.0 02/25/2019 [facility] ELECTROLYTES eGFR 55 02/25/2019 Result Comment: [...] should be multiplied by the estimated BMI. [facility] ELECTROLYTES Potassium Lvl 4.0 3.5 - 5.1 02/25/2019 [facility] ELECTROLYTES Calcium Lvl 8.7 8.5 - 10.5 02/25/2019 [facility] ELECTROLYTES CO2 24 24 - 32 02/25/2019 [facility] ELECTROLYTES Sodium Lvl 136 135 - 145 02/25/2019 [facility] ELECTROLYTES Chloride Lvl 107 95 - 109 02/25/2019 [facility] ELECTROLYTES Creatinine Lvl 1.3 5 0.50 - 1.40 02/25/2019 [facility] ELECTROLYTES BUN 23 7 - 22 02/25/2019 [facility] ELECTROLYTES Glucose Lvl 166 70 - 99 02/25/2019 [facility] HEMATOLOGY Monocytes # 0.6 0.0 - 0.8 02/25/2019 [facility] HEMATOLOGY Lymphocytes # 1.9 1.0 - 5.5 02/25/2019 [facility] HEMATOLOGY Eosinophils # 0.2 0.0 - 0.5 02/25/2019 [facility] HEMATOLOGY Neutrophils # 4.4 1.5 - 8.1 02/25/2019 [facility] HEMATOLOGY Basophils 0.5 0.0 - 1.0 02/25/2019 [facility] HEMATOLOGY Lymphocytes 26.6 20.0 - 40.0 02/25/2019 [facility] HEMATOLOGY Segs 61.6 45.0 - 75.0 02/25/2019 [facility] HEMATOLOGY Eosinophils 3.0 0.0 - 4.0 02/25/2019 [facility] HEMATOLOGY Monocytes 8.3 2.0 - 12.0 02/25/2019 [facility] HEMATOLOGY RDW 13.9 11.5 - 14.5 02/25/2019 [facility] MCH 29.0 27.0 - 31.0 02/25/2019 [facility] MCHC 34.2 32.0 - 36.0 02/25/2019 [facility] HEMATOLOGY Hct 40.4 42.0 - 54.0 02/25/2019 [facility] HEMATOLOGY MCV 84.6 80.0 - 94.0 02/25/2019 [facility] HEMATOLOGY Hgb 13.8 14.0 - 18.0 02/25/2019 [facility] HEMATOLOGY WBC 7.1 3.7 - 10.4 02/25/2019 [facility] HEMATOLOGY RBC 4.78 4.70 - 6.10 02/25/2019 [facility] HEMATOLOGY MPV 8.3 7.4 - 10.4 02/25/2019 [facility] HEMATOLOGY Platelet 203 133 - 450 02/25/2019 [facility] SPECIAL CHEMISTRY Hgb A1C 7.9 <=5.6 % 02/25/2019 [facility] CARDIAC ENZYMES Troponin-I <0.02 0.00 - 0.40 02/24/2019 [facility] LEVOFLOXACIN:SUSC:PT:ISOLATE:ORDQN:DEVAN Gram Stain Report No Wbc'S Or Organisms Seen 10/21/2018 [facility] LEVOFLOXACIN:SUSC:PT:ISOLATE:ORDQN:DEVAN Culture: Wound/Abscess w/Gram Stain Growth In Subculture Broth Only : Staphylococcus Species, Not S. aureus 10/21/2018 [facility] LEVOFLOXACIN:SUSC:PT:ISOLATE:ORDQN:DEVAN Staphylococcus Species, Not S. aureus Staphylococcus Species, Not S. aureus 10/21/2018 [facility] Culture: Anaerobic No Anaerobes Is olated 10/21/2018 [facility] CHEM PANEL eGFR 39 10/20/2018 Result [...] should be multiplied by the estimated BMI. [facility] CHEM PANEL Chloride Lvl 103 95 - 109 10/20/2018 [facility] CHEM PANEL Potassium Lvl 4.8 3.5 - 5.1 10/20/2018 [facility] CHEM PANEL CO2 21 24 - 32 10/20/2018 [facility] CHEM PANEL AGAP 16.8 10.0 - 20.0 10/20/2018 [facility] CHEM PANEL Calcium Lvl 9.0 8.5 - 10.5 10/20/2018 [facility] CHEM PANEL Sodium Lvl 136 135 - 145 10/20/2018 [facility] CHEM PANEL BUN 27 7 - 22 10/20/2018 [facility] CHEM PANEL Creatinine Lvl 1.80 0.50 - 1.40 10/20/2018 [facility] CHEM PANEL Glucose Lvl 420 70 - 99 10/20/2018 Result Comment: Critical Result(s) guerra diomedes Parson at 10/20/2018 11:38 by DMF. Read back OK. [facility] HEMATOLOGY Eosinophils # 0.1 0.0 - 0.5 10/20/2018 [facility] HEMATOLOGY Lymphocytes # 1.2 1.0 - 5.5 10/20/2018 [facility] HEMATOLOGY Monocytes # 0.5 0.0 - 0.8 10/20/2018 [facility] HEMATOLOGY Neutrophils # 6.2 1.5 - 8.1 10/20/2018 [facility] HEMATOLOGY Segs 76.5 45.0 - 75.0 10/20/2018 [facility] HEMATOLOGY Basophils 0.5 0.0 - 1.0 10/20/2018 [facility] HEMATOLOGY Lymphocytes 14.9 20.0 - 40.0 10/20/2018 [facility] HEMATOLOGY Monocytes 6.4 2.0 - 12.0 10/20/2018 [facility] HEMATOLOGY Eosinophils 1.7 0.0 - 4.0 10/20/2018 [facility] HEMATOLOGY Platelet 200 133 - 450 10/20/2018 [facility] HEMATOLOGY MCHC 33.8 32.0 - 36.0 10/20/2018 [facility] HEMATOLOGY RDW 13.0 11.5 - 14.5 10/20/2018 [facility] HEMATOLOGY MPV 9.6 7.4 - 10.4 10/20/2018 [facility] HEMATOLOGY MCV 86.8 80.0 - 94.0 10/20/2018 [facility] MCH 29.3 27.0 - 31.0 10/20/2018 [facility] HEMATOLOGY Hct 44.3 42.0 - 54.0 10/20/2018 [facility] HEMATOLOGY Hgb 15.0 14.0 - 18.0 10/20/2018 [facility] HEMATOLOGY RBC 5.10 4.70 - 6.10 10/20/2018 [facility] HEMATOLOGY WBC 8.1 3.7 - 10.4 10/20/2018 [facility] SPECIAL CHEMISTRY Hgb A1C 10.7 <=5.6 % 10/20/2018 [facility] CHEM PANEL Lactic Acid Lvl 1.5 0.5 - 2.2 07/13/2016 [facility] TOXICOLOGY Digoxin Lvl 0.4 0.8 - 2.0 07/13/2016 [facility] CHEM PANEL Phosphorus 3.3 2.5 - 4.5 07/13/2016 [facility] CHEM PANEL Magnesium Lvl 2.0 1.8 - 2.4 07/13/2016 [facility] CHEM PANEL Ketone Quantitative 0.10 <=0.27 mmol/L 07/13/2016 [facility] CHEM PANEL eGFR 41 07/13/2016 Result [...] Bili Total 0.5 0.2 - 1.3 07/13/2016 [facility] CHEM PANEL AST 11 0 - 37 07/13/2016 [facility] CHEM PANEL Alk Phos 138 39 - 136 07/13/2016 [facility] CHEM PANEL ALT 23 0 - 65 07/13/2016 [facility] CHEM PANEL Calcium Lvl 8.7 8.5 - 10.5 07/13/2016 [facility] CHEM PANEL Total Protein 7.4 6.4 - 8.4 07/13/2016 [facility] CHEM PANEL Albumin Lvl 3.7 3.5 - 5.0 07/13/2016 [facility] CHEM PANEL Chloride Lvl 103 95 - 109 07/13/2016 [facility] CHEM PANEL CO2 26 24 - 32 07/13/2016 [facility] CHEM PANEL Creatinine Lvl 1.72 0.50 - 1.40 07/13/2016 [facility] CHEM PANEL BUN 25 7 - 22 07/13/2016 [facility] CHEM PANEL Glucose Lvl 288 70 - 99 07/13/2016 [facility] CHEM PANEL Potassium Lvl 4.7 3.5 - 5.1 07/13/2016 [facility] CHEM PANEL Sodium Lvl 135 135 - 145 07/13/2016 [facility] CHEM PANEL A/G Ratio 1.0 0.7 - 1.6 07/13/2016 [facility] CHEM PANEL Globulin 3.7 2.7 - 4.2 07/13/2016 [facility] CHEM PANEL B/C Ratio 15 6 - 25 07/13/2016 [facility] CHEM PANEL AGAP 10.7 10.0 - 20.0 07/13/2016 [facility] CHEM PANEL Lactic Acid Lvl 1.3 0.5 - 2.2 07/13/2016 [facility] HEMATOLOGY Monocytes # 0.5 0.0 - 0.8 07/13/2016 [facility] HEMATOLOGY Segs-Bands # 5.2 1.5 - 8.1 07/13/2016 [facility] HEMATOLOGY Lymphocytes # 1.4 1.0 - 5.5 07/13/2016 [facility] HEMATOLOGY Eosinophils # 0.1 0.0 - 0.5 07/13/2016 [facility] HEMATOLOGY Basophils 0.5 0.0 - 1.0 07/13/2016 [facility] HEMATOLOGY Eosinophils 1.0 0.0 - 4.0 07/13/2016 [facility] HEMATOLOGY Monocytes 6.8 2.0 - 12.0 07/13/2016 [facility] HEMATOLOGY Lymphocytes 19.2 20.0 - 40.0 07/13/2016 [facility] HEMATOLOGY Segs 72.5 45.0 - 75.0 07/13/2016 [facility] HEMATOLOGY MPV 8.6 7.4 - 10.4 07/13/2016 [facility] HEMATOLOGY WBC 7.2 3.7 - 10.4 07/13/2016 [facility] HEMATOLOGY MCH 29.3 27.0 - 31.0 07/13/2016 [facility] HEMATOLOGY Platelet 217 133 - 450 07/13/2016 [facility] HEMATOLOGY RBC 4.84 4.70 - 6.10 07/13/2016 [facility] HEMATOLOGY Hgb 14.2 14.0 - 18.0 07/13/2016 [facility] HEMATOLOGY RDW 12.9 11.5 - 14.5 07/13/2016 [facility] HEMATOLOGY MCHC 34.0 32.0 - 36.0 07/13/2016 [facility] HEMATOLOGY MCV 86.0 80.0 - 94.0 07/13/2016 [facility] HEMATOLOGY Hct 41.7 42.0 - 54.0 07/13/2016 [facility] CHEM PANEL A/G Ratio 0.8 0.7 - 1.6 11/04/2015 [facility] CHEM PANEL AGAP 11.7 10.0 - 20.0 11/04/2015 [facility] CHEM PANEL B/C Ratio 5 6 - 25 11/04/2015 [facility] CHEM PANEL Globulin 2.5 2.0 - 4.0 11/04/2015 [facility] CHEM PANEL eGFR 41 11/04/2015 Result [...] Potassium Lvl 3.7 3.5 - 5.1 11/04/2015 [facility] CHEM PANEL Sodium Lvl 139 135 - 145 11/04/2015 [facility] CHEM PANEL Chloride Lvl 109 95 - 109 11/04/2015 [facility] CHEM PANEL Alk Phos 81 39 - 136 11/04/2015 [facility] CHEM PANEL Bili Total 0.5 0.2 - 1.3 11/04/2015 [facility] CHEM PANEL AST 7 0 - 37 11/04/2015 [facility] CHEM PANEL CO2 22 24 - 32 11/04/2015 [facility] CHEM PANEL Calcium Lvl 7.5 8.5 - 10.5 11/04/2015 [facility] CHEM PANEL BUN 9 7 - 22 11/04/2015 [facility] CHEM PANEL Creatinine Lvl 1.74 0.50 - 1.40 11/04/2015 [facility] CHEM PANEL Glucose Lvl 114 70 - 99 11/04/2015 [facility] CHEM PANEL Total Protein 4.6 6.4 - 8.4 11/04/2015 [facility] CHEM PANEL ALT 16 0 - 65 11/04/2015 [facility] CHEM PANEL Albumin Lvl 2.1 3.5 - 5.0 11/04/2015 [facility] CHEM PANEL Phosphorus 2.4 2.5 - 4.5 11/04/2015 [facility] CHEM PANEL Magnesium Lvl 1.5 1.8 - 2.4 11/04/2015 [facility] HEMATOLOGY Basophils 0.3 0.0 - 1.0 11/04/2015 [facility] HEMATOLOGY Eosinophils 1.0 0.0 - 4.0 11/04/2015 [facility] HEMATOLOGY Monocytes 11.2 2.0 - 12.0 11/04/2015 [facility] HEMATOLOGY Lymphocytes 13.0 20.0 - 40.0 11/04/2015 [facility] HEMATOLOGY Segs-Bands # 7.9 1.5 - 8.1 11/04/2015 [facility] HEMATOLOGY RBC Morph Lashawn l (11/04/15 4:08 AM) 11/04/2015 [facility] HEMATOLOGY Segs 74.5 45.0 - 75.0 11/04/2015 [facility] HEMATOLOGY Plt Morph Lashawn l (11/04/15 4:08 AM) 11/04/2015 [facility] HEMATOLOGY Eosinophils # 0.1 0.0 - 0.5 11/04/2015 [facility] HEMATOLOGY Monocytes # 1.2 0.0 - 0.8 11/04/2015 [facility] HEMATOLOGY Lymphocytes # 1.4 1.0 - 5.5 11/04/2015 [facility] HEMATOLOGY MPV 7.9 7.4 - 10.4 11/04/2015 [facility] HEMATOLOGY MCHC 33.6 32.0 - 36.0 11/04/2015 [facility] HEMATOLOGY Platelet 262 133 - 450 11/04/2015 [facility] HEMATOLOGY RDW 13.2 11.5 - 14.5 11/04/2015 [facility] HEMATOLOGY MCV 87.2 80.0 - 94.0 11/04/2015 [facility] HEMATOLOGY Hct 36.7 42.0 - 54.0 11/04/2015 [facility] HEMATOLOGY Hgb 12.3 14.0 - 18.0 11/04/2015 [facility] MCH 29.2 27.0 - 31.0 11/04/2015 [facility] HEMATOLOGY RBC 4.21 4.70 - 6.10 11/04/2015 [facility] HEMATOLOGY WBC 10.6 3.7 - 10.4 11/04/2015 [facility] URINE AND STOOL UA Mucus Few /LPF None Seen /LPF 11/03/2015 [facility] URINE AND STOOL UA Uric Ac Qian Many /HPF None Seen /HPF 11/03/2015 [facility] URINE AND STOOL UA Urobilinogen <=1.0 mg/dL 0.1 - 1.0 11/03/[address] [facility] URINE AND STOOL UA Sq Epi None Seen 11/03/2015 [facility] URINE AND STOOL UA Turbidity Marked *ABN* (11/03/15 4:49 PM) Clear 11/03/2015 [facility] URINE AND STOOL UA Color Yellow *NA* (11/03/15 4:49 PM) Yellow 11/03/2015 [facility] URINE AND STOOL UA Protein 30 mg/dL Negative mg/dL 11/03/2015 [facility] URINE AND STOOL UA pH 5.0 5.0 - 8.0 11/03/2015 [facility] URINE AND STOOL UA Ketones Trace mg/dL Negative mg/dL 11/03/[address] [facility] [address] URINE AND STOOL UA Glucose 50 mg/dL Negative mg/dL 11/03/2015 [facility] URINE AND STOOL UA Spec Grav 1.014 <=1.030 11/03/2015 [facility] URINE AND STOOL UA Blood Large *ABN* (11/03/15 4:49 PM) Negative 11/03/2015 [facility] URINE AND STOOL UA Nitrite Negative (11/03/15 4:49 PM) Negative 11/03/2015 [facility] URINE AND STOOL UA Leuk Est Negative (11/03/15 4:49 PM) Negative 11/03/2015 [facility] URINE AND STOOL UA Bili Negative *NA* (11/03/15 4:49 PM) Negative 11/03/2015 [facility] URINE AND STOOL UA WBC 4 0 - 5 11/03/2015 [facility] URINE AND STOOL UA RBC 114 0 - 2 11/03/2015 [facility] URINE AND STOOL UA Bacteria Occasional /HPF None Seen /HPF 11/03/2015 [facility] URINE AND STOOL UA Gran Cast 3 11/03/2015 [facility] CHEM PANEL Calcium Lvl 7.8 8.5 - 10.5 11/03/2015 [facility] CHEM PANEL Glucose Lvl 88 70 - 99 11/03/2015 [facility] CHEM PANEL CO2 19 24 - 32 11/03/2015 [facility] CHEM PANEL Chloride Lvl 108 95 - 109 11/03/2015 [facility] CHEM PANEL Potassium Lvl 3.3 3.5 [...] should be multiplied by the estimated BMI. [facility] CHEM PANEL Creatinine Lvl 1.54 0.50 - 1.40 11/03/2015 [facility] CHEM PANEL AGAP 13.3 10.0 - 20.0 11/03/2015 [facility] HEMATOLOGY Hgb 13.4 14.0 - 18.0 11/03/2015 [facility] RBC 4.58 4.70 - 6.10 11/03/2015 [facility] WBC 10.3 3.7 - 10.4 11/03/2015 [facility] MCV 87.6 80.0 - 94.0 11/03/2015 [facility] MCH 29.3 27.0 - 31.0 11/03/2015 [facility] Hct 40.1 42.0 - 54.0 11/03/2015 [facility] MCHC 33.4 32.0 - 36.0 11/03/2015 [facility] RDW 13.3 11.5 - 14.5 11/03/2015 [facility] Platelet 263 133 - 450 11/03/2015 [facility] MPV 8.3 7.4 - 10.4 11/03/2015 [facility] Lymphocytes # 0.9 1.0 - 5.5 11/03/2015 [facility] Monocytes # 0.8 0.0 - 0.8 11/03/2015 [facility] Lymphocytes 9.1 20.0 - 40.0 11/03/2015 [facility] Segs 82.6 45.0 - 75.0 11/03/2015 [facility] HEMATOLOGY Monocytes 7.5 2.0 - 12.0 11/03/2015 [facility] HEMATOLOGY Segs-Bands # 8.5 1.5 - 8.1 11/03/2015 [facility] HEMATOLOGY Basophils 0.4 0.0 - 1.0 11/03/2015 [facility] HEMATOLOGY Eosinophils 0.4 0.0 - 4.0 11/03/2015 [facility] CHEM PANEL Albumin Lvl 2.0 3.5 - 5.0 11/02/2015 [facility] CHEM PANEL ALT 18 0 - 65 11/02/2015 [facility] CHEM PANEL Bili Total 0.4 0.2 - 1.3 11/02/2015 [facility] CHEM PANEL AST 10 0 - 37 11/02/2015 [facility] CHEM PANEL Alk Phos 91 39 - 136 11/02/2015 [facility] CHEM PANEL eGFR 42 11/02/2015 Result [...] PANEL CO2 20 24 - 32 11/02/2015 [facility] CHEM PANEL Calcium Lvl 7.8 8.5 - 10.5 11/02/2015 [facility] CHEM PANEL Total Protein 5.2 6.4 - 8.4 11/02/2015 [facility] CHEM PANEL Potassium Lvl 3.1 3.5 - 5.1 11/02/2015 [facility] CHEM PANEL Chloride Lvl 109 95 - 109 11/02/2015 [facility] CHEM PANEL Creatinine Lvl 1.70 0.50 - 1.40 11/02/2015 [facility] CHEM PANEL Sodium Lvl 135 135 - 145 11/02/2015 [facility] CHEM PANEL Glucose Lvl 100 70 - 99 11/02/2015 [facility] CHEM PANEL BUN 19 7 - 22 11/02/2015 [facility] CHEM PANEL AGAP 9.1 10.0 - 20.0 11/02/2015 [facility] CHEM PANEL A/G Ratio 0.6 0.7 - 1.6 11/02/2015 [facility] CHEM PANEL B/C Ratio 11 6 - 25 11/02/2015 [facility] CHEM PANEL Globulin 3.2 2.0 - 4.0 11/02/2015 [facility] HEMATOLOGY WBC 7.1 3.7 - 10.4 11/02/2015 [facility] HEMATOLOGY MCV 87.2 80.0 - 94.0 11/02/2015 [facility] HEMATOLOGY Hct 37.3 42.0 - 54.0 11/02/2015 [facility] HEMATOLOGY Platelet 233 133 - 450 11/02/2015 [facility] HEMATOLOGY MPV 8.5 7.4 - 10.4 11/02/2015 [facility] HEMATOLOGY RBC 4.28 4.70 - 6.10 11/02/2015 [facility] HEMATOLOGY Hgb 12.5 14.0 - 18.0 11/02/2015 [facility] HEMATOLOGY MCHC 33.6 32.0 - 36.0 11/02/2015 [facility] HEMATOLOGY MCH 29.3 27.0 - 31.0 11/02/2015 [facility] HEMATOLOGY RDW 13.1 11.5 - 14.5 11/02/2015 [facility] HEMATOLOGY Sed Rate 29 0 - 15 11/02/2015 [facility] HEMATOLOGY Eosinophils 1.3 0.0 - 4.0 11/02/2015 [facility] HEMATOLOGY Monocytes 10.3 2.0 - 12.0 11/02/2015 [facility] HEMATOLOGY Basophils 0.2 0.0 - 1.0 11/02/2015 [facility] HEMATOLOGY Eosinophils # 0.1 0.0 - 0.5 11/02/2015 [facility] HEMATOLOGY Lymphocytes 19.4 20.0 - 40.0 11/02/2015 [facility] HEMATOLOGY Segs 68.8 45.0 - 75.0 11/02/2015 [facility] HEMATOLOGY Monocytes # 0.7 0.0 - 0.8 11/02/2015 [facility] HEMATOLOGY Lymphocytes # 1.4 1.0 - 5.5 11/02/2015 [facility] HEMATOLOGY Segs-Bands # 4.9 1.5 - 8.1 11/02/2015 [facility] CARDIAC ENZYMES BNP 57 <=100 pg/mL 11/01/2015 [facility] HEMATOLOGY RBC Morph Lashawn l (10/31/15 7:22 AM) 10/31/2015 [facility] HEMATOLOGY Plt Morph Lashawn l (10/31/15 7:22 AM) 10/31/2015 [facility] CHEM PANEL Amylase Lvl 36 25 - 115 10/29/2015 [facility] CHEM PANEL Lipase Lvl 368 73 - 393 10/29/2015 [facility] CHEM PANEL B/C Ratio 20 6 - 25 10/29/2015 [facility] CHEM PANEL Globulin 3.3 2.0 - 4.0 10/29/2015 [facility] CHEM PANEL A/G Ratio 0.7 0.7 - 1.6 10/29/2015 [facility] CHEM PANEL AST 11 0 - 37 10/29/2015 [facility] CHEM PANEL ALT 20 0 - 65 10/29/2015 [facility] CHEM PANEL Alk Phos 94 39 - 136 10/29/2015 [facility] CHEM PANEL Bili Total 0.7 0.2 - 1.3 10/29/2015 [facility] CHEM PANEL Albumin Lvl 2.4 3.5 - 5.0 10/29/2015 [facility] CHEM PANEL Total Protein 5.7 6.4 - 8.4 10/29/2015 [facility] SPECIAL CHEMISTRY Hgb A1C 10.8 <=5.6 % 10/29/2015 [facility] BACTERIAL - SEROLOGY MRSA by PCR Negative (10/28/15 11:26 PM) 10/29/2015 [facility] URINE CHEM U Prot/Creat 0.9 10/28/2015 [facility] URINE CHEM U Creatinine 91.80 10/28/2015 [facility] URINE CHEM U Protein 86.0 10/28/2015 [facility] CARDIAC ENZYMES Troponin-I <0.02 0.00 - 0.40 10/28/2015 [facility] CHEM PANEL Lipase Lvl 569 73 - 393 10/28/2015 [facility] HEMATOLOGY INR 1.00 0.85 - 1.17 10/28/2015 [facility] HEMATOLOGY PT 13.5 12.0 - 14.7 10/28/2015 [facility] HEMATOLOGY PTT 30.3 22.9 - 35.8 10/28/2015 [facility] IMMUNOLOGY Candor-Hep C Ab Negat dariusz *NA* (10/28/15 12:05 PM) Negative 10/28/2015 [facility] MOLECULAR DIAGNOSTIC C difficile DNA Negative (10/28/15 12:05 PM) Negative 10/28/2015 [facility] TOXICOLOGY Digoxin Lvl 0.4 0.8 - 2.0 10/28/2015 [facility] CARDIAC ENZYMES CK MB 2.2 0.5 - 3.6 02/02/2015 [facility] CARDIAC ENZYMES Troponin-I <0.02 0.00 - 0.40 02/02/2015 [facility] CARDIAC ENZYMES Total CK 50 12 - 191 02/02/2015 [facility] CARDIAC ENZYMES CK MB Index 4.4 0.0 - 2.5 02/02/2015 [facility] LIPIDS VLDL 20 02/02/2015 [facility] LIPIDS LDL (Calculated) 65 <=99 mg/dL 02/02/2015 [facility] LIPIDS CHD Risk 3.83 4.00 - 7.30 02/02/2015 [facility] LIPIDS Chol 115 <=199 mg/dL 02/02/2015 [facility] LIPIDS HDL 30 >=61 mg/dL 02/02/2015 [facility] LIPIDS Trig 98 <=149 mg/dL 02/02/2015 [facility] THYROID PANEL TSH 1.140 0.360 - 3.740 02/02/2015 [facility] CARDIAC ENZYMES Troponin-I <0.02 0.00 - 0.40 02/02/2015 [facility] CARDIAC ENZYMES Total CK 51 12 - 191 02/02/2015 [facility] CARDIAC ENZYMES CK MB 2.3 0.5 - 3.6 02/02/2015 [facility] CARDIAC ENZYMES CK MB Index 4.0 0.0 - 2.5 02/01/2015 [facility] CARDIAC ENZYMES Total CK 75 12 - 191 02/01/2015 [facility] CARDIAC ENZYMES Troponin-I <0.02 0.00 - 0.40 02/01/2015 [facility] CARDIAC ENZYMES CK MB 3.0 0.5 - 3.6 02/01/2015 [facility] CHEM PANEL Magnesium Lvl 1.8 1.8 - 2.4 02/01/2015 [facility] CHEM PANEL eGFR 46 02/01/2015 <sup>1</sup>Result [...] should be multiplied by the estimated BMI. [facility] CHEM PANEL Total Protein 7.3 6.4 - 8.4 02/01/2015 [facility] CHEM PANEL ALT 21 0 - 65 02/01/2015 [facility] CHEM PANEL Albumin Lvl 3.8 3.5 - 5.0 02/01/2015 [facility] CHEM PANEL A/G Ratio 1.1 0.7 - 1.6 02/01/2015 [facility] CHEM PANEL Globulin 3.5 2.0 - 4.0 02/01/2015 [facility] CHEM PANEL B/C Ratio 16 6 - 25 02/01/2015 [facility] CHEM PANEL AGAP 13.2 10.0 - 20.0 02/01/2015 [facility] CHEM PANEL Creatinine Lvl 1.6 0.5 - 1.4 02/01/2015 [facility] CHEM PANEL CO2 23 24 - 32 02/01/2015 [facility] CHEM PANEL Alk Phos 97 39 - 136 02/01/2015 [facility] CHEM PANEL AST 13 0 - 37 02/01/2015 [facility] CHEM PANEL Bili Total 0.4 0.2 - 1.3 02/01/2015 [facility] CHEM PANEL Glucose Lvl 126 70 - 99 02/01/2015 <sup>2</sup>Interpretive Data: Adult ref erence range values reflect the clinical guidelines
of the [place] [employer]. [facility] CHEM PANEL BUN 26 7 - 22 02/01/2015 [facility] CHEM PANEL Chloride Lvl 110 95 - 109 02/01/2015 [facility] CHEM PANEL Calcium Lvl 8.7 8.5 - 10.5 02/01/2015 [facility] CHEM PANEL Sodium Lvl 142 135 - 145 02/01/2015 [facility] CHEM PANEL Potassium Lvl 4.2 3.5 - 5.1 02/01/2015 [facility] CHEM PANEL Phosphorus 3.1 2.5 - 4.5 02/01/2015 [facility] HEMATOLOGY Basophils # 0.1 0.0 - 0.2 02/01/2015 [facility] HEMATOLOGY Eosinophils # 0.1 0.0 - 0.5 02/01/2015 [facility] HEMATOLOGY Monocytes # 0.5 0.0 - 0.8 02/01/2015 [facility] HEMATOLOGY Lymphocytes # 1.8 1.0 - 5.5 02/01/2015 [facility] HEMATOLOGY Segs-Bands # 5.2 1.5 - 8.1 02/01/2015 [facility] HEMATOLOGY Basophils 0.7 0.0 - 1.0 02/01/2015 [facility] HEMATOLOGY Eosinophils 1.8 0.0 - 4.0 02/01/2015 [facility] Segs 67.7 45.0 - 75.0 02/01/2015 [facility] Monocytes 6.5 2.0 - 12.0 02/01/2015 [facility] Lymphocytes 23.3 20.0 - 40.0 02/01/2015 [facility] MCHC 34.1 32.0 - 36.0 02/01/2015 [facility] MCH 29.5 27.0 - 31.0 02/01/2015 [facility] WBC 7.7 3.7 - 10.4 02/01/2015 [facility] MCV 86.6 80.0 - 94.0 02/01/2015 [facility] Hgb 13.0 14.0 - 18.0 02/01/2015 [facility] Hct 38.1 42.0 - 54.0 02/01/2015 [facility] RBC 4.40 4.70 - 6.10 02/01/2015 [facility] Platelet 212 133 - 450 02/01/2015 [facility] MPV 8.6 7.4 - 10.4 02/01/2015 [facility] RDW 13.9 11.5 - 14.5 02/01/2015 [facility] INR 0.98 0.85 - 1.17 02/01/2015 <sup>3</sup>Interpretive Data: RECOMMEND ED RANGES FOR PROTIME INR:
2.0-3.0 for most medical and surgical thromboembolic states.
2.5-3.5 for artificial heart valves and recurrent embolism.

INR SHOULD BE USED ONLY FOR PATIENTS ON STABLE ANTICOAGULANT THERAPY. [facility] PT 13.0 12.0 - 14.7 02/01/2015 [facility] PTT 30.6 22.9 - 35.8 02/01/2015 <sup>4</sup>Interpretive Data: Heparin T herapeutic Range: 57 - 92 Seconds [facility] ELECTROLYTES AGAP 10.7 10.0 - 20.0 11/08/2014 [facility] ELECTROLYTES eGFR 43 11/08/2014 <sup>1</sup>Result Comment: [...] should be multiplied by the estimated BMI. [facility] ELECTROLYTES Calcium Lvl 8.5 8.5 - 10.5 11/08/2014 [facility] ELECTROLYTES CO2 21 24 - 32 11/08/2014 [facility] ELECTROLYTES Creatinine Lvl 1.7 0.5 - 1.4 11/08/2014 [facility] ELECTROLYTES BUN 28 7 - 22 11/08/2014 [facility] ELECTROLYTES Glucose Lvl 162 70 - 99 11/08/2014 <sup>4</sup>Interpretive Data: Adult ref erence range values reflect the clinical guidelines
of the [place] [employer]. [facility] ELECTROLYTES Chloride Lvl 110 95 - 109 11/08/2014 [facility] ELECTROLYTES Sodium Lvl 137 135 - 145 11/08/2014 [facility] ELECTROLYTES Potassium Lvl 4.7 3.5 - 5.1 11/08/2014 [facility] HEMATOLOGY Basophils # 0.1 0.0 - 0.2 11/08/2014 [facility] HEMATOLOGY Eosinophils # 0.1 0.0 - 0.5 11/08/2014 [facility] HEMATOLOGY Segs-Bands # 3.1 1.5 - 8.1 11/08/2014 [facility] HEMATOLOGY Eosinophils 2.4 0.0 - 4.0 11/08/2014 [facility] HEMATOLOGY Basophils 1.4 0.0 - 1.0 11/08/2014 [facility] Monocytes # 0.6 0.0 - 0.8 11/08/2014 [facility] Lymphocytes # 2.0 1.0 - 5.5 11/08/2014 [facility] Segs 52.0 45.0 - 75.0 11/08/2014 [facility] Lymphocytes 34.4 20.0 - 40.0 11/08/2014 [facility] Monocytes 9.8 2.0 - 12.0 11/08/2014 [facility] MCV 85.7 80.0 - 94.0 11/08/2014 [facility] RDW 12.7 11.5 - 14.5 11/08/2014 [facility] MCH 30.3 27.0 - 31.0 11/08/2014 [facility] MCHC 35.4 32.0 - 36.0 11/08/2014 [facility] Platelet 203 133 - 450 11/08/2014 [facility] MPV 8.3 7.4 - 10.4 11/08/2014 [facility] Hgb 13.3 14.0 - 18.0 11/08/2014 [facility] Hct 37.6 42.0 - 54.0 11/08/2014 [facility] RBC 4.38 4.70 - 6.10 11/08/2014 [facility] WBC 5.9 3.7 - 10.4 11/08/2014 [facility] ELECTROLYTES Potassium Lvl 4.8 3.5 - 5.1 11/07/2014 [facility] ELECTROLYTES Creatinine Lvl 1.9 0.5 - 1.4 11/07/2014 [facility] ELECTROLYTES Sodium Lvl 137 135 - 145 11/07/2014 [facility] ELECTROLYTES eGFR 37 11/07/2014 <sup>2</sup>Result Comment: [...] should be multiplied by the estimated BMI. [facility] ELECTROLYTES Calcium Lvl 8.0 8.5 - 10.5 11/07/2014 [facility] ELECTROLYTES Chloride Lvl 111 95 - 109 11/07/2014 [facility] ELECTROLYTES AST 11 0 - 37 11/07/2014 [facility] ELECTROLYTES Alk Phos 108 39 - 136 11/07/2014 [facility] ELECTROLYTES BUN 36 7 - 22 11/07/2014 [facility] ELECTROLYTES CO2 19 24 - 32 11/07/2014 [facility] ELECTROLYTES B/C Ratio 19 6 - 25 11/07/2014 [facility] ELECTROLYTES AGAP 11.8 10.0 - 20.0 11/07/2014 [facility] ELECTROLYTES Glucose Lvl 177 70 - 99 11/07/2014 <sup>5</sup>Interpretive Data: Adult ref erence range values reflect the clinical guidelines
of the [place] [employer]. [facility] ELECTROLYTES Albumin Lvl 3.2 3.5 - 5.0 11/07/2014 [facility] ELECTROLYTES Globulin 2.8 2.0 - 4.0 11/07/2014 [facility] ELECTROLYTES Total Protein 6.0 6.4 - 8.4 11/07/2014 [facility] ELECTROLYTES ALT 23 0 - 65 11/07/2014 [facility] ELECTROLYTES A/G Ratio 1.1 0.7 - 1.6 11/07/2014 [facility] ELECTROLYTES Bili Total 0.5 0.2 - 1.3 11/07/2014 [facility] HEMATOLOGY MCHC 35.1 32.0 - 36.0 11/07/2014 [facility] HEMATOLOGY MPV 8.2 7.4 - 10.4 11/07/2014 [facility] HEMATOLOGY RDW 13.1 11.5 - 14.5 11/07/2014 [facility] HEMATOLOGY Platelet 210 133 - 450 11/07/2014 [facility] HEMATOLOGY Hct 38.0 42.0 - 54.0 11/07/2014 [facility] HEMATOLOGY MCV 86.5 80.0 - 94.0 11/07/2014 [facility] HEMATOLOGY WBC 5.9 3.7 - 10.4 11/07/2014 [facility] HEMATOLOGY Hgb 13.4 14.0 - 18.0 11/07/2014 [facility] HEMATOLOGY RBC 4.40 4.70 - 6.10 11/07/2014 [facility] HEMATOLOGY MCH 30.4 27.0 - 31.0 11/07/2014 [facility] HEMATOLOGY Eosinophils # 0.1 0.0 - 0.5 11/07/2014 [facility] HEMATOLOGY Monocytes # 0.5 0.0 - 0.8 11/07/2014 [facility] HEMATOLOGY Segs-Bands # 3.4 1.5 - 8.1 11/07/2014 [facility] HEMATOLOGY Lymphocytes # 1.9 1.0 - 5.5 11/07/2014 [facility] HEMATOLOGY Basophils 0.5 0.0 - 1.0 11/07/2014 [facility] HEMATOLOGY Lymphocytes 31.8 20.0 - 40.0 11/07/2014 [facility] HEMATOLOGY Segs 56.9 45.0 - 75.0 11/07/2014 [facility] HEMATOLOGY Monocytes 8.8 2.0 - 12.0 11/07/2014 [facility] HEMATOLOGY Eosinophils 2.0 0.0 - 4.0 11/07/2014 [facility] SPECIAL CHEMISTRY Hgb A1C 8.8 <=5.6 % 11/07/2014 [facility] CHEM PANEL Lactic Acid Lvl 0.5 0.5 - 2.2 11/06/2014 [facility] CARDIAC ENZYMES Troponin-I <0.02 0.00 - 0.40 11/06/2014 [facility] CARDIAC ENZYMES Total CK 99 12 - 191 11/06/2014 [facility] CARDIAC ENZYMES CK MB Index 6.2 0.0 - 2.5 11/06/2014 [facility] CARDIAC ENZYMES CK MB 6.1 0.5 - 3.6 11/06/2014 [facility] CHEM PANEL eGFR 20 11/06/2014 <sup>3</sup>Result [...] Sodium Lvl 136 135 - 145 11/06/2014 [facility] CHEM PANEL Creatinine Lvl 3.2 0.5 - 1.4 11/06/2014 [facility] CHEM PANEL Potassium Lvl 4.3 3.5 - 5.1 11/06/2014 [facility] CHEM PANEL Chloride Lvl 112 95 - 109 11/06/2014 [facility] CHEM PANEL Calcium Lvl 8.1 8.5 - 10.5 11/06/2014 [facility] CHEM PANEL Glucose Lvl 236 70 - 99 11/06/2014 <sup>6</sup>Interpretive Data: Adult ref erence range values reflect the clinical guidelines
of the [place] [employer]. [facility] CHEM PANEL AGAP 14.3 10.0 - 20.0 11/06/2014 [facility] CHEM PANEL BUN 59 7 - 22 11/06/2014 [facility] CHEM PANEL CO2 14 24 - 32 11/06/2014 [facility] CHEM PANEL Total Protein 6.9 6.4 - 8.4 11/06/2014 [facility] CHEM PANEL B/C Ratio 18 6 - 25 11/06/2014 [facility] CHEM PANEL Albumin Lvl 3.3 3.5 - 5.0 11/06/2014 [facility] CHEM PANEL A/G Ratio 0.9 0.7 - 1.6 11/06/2014 [facility] CHEM PANEL Alk Phos 117 39 - 136 11/06/2014 [facility] CHEM PANEL Bili Total 0.3 0.2 - 1.3 11/06/2014 [facility] CHEM PANEL ALT 24 0 - 65 11/06/2014 [facility] CHEM PANEL AST 13 0 - 37 11/06/2014 [facility] CHEM PANEL Globulin 3.6 2.0 - 4.0 11/06/2014 [facility] HEMATOLOGY Hgb 14.4 14.0 - 18.0 11/06/2014 [facility] HEMATOLOGY Hct 41.0 42.0 - 54.0 11/06/2014 [facility] HEMATOLOGY MCV 86.1 80.0 - 94.0 11/06/2014 [facility] HEMATOLOGY MCH 30.3 27.0 - 31.0 11/06/2014 [facility] HEMATOLOGY MCHC 35.2 32.0 - 36.0 11/06/2014 [facility] WBC 6.9 3.7 - 10.4 11/06/2014 [facility] RBC 4.76 4.70 - 6.10 11/06/2014 [facility] Platelet 224 133 - 450 11/06/2014 [facility] RDW 13.1 11.5 - 14.5 11/06/2014 [facility] MPV 8.3 7.4 - 10.4 11/06/2014 [facility] Lymphocytes 23.0 20.0 - 40.0 11/06/2014 [facility] HEMATOLOGY Eosinophils 0.9 0.0 - 4.0 11/06/2014 [facility] Monocytes 6.7 2.0 - 12.0 11/06/2014 [facility] Segs-Bands # 4.7 1.5 - 8.1 11/06/2014 [facility] Basophils 0.5 0.0 - 1.0 11/06/2014 [facility] Lymphocytes # 1.6 1.0 - 5.5 11/06/2014 [facility] Eosinophils # 0.1 0.0 - 0.5 11/06/2014 [facility] Segs 68.9 45.0 - 75.0 11/06/2014 [facility] Monocytes # 0.5 0.0 - 0.8 11/06/2014 [facility] Pathology Reports No Data Provided for [...] to patient size -Use of iterative reconstruction Xradia ue CT Radiation Dose DLP 1022.45 mGy-cm [...] by phone on 02/24/2019 11:01 CDT. SL: [id number] 02/24/2019 [facility] Ext Lower Venous Doppler Bilat US [...] escorted to the emergency room by the registered radiologic technologist as per Dr. Rodriguez's instructions. Charge nurse in the Emergency Room, Drea, informed of patient's arrival. SL: [id number] 02/24/2019 [facility] Foot wo contrast MRI INDICATIO N: [...] No evidence of abscess. SL: [id number] 10/18/2018 [facility] Lower Venous Doppler Unilat US Clinical Indication: [...] lower extremity. 2. Soft tissue edema. SL: [id number] 07/13/2016 [facility] Foot 2 views DX Study: Right [...] phalanx of the right 5th toe. SL: [id number] 06/22/2016 [facility] Abdomen AP DX ABDOMEN (1 view) Portable HISTORY: Abdominal fullness. Comparison is made to yesterday's study. A CT scan of the abdomen 10/30/2015 was reviewed. FINDINGS: 1. Again noted are markedly dilated smal l bowel loops consistent with small bowel obstruction. There is minimal colonic gas. There has been no significant change. Coding: Abdomen 1 view CPT Code: 76232 SL: 13 Brayden Martines M.D. 11/02/2015 [facility] Abdomen AP DX CLINICAL HISTORY : Abdominal distention. Abdomen one view. Comparison CT abdomen 10/30/2015. Proximal small bowel distention. Distal small bowel and colon are not otherwise dilated. Consider a component of bowel obstruction. SL:14 11/01/2015 [facility] Chest 1view DX CLINICAL HISTOR Y: Dyspnea. CHEST 1 VIEW: Comparison 02/01/2015. Mild cardiomegaly. No overt CHF or pulmonary edema. No acute infiltrate. Small band of reticular atelectasis in the right lower lobe. No pleural effusion or pneumothorax. IMPRESSION: Cardiomegaly. Small band of atelectasis right lower lobe. No acute finding otherwise. SL:14 10/31/2015 [facility] Abdomen/Pelvis wo IV contrast CT EXAMINATION: [...] 10/30/2015 at 11:58 p.m. SL: 16 10/30/2015 [facility] Abdomen complete US CLINICAL H ISTORY: [...] could be more specific. 2.Hepatosplenomegaly. SL:13 10/29/2015 [facility] Retroperitoneal Complete US SD OCEDURE: RENAL ULTRASOUND INDICATION: 753.10 Renal cyst. [...] is at lower limits of normal. The corporate auditor identified a 0.24 cm nonshadowing echogenic focus [...] unremarkable renal ultrasou nd. SL: 15 05/08/2015 [facility] Knee 1-2 Views unilateral DX P ROCEDURE: Knee AP and lateral CLINICAL INFORMATION 719.46 right knee pain COMPARISON: None. Two views right. Inferior patellar tendon thickening, correlation for tendon injury is recommended. Mild medial compartment osteoarthritic change. No displaced fracture or joint effusion. SL: 05/08/2015 [facility] Consultation Notes No Data Provided for This Section Discharge Summaries No Data Provided for This Section History and Physicals No Data Provided for This Section Vital Signs Vital Sign Value Date Comments Source Systolic (mm Hg) 138 07/12/[facility] Diastolic (mm Hg) 90 07/12/2019 [facility] Heart Rate 90 07/12/2019 [facility] Respitory Rate 14 07/12/2019 [facility] Temperature Oral (F) 98.0 F 07/12/2019 [facility] Height 177.8 cm 07/12/2019 [facility] Weight 134.602 07/12/2019 [facility] BMI Calculated 42.58 07/12/2019 [facility] Weight 136.875 06/19/2019 [facility] BMI Calculated 43.3 06/19/2019 [facility] Temperature Oral (F) 97.9 F 06/19/2019 [facility] Height 177.8 cm 06/19/2019 [facility] Systolic (mm Hg) 159 06/19/[facility] Diastolic (mm Hg) 86 06/19/2019 [facility] Respitory Rate 14 06/19/2019 [facility] Heart Rate 79 06/19/2019 [facility] Weight [...] 03/06/2019 [facility] Heart Rate 77 02/28/2019 [facility] Respitory Rate 16 02/28/2019 [facility] Systolic (mm Hg) 111 02/28/2019 [facility] Diastolic (mm Hg) 66 02/28/2019 [facility] Temperature Oral (F) 97.2 F 02/28/2019 [facility] Temperature Oral (F) 98.1 F 02/28/2019 [facility] Heart Rate 84 02/28/2019 [facility] Respitory Rate 16 02/28/2019 [facility] Systolic (mm Hg) 121 02/28/2019 [facility] Diastolic (mm Hg) 74 02/28/2019 [facility] Temperature Oral (F) 98.3 F 02/28/2019 [facility] Systolic (mm Hg) 121 02/28/2019 [facility] Diastolic (mm Hg) 77 02/28/2019 [facility] Heart Rate 76 02/28/2019 [facility] Respitory Rate 16 02/28/2019 [facility] Weight 122.727 02/24/2019 [facility] BMI Calculated 38.82 02/24/2019 [facility] Height 177.8 cm 02/24/2019 [facility] Height 177.8 cm 02/24/2019 [facility] BMI [...] [facility] Temperature Oral (F) 97.9 F 10/20/2018 [facility] Height 177.8 cm 10/20/2018 [facility] Weight 120.227 10/20/2018 [facility] BMI Calculated 38.03 10/20/2018 [facility] BMI Calculated 38.3 10/19/2018 [facility] [...] Rate 18 07/13/2016 [facility] Weight 128.182 07/13/2016 [facility] BMI Calculated 40.55 07/13/2016 [facility] Height [...] [facility] Temperature Oral (F) 97.6 F 11/08/2014 [facility] Systolic (mm Hg) 130 11/08/2014 [facility] Diastolic (mm Hg) 80 11/08/2014 [facility] Respitory Rate 16 11/07/2014 [facility] Respitory Rate 16 11/07/2014 [facility] Weight 114.233 11/07/2014 [facility] BMI Calculated 36.14 11/07/2014 [facility] Height 177.8 cm 11/07/2014 [facility] Weight 114.091 11/06/2014 [facility] BMI Calculated 36.09 11/06/2014 [facility] Height 177.8 cm 11/06/2014 [facility] Encounters Location Location Details Encounter Type Encounter Number Reason For Visit Attending Provider ADM Date DC Date Status Source [facility] Inpatient [id number] John Cool 11/06/2014 11/08/2014 [facility] Inpatient [id number] Nitin Rodriguez 02/01/2015 02/03/2015 [facility] Outpatient [id number] Zhihao Slime 05/08/2015 05/09/2015 [facility] Outpatient [id number] ZHIHAO SLIME 07/04/2015 Active [facility] Outpatient [id number] ZHIHAO SLIME 08/02/2015 [facility] [id number] ZHIHAO SLIME 10/04/2015 [facility] Outpatient [id number] ZHIHAO SLIME 10/24/2015 Active [facility] Inpatient [id number] John Cool 10/28/2015 11/04/2015 [facility] Outpatient [id number] ZHIHAO SLIME 10/28/2015 [facility] Outpatient [id number] ZHIHAO SLIME 11/07/2015 [facility] [id number] ZHIHAO SLIME 01/03/2016 [facility] [id number] ZHIHAO SLIME 01/03/2016 [facility] [id number] ZHIHAO SLIME 03/18/2016 [facility] Outpatient [id number] ZHIHAO SLIME 06/22/2016 Active [facility] Outpatient [id number] Zhihao Slime 06/22/2016 06/23/2016 [facility] Outpatient [id number] SALOMÓN DOHERTY 07/13/2016 Active [facility] Emergency [id number] Rigo Solorio 07/13/2016 07/13/2016 [facility] [id number] SALOMÓN DOHERTY 07/17/2016 Active [facility] Get Outpatient [id number] ADRIENNE PALENCIA 10/05/2016 Active [facility] [place] Outpatient [id number] ADRIENNE PALENCIA 10/22/2016 [facility] Outpatient [id number] ADRIENNE PALENCIA 11/11/2016 Active [facility] [place] Outpatient [id number] ADRIENNE PALENCIA 01/11/2017 Active [facility] Outpatient [id number] ADRIENNE PALENCIA 04/12/2017 Active [facility] [place] Outpatient [id number] ADRIENNE PALENCIA 07/27/2017 Active [facility] [place] Outpatient [id number] ADRIENNE PALENCIA 10/04/2017 Active [facility] [id number] Adrienne Palencia 10/04/2017 10/05/2017 [facility] Outpatient [id number] ADRIENNE PALENCIA 10/07/[address] [facility] Outpatient [id number] Adrienne Palencia 10/07/2017 10/08/2017 [facility] Outpatient [id number] ADRIENNE PALENCIA 11/10/[address] [facility] Primary [facility] Ambulatory Pre-Reg [id number] Adrienne Palencia 11/10/2017 11/10/2017 [facility] Outpatient [id number] ADRIENNE PALENCIA 04/29/2018 Active [facility] Outpatient [id number] Adrienne Palencia 04/29/2018 04/30/2018 [facility] Outpatient [id number] ADRIENNE PALENCIA 06/24/[address] [facility] Outpatient [id number] Adrienne Palencia 06/24/2018 06/25/2018 [facility] Outpatient [id number] ADRIENNE PALENCIA 08/11/[address] [facility] Outpatient [id number] Adrienne Palencia 08/11/2018 08/12/2018 [facility] Outpatient [id number] ADRIENNE PALENCIA 10/10/[address] [facility] Outpatient [id number] Adrienne Palencia 10/10/2018 10/11/2018 [facility] Outpatient [id number] ADRIENNE PALENCIA 10/17/[address] [facility] Outpatient [id number] Adrienne Palencia 10/17/2018 10/18/2018 [facility] Outpatient [id number] ADRIENNE PALENCIA 10/18/[address] [facility] Outpatient [id number] Adrienne Palencia 10/18/2018 10/19/2018 [facility] Outpatient [id number] Timo Lee 10/18/2018 10/19/2018 [facility]patient [id number] ADRIENNE PALENCIA 10/19/[address] [facility] Outpatient [id number] Adrienne Palencia 10/19/2018 10/20/2018 [facility] Outpatient [id number] ADRIENNE PALENCIA 10/20/[address] [facility] Outpatient [id number] Adrienne Palencia 10/20/2018 10/21/2018 [facility] Day Surgery [id number] Timo Lee 10/21/2018 10/21/2018 [facility] Phone Message [id number] 10/24/2018 10/26/2018 [facility] Outpatient [id number] ADRIENNE PALENCIA 11/01/[address] [facility] Outpatient [id number] Adrienne Palencia 11/01/2018 11/02/2018 [facility] Outpatient [id number] ADRIENNE PALENCIA 11/07/[address] [facility] Outpatient [id number] Adrienne Palencia 11/07/2018 11/08/2018 [facility] Outpatient [id number] ADRIENNE PALENCIA 11/28/[address] [facility] Outpatient [id number] Adrienne Palencia 11/28/2018 11/29/2018 [facility] Outpatient [id number] ADIRENNE PALENCIA 01/09/[address] [facility] Ambulatory Pre-Reg [id number] Adrienne Palencia 01/09/2019 01/09/2019 [facility] Phone Message [id number] 01/18/2019 01/20/[facility] Outpatient [id number] ZHMODESTA PALENCIA 01/24/[address] [facility] Outpatient [id number] Zhdaijaeliane Slime 01/24/2019 01/25/2019 [facility] Phone Message [id number] 02/15/2019 02/17/2019 [facility] Phone Message [id number] 02/21/2019 02/23/2019 [facility] Outpatient [id number] Nitin Formanr 02/24/2019 02/25/2019 [facility] Inpatient [id number] John Cool 02/24/2019 02/28/2019 [facility] Outpatient [id number] Adrienne Palencia 03/06/[address] [facility] Outpatient [id number] Zhmodesta Palencia 03/06/2019 03/07/2019 [facility] Outpatient [id number] Adrienne Palencia 05/02/[address] [facility] Outpatient [id number] Zhmodesta Palencia 05/02/2019 05/03/2019 [facility] Outpatient [id number] Adrienne Palencia 06/19/[address] [facility] Outpatient [id number] Zhmodesta Palencia 06/19/2019 06/20/2019 [facility] Outpatient [id number] Zhihao Slime 07/12/[address] [facility] Outpatient [id number] Rosa Elenamodesta Palencia 07/12/2019 07/13/2019 [facility] Procedures Procedure Code Date Perfomer Comments Source Diabetic retinopathy screening [id number] 07/04/2018 [facility] Diabetic retinopathy screening<sup>1</sup> [id number] 02/19/2017 Dr. Nelson [facility] Colonoscopy [id number] 01/01/2016 [facility] Diabetic foot examination [id number] 05/03/2015 [facility] Assessment and Plan Assessment and Plan Date Source Extracted from:Title: Clinical Document Author: Hanna Ford MD Date: 02/28/19 Pulmonary and Critical Care Progress Note [facility] Sujective/overnight events: Chart reviewed. 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 Fall Score 7 Lines, Tubes, and [...] Voluntary Type of Urinary Elimination: Continent 11/04/2015 [facility] Plan of Care No Data Provided [...] Counseling No entered on: 05/02/19 1socially 05/02/2019 [facility] Family History No Data Provided for This Section Advance Directives No Data Provided for This Section Functional Status No Data Provided for This Section
--- OUTSIDE RECORDS SUMMARY | 2020-08-18 15:44 | XMS REPORT | Continuity of Care Document ---
Author Author [facility] t Organization [facility] Address [address] [place] [address] Phone Unavailable Care Team Providers Care Winderman Name Role Phone Marie BENDER Attphys Unavailable [...] Ac tive 2018-10-18 00:00:00 2018-10-18 16:47:00 [facility] CELLULITIS CELL ULITIS Active 07/13/2016 [facility] Active 2016-07-13 00:00:00 2016-07-13 14:41:00 [facility] ABDOMINAL PAIN ABDO RYAN PAIN Active 10/28/2015 [facility] Active 2015-10-28 00:00:00 2015-10-28 13:37:00 [facility] HYPONATREMIA, DEHYDRATION, AFIB, JERRY HYPONATREMIA, DEHYDRATION, AFIB, JERRY Active 10/28/2015 [facility] Ac tive 2015-10-28 00:00:00 2015-11-01 15:33:00 [facility] 753.10 753. 10 Active 05/06/2015 [facility] Active 2015-05-06 00:00:00 2015-05-08 10:24:00 [facility] Atrial fibrillation (disorder) Atrial fibrillation (disorder) Active 02/01/2015 Problem 07/16/2016 Data migrated from [employer] on 05/29/15.Data migrated from [employer] on 04/23/15. [facility] Problem Active 2015-02-01 00:00:00 2016-07-16 03:40:53 M [facility] SOB SOB Active 02/01/2015 [facility] Active 2015-02-01 00:00:00 2015-02-04 14:58:00 [facility] Acute renal failure syndrome (disorder) Acute renal failure syndrome (disorder) Active 11/12/2014 Problem 05/11/2015 1Data migrated from [employer] on 04/20/15. [facility] Problem Active 2014-11-12 00:0 0:00 2015-05-11 05:31:30 [facility] Renal mass (finding) Tricia l mass (finding) Active 11/12/2014 Problem 05/11/2015 21Data migrated from [employer] on 04/20/15. [facility] Problem Active 2014-11-12 00:00:00 2015-05-11 05:31:30 [facility] JERRY, GASTROENTERITIS JERRY, GASTROENTERITIS Active 11/06/2014 [facility] Active 2014-11-06 00:00:00 2014-11-08 07:23:00 [facility] ABD PIAN ABD PIAN Active 11/06/2014 [facility] [...] Problem Active 2014-11-05 00:00:00 2015-05-11 05:31:30 [facility] Microalbuminuria (finding) [place] roalbuminuria (finding) Active 08/24/2014 Problem 05/11/2015 15Data migrated from [employer] on 04/20/15. [facility] Problem Active 2014-08-24 00:00:00 2015-05-11 05:31:30 [facility] Premature atrial contraction (disorder) Premature atrial contraction (disorder) Active 02/02/2014 Problem 05/11/2015 19Data migrated from [employer] on 04/20/15. [facility] Problem Active 2014-02-02 00: 00:00 2015-05-11 05:31:30 [facility] Allergic rhinitis (disorder) A llergic rhinitis (disorder) Active 05/11/2013 Problem 07/15/2019 Data migrated from [employer] on 04/20/15. [facility] Problem Active 2013-05-11 00:0 0:00 2019-07-15 00:47:58 [facility] Anemia (disorder) Anem ia (disorder) Active 05/11/2013 Problem 07/15/2019 Data migrated from [employer] on 04/20/15. [facility] Problem Active 2013-05-11 00:00:00 2019-07-15 00:47:58 [facility] Bilateral cataracts (disorder) Bilateral cataracts (disorder) Active 05/11/2013 Problem 07/15/2019 Data migrated from [employer] on 04/20/15. [facility] Problem Active 2013-05-11 00:0 0:00 2019-07-15 00:47:58 [facility] Internal hemorrhoids (disorder) Internal hemorrhoids (disorder) Active 05/11/2013 Problem 07/15/2019 Data migrated from [employer] on 04/20/15. [facility] Problem Active 2013-05-11 00:0 0:00 2019-07-15 00:47:58 [facility] Benign essential hypertension (disorder) Benign essential hypertension (disorder) Active 05/11/2013 Problem 05/11/2015 5Data migrated from [employer] on 04/20/15. [facility] Problem Activ e 2013-05-11 00:00:00 2015-05-11 05:31:30 [facility] Cutaneous abscess of right foot Cutaneous abscess of right foot 05/10/2019 [facility] Problem 2019-05-10 14 :26:26 [facility] Puncture wound without foreign body, right foot, initi al encounter Puncture wound without foreign body, right foot, initial encounter 05/08/2019 [facility] Problem 2019-05-08 11:16:53 [facility] Abnormal findings on diagnostic imaging of other speci fied body structures Abnormal findings on diagnostic imaging of other specified body structures 05/08/2019 [facility] Problem 11:16:53 [facility] Non-pressure chronic ulcer of other part of right foot with unspecified severity Non-pressure chr onic ulcer of other part of right foot with unspecified severity 05/10/2019 [facility] Problem 2019-05-10 14:26:26 [facility] Type 2 diabetes mellitus with diabetic chronic kidney disease Type 2 diabetes mellitus with diabetic chronic kidney disease 05/10/2019 [facility] Problem 2019-05-10 14:26:26 Ma ayala Deutsch Hypertensive chronic kidney disease with [...] atrial fibrillation 05/10/2019 [facility] Problem 2019-05-10 14:26:26 [facility] Hyperlipidemia, unspecified Hy perlipidemia, unspecified 05/10/2019 [facility] Problem 2019-05-10 14:26:2 6 [facility] medical terminologist (current) use of anticoagulants medical terminologist (current) use of anticoagulants 05/10/2019 [facility] Problem 2019-05-10 14:26:26 [facility] medical terminologist (current) use of insulin medical terminologist (current) use of insulin 05/10/2019 [facility] Problem 2019-04-22 9 14:26:26 [facility] Hypertensive disorder, systemic arterial (disorder) Hypertensive disorder, systemic arterial (disorder) Resolved Problem 07/15/2019 [facility] Problem Resolved 2019-07-15 00:47:58 [facility] Hyperkalemia (disorder) Hype rkalemia (disorder) Resolved Problem 07/15/2019 Data migrated from [facility] on 04/20/15. Medical [facility] Problem Resolved 2019-07-15 00:47:58 [facility] Benign hypertension (disorder) Benign hypertension (disorder) Active Problem 07/15/2019 Medical [facility] Problem Active 2019-07-15 00:47:58 [facility] Chronic atrial fibrillation (disorder) Chronic atrial fibrillation (disorder) Active Problem 07/15/2019 [facility] Problem Active 2019-07-15 00:47:58 [facility] Chronic kidney disease stage 3 (disorder) Chronic kidney disease stage 3 (disorder) Active Problem 07/15/2019 Medical [facility] Problem Active 2019-07-15 00:47:58 J Luis Deutsch Deformity of hand (finding) De formity of hand (finding) Active Problem 07/15/2019 [facility] Problem Active 2019-07-15 00:47:58 [facility] Diabetes mellitus (disorder) D iabetes mellitus (disorder) Active Problem 07/15/2019 [facility] Problem Active 2019-07-15 00:47:58 [facility] Edema of lower extremity (finding) Edema of lower extremity (finding) Active Problem 07/15/2019 [facility] Problem Active 2019-07-15 00:47:58 [facility] Knee pain (finding) Knee pain (finding) Active Problem 07/15/2019 [facility] Problem Active 00:47:58 [facility] Long-term current use of insulin (situation) Long-term current use of insulin (situation) Active Problem 07/15/2019 [facility] Problem Active 2019-07-15 00:47:58 J [facility] Mixed hyperlipidemia (disorder) Mixed hyperlipidemia (disorder) Active Problem 07/15/2019 [facility] Problem Active 2019-07-15 00:47:58 [facility] Morbid obesity (disorder) Morb id obesity (disorder) Active Problem 07/15/2019 [facility] Problem Active 2019-07-15 00:47:58 [facility] Obesity (disorder) Obes ity (disorder) Active Problem 07/15/2019 Medical [facility] Problem Active 00:47:58 [facility] Onychomycosis of toenails (disorder) Onychomycosis of toenails (disorder) Active Problem 07/15/2019 Data migrated from [facility] on 04/20/15. [facility] Problem Active 00:47:58 [facility] Primary insomnia (disorder) Pr imary insomnia (disorder) Active Problem 07/15/2019 [facility] Problem Active 2019-07-15 00:47:58 [facility] Shoulder pain (finding) Shou lder pain (finding) Active Problem 07/15/2019 Medical [facility] Problem Active 2019-07-15 00:47:58 [facility] Simple renal cyst (disorder) S imple renal cyst (disorder) Active Problem 07/15/2019 3.2 cm rt cyst, sono05/08/15, stable [facility] Problem Active 2019-07-15 00:47:5 8 [facility] Skin lesion (disorder) Skin lesion (disorder) Active Problem 07/15/2019 [facility] Problem Active 2019-07-15 00:47:58 [facility] Sunburn (disorder) Sunb urn (disorder) Active Problem 07/15/2019 Medical [facility] Problem Active 00:47:58 [facility] Tinea pedis (disorder) Indy a pedis (disorder) Active Problem 07/15/2019 Medical [facility] Problem Active 2019-07-15 00:47:58 [facility] Diabetes mellitus type 2 (disorder) Diabetes mellitus type 2 (disorder) Active Problem 05/11/2015 [facility] Problem Active 2015-05-11 05:31:30 [facility] Hyperlipidemia (disorder) Hype rlipidemia (disorder) Active Problem 07/16/2016 Data migrated from [employer] on 04/20/15. [facility] Problem Active 2016-07-16 03:40:53 [facility] Chronic renal impairment (disorder) Chronic renal impairment (disorder) Active Problem 05/11/2015 8Data migrated from [employer] on 04/20/15. [facility] Problem Active 2015-05-11 05:31:3 0 [facility] Eruption of skin (disorder) Er uption of skin (disorder) Active Problem 05/11/2015 11Data migrated from [employer] on 04/20/15. [facility] Problem Active 2015-05-11 05:31:30 J Luis Deutsch Kidney stone (disorder) Kidn ey stone (disorder) Active Problem 05/11/2015 [facility] Problem Active 2015-05-11 05:31:3 0 [facility] Renal failure syndrome (disorder) Renal failure syndrome (disorder) Active Problem 05/11/2015 [facility] Problem Active 2015-05-11 05:31:30 Jonn Deutsch Type II diabetes mellitus well controlled (finding) Type II diabetes mellitus well controlled (finding) Active Problem 05/11/2015 23Data migrated from [employer] on 04/20/15. [facility] Problem Active 2015-05-11 05:31:30 Jonn Deutsch Deep venous thrombosis of lower extremity (disorder) Deep venous thrombosis of lower extremity (disorder) Active Problem 07/15/2019 [facility] Problem Active 00:47:58 Jonn Deutsch Pulmonary thromboembolism (disorder) Pulmonary thromboembolism (disorder) Active Problem 07/15/2019 Medical [facility] Problem Active 2019-07-15 00:47:58 J Luis Deutsch Type 2 diabetes mellitus with diabetic n europathy, without long-term current use of insulin Type 2 diabetes mellitus with diabetic neuropathy, without long-term current use of insulin Active Problem 10/22/2018 [facility] Problem Active 2018-10-22 03:45:26 Jonn Deutsch KIDNEY INJURY NOS-CLOSED KIDN EY INJURY NOS-CLOSED Active [facility] Diagnosis Active 2014-11-08 07:23:00 Jonn Deutsch 719.46 719. 46 Active [facility] Active 2015-06-08 15:35:00 Jonn Deutsch ATRIAL FIBRILLATION ATRI AL FIBRILLATION Active [facility] Diagnosis Active 2015-02-04 14:58:00 Ma [facility] Get CYSTIC KIDNEY DISEAS NOS CYST IC KIDNEY DISEAS NOS Active [facility] Diagnosis Active 2015-05-08 10:24:00 Jonn Deutsch DEHYDRATION DEHY DRATION Active [facility] Diagnosis Active 2015-11-01 15:33:00 Hieu Deutsch XRAY XRAY Active [facility] Diagnosis Active 2016-06-22 10:51:00 Jonn Deutsch CUTANEOUS ABSCESS OF RIGHT FOOT CUTANEOUS ABSCESS OF RIGHT FOOT Active [facility] Diagnosis Active 2018-10-18 16 :47:00 Jonn Deutsch OTHER PULMONARY EMBOLISM WITHOUT ACUTE C OTHER PULMONARY EMBOLISM WITHOUT ACUTE C Active [facility] Diagnosis Active 2019-02-28 17:25:00 Jonn Deutsch ACUTE EMBOLISM AND THOMBOS UNSP DEEP VN ACUTE EMBOLISM AND THOMBOS UNSP DEEP VN Active [facility] Diagnosis Active 2019-02-28 17:25:00 Jonn Deutsch Type 2 diabetes mellitus with foot ulcer Type 2 diabetes mellitus with foot ulcer 10/27/2018 05/10/2019 [facility] Problem 2018-10-27 04:14:35 2019-05-10 14:26:26 2019-05-10 14:26:26 [facility] Discharge Diagnosis: Abrasion of ankle, left, infected Discharge Diagnosis: Abrasion of ankle, left, infected 07/13/2016 07/16/2016 [facility] Problem 2016-07-13 05:00:00 2016-07-16 03:40:53 2016-06 03:40:53 [facility] Discharge Diagnosis: Leg edema, left Discharge Diagnosis: Leg edema, left 07/13/2016 07/16/2016 [facility] Problem 2016-07-13 05:00:00 2016-07-16 03:40:53 2016-07-16 03:40:53 [facility] History of Past Illness Condition Name Condition Details Condition Category Status Onset Date Resolution Date Last Treatment Date Treating Clinician Comments Source Body mass index 30+ - obesity (finding) Body mass index 30+ - obesity (finding) Resolved 02/02/2014 Problem 07/15/2019 Data migrated from [employer] on 04/20/15. [facility] Problem Resol taylor 2014-02-02 00:00:00 2019-07-15 00:47:58 2019-07-15 00:47:58 [facility] Allergies, Adverse Reactions, Alerts Allergy Name Allergy Type Status Severity Reaction(s) Onset Date Inacti ve Date Treating Clinician Comments Source No Known Medication Allergies No Known Medication Allergies Active [facility] NKFA NKFA [facility] Social Habit Start Date Stop Date Quantity Comments Source Social History 2019-05-02 13:11:11 2019-05-02 13:11:11 [facility] Medications Ordered Medication Name Filled Medication Name Start Date Stop Da te Current Medication? Ordering Clinician Indication Dosage Frequency Signature (SIG) Comments Components Source 3 ML insulin detemir 100 UNT/ML Prefilled Syringe [Levemir] 2019-07-12 14:53:57 Yes 60 unit, S UB-Q, Daily, # 60 mL, 0 Refill(s), Pharmacy: [facility] [address] [place] [address] pioglitazone 45 mg oral tablet 2019-06-19 14:21:26 Yes 45 mg = 1 tab, PO, Daily, # 90 tab, 1 Refill(s), Pharmacy: [address] lisinopril 20 mg oral tablet 2019-06-19 14:21:24 Yes 20 mg = 1 tab, PO, Daily, # 90 tab, 1 Refill(s), Pharmacy: [facility] [address] [place] [address] Glipizide 10 MG Oral Tablet 2019-06-19 14:21:19 Yes 10 mg = 1 tab, PO, BID-Before Meals, change from glyburide, # 180 tab, 1 Refill(s), Pharmacy: [facility] [address] [place] [address] atorvastatin 20 mg oral tablet 2019-06-19 14:21:13 Yes 20 mg = 1 tab, PO, Daily, # 90 tab, 1 Refill(s), Pharmacy: [facility] [address] [place] [address] Trazodone Hydrochloride 50 MG Oral Tablet 2019-06-19 14:21:00 Yes 50 mg = 1 tab, PO, Bedtime, # 90 tab, 1 Refill(s), Pharmacy: [facility] [address] Jonn Deutsch Trazodone Hydrochloride 50 [...] an Empty Stomach (Same as: Lanoxin) [facility] apixaban 2019-02-28 14:00:00 No Notes: Same as: Eliquis [facility] Warfarin 2019-02-26 22:00:00 No Notes: Nurse to ensure documentation of patient education per anticoagulation policy. Avoid large intake of vitamin- K containing foods diet. WASTE: F/P - P Waste Black; E - P Waste Black (Same As: Coumadin) [facility] Warfarin 2019-02-25 22:00:00 No Notes: Nurse to ensure documentation of patient education per anticoagulation policy. Avoid large intake of vitamin- K containing foods diet. WASTE: F/P - P Waste Black; E - P Waste Black (Same As: Coumadin) [facility] pioglitazone 2019-02-25 14:00:00 No Notes: (Same as: Actos) [facility] Lisinopril 2019-02-25 14:00:00 No Notes: (Same as: Prinivil, Zestril) [facility] Digoxin 0.125 MG Oral Tablet 2019-02-25 14:00:00 No Notes: Take on an Empty Stomach (Same as: Lanoxin) [facility] ator[facility] 2019-02-25 14:00:00 No Notes: (Same As: Lipitor) [facility] Glipizide 10 MG Oral Tablet 2019-02-25 12:30:00 [...] 30 mg, Route: SUB-Q, Drug form: INJ, [id number], Dosing Weight 122.727, kg, Start date: 02/24/19 20:00:00 CDT, Duration: 30 day, Stop date: 03/26/19 8:00:00 CDT [facility] Insulin Lispro 2019-02-25 00:33:00 No Notes: (Same as: Humalog ) Roll in palms of hands gently; Do not shake `vigorously. "Single Patient Use Only " WASTE: F/P - Black; E - Municipal Trash Bin Stable for 28 days at room temperature. Expires in days from Date [facility] Glucagon 2019-02-25 00:33:00 No 1 mg, Route: IM, Drug form: PDR/INJ, PRN, Dosing Weight 122.727, kg, PRN Blood Glucose Results, Start date: 02/24/19 19:33:00 CDT, Duration: 30 day, Stop date: 03/26/19 19:32:00 CDT [facility] Dextrose 50% Syringe 2019-02-25 00:33:00 No 25 gm, 50 mL, Route: IVP, Drug Form: INJ, Dosing Weight 122.727, kg, PRN, PRN Blood Glucose Results, Start date: 02/24/19 19:33:00 CDT, Duration: 30 day, Stop date: 03/26/19 19:32:00 CDT [facility] Cartia XT 2019-02-24 23:44:00 No Notes: (Same as:Dony TREADWELL) Before meals. DO NOT CRUSH. [facility] AMIODarone 900 mg in D5W 500 ml IV 900 mg + Dextrose 5% in W ater IV 482 mL 2019-02-24 23:44:00 No 2 mg/ml. Use Glass Bottle or Non PVC Bag "Use 0.22 micron in-line filter" MEDICATION WASTE Product Size: 900 mg Product Wasted: ___ mg [facility] Amiodarone 2019-02-24 23:44:00 No 2 mg/ml. "Recommendation: Use an in-line filter during administration for continuous infusions to reduce the incidence of phlebitis" (Same as Codarone) MEDICATION WASTE Product Size: 150 mg Product Wasted: ___ mg [facility] Sodium Chloride 0.9% (Bolus) IV 2019-02-24 21:11:00 No 250 mL, 250 ml/hr, Infuse Over: 1 hr, Route: IV, 250, Drug form: INJ, ONCE, Priority: STAT, Dosing Weight 122.727 kg, Start date: 02/24/19 16:11:00 CDT, Stop date: 02/24/19 16:11:00 CDT [facility] Enoxaparin 2019-02-24 18:08:00 No Notes: Nurse to ensure documentation of patient education per anticoagulation policy. (Same as: Lovenox) [facility] 3 ML Insulin Lispro 100 UNT/ML Pen Injector [Humalog] 2018-10-24 19:51:00 Yes 20 unit, SUB-Q, TID-Before Meals, # 60 mL, 0 Refill(s), Pharmacy: [facility] [address] [facility] Ketoconazole 2018-10-22 03:45:26 Yes Timo Lee not defined [facility] Cephalexin 2018-10-22 03:45:26 Yes Timo Lee not [...] Lee not defined [facility] Clickfine Pen [place] 2018-10-22 03:45:26 Yes Timo morenot not defined [facility] Pioglitazone HCl 2018-10-22 03:45:26 Yes Timo Lee not defined [facility] Levemir Flexpen 2018-10-22 03:45:26 Yes Timo Lee not defined [facility] GlipiZIDE 2018-10-22 03:45:26 Yes Timo Lee not defined [facility] Trazadone 2018-10-22 03:45:26 Yes Timo Lee not defined [facility] Lisinopril 2018-10-22 03:45:26 Yes Timo Lee not defined [facility] fentaNYL (ANES) 2018-10-21 18:51:00 No Route: IV, Drug form: INJ, ONCE, Stop date: 10/21/18 12:51:00 [facility]TACT [facility] midazolam (ANES) 2018-10-21 18:51:00 No Route: IV, Drug form: SOLN, ONCE, Stop date: 10/21/18 12:51:00 CONTACT LENS CUTTER [facility] famotidine (ANES) 2018-10-21 18:51:00 No Route: IV, Drug form: INJ, ONCE, Stop date: 10/21/18 12:51:00 CONTACT LENS CUTTER Rosita randy Deutsch metoclopramide (ANES) 2018-10-21 18:51:00 No Route: IV, Drug form: INJ, ONCE, Stop date: 10/21/18 12:51:00 CONTACT LENS CUTTER Jonn Deutsch ondansetron (ANES) 2018-10-21 18:51:00 No Route: IV, Drug form: INJ, ONCE, Stop date: 10/21/18 12:51:00 CONTACT LENS CUTTER Jonn Deutsch lidocaine (ANES) 2018-10-21 18:37:00 No Route: IV, Drug form: INJ, ONCE, Stop date: 10/21/18 12:37:00 CONTACT LENS CUTTER Rosita randy Deutsch Amidate (ANES) 2018-10-21 18:37:00 No Route: IV, Drug form: INJ, ONCE, Stop date: 10/21/18 12:37:00 CONTACT LENS CUTTER Rosita randy Deutsch ceFAZolin (ALMAS) 2018-10-21 18:37:00 No Route: IV, Drug form: INJ, ONCE, Stop date: 10/21/18 12:37:00 CONTACT LENS CUTTER Rosita randy Deutsch Lactated Ringers Injection IV (ALMAS) 1000 mL 2018-10-21 17:44:00 No Route: IV, Total Volume: 1,000, Start date: 10/21/18 11:44:00 CONTACT LENS CUTTER, Stop date: 10/21/18 12:44:00 CONTACT LENS CUTTER Jonn Deutsch Calcium Chloride 0.0014 MEQ/ML / Potassi um Chloride 0.004 MEQ/ML / Sodium Chloride 0.103 MEQ/ML / Sodium Lactate 0.028 MEQ/ML Injectable Solution 2018-10-21 16:36:00 No 1,000 mL, Rate: 25 ml/hr, Infuse over: 40 hr, Route: IV, Dosing Weight 121.591 kg, Total Volume: 1,000, Start date: 10/21/18 10:36:00 CONTACT LENS CUTTER, Duration: 30 day, Stop date: 11/20/18 10:35:00 CONTACT LENS CUTTER, 2.48, m2 Jonn Deutsch Tylenol/Codeine #3 2018-10-21 00:00:00 Yes Timo Verduzco t 1 tablet as needed Jonn Deutsch Clickfine Insulin Pen [place] 31G 6mm=1/4 inch 2018-10-20 21:44: 16 No 1 ea, SUB-Q, QID, # 400 ea, 4 Refill(s) [facility] 3 ML insulin detemir 100 UNT/ML Prefilled Syringe [Levemir] 2018-10-20 21:22:18 Yes 60 unit, S UB-Q, Daily, # 60 mL, 1 Refill(s), Pharmacy: [facility] [address] [place] [address] 3 ML Insulin, Aspart, Human 100 UNT/ML Pen Injector [NovoLog ] 2018-10-20 21:22:00 No 20 unit, S UB-Q, TID-Before Meals, dose increase, # 60 mL, 1 Refill(s), Pharmacy: [address] 3 ML Insulin, Aspart, Human 100 UNT/ML Pen Injector [NovoLog ] 2018-10-20 21:20:00 No 15 unit, SUB-Q, TID-Before Me als [facility] cephalexin 500 mg oral capsule 2018-10-17 15:07:00 No 500 mg = 1 cap, PO, Q6H, # 40 cap, 0 Refill(s), [facility] ciprofloxacin 500 mg oral tablet 2018-10-17 15:07:00 No 500 mg = 1 tab, PO, Q12H, X 10 day, # 20 tab, 0 Refill(s), [facility] Trazodone Hydrochloride 50 MG Oral Tablet 2018-10-10 15:13:31 No 50 mg = 1 tab, PO, Bedtime, # 90 tab, 1 Refill(s), Pharmacy: [address] pioglitazone 45 mg oral tablet 2018-10-10 15:13:28 Yes 45 mg = 1 tab, PO, Daily, # 90 tab, 1 Refill(s), Pharmacy: [address] lisinopril 20 mg oral tablet 2018-10-10 15:13:24 Yes 20 mg = 1 tab, PO, Daily, # 90 tab, 1 Refill(s), Pharmacy: [address] Glipizide 10 MG Oral Tablet 2018-10-10 15:13:21 Yes 10 mg = 1 tab, PO, BID-Before Meals, change from glyburide, # 180 tab, 1 Refill(s), Pharmacy: [address] atorvastatin 20 mg oral tablet 2018-10-10 15:13:16 Yes 20 mg = 1 tab, PO, Daily, # 90 tab, 1 Refill(s), Pharmacy: [address] apixaban 2.5 MG Oral Tablet [Eliquis] 2018-10-10 15:13:12 N o 2.5 mg = 1 tab, PO, BID, # 180 tab, 1 Refill(s), Pharmacy: [address] atorvastatin 40 mg oral tablet 2018-08-11 14:05:00 No 40 mg = 1 tab, PO, Daily, discontinue simvastatin when supply finishs, # 90 tab, 1 Refill(s), Pharmacy: [facility] simvastatin 40 mg oral tablet 2018-08-11 13:33:00 No 40 mg = 1 tab, PO, Bedtime, 0 Refill(s) [facility]o Trazodone Hydrochloride 50 MG Oral Tablet 2018-04-29 16:22:28 Yes 50 mg = 1 tab, PO, Bedtime, # 90 tab, 1 Refill(s), Pharmacy: [facility] pioglitazone 45 mg oral tablet 2018-04-29 16:22:23 Yes 45 mg = 1 tab, PO, Daily, # 90 tab, 1 Refill(s), Pharmacy: [facility] lisinopril 20 mg oral tablet 2018-04-29 16:22:18 Yes 20 mg = 1 tab, PO, Daily, # 90 tab, 1 Refill(s), Pharmacy: [facility] 3 ML insulin detemir 100 UNT/ML Prefilled Syringe [Levemir] 2018-04-29 16:22:14 Yes 45 unit, S UB-Q, Daily, # 30 mL, 1 Refill(s), Pharmacy: [facility] glyBURIDE 5 mg oral tablet 2018-04-29 16:22:09 Yes 10 mg = 2 tab, PO, BID, # 360 tab, 1 Refill(s), Pharmacy: [facility] Digoxin 0.125 MG Oral Tablet 2018-04-29 16:21:00 Yes 125 microgram = 1 tab, PO, Daily, # 90 tab, 1 Refill(s), Pharmacy: [facility] apixaban 2.5 MG Oral Tablet [Eliquis] 2018-04-29 16:21:00 Y es 2.5 mg = 1 tab, PO, BID, # 180 tab, 1 Refill(s), Pharmacy: [facility] AMIODarone 200 mg oral tablet 2018-04-29 16:21:00 Yes 200 mg = 1 tab, PO, Daily, # 90 tab, 0 Refill(s), Pharmacy: [facility] atorvastatin 20 mg oral tablet 2018-04-29 16:21:00 Yes 20 mg = 1 tab, PO, Bedtime, # 90 tab, 1 Refill(s), Pharmacy: [facility] Ketoconazole 20 MG/ML Topical Cream 2018-04-29 16:21:00 Yes 1 appl, TOP, BID, # 60 gm, 1 Refill(s), Pharmacy: [facility] [address] [place] [address] 24 HR Diltiazem Hydrochloride 180 MG Extended Release Capsul e [Cartia] 2018-04-29 16:21:00 Yes 180 mg = 1 cap, PO, BID, # 180 cap, 1 Refill(s), Pharmacy: [facility] 3 ML insulin detemir 100 UNT/ML Prefilled Syringe [Levemir] 2017-10-07 20:23:39 Yes 45 unit, S UB-Q, Daily, # 15 mL, 3 Refill(s), Pharmacy: [address] Trazodone Hydrochloride 50 MG Oral Tablet 2017-10-04 16:07:00 Yes 50 mg = 1 tab, PO, Bedtime, # 30 tab, 3 Refill(s), Pharmacy: [address] Amoxicillin 875 MG / Clavulanate 125 MG Oral Tablet [Augment in 875-mg] 2016-07-13 22:44:00 No 1 tab, Route: PO, Dosing Weight 128.182, kg, ONCE, Start date: 07/13/16 17:44:00 CDT, Stop date: 07/13/16 17:44:00 CDT [facility] [place] Amoxicillin 500 MG / Clavulanate 125 MG Oral Tablet [Augment in 500-mg] 2016-07-13 22:09:00 Yes 1 tab, PO, Q8H, X 7 day, # 21 tab, 0 Refill(s), Pharmacy: [place] [id number] Jonn [place] Amoxicillin 500 MG / Clavulanate [...] 2015-11-03 19:12:00 No Notes: (Same As: Catapres) [facility] timothy potassium chloride 2015-11-03 17:51:00 No Notes: (Same as: K-Dur 20) "Do Not Crush" With food and full glass of water [facility] Get potassium chloride 2015-11-03 16:37:00 No Notes: (Same as: K-Dur 20) "Do Not Crush" With food and full glass of water [facility] potassium chloride 2015-11-02 18:08:00 No Notes: (Same as: K-Dur 20) "Do Not Crush" With food and full glass of water [facility] potassium chloride 2015-11-02 15:21:00 No Notes: (Same as: K-Dur 20) "Do Not Crush" With food and full glass of water [facility] [place] Sodium Chloride 0.9% IV 1,000 mL 2015-11-01 20:13:00 No 1,000 mL, Rate: 60 ml/hr, Infuse over: 16.7 hr, Route: IV, Dosing Weight 113.1 kg, Total Volume: 1,000, Start date: 11/01/15 14:13:00, Duration: 30 day, Stop date: 12/01/15 14:12:00 [facility] [place] Zosyn 2015-11-01 01:00:00 No Notes: (Same as: Zosyn) Dosing based on Piperacillin component [facility] Kayli nn Sodium Chloride 0.9% IV 1,000 mL 2015-10-31 19:58:00 No 1,000 mL, Rate: 100 ml/hr, Infuse over: 10 hr, Route: IV, Dosing Weight 113.1 kg, Total Volume: 1,000, Start date: 10/31/15 13:58:00, Duration: 30 day, Stop date: 11/30/15 13:57:00 [facility] Zofran 2015-10-31 14:14:00 No Notes: (Same as: Zofran) MEDICATION WASTE Product Size: 4 mg Product Wasted: ___ mg [facility] Morphine 2015-10-31 06:18:00 No Not es: (Same as:MORPhine Sulfate) [facility] Please discontinue diltiazem drip if no longer [...] With food and full glass of water [facility] Get Saline Flush 0.9% 2015-10-29 03:00:00 No Notes: (Same as: BD Posiflush) [facility] Get Eliluzis 2015-10-29 03:00:00 No Notes: Same as: Trina [facility] Insulin, Aspart, Human 2015-10-28 23:35:00 No Notes: Roll in palms of hands gently; Do not shake vigorously. (Same as: NovoLOG) "single patient use only" Stable for 28 days at room temperature. Expires in days from Date [facility] Get Insulin regular 2015-10-28 23:35:00 No Notes: (Same as: Humulin R and NovoLIN R) (Do not shake) [facility] Insulin, Aspart, Human 2015-10-28 23:28:00 No Notes: [...] Not Crush) Do not crush or chew. Ma ayala Deutsch Saline Flush 0.9% 2015-10-28 21:44:00 [...] IV push over at least 2 minutes. [facility] [place] Amiodarone 2015-10-28 17:51:00 No Notes: (S silvano as: Cordarone) [facility] [place] aspirin 325 mg tablet 2015-02-03 14:00:00 No Notes: Take with food. [facility] pioglitazone 2015-02-03 14:00:00 No Notes: (Same as: Actos) [facility] Lisinopril 2015-02-03 14:00:00 No Notes: (Same [...] Jonn Deutsch Influenza Virus Vaccine, Inactivated A-B [id number] (H3N2)-like virus ([id number] [facility] X-175C) strain / Influenza Virus Vaccine, Inactivated Q-[id number], IVR-148 (H1N1) strain / Influenza Virus Vaccine, Inactivated, Y-Zpjrcef-4-2006-lik 2015-02-02 14:00:00 Yes Notes: (Same as: Fluzone Quadrivalent) Jonn Deutsch digoxin 2015-02-02 05:59:00 No Notes: (Same as: Lanoxin) [facility] Digoxin 2015-02-02 05:00:00 No Notes: (Same [...] # 30 tab, 0 Refill(s) [facility] [place] diltiazem 125 mg + Sodium Chloride 0.9% (titrate) 100 mL 2015-02-02 00:26:00 No Notes: (Same as: Cardizem) [facility] Digoxin 2015-02-02 00:26:00 No Notes: Take on an Empty Stomach (Same as: Lanoxin) [facility] Lovenox 2015-02-02 00:25:00 No Notes: (Same as: Lovenox) [facility] Digoxin 2015-02-02 00:25:00 No Notes: (Same as: Lanoxin) [facility] metoprolol tartrate 2015-02-02 00:24:00 No Notes: (Same as: Lopressor) [facility] Cardizem 2015-02-01 23:07:00 No 20 mg, Route: IVP, ONCE, Dosing Weight 124.545, kg, Priority: STAT, Start date: 02/01/15 18:07:00, Stop date: 02/01/15 18:07:00 [facility] aspirin 325 mg tablet 2015-02-01 23:07:00 No 325 mg, Route: PO, Drug form: TAB, ONCE, Dosing Weight 124.545, kg, Priority: STAT, Start date: 02/01/15 18:07:00, Stop date: 02/01/15 18:07:00 [facility] Sodium Chloride 0.154 MEQ/ML Injectable Solution 2015-02-01 23:0 7:00 No 1,000 mL, Infuse Over: 1 hr, Route: IV, ONCE, Priority: STAT, Dosing Weight 124.545 kg, Start date: 02/01/15 18:07:00, Duration: 1 doses or times, Stop date: 02/01/15 18:07:00 [facility] Saline Flush 0.9% 2015-02-01 23:07:00 No Notes: (Same as: BD Posiflush) [facility] Ondansetron 2015-02-01 23:07:00 No 4 mg, Route: [...] (mm Hg) 2019-07-12 14:06:00 [facility] [place] Diastolic (mm Hg) 2019-07-12 14:06:00 [facility] Heart Rate 2019-07-12 14:06:00 [facility] [place] Respitory Rate 2019-07-12 14:06:00 [facility] Temperature Oral (F) 2019-07-12 14:06:00 98.0 F [facility] [place] Height 2019-07-12 14:06:00 177.8 cm [facility] [place] Weight 2019-07-12 14:06:00 [facility] [place] BMI Calculated 2019-07-12 14:06:00 [facility] Weight 2019-06-19 13:44:00 [facility] BMI Calculated 2019-06-19 13:44:00 [facility] Temperature Oral (F) 2019-06-19 13:44:00 97.9 F [facility] Height 2019-06-19 13:44:00 177.8 cm [facility] Systolic (mm Hg) 2019-06-19 13:44:00 J Luis [facility] [place] Diastolic (mm Hg) 2019-06-19 13:44:00 [facility] Respitory Rate 2019-06-19 13:44:00 [facility] Heart Rate 2019-06-19 13:44:00 [facility] Weight 2019-05-02 13:10:00 [facility] [place] BMI Calculated 2019-05-02 13:10:00 [facility] Height 2019-05-02 13:10:00 177.8 cm [facility] Temperature Oral (F) 2019-05-02 13:10:00 97.9 F [facility] Heart Rate 2019-05-02 13:10:00 [facility] Respitory Rate 2019-05-02 13:10:00 [facility] [place] Systolic (mm Hg) 2019-05-02 13:10:00 J Luis [facility] [place] Diastolic (mm Hg) 2019-05-02 13:10:00 [facility] BMI Calculated 2019-03-06 14:11:00 [facility] [place] Weight 2019-03-06 14:11:00 [facility] [place] Height 2019-03-06 14:11:00 177.8 cm [facility] Heart Rate 2019-03-06 14:11:00 [facility] Respitory Rate 2019-03-06 14:11:00 [facility] [place] Temperature Oral (F) 2019-03-06 14:11:00 98.1 F [facility] Systolic (mm Hg) 2019-03-06 14:11:00 J [facility] [place] Diastolic (mm Hg) 2019-03-06 14:11:00 [facility] Heart Rate 2019-02-28 13:00:00 [facility] Respitory Rate 2019-02-28 13:00:00 [facility] Systolic (mm Hg) 2019-02-28 13:00:00 J [facility] [place] Diastolic (mm Hg) 2019-02-28 13:00:00 [facility] Temperature Oral (F) 2019-02-28 13:00:00 97.2 F [facility] Temperature Oral (F) 2019-02-28 09:30:00 98.1 F [facility] Heart Rate 2019-02-28 09:30:00 [facility] [place] Respitory Rate 2019-02-28 09:30:00 [facility] [place] Systolic (mm Hg) 2019-02-28 09:30:00 [facility] [place] Diastolic (mm Hg) 2019-02-28 09:30:00 [facility] Temperature Oral (F) 2019-02-28 05:04:00 98.3 F [facility] Systolic (mm Hg) 2019-02-28 05:04:00 J [facility] [place] Diastolic (mm Hg) 2019-02-28 05:04:00 [facility] Heart Rate 2019-02-28 05:04:00 [facility] [place] Respitory Rate 2019-02-28 05:04:00 [facility] [place] Weight 2019-02-24 19:30:00 [facility] BMI Calculated 2019-02-24 19:30:00 [facility] [place] Height 2019-02-24 19:30:00 177.8 cm [facility] Height 2019-02-24 13:10:00 177.8 cm [facility] BMI Calculated 2019-02-24 13:10:00 [facility] [place] Weight 2019-02-24 13:10:00 [facility] [place] Weight 2019-01-24 14:20:00 [facility] [place] BMI Calculated 2019-01-24 14:20:00 [facility] [place] Height 2019-01-24 14:20:00 177.8 cm [facility] [place] Respitory Rate 2019-01-24 14:20:00 [facility] Temperature Oral (F) 2019-01-24 14:20:00 98.5 F [facility] Systolic (mm Hg) 2019-01-24 14:20:00 [facility] Diastolic (mm Hg) 2019-01-24 14:20:00 [facility] [place] Heart Rate 2019-01-24 14:20:00 [facility] BMI Calculated 2018-11-28 20:35:00 [facility] Weight 2018-11-28 20:35:00 [facility] Height 2018-11-28 20:35:00 177.8 cm [facility] [place] Temperature Oral (F) 2018-11-28 20:35:00 98.1 F [facility] [place] Respitory Rate 2018-11-28 20:35:00 [facility] Heart Rate 2018-11-28 20:35:00 [facility] [place] Systolic (mm Hg) 2018-11-28 20:35:00 J [facility] [place] Diastolic (mm Hg) 2018-11-28 20:35:00 [facility] [place] Height 2018-11-07 16:59:00 177.8 cm [facility] Weight 2018-11-07 16:59:00 [facility] BMI Calculated 2018-11-07 16:59:00 [facility] [place] Systolic (mm Hg) 2018-11-07 16:59:00 J [facility] [place] Diastolic (mm Hg) 2018-11-07 16:59:00 [facility] [place] Heart Rate 2018-11-07 16:59:00 [facility] Respitory Rate 2018-11-07 16:59:00 [facility] [place] Temperature Oral (F) 2018-11-07 16:59:00 97.8 F [facility] Weight 2018-11-01 20:46:00 [facility] BMI Calculated 2018-11-01 20:46:00 [facility] Height 2018-11-01 20:46:00 177.8 cm [facility] [place] Respitory Rate 2018-11-01 20:46:00 [facility] Temperature Oral (F) 2018-11-01 20:46:00 97.6 F [facility] [place] Heart Rate 2018-11-01 20:46:00 [facility] Systolic (mm Hg) 2018-11-01 20:46:00 [facility] [place] Diastolic (mm Hg) 2018-11-01 20:46:00 [facility] Respitory Rate 2018-10-21 19:15:00 [facility] Systolic (mm Hg) 2018-10-21 19:15:00 [facility] Get Diastolic (mm Hg) 2018-10-21 19:15:00 [facility] [place] Respitory Rate 2018-10-21 19:00:00 [facility] [place] Systolic (mm Hg) 2018-10-21 19:00:00 [facility] Get Diastolic (mm Hg) 2018-10-21 19:00:00 [facility] Systolic (mm Hg) 2018-10-21 18:45:00 [facility] [place] Diastolic (mm Hg) 2018-10-21 18:45:00 [facility] Respitory Rate 2018-10-21 18:45:00 [facility] [place] Heart Rate 2018-10-21 16:39:00 [facility] [place] BMI Calculated 2018-10-20 21:03:00 [facility] Temperature Oral (F) 2018-10-20 21:03:00 97.8 F [facility] Height 2018-10-20 21:03:00 177.8 cm [facility] [place] Weight 2018-10-20 21:03:00 [facility] Heart Rate 2018-10-20 21:03:00 [facility] Respitory Rate 2018-10-20 21:03:00 [facility] Systolic (mm Hg) 2018-10-20 21:03:00 [facility] Get Diastolic (mm Hg) 2018-10-20 21:03:00 [facility] Heart Rate 2018-10-20 15:40:00 [facility] [place] Temperature Oral (F) 2018-10-20 15:40:00 97.9 F [facility] Height 2018-10-20 15:34:00 177.8 cm [facility] [place] Weight 2018-10-20 15:34:00 [facility] BMI Calculated 2018-10-20 15:34:00 [facility] BMI Calculated 2018-10-19 17:00:00 [facility] Height 2018-10-19 17:00:00 177.8 cm [facility] Weight 2018-10-19 17:00:00 [facility] Temperature Oral (F) 2018-10-19 17:00:00 98.0 F [facility] Heart Rate 2018-10-19 17:00:00 [facility] [place] Respitory Rate 2018-10-19 17:00:00 [facility] Systolic (mm Hg) 2018-10-19 17:00:00 [facility] Get Diastolic (mm Hg) 2018-10-19 17:00:00 [facility] [place] Weight 2018-10-18 15:45:00 [facility] [place] Height 2018-10-18 15:45:00 177.8 cm [facility] [place] BMI Calculated 2018-10-18 15:45:00 [facility] Temperature Oral (F) 2018-10-18 15:45:00 98.0 F [facility] Heart Rate 2018-10-18 15:45:00 [facility] Respitory Rate 2018-10-18 15:45:00 [facility] Systolic (mm Hg) 2018-10-18 15:45:00 [facility] Get Diastolic (mm Hg) 2018-10-18 15:45:00 [facility] [place] Heart Rate 2018-10-17 14:29:00 [facility] [place] Respitory Rate 2018-10-17 14:29:00 [facility] Temperature Oral (F) 2018-10-17 14:29:00 98.0 F [facility] [place] Height 2018-10-17 14:29:00 177.8 cm [facility] Systolic (mm Hg) 2018-10-17 14:29:00 [facility] Get Diastolic (mm Hg) 2018-10-17 14:29:00 [facility] Weight 2018-10-17 14:29:00 [facility] [place] BMI Calculated 2018-10-17 14:29:00 [facility] BMI Calculated 2018-10-10 14:50:00 [facility] [place] Height 2018-10-10 14:50:00 177.8 cm [facility] [place] Weight 2018-10-10 14:50:00 [facility] [place] Temperature Oral (F) 2018-10-10 14:50:00 98.0 F [facility] Respitory Rate 2018-10-10 14:50:00 [facility] [place] Systolic (mm Hg) 2018-10-10 14:50:00 J [facility] [place] Diastolic (mm Hg) 2018-10-10 14:50:00 [facility] Heart Rate 2018-10-10 14:50:00 [facility] [place] Height 2018-08-11 13:29:00 177.8 cm [facility] [place] Weight 2018-08-11 13:29:00 [facility] BMI Calculated 2018-08-11 13:29:00 [facility] Systolic (mm Hg) 2018-08-11 13:29:00 [facility] [place] Diastolic (mm Hg) 2018-08-11 13:29:00 [facility] Temperature Oral (F) 2018-08-11 13:29:00 97.4 F [facility] Respitory Rate 2018-08-11 13:29:00 [facility] Heart Rate 2018-08-11 13:29:00 [facility] BMI Calculated 2018-06-24 15:48:00 [facility] [place] Systolic (mm Hg) 2018-06-24 15:48:00 [facility] Get Diastolic (mm Hg) 2018-06-24 15:48:00 [facility] Temperature Oral (F) 2018-06-24 15:48:00 97.8 F [facility] [place] Heart Rate 2018-06-24 15:48:00 [facility] [place] Respitory Rate 2018-06-24 15:48:00 [facility] [place] Weight 2018-06-24 15:48:00 [facility] [place] Height 2018-06-24 15:48:00 177.8 cm [facility] Weight 2018-04-29 15:33:00 [facility] [place] BMI Calculated 2018-04-29 15:33:00 [facility] [place] Systolic (mm Hg) 2018-04-29 15:33:00 [facility] Get Diastolic (mm Hg) 2018-04-29 15:33:00 [facility] Height 2018-04-29 15:33:00 177.8 cm [facility] [place] Temperature Oral (F) 2018-04-29 15:33:00 97.5 F [facility] Heart Rate 2018-04-29 15:33:00 [facility] [place] Respitory Rate 2018-04-29 15:33:00 [facility] BMI Calculated 2017-10-07 20:05:00 [facility] Weight 2017-10-07 20:05:00 [facility] Height 2017-10-07 20:05:00 177.8 cm [facility] [place] Temperature Oral (F) 2017-10-07 20:05:00 97.5 F [facility] [place] Respitory Rate 2017-10-07 20:05:00 [facility] [place] Systolic (mm Hg) 2017-10-07 20:05:00 J [facility] [place] Diastolic (mm Hg) 2017-10-07 20:05:00 [facility] Heart Rate 2017-10-07 20:05:00 [facility] Height 2017-10-04 15:50:00 177.8 cm [facility] Weight 2017-10-04 15:50:00 [facility] [place] BMI Calculated 2017-10-04 15:50:00 [facility] Systolic (mm Hg) 2017-10-04 15:50:00 [facility] Get Diastolic (mm Hg) 2017-10-04 15:50:00 [facility] [place] Temperature Oral (F) 2017-10-04 15:50:00 98.4 F [facility] Heart Rate 2017-10-04 15:50:00 [facility] Respitory Rate 2017-10-04 15:50:00 [facility] Heart Rate 2016-07-13 22:33:00 [facility] [place] Temperature Oral (F) 2016-07-13 22:33:00 98.2 F [facility] Systolic (mm Hg) 2016-07-13 22:33:00 J Luis [facility] [place] Diastolic (mm Hg) 2016-07-13 22:33:00 [facility] [place] Respitory Rate 2016-07-13 22:33:00 [facility] Weight 2016-07-13 17:53:00 [facility] BMI Calculated 2016-07-13 17:53:00 [facility] Height 2016-07-13 17:53:00 177.8 cm [facility] Temperature Oral (F) 2016-07-13 17:53:00 98.0 F [facility] Heart Rate 2016-07-13 17:53:00 [facility] Respitory Rate 2016-07-13 17:53:00 [facility] [place] Systolic (mm Hg) 2016-07-13 17:53:00 J Luis [facility] [place] Diastolic (mm Hg) 2016-07-13 17:53:00 [facility] [place] Height 2016-06-22 15:57:00 177.8 cm [facility] [place] Weight 2016-06-22 15:57:00 [facility] [place] BMI Calculated 2016-06-22 15:57:00 [facility] Heart Rate 2015-11-04 17:19:00 [facility] Temperature Oral (F) 2015-11-04 17:19:00 97.9 F [facility] [place] Systolic (mm Hg) 2015-11-04 17:19:00 J Luis [facility] [place] Diastolic (mm Hg) 2015-11-04 17:19:00 [facility] [place] Respitory Rate 2015-11-04 17:19:00 [facility] Respitory Rate 2015-11-04 14:00:00 [facility] Systolic (mm Hg) 2015-11-04 14:00:00 [facility] Get Diastolic (mm Hg) 2015-11-04 14:00:00 [facility] [place] Temperature Oral (F) 2015-11-04 14:00:00 98.5 F [facility] [place] Heart Rate 2015-11-04 14:00:00 [facility] Respitory Rate 2015-11-04 13:44:00 [facility] Systolic (mm Hg) 2015-11-04 10:00:00 J [facility] [place] Diastolic (mm Hg) 2015-11-04 10:00:00 [facility] [place] Temperature Oral (F) 2015-11-04 10:00:00 98.4 F [facility] Heart Rate 2015-11-04 10:00:00 [facility] Weight 2015-10-29 04:39:00 [facility] [place] BMI Calculated 2015-10-29 04:39:00 [facility] [place] Height 2015-10-29 04:39:00 177.8 cm [facility] [place] Height 2015-10-28 15:05:00 177.8 cm [facility] [place] BMI Calculated 2015-10-28 15:05:00 [facility] Weight 2015-10-28 15:05:00 [facility] [place] Systolic (mm Hg) 2015-02-02 19:00:00 [facility] Get Diastolic (mm Hg) 2015-02-02 19:00:00 [facility] Respitory Rate 2015-02-02 19:00:00 [facility] [place] Systolic (mm Hg) 2015-02-02 18:00:00 [facility] Get Diastolic (mm Hg) 2015-02-02 18:00:00 [facility] Respitory Rate 2015-02-02 18:00:00 [facility] [place] Temperature Oral (F) 2015-02-02 17:00:00 98.0 F [facility] [place] Systolic (mm Hg) 2015-02-02 17:00:00 [facility] Get Diastolic (mm Hg) 2015-02-02 17:00:00 [facility] Respitory Rate 2015-02-02 17:00:00 [facility] Temperature Oral (F) 2015-02-02 13:00:00 97.9 F [facility] [place] Temperature Oral (F) 2015-02-02 09:19:00 98.1 F [facility] [place] Weight 2015-02-02 03:12:00 [facility] BMI Calculated 2015-02-02 03:12:00 [facility] [place] Height 2015-02-02 03:12:00 177.8 cm [facility] Heart Rate 2015-02-02 01:58:00 [facility] [place] Heart Rate 2015-02-02 01:31:00 [facility] [place] Heart Rate 2015-02-01 23:53:00 [facility] [place] Weight 2015-02-01 22:47:00 [facility] [place] BMI Calculated 2015-02-01 22:47:00 [facility] [place] Height 2015-02-01 22:47:00 177.8 cm [facility] Systolic (mm Hg) 2014-11-08 13:59:00 J Luis [facility] [place] Diastolic (mm Hg) 2014-11-08 13:59:00 [facility] Respitory Rate 2014-11-08 13:59:00 [facility] [place] Temperature Oral (F) 2014-11-08 13:59:00 97.7 F [facility] [place] Heart Rate 2014-11-08 13:59:00 [facility] [place] Diastolic (mm Hg) 2014-11-08 10:00:00 [facility] [place] Systolic (mm Hg) 2014-11-08 10:00:00 J Luis rial [place] Heart Rate 2014-11-08 10:00:00 [facility] Temperature Oral (F) 2014-11-08 10:00:00 97.8 F [facility] [place] Heart Rate 2014-11-08 06:00:00 [facility] Temperature Oral (F) 2014-11-08 06:00:00 97.6 F [facility] Systolic (mm Hg) 2014-11-08 06:00:00 J Luis wilberto [place] Diastolic (mm Hg) 2014-11-08 06:00:00 [facility] Respitory Rate 2014-11-07 22:00:00 [facility] Respitory Rate 2014-11-07 18:00:00 [facility] Weight 2014-11-07 01:58:00 [facility] [place] BMI Calculated 2014-11-07 01:58:00 [facility] [place] Height 2014-11-07 01:58:00 177.8 cm [facility] [place] Weight 2014-11-06 18:18:00 [facility] BMI Calculated 2014-11-06 18:18:00 [facility] Height 2014-11-06 18:18:00 177.8 cm [facility] Get Procedures Procedure Date / Time Performed Performing Clinician [facility] e Diabetic retinopathy screening 2018-07-04 05:00:00 [facility] Diabetic retinopathy screening<sup>1</sup> 2017-02-19 05:00:00 [facility] Colonoscopy 2016-01-01 06:00:00 [facility] beltre Diabetic foot examination 2015-05-03 05:00:00 Ma morial [place] Encounters Start Date/Time End Date/Time Encounter Type Admission Type Attendi [facility] Care Department Encounter ID Source 2019-02-24 11:36:00 Inpatient E [facility] [id number] [facility] 2019-07-12 11:30:00 2019-07-12 23:59:59 Outpatient Adrienne Lawson [facility] [id number] 2019-06-19 12:00:00 2019-06-19 23:59:59 Outpatient Adrienne Lawson [facility] [id number] 2019-05-02 08:15:00 2019-05-02 23:59:59 Outpatient Adrienne Lawson [facility] [id number] 2019-03-06 11:00:00 2019-03-06 23:59:59 Outpatient Adrienne Lawson [facility] [id number] 2019-02-24 08:05:00 2019-02-28 12:30:00 Outpatient Kurtis Cool [facility] [id number] 2019-02-24 06:22:00 2019-02-24 23:59:00 Outpatient Andres Rodriguez v [facility] [id number] 2019-02-21 13:19:00 2019-02-22 23:59:59 Outpatient [facility] [id number] 2019-02-15 09:31:00 2019-02-16 23:59:59 Outpatient [facility] [id number] 2019-01-24 08:15:00 2019-01-24 23:59:59 Outpatient Lulu Rosa Elenamekhi Becker [facility] [id number] 2019-01-18 16:42:00 2019-01-19 23:59:59 Outpatient [facility] [id number] 2019-01-09 08:15:00 2019-01-09 08:15:00 Outpatient Lulu Adrienne Becker [facility] [place] [id number] 2018-11-28 14:15:00 2018-11-28 23:59:59 Outpatient Adrienne Lawson [facility] [place] [id number] 2018-11-07 11:00:00 2018-11-07 23:59:59 Outpatient Adrienne Lawson [facility] [place] [id number] 2018-11-01 14:30:00 2018-11-01 23:59:59 [id number] 2018-10-24 10:54:00 2018-10-25 23:59:59 Outpatient [facility] [id number] 2018-10-21 13:37:00 2018-10-21 13:37:00 Outpatient [id number] eClinicalWorks 2018-10-21 08:38:00 2018-10-21 13:28:00 Outpatient Timo Lee MHSE MHSE [id number] 2018-10-20 16:15:00 2018-10-20 23:59:59 Outpatient Adrienne Lawson [facility] [id number] 2018-10-20 15:37:00 2018-10-20 15:37:00 Outpatient [facility] - [facility] [place] [id number] eClinicalWorks 2018-10-20 14:49:00 2018-10-20 14:49:00 Outpatient [facility] - [facility] [place] [id number] eClinicalWorks 2018-10-19 11:00:00 2018-10-19 23:59:59 Outpatient Adrienne Lawson [facility] [id number] 2018-10-19 14:25:00 2018-10-19 14:25:00 Outpatient [facility] - [facility] [place] [id number] eClinicalWorks 2018-10-18 09:30:00 2018-10-18 23:59:59 Outpatient Adrienne Lawson [facility] [id number] 2018-10-18 16:40:00 2018-10-18 23:59:00 Outpatient Jesus Timo Salma [facility] [id number] 2018-10-17 08:15:00 2018-10-17 23:59:59 Outpatient Adrienne Lawson [facility] [id number] 2018-10-10 09:15:00 2018-10-10 23:59:59 Outpatient Adrienne Lawson [facility] [id number] 2018-08-11 08:30:00 2018-08-11 23:59:59 Outpatient Adrienne Lawson [facility] [id number] 2018-06-24 10:30:00 2018-06-24 23:59:59 Outpatient Adrienne Lawson [facility] [id number] 2018-04-29 10:30:00 2018-04-29 23:59:59 Outpatient Adrienne Lawson [facility] [id number] 2017-11-10 16:00:00 2017-11-10 16:00:00 Outpatient Adrienne Lawson [facility] [id number] 2017-10-07 14:15:00 2017-10-07 23:59:59 Outpatient Adrienne Lawson [facility] [id number] 2017-10-04 10:00:00 2017-10-04 23:59:59 Outpatient Adrienne Lawson [facility] [id number] 2016-07-13 12:50:00 2016-07-13 17:49:00 Outpatient Vijay Solorio [place] [id number] 2016-06-22 10:50:00 2016-06-22 23:59:00 Outpatient Adrienne Lawson E SE [id number] 2015-10-28 08:48:00 2015-11-04 14:38:00 Outpatient Kurtis Cool [place] [id number] 2015-05-08 10:14:00 2015-05-08 23:59:00 Outpatient Adrienne Lawson NHE [place] [id number] 2015-02-01 17:37:00 2015-02-02 19:10:00 Outpatient Andres Rodriguez v IE [place] [id number] 2014-11-06 12:03:00 2014-11-08 10:57:00 Outpatient Kurtis Cool [place] [id number] Results Test Description Test Time Test Comments Results Result Comments Source CHEST SINGLE (PORTABLE) 2020-08-14 14:36:00 [place] [id number] Patient Name: MAKENZIE TEIXEIRA MR #: [id number] : 1955 Age/Sex: 65/M Req #: [id number] Adm Physician: Ordered by: ANGUS BENDER MD Report #: [id number] Location: ER Room/Bed: Procedure: [id number] DX/CHEST SINGLE (PORTABLE) Exam Date: 08/14/20 Exam [...] Get ELECTROLYTES 2019-02-28 10:35:00 184 Mem orial [place] ELECTROLYTES 2019-02-28 10:35:00 25 Mem orial [place] ELECTROLYTES 2019-02-28 10:35:00 1.78 Mem orial [place] ELECTROLYTES 2019-02-28 10:35:00 138 Mem orial [place] ELECTROLYTES 2019-02-28 10:35:00 27 Mem orial [place] ELECTROLYTES 2019-02-28 10:35:00 109 Mem orial [place] ELECTROLYTES 2019-02-28 10:35:00 4.4 Mem orial Get ELECTROLYTES 2019-02-28 10:35:00 9.0 Mem orial Get HEMATOLOGY 2019-02-28 10:35:00 2.2 Memor ial Get HEMATOLOGY 2019-02-28 10:35:00 0.1 Memor ial [place] HEMATOLOGY 2019-02-28 10:35:00 0.4 Memor ial [place] HEMATOLOGY 2019-02-28 10:35:00 0.2 Memor ial Get HEMATOLOGY 2019-02-28 10:35:00 31.0 Memor ial [place] HEMATOLOGY 2019-02-28 10:35:00 2.9 Memor ia Get HEMATOLOGY 2019-02-28 10:35:00 0.8 Memor ia [place] HEMATOLOGY 2019-02-28 10:35:00 6.1 Memor ia Get HEMATOLOGY 2019-02-28 10:35:00 59.2 Memor [facility] [place] HEMATOLOGY 2019-02-28 10:35:00 4.2 Memor ia [place] HEMATOLOGY 2019-02-28 10:35:00 Test Item PTT (test code = PTT) 55.3 s 22.9-35.8 [facility] XqltfzhSHRAYUNZGX2827-84-35 10:35:0014.0[facility]ann[facility]MATOLOGY 2019-02-28 10:35:0033.7[facility] AjbvtveZYJYGNYATD4653-73-43 10:35:008.1[facility] KlvpwmdRCHXIHTTAD7901-89-44 10:35:02369Gxjaakwv MiijzusLWHIFJIIJC1350-33-05 10:35:007.1[facility] ObzrxumPEVTFJNRBX9328-38-40 10:35:004.65[facility] [place] ICOYTFWDVL6770-05-48 10:35:0085.6[facility] PabclbwPFZSVALYDI1138-24-85 10:35:00 39.8[facility] KqvtezlHFBPZCFOCW6542-25-83 10:35:0013.4[facility]annHEMATOLOGY 2019-02-28 10:35:00* Test Item Value Reference Range Interpretation Comments MCH (test code = MCH) 28.8 pg 27.0-31.0 [facility]dxhcksGXTPHKZGQH0477-74-43 04:16:00* Test Item Value Reference Range Interpretation Comments PTT (test code = PTT) 81.7 s 22.9-35.8 [facility]hamIsvxbpuIXESGTCBXF3805-05-96 04:16:00* Test Item Value Reference Range Interpretation Comments PT (test code = PT) 13.5 s 12.0-14.7 [facility]hamXnjlslnPPKPAIQCER9788-03-06 04:16:00* Test Item Value Reference Range Interpretation Comments INR (test code = INR) 1.05 1 0.85-1.17 [facility]hamTusnebjVWNMIRESEP1407-11-85 22:23:00* Test Item Value Reference Range Interpretation Comments INR (test code = INR) 0.98 1 0.85-1.17 [facility] EmoryzwMSBXKFUOEZ1621-98-70 22:23:00* Test Item Value Reference Range Interpretation Comments PT (test code = PT) 12.8 s 12.0-14.7 [facility] BhexguiZKZCFBAUHN5148-26-02 22:23:00* Test Item Value Reference Range Interpretation Comments PTT (test code = PTT) 59.4 s 22.9-35.8 [facility]annCHEM XJDAH2787-04-19 08:25:0021[facility] HermannCHEM PANEL 2019-02-27 08:25:001.77[facility]annCHEM SWPWF3255-41-79 08:25:73843Bbxldvxe HermannCHEM YXSWD2894-27-37 08:25:35070Oxcqunsd HermannCHEM UEYEK3695-08-47 08:25:004.1[facility]annCHEM NZMAK3371-48-81 08:25:58560Gduelugv HermannCHEM ZVWHL3990-68-55 08:25:0026[facility]annCHEM TNXHE5318-97-77 08:25:009.0 [facility]annCHEM BFOHS1608-97-01 08:25:0039[facility]annCHEM PANEL 2019-02-27 08:25:008.1[facility] MpltjgeZAUOZAOTGF2967-58-21 08:25:000.2[facility] QzzcvwqHRDAMZKOBL7614-93-93 08:25:000.5[facility] JchhyliWSXCWSARGA7209-04-72 08:25:0058.7[facility] CverzavOVYIYUBCHT3448-72-39 08:25:0031.0[facility] [place] RQCQUNLBNR9943-21-88 08:25:006.7[facility] JccjymhANUZBSCFBS9178-57-61 08:25:003.0 [facility] VbscfbhLNQBQGLUWZ0477-85-18 08:25:004.4[facility] HermannHEMATOLOGY 2019-02-27 08:25:000.6[facility] TkaxonpOXUTWLORZD8968-99-01 08:25:002.3[facility] CvoqzqbITKHYKYFHJ5408-66-62 08:25:0040.8[facility] AoajcozDDQRKQVONU3473-66-17 08:25:0084.5[facility] GekmzdiUTVIHMHVLX0080-58-56 08:25:00* Test Item Value Reference Range Interpretation Comments MCH (test code = MCH) 28.6 pg 27.0-31.0 [facility] UekccfgPFIYMFTEOB0034-11-77 08:25:0013.7[facility] HermannHEMATOLOGY 2019-02-27 08:25:008.1[facility] UkruzurXWWYOWPVOJ3959-80-05 08:25:0033.9[facility] PnlvmfjZYZIZJXHYH4214-86-53 08:25:004.82[facility] XdnvxxfCJGQTZHELE4306-55-45 08:25:0013.8[facility] QskckxuBCYNUSQTDU4096-03-82 08:25:33155Yycozajh [place] RQASVYBKYX5606-68-65 08:25:007.5[facility] RbpfadfFABKZFPHTJ0455-60-28 08:25:00* Test Item Value Reference Range Interpretation Comments INR (test code = INR) 1.01 1 0.85-1.17 [facility] RwybrcyKHFCVEPQCU3400-22-99 08:25:00* Test Item Value Reference Range Interpretation Comments PT (test code = PT) 13.1 s 12.0-14.7 [facility] HermannCARDIAC RFMIZZM2176-23-99 08:39:0061[facility] HermannELECTROLYTES 2019-02-25 08:39:009.0[facility] TxlozhjCQMFUSTDCJWV3311-20-07 08:39:0055[facility] OodqbjsMEMGWQAIEPOO8267-33-18 08:39:004.0[facility] VenqnmzIOHPYBFZRFYO5477-53-51 08:39:008.7[facility] XqrkglsOLCTJULVZWDP2869-36-21 08:39:0024[facility] Get GQZKAAKYEDNM1703-08-40 08:39:89411Qipvuozd QlhoputVMBGCECJGBFB1545-60-14 08:39:52823Hikgplxa AioqdnxDTXEQQIMLIZA7077-47-51 08:39:001.35[facility] [place] YMMYNUOJIERG2596-37-79 08:39:0023[facility] QuwkszaDTPPNVVZLXGU5932-97-99 08:39:00 166[facility] PwfecjpEVAGDXSFME8945-41-31 08:39:000.6[facility] HermannHEMATOLOGY 2019-02-25 08:39:001.9[facility] XleahjrKBLXHUWPIU1416-09-85 08:39:000.2[facility] BajpwqyWMLTFMPZDT8667-55-24 08:39:004.4[facility] VhcobjhBSXEFCKSEC6442-08-76 08:39:000.5[facility] YklabffXPYYFQAGNX1848-35-34 08:39:0026.6[facility] Get OKWXDHSKZU3769-83-09 08:39:0061.6[facility] AvazqmnBBQOQLTAHI7304-72-37 08:39:00 3.0[facility] MgebvcmIQRXDLHSGL6051-54-01 08:39:008.3[facility] HermannHEMATOLOGY 2019-02-25 08:39:0013.9[facility] MscwxluHDQGDPNFYC0594-84-06 08:39:00* Test Item Value Reference Range Interpretation Comments MCH (test code = MCH) 29.0 pg 27.0-31.0 [facility] LsthnpyFOARISECUO4999-75-87 08:39:0034.2[facility] HermannHEMATOLOGY 2019-02-25 08:39:0040.4[facility] OvqdtiwLUHPEFRXWK5418-88-32 08:39:0084.6[facility] InkmdooFDMBHFRZEO4637-50-00 08:39:0013.8[facility] WsgybudRONAQXADWD7295-53-24 08:39:007.1[facility] HiodttnIKACCTLGHN3416-95-90 08:39:004.78[facility] Get VLRTFNRGRU3402-59-61 08:39:008.3[facility] QxmvuspEQDCJUWHWX8955-80-76 08:39:34075 [facility]annSPE[facility] BSZKKFQOS6419-15-64 08:39:007.9[facility] HermannCARDIAC YZVHICA1779-74-17 15:28:00<0.02[facility] Get LEVOFLOXACIN:SUSC:PT:ISOLATE:ORDQN:YLE0492-90-71 18:31:00Staphylococcus Species, Not S. aureusMemorial HermannCHEM XOADO0858-60-19 16:09:0039[facility] [place] CHEM BOMWT2817-33-74 16:09:99781Qdnfdymw HermannCHEM GYLVJ9670-18-24 16:09:004.8 [facility] HermannCHEM EBQUF5227-51-74 16:09:0021[facility] HermannCHEM PANEL 2018-10-20 16:09:0016.8[facility] HermannCHEM PPSWB0687-45-73 16:09:009.0[facility] HermannCHEM BSEAS8867-90-20 16:09:53894Weicwckr HermannCHEM JXSXJ3962-69-00 16:09:0027[facility] HermannCHEM QXQTI3648-72-14 16:09:001.80[facility] HermannCHEM TFRDF1791-90-46 16:09:25078Osfkepjx AnauuxeBWJLZZSGXP7999-54-47 16:09:000.1 Memorial YgyusxaOJVQERLOXI3411-50-31 16:09:001.2[facility] HermannHEMATOLOGY 2018-10-20 16:09:000.5[facility] MmkjanbSKXDOMLIOW1774-84-05 16:09:006.2[facility] FoikccxMYOCGCETLI0063-93-17 16:09:0076.5[facility] PqmyaudAGUNZQUTAO0198-15-67 16:09:000.5[facility] TucishhFKLRNWGLDL5650-33-42 16:09:0014.9[facility] Get OHRPBEGGBR2116-59-33 16:09:006.4[facility] ZhoidzmNEMFNPCCMW8409-04-81 16:09:001.7 [facility] LkumbjxOMCRKYIKCZ2152-34-29 16:09:05081Drnuycwk HermannHEMATOLOGY 2018-10-20 16:09:0033.8[facility] JtqdzzyCGQGVDQFMV0015-86-33 16:09:0013.0[facility] YkhqddsGLXPLYJXNM9822-89-33 16:09:009.6[facility] TtzsqqkYOAICPYCAP8020-98-19 16:09:0086.8[facility] EltrpwxIUZPCKUJGX9960-61-18 16:09:00* Test Item Value Reference Range Interpretation Comments MCH (test code = MCH) 29.3 pg 27.0-31.0 [facility] QlpjrzeLHQENPSATD4153-25-23 16:09:0044.3[facility] HermannHEMATOLOGY 2018-10-20 16:09:0015.0[facility] QcxwgxcROXTKSZAWR4705-06-72 16:09:005.10[facility] KqnlfhoVWCRCBGGEG5911-76-05 16:09:008.1[facility] HermannSPECIAL CHEMISTRY 2018-10-20 16:09:0010.7[facility] HermannCHEM ACLNJ3259-51-19 20:35:001.5[facility] LuwchngURSPSKLBTD5445-56-96 20:10:170.4[facility] HermannCHEM SJHLP7492-59-98 18:53:003.3[facility] HermannCHEM YLCNF4524-74-45 18:53:002.0[facility] HermannCHEM NSODC7739-41-30 18:53:000.10[facility] HermannCHEM DEYMJ5367-46-48 18:53:0041 [facility] HermannCHEM MEZOC9426-50-37 18:53:000.5[facility] HermannCHEM PANEL 2016-07-13 18:53:0011[facility] HermannCHEM LXBRK6121-44-55 18:53:51101Ubhksreu HermannCHEM AWJRJ3073-07-64 18:53:0023[facility] HermannCHEM BBXIF6817-71-67 18:53:008.7[facility] HermannCHEM JSAXX7183-17-08 18:53:007.4[facility] HermannCHEM NPAXY0780-80-58 18:53:003.7[facility] HermannCHEM DYKZE8015-88-69 18:53:49588 [facility] HermannCHEM YXVTX7870-66-40 18:53:0026[facility] HermannCHEM PANEL 2016-07-13 18:53:001.72[facility] HermannCHEM YQILW7659-93-84 18:53:0025[facility] HermannCHEM HVKAH3090-87-54 18:53:69248Fnotasci HermannCHEM UARBG9655-88-53 18:53:004.7[facility] HermannCHEM QWZQT9116-55-29 18:53:88417Mhodvjdn HermannCHEM HPIKY4563-67-88 18:53:001.0[facility] HermannCHEM UXFWN4797-08-57 18:53:003.7 [facility] HermannCHEM WISSQ2121-03-78 18:53:0015[facility] HermannCHEM PANEL 2016-07-13 18:53:0010.7[facility] HermannCHEM FDHDC7612-39-53 18:53:001.3[facility] UjiiptwROAAVWRDSE1891-47-97 18:53:000.5[facility] LjsnustMKTOQTNEWH2861-99-26 18:53:005.2[facility] FebxavhKYJTUYPITZ9826-90-23 18:53:001.4[facility] Get XNJLWQYTZI3251-75-89 18:53:000.1[facility] NsoefyxABKKBEYZSP4479-06-09 18:53:000.5 [facility] PscupgmCYJJWRWCQC7645-45-17 18:53:001.0[facility] HermannHEMATOLOGY 2016-07-13 18:53:006.8[facility] UteewyyGRXKQSUCCQ2321-17-16 18:53:0019.2[facility] HvblrdtBBICEUAAMT7116-93-21 18:53:0072.5[facility] JgbmrzwSNSYYGXZHU7834-57-00 18:53:008.6[facility] YmregdbDAPLPOCTKO0784-27-74 18:53:007.2[facility] [place] GFZXBUHGIN8806-23-35 18:53:00* Test Item Value Reference Range Interpretation Comments MCH (test code = MCH) 29.3 pg 27.0-31.0 [facility] DiigtmyUAOJFHDUGH7388-22-53 18:53:39120Mluzazgt HermannHEMATOLOGY 2016-07-13 18:53:004.84[facility] ToxbiiePZRCLBWYRF2253-65-87 18:53:0014.2[facility] HmdhemwBBZSZNUSVO2259-90-10 18:53:0012.9[facility] AwdskmmPWBPAJQAJJ4390-85-65 18:53:0034.0[facility] LzpwhttHRCBYDUHHN8446-09-74 18:53:0086.0[facility] [place] YVZBGZWBNW1689-78-69 18:53:0041.7[facility] HermannCHEM ULNMT8490-64-44 10:08:00 0.8[facility] HermannCHEM RWDXB8094-71-43 10:08:0011.7[facility] HermannCHEM PANEL 2015-11-04 10:08:005[facility] HermannCHEM YFFQN4800-05-99 10:08:002.5[facility] HermannCHEM RUUCA2600-14-86 10:08:0041[facility] HermannCHEM SFKZX6377-01-18 10:08:003.7[facility] HermannCHEM CYBGN8939-33-97 10:08:04306Bstibcvp HermannCHEM OTUSJ4634-38-86 10:08:03997Ulnyszaj HermannCHEM FYXCR5741-32-92 10:08:0081 [facility]annCHEM DMQYD9494-52-32 10:08:000.5[facility] HermannCHEM PANEL 2015-11-04 10:08:007[facility] HermannCHEM IHUVJ7593-28-64 10:08:0022[facility] HermannCHEM OQKEJ4232-75-39 10:08:007.5[facility] HermannCHEM PFWEA9792-75-07 10:08:009[facility] HermannCHEM HJOOH3548-19-10 10:08:001.74[facility] HermannCHEM YHEVZ6450-95-64 10:08:35930Fwehvsde HermannCHEM BININ8502-62-95 10:08:004.6 [facility] HermannCHEM ATKYA6143-24-16 10:08:0016[facility] HermannCHEM PANEL 2015-11-04 10:08:002.1[facility] HermannCHEM BOHGB8333-97-48 10:08:002.4[facility] HermannCHEM TSSVY5533-41-54 10:08:001.5[facility] GazpqjrJELOTBBVZU5093-43-02 10:08:000.3[facility] XeybggaCNUBKIGOJC6098-12-91 10:08:001.0[facility] [place] GTKVDEIUUC8087-23-26 10:08:0011.2[facility] PwiimsaUMLPAGAZBS9038-10-46 10:08:00 13.0[facility] NmephydBJSTWZWIKA2547-39-37 10:08:007.9[facility] HermannHEMATOLOGY 2015-11-04 10:08:00Normal (11/04/15 4:08 AM)[facility] ItcvtbtCDXIUTXKEB3199-93-20 10:08:0074.5[facility] JqugpcqDDRUDXLQZI8066-36-70 10:08:00Normal (11/04/15 4:08 AM)[facility] FvlrbheRDGVHRLUFO9484-40-16 10:08:000.1[facility] HermannHEMATOLOGY 2015-11-04 10:08:001.2[facility] JdlqnaiQMSGHMQMQK4151-86-80 10:08:001.4[facility] KammpcxYWENBLTKFU6815-01-92 10:08:007.9[facility] YpzqkvxFIVTCNTJMS4406-53-46 10:08:0033.6[facility]orial FtpwmkrYKVBGRPLSL7371-45-23 10:08:73538Dzmwrkkz Get RVWKVFUBGX9952-70-98 10:08:0013.2[facility] JjtfhalFHKRSDKTEM1212-84-22 10:08:00 87.2[facility] YyjluktQFUCYATAQS2994-83-18 10:08:0036.7[facility] HermannHEMATOLOGY 2015-11-04 10:08:0012.3[facility] SagvnmqXTOTREHBCO5703-11-83 10:08:00* Test Item Value Reference Range Interpretation Comments MCH (test code = MCH) 29.2 pg 27.0-31.0 [facility] DgahwbdGSERRWHJUN3616-40-52 10:08:004.21[facility] HermannHEMATOLOGY 2015-11-04 10:08:0010.6[facility] HermannURINE AND UGMJJ2942-82-62 22:49:00Marked *ABN*(11/03/15 4:49 PM)[facility] BCXXS0702-44-24 22:49:00Yellow *NA*(11/03/15 4:49 PM)[facility] QLCWJ2882-92-95 22:49:005.0 [facility] AND DXRFG8075-27-50 22:49:001.014[facility]UR[facility] AND BSVSQ2124-19-89 22:49:00Large *ABN*(11/03/15 4:49 PM)[facility] AND DRJMK0309-65-39 22:49:00Negative (11/03/15 4:49 PM)[facility] TIUVT0301-40-64 22:49:00Negative (11/03/15 4:49 PM)[facility] VGMIY4678-31-51 22:49:00Negative *NA*(11/03/15 4:49 PM)[facility] AND VGTVI5624-29-35 22:49:004[facility]annUR[facility] AND IGQJR5624-46-12 22:49:35395 [facility] AND PONGW9795-51-37 22:49:003[facility] HermannCHEM PANEL 2015-11-03 11:44:007.8[facility] HermannCHEM PCWJP6122-73-35 11:44:0088[facility] HermannCHEM BMOYV1531-73-53 11:44:0019[facility] HermannCHEM SFBQL8680-80-37 11:44:72712Byyvznjb HermannCHEM FPJLG6854-48-55 11:44:003.3[facility] HermannCHEM OCXWV7422-68-03 11:44:04909Sjoychzr HermannCHEM FNTQA2758-01-54 11:44:0011 [facility]annCHEM HXQHD1892-71-35 11:44:0048[facility] HermannCHEM PANEL 2015-11-03 11:44:001.54[facility] HermannCHEM IUDFE4496-76-29 11:44:0013.3[facility] VcganjfCXYQYLORJW2946-34-88 11:44:0013.4[facility] RbwdhyaYSXWSBCPMW1839-81-31 11:44:004.58[facility] ThjscxqHGCLPPZNUG6246-14-23 11:44:0010.3[facility] [place] TTSELEFJNW6774-31-77 11:44:0087.6[facility] ZdfwbwwPOQEKFMEMC9189-25-71 11:44:00* Test Item Value Reference Range Interpretation Comments MCH (test code = MCH) 29.3 pg 27.0-31.0 [facility] SclrakzMGMCAZKNPJ6750-59-49 11:44:0040.1[facility] HermannHEMATOLOGY 2015-11-03 11:44:0033.4[facility] KiawisoLHDCZWEPJA3722-98-94 11:44:0013.3[facility] BzjrdavQKRZXVICPN1397-40-27 11:44:35317Bdmyropg LxenbhfYBFXLIBALH5193-66-67 11:44:008.3[facility] AhwkpuaZYXNQPJPJZ7114-15-18 11:44:000.9[facility] [place] ODORFKPFZN3689-09-81 11:44:000.8[facility] VdcumysTCIMMPMXXY6310-28-14 11:44:009.1 [facility] KoyrntfHRGWYMTRZL0362-42-99 11:44:0082.6[facility]annHEMATOLOGY 2015-11-03 11:44:007.5[facility] YxuxwkrWWQHGYNRSU3984-25-45 11:44:008.5[facility] IioxeanGIQFXWJAXI0029-73-41 11:44:000.4[facility] NyrwvkcQUQCYJQOQI1273-27-85 11:44:000.4[facility] HermannCHEM WTKZP0043-23-04 10:47:002.0[facility] HermannCHEM LRDWN6025-31-49 10:47:0018[facility] HermannCHEM XESOV1160-48-64 10:47:000.4 [facility] HermannCHEM IREZL9193-12-91 10:47:0010[facility] HermannCHEM PANEL 2015-11-02 10:47:0091[facility] HermannCHEM EEDAI5599-26-51 10:47:0042[facility] HermannCHEM EFYBO5619-62-81 10:47:0020[facility] HermannCHEM DILVL5007-31-75 10:47:007.8[facility] HermannCHEM SNFOK7906-68-02 10:47:005.2[facility] HermannCHEM USXDZ5937-73-53 10:47:003.1[facility] HermannCHEM UAHCM7570-01-92 10:47:83518 [facility]annCHEM GIHQL8310-73-16 10:47:001.70[facility] HermannCHEM PANEL 2015-11-02 10:47:29992Cmcuoudl HermannCHEM ACHIR4985-16-72 10:47:22711Mnbehphz HermannCHEM TFZAG7547-30-84 10:47:0019[facility]annCHEM KMMFH2282-09-69 10:47:009.1[facility]annCHEM VTWGE0961-62-85 10:47:000.6[facility]annCHEM RRTZB6455-36-01 10:47:0011[facility]annCHEM CDCMA7899-43-59 10:47:003.2 [facility] JshomwjOQJDNTGOWN4237-21-27 10:47:007.1[facility] HermannHEMATOLOGY 2015-11-02 10:47:0087.2[facility] ApgymcuZTKMNFFJVY2061-28-81 10:47:0037.3[facility] SimlulrCACJWZNKYK9581-61-83 10:47:60758Pfxxnodl LebzdqsLGBWGZRVLS1032-21-59 10:47:008.5[facility] BbzuyhlOJLJXFGUAY0504-93-97 10:47:004.28[facility] [place] EXFYKOBKWB5538-41-86 10:47:0012.5[facility] PmsrdglRTKVCXESUR7718-57-81 10:47:00 33.6[facility] EyswbqqKYWSBOZJOO0682-39-76 10:47:00* Test Item Value Reference Range Interpretation Comments MCH (test code = MCH) 29.3 pg 27.0-31.0 [facility] HzcfpnnKPDOOIUNXR2896-15-66 10:47:0013.1[facility] HermannHEMATOLOGY 2015-11-02 10:47:0029[facility] EgelwnhBEFKHRTNPN0017-55-12 10:47:001.3[facility] GbrwssaUJZDSGSQWB0420-52-47 10:47:0010.3[facility] LposqedXVKCJNLDVA2163-51-26 10:47:000.2[facility] NooivdvDVAZCHUGCM5910-74-05 10:47:000.1[facility] [place] GFBUXTNTYD0549-89-96 10:47:0019.4[facility] EojvgscCQJDLAFUGD6659-56-72 10:47:00 68.8[facility] LmqfluaCONYWQWZRT2157-67-34 10:47:000.7[facility]annHEMATOLOGY 2015-11-02 10:47:001.4[facility] TkwzgirQVTOHLYAEA5801-08-63 10:47:004.9[facility] HermannCARDIAC JPQUKYT0080-93-22 10:09:0057[facility] GmhnfngRMHXOLNAFW5463-29-33 13:22:27Normal (10/31/15 7:22 AM)[facility] GrhehlzEMSOJXRXHP0645-71-39 13:22:27 Normal (10/31/15 7:22 AM)[facility]annCHEM HDTMM3602-66-95 13:06:0036[facility]annCHEM KUMWJ3096-82-21 13:06:13659Fqnzcpih HermannCHEM HLAHL4737-58-31 13:06:0020[facility]annCHEM TECZD6761-52-55 13:06:003.3[facility]annCHEM AKMJL2813-01-24 13:06:000.7[facility]annCHEM YLUET8763-40-02 13:06:0011 [facility]CHE[facility] NZXGJ8284-48-93 13:06:0020[facility]annCHEM PANEL 2015-10-29 13:06:0094[facility]annCHEM QEEWM8463-24-45 13:06:000.7[facility]annCHEM QLDXD2434-05-67 13:06:002.4[facility]annCHEM ZWXLP3427-46-02 13:06:005.7[facility] HermannSPECIAL KKCBOEIAD4795-67-75 13:06:0010.8[facility] HermannBACTERIAL - MVDFGOAX7342-62-68 05:26:00Negative (10/28/15 11:26 PM) [facility]annURINE CLPZ8506-39-73 23:04:000.9[facility]URINE CHEM 2015-10-28 23:04:0091.80[facility]URINE ECRJ8238-78-07 23:04:0086.0 [facility]annCARDIAC DGUJXBV5609-27-35 18:05:00<0.02[facility]annCHEM NJLIK0406-38-03 18:05:39188Isypexnj FybemnhESMRFTWREU3750-72-79 18:05:001.00 [facility] FsqovweITPTJWBNRX8541-57-75 18:05:00* Test Item Value Reference Range Interpretation Comments PT (test code = PT) 13.5 s 12.0-14.7 [facility] KpirbjzJBWEQQIGQQ7099-54-73 18:05:00* Test Item Value Reference Range Interpretation Comments PTT (test code = PTT) 30.3 s 22.9-35.8 [facility] YgxscblRZAFVRIKSE7041-24-80 18:05:00Negative *NA*(10/28/15 12:05 PM) [facility]annMOLECULAR TJVBJJLKAJ3948-95-38 18:05:00Negative (10/28/15 12:05 PM)[facility] BfkhuxhDUHDDORTNP8346-37-00 18:05:000.4[facility] HermannCARDIAC HXXYQBR1048-86-37 08:45:002.2[facility]annCARDIAC WNJNFNT6499-12-22 08:45:00< 0.02[facility]annCARDIAC GYXBGWJ8199-04-66 08:45:0050[facility]annCARDIAC IOIRRZY3021-59-63 08:45:004.4[facility] JlpsijwZDIGFW0703-67-62 08:45:0020[facility] XacutxlLJLCVT4164-05-60 08:45:0065[facility] MqrildbQWUDHE3546-22-88 08:45:003.83 [facility] EmjcbdySBSDFD1329-92-40 08:45:57727Aazbmpih XynjbtvBOABWE6134-47-43 08:45:0030[facility] XyxvvtbUYCHBO6904-75-82 08:45:0098[facility] HermannTHYROID FBKDG1027-83-00 08:45:001.140[facility]annCARDIAC QSVQKNT5907-42-53 04:55:00< 0.02[facility]annCARDIAC SGBDQTH7831-91-36 04:55:0051[facility]annCARDIAC LEUJVRA0413-48-73 04:55:002.3[facility]annCARDIAC UWGCLMU2284-36-48 23:21:00 4.0[facility]annCARDIAC XUVCQBK6058-28-61 23:21:0075[facility]annCARDIAC IQQLWSZ2422-32-43 23:21:00<0.02[facility]annCARDIAC ONXLZML8818-36-14 23:21:003.0[facility]annCHEM PFUOB4807-27-81 23:21:001.8[facility]annCHEM TSCOP5122-10-86 23:21:0046[facility]annCHEM UYSHQ8725-99-14 23:21:007.3 [facility]annCHEM EXIRC1012-98-19 23:21:0021[facility]annCHEM PANEL 2015-02-01 23:21:003.8[facility] HermannCHEM WVXZK9045-29-22 23:21:001.1[facility]annCHEM NHGGG0632-22-06 23:21:003.5[facility]annCHEM POEIM9596-70-83 23:21:0016[facility]annCHEM ZKZON3497-62-87 23:21:0013.2[facility]annCHEM AOAYN5906-38-09 23:21:001.6[facility]annCHEM FZCFJ3972-87-22 23:21:0023 [facility]annCHEM YWGEO0665-92-95 23:21:0097[facility]annCHEM PANEL 2015-02-01 23:21:0013[facility]annCHEM AYWBT0695-10-35 23:21:000.4[facility]annCHEM QWZLC9827-43-41 23:21:52646Uzkwsggf HermannCHEM IUKIZ2981-70-03 23:21:0026[facility]annCHEM MLVOG8949-70-61 23:21:07464Zrnbeqgm HermannCHEM GFNZE1216-89-09 23:21:008.7[facility]annCHEM MUNPC6736-91-00 23:21:81661 [facility]annCHEM OZXUP6476-35-47 23:21:004.2[facility]annCHEM PANEL 2015-02-01 23:21:003.1[facility] AbqtoloHOURTIZPKX6963-51-20 23:21:000.1[facility] FhlgmmkOGIGZTIVJV4056-32-34 23:21:000.1[facility] JllozipUQMFVRIYPT1652-31-68 23:21:000.5[facility] XhmecxlGLEBRTDVDJ0964-19-31 23:21:001.8[facility] Get PJPFVYWXZM5509-57-91 23:21:005.2[facility] RwcriljYMQXEVPLQG9390-46-51 23:21:000.7 [facility] PmidlbcGJFXUQAGOJ3702-07-26 23:21:001.8[facility] HermannHEMATOLOGY 2015-02-01 23:21:0067.7[facility] MicpyeyFMXMQUNPSO8980-02-21 23:21:006.5[facility] YxdpfxmRMWTEOJLAF6018-12-97 23:21:0023.3[facility] ZkxonceKYFBNYUKKX1909-96-59 23:21:0034.1[facility] VjtmbfqEXCFRTMWQP4440-95-03 23:21:00* Test Item Value Reference Range Interpretation Comments MCH (test code = MCH) 29.5 pg 27.0-31.0 [facility] NxtqvrzYZPXUQAIGY1525-94-08 23:21:007.7[facility]annHEMATOLOGY 2015-02-01 23:21:0086.6[facility] MjseeoiGDWUNQDDYV0087-65-07 23:21:0013.0[facility] JybjczeSDIYOEKZGV3028-10-97 23:21:0038.1[facility] HudtjjlMFOEPDODYU6379-98-60 23:21:004.40[facility] KhjeaqiADWQZNKYMM1362-24-55 23:21:38910Tugbwpht [place] CZNXSSUZMW9169-67-46 23:21:008.6[facility] DzlgppsHDHCBYDOOV8520-65-86 23:21:00 13.9[facility] IbfkskrSJAJWGWJNJ1906-54-67 23:21:000.98[facility]annHEMATOLOGY 2015-02-01 23:21:00* Test Item Value Reference Range Interpretation Comments PT (test code = PT) 13.0 s 12.0-14.7 [facility] ZevocskQRQHPNEWIF3753-27-10 23:21:00* Test Item Value Reference Range Interpretation Comments PTT (test code = PTT) 30.6 s 22.9-35.8 [facility] ZduvaziLRSVDTEDZRXK9409-74-28 09:51:0010.7[facility] HermannELECTROLYTES 2014-11-08 09:51:0043[facility] UbxylqjZRBVKEWWZDXP2561-72-94 09:51:008.5[facility] KpmwdjgLIIAVYJGYDHH2085-29-49 09:51:0021[facility] VyiecpwTWHLJVWBYRCN7769-93-29 09:51:001.7[facility] YqbldtqHLLZJTCYSZKN1056-64-68 09:51:0028[facility] [place] DQTCLTKLLYKU6676-47-98 09:51:82264Onnqybub RldrxaiDZRJOQIWNTQO7443-55-80 09:51:53685Cxugsbln EmrsevwUYGQXUOFYCMJ2124-01-91 09:51:29304Mwvlzqod Get BGXHVISNHCRX0908-45-05 09:51:004.7[facility] OzqkqffDAYDGEGBOZ6874-63-06 09:51:00 0.1[facility] SxqslseSSAMRRBPYK4308-46-38 09:51:000.1[facility]annHEMATOLOGY 2014-11-08 09:51:003.1[facility] HshinkpCDOCODFVOB1995-90-56 09:51:002.4[facility] GxxvirzEMWPYMVRMJ5738-31-38 09:51:001.4[facility] OxeanmhFRWJJSNGCL8698-13-20 09:51:000.6[facility] RlncqvlKFGXZIKKWW2743-83-39 09:51:002.0[facility] [place] SFCWILTJQG1006-62-59 09:51:0052.0[facility] FrpaiioDALARJFUMD3641-08-44 09:51:00 34.4[facility] YneymhiPAABVMYJGI7569-07-63 09:51:009.8[facility]annHEMATOLOGY 2014-11-08 09:51:0085.7[facility] CaiijjqWNDQCABXBG4480-30-38 09:51:0012.7[facility] HndkhwbHFPGZUIGRI5498-92-51 09:51:00* Test Item Value Reference Range Interpretation Comments MCH (test code = MCH) 30.3 pg 27.0-31.0 [facility] RbwdtszTTPRQPMDCS6545-04-07 09:51:0035.4[facility]annHEMATOLOGY 2014-11-08 09:51:62896Zigfvfag KzdvurcSPQZDVQTQX8323-63-27 09:51:008.3[facility] HlxaqzfCUXBRFZBQD6736-84-80 09:51:0013.3[facility] RxhspceDLEMLYCSEL6834-94-97 09:51:0037.6[facility] TxiikqbQCPIHFXKQB7090-01-60 09:51:004.38[facility] [place] XCUWJVQECT4763-69-06 09:51:005.9[facility] AcbzqnePSOFVLAWLKZL9964-29-33 17:18:00 4.8[facility] QgluxqkRQUSFJZXXZBF3992-11-91 17:18:001.9[facility] Get PRCXTOWFCHXJ7869-33-85 17:18:07076Jmwdedoi FreggnoSHLJKDDRLPND1960-85-43 17:18:0037[facility] LvferidDTXJFLDHNAZF7691-19-68 17:18:008.0[facility] Get YFNGPZAAVHVS8832-70-25 17:18:86736Osyuuamp OgmrjtyIJQPUYYJHTIH0776-31-73 17:18:0011[facility] YfohgswGFNCGWDDWZYJ8113-45-31 17:18:62112Bbbfxewx [place] KLKAETVGROQZ8810-72-66 17:18:0036[facility] MxtmiobACZWDHRFQQNH6997-73-17 17:18:00 19[facility] KgbebjsQDRWFUTLMTIB3404-71-27 17:18:0019[facility]annELECTROLYTES 2014-11-07 17:18:0011.8[facility] NkgqjiwXJOTPCJGTISJ0644-68-68 17:18:61940 [facility] IhhunspAJEDXXZYVJTQ9987-12-23 17:18:003.2[facility] HermannELECTROLYTES 2014-11-07 17:18:002.8[facility] KvwgwvjEYCNYKAHPKME6218-29-97 17:18:006.0[facility] GstwnniERSEAFCOXYBQ8173-31-82 17:18:0023[facility] LdzbefaNMEKRSYWCXZS1477-19-18 17:18:001.1[facility] IdeyilzBJHYUUTPSTHE0919-73-06 17:18:000.5[facility] [place] NLJBTEEQWT0750-11-79 17:18:0035.1[facility] WwywhxrNFMGFERVPC9296-24-42 17:18:00 8.2[facility] GesooblNUNXHGKWFJ5645-04-83 17:18:0013.1[facility]annHEMATOLOGY 2014-11-07 17:18:68956Njnmqrjt ZwcrbbsLANRBGHZYO3264-33-08 17:18:0038.0[facility] XutflbtKPVQLVWEVE9333-84-62 17:18:0086.5[facility] HasdsfiLMTSQSPEAD2830-84-60 17:18:005.9[facility] AkfvjalLUCTLEEIEF4475-60-70 17:18:0013.4[facility] [place] FMDLRFFRZA8324-76-83 17:18:004.40[facility] JoqrkmhUMJVACFKPN1859-58-17 17:18:00* Test Item Value Reference Range Interpretation Comments MCH (test code = MCH) 30.4 pg 27.0-31.0 [facility] SamhyexXDACIEINQZ6666-54-37 17:18:000.1[facility]annHEMATOLOGY 2014-11-07 17:18:000.5[facility] YfvwxajZFBWYAMKCK2426-86-59 17:18:003.4[facility] AzyghadUWJOHFMXFG4761-33-01 17:18:001.9[facility] BfgvvxyBSJKCTWDUJ2891-87-71 17:18:000.5[facility] UnsicyoSPDTCPOBTI4705-66-96 17:18:0031.8[facility] Get AAGYSILMMY2367-11-36 17:18:0056.9[facility] MbadznqBNSTOGGJQY0424-64-19 17:18:00 8.8[facility] BtdzrrbYWYXUWTPYQ4227-71-29 17:18:002.0[facility] HermannSPECIAL ABDOQJJPM8873-02-29 17:18:008.8[facility] HermannCHEM OLPPE3323-16-43 20:02:000.5 [facility]annCARDIAC KHDCTDZ1739-92-73 18:49:00<0.02[facility] HermannCARDIAC QXAILVT5488-67-23 18:49:0099[facility]annCARDIAC EIVFNTG6477-15-75 18:49:00 6.2[facility] HermannCARDIAC GHFMCKE3599-50-88 18:49:006.1[facility] HermannCHEM VQJCI4758-71-48 18:49:0020[facility] HermannCHEM RBACN2814-75-57 18:49:47570 [facility]annCHEM YJCQG8882-51-80 18:49:003.2[facility] HermannCHEM PANEL 2014-11-06 18:49:004.3[facility] HermannCHEM YPDKE3056-53-51 18:49:27254Eeqqfhmw HermannCHEM TTTDN4982-52-78 18:49:008.1[facility] HermannCHEM DTFJC1062-60-01 18:49:25106Wmnveurb HermannCHEM SYMSO2241-69-91 18:49:0014.3[facility] HermannCHEM RGGKM3052-48-88 18:49:0059[facility]annCHEM GUFIF1207-94-93 18:49:0014 [facility]annCHEM TTYBQ2842-86-25 18:49:006.9[facility] HermannCHEM PANEL 2014-11-06 18:49:0018[facility] HermannCHEM SYQJU5426-37-65 18:49:003.3[facility] HermannCHEM SRKGN7050-75-68 18:49:000.9[facility] HermannCHEM EUMCE4285-98-42 18:49:10977Ujgtqfru HermannCHEM BCOAD8571-32-99 18:49:000.3[facility] HermannCHEM QZIGE3328-63-29 18:49:0024[facility] HermannCHEM VIEHD4617-53-07 18:49:0013 [facility] HermannCHEM GUWAY3737-39-46 18:49:003.6[facility]annHEMATOLOGY 2014-11-06 18:49:0014.4[facility] GjkxdxnLIKZSRDYRD0302-82-85 18:49:0041.0[facility] BqytksbWUTBXZFVHD2044-86-64 18:49:0086.1[facility] YzndnyaIAUZGAEGXM0283-17-31 18:49:00* Test Item Value Reference Range Interpretation Comments MCH (test code = MCH) 30.3 pg 27.0-31.0 [facility] LzjzokxUSGDSOYAMS1519-11-37 18:49:0035.2[facility]annHEMATOLOGY 2014-11-06 18:49:006.9[facility] KwhihpyIEACIDNITL5710-89-06 18:49:004.76[facility] WajyoujCCIOCMAHFH6268-13-80 18:49:16914Lqygfntn PoivqktSZSZCWZJNU4969-64-37 18:49:0013.1[facility] GyflhlxESVNIQPHSW0434-29-86 18:49:008.3[facility] Get KUSMCGATML8886-39-93 18:49:0023.0[facility] ChwpcbbOGQEKSAPYB8506-65-24 18:49:00 0.9[facility] TtnddkwUHUMKOJFOS9355-74-22 18:49:006.7[facility] HermannHEMATOLOGY 2014-11-06 18:49:004.7[facility] AkqufqwXODRIRYKCP9674-52-97 18:49:000.5[facility] KkrxcutLEGXDYZUYU9532-02-67 18:49:001.6[facility] HostmdrPXHPCULTRD7209-41-66 18:49:000.1[facility] HfzlyngYWHKKRJINR0756-59-18 18:49:0068.9[facility] Get ISDKEDEMMK1759-90-50 18:49:000.5[facility] [place]
--- NOTE | 2020-08-18 19:37 | NUR ---
REPORT GIVEN TO ONCOMING NURSE, WALKING ROUNDS COMPLETE.
[2020-08-18] MEDS: TRAZODONE HCL 50 MG TAB PO SCH (21:00)
[2020-08-18] MEDS: ATORVASTATIN 20 MG TAB PO SCH (21:00)
[2020-08-19] VITALS (8 sets, daily range): BP systolic 118–145; BP diastolic 85–92
[2020-08-19] MEDS ORDERED: SODIUM CHLORIDE 0.9% 250ML 250 ML ONE (00:09)
[2020-08-19] MEDS: CLINDAMYCIN 600MG / 50ML 50 ML IV SCH ×4 (00:11→19:20)
--- NOTE | 2020-08-19 07:22 | NUR ---
Bedside report and walking rounds completed with oncoming nurse. Patient in bed with call light within reach. No issues or concerns noted.
[2020-08-19] MEDS: GLIPIZIDE 5 MG TAB PO SCH ×3 (07:30→16:51)
[2020-08-19] MEDS: INSULIN LISPRO 100 UNIT/1 ML 3ML VIAL SQ SCH ×4 (08:02→20:52)
[2020-08-19] MEDS: AMIODARONE HCL 200 MG TAB PO SCH ×2 (08:47→08:58)
[2020-08-19] MEDS: CEFEPIME 1GM/NS 0.9% 50 ML 50 ML IV SCH (08:47)
[2020-08-19] MEDS: APIXABAN 5 MG TABLET PO SCH ×2 (08:47→16:51)
[2020-08-19] MEDS: LISINOPRIL 20 MG TAB PO SCH ×2 (08:48→08:59)
[2020-08-19] MEDS: METOPROLOL TARTRATE 25 MG TAB PO SCH ×3 (08:48→16:51)
--- NOTE | 2020-08-19 10:08 | Progress Note ---
DATE: 08/19/2020 SUBJECTIVE: Mr. Amin is a 65-year-old man with history of diabetes, hypertension, hyperlipidemia, and acute renal failure, came to the emergency room, sent by me because he had a left lower extremity edema, erythema and pain. He was found to have cellulitis. He was started on IV antibiotics. PHYSICAL EXAMINATION: GENERAL: Today, he is awake and alert. He is feeling better. VITAL SIGNS: Temperature is 97.6, blood pressure 137/85. HEART: Regular rate. LUNGS: Clear to auscultation. ABDOMEN: Soft. EXTREMITIES: Lower extremities still with edema and erythema, but is slowly improving. LABORATORY DATA: On the blood work white count 10.09, hemoglobin 10.8, hematocrit 29.1. COVID test came back negative. Sugar 215 today. The blood cultures negative today. ASSESSMENT: On this patient is: 1. Left lower extremity cellulitis. 2. Acute on chronic renal failure. 3. Diabetes type 2 with hyperglycemia. 4. 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 5. Hypertension. 6. Hyperlipidemia. PLAN: At the present time is to continue ADA diet, sliding scale with insulin. Continue IV antibiotics. Keep leg elevated. We will continue to monitor his clinical progress and if he gets better plan him to discharge sometime this week on antibiotics. All this was discussed in detail with the patient. All questions were answered to satisfaction. MD NATALYA Artis/MIGUE /[id number]
--- NOTE | 2020-08-19 17:07 | NUR ---
INFECTIOUS DISEASE PROGRESS NOTE DR MJ CABRERA SUBJECTIVE: The patient is seen and evaluated. Available labs and notes reviewed. REVIEW OF SYSTEMS: The patient is happy with his progress. Left lower extremity erythema has improved. Edema has improved. Pain improved ALL 14 POINT ROS NEG UNLESS OTHERWISE DOCUMENTED PHYSICAL EXAMINATION: VITAL SIGNS: reviewed GENERAL: Alert and oriented, no acute distress. CV: S1, S2. CHEST: Equal expansion. Clear to auscultation. No acute distress. ABDOMEN: Soft, nontender. No distention. HEENT: Moist. No pallor. No JVD. EXTREMITIES: Left lower extremity cellulitis, improved, erythema and edema, not as tender. MEDICATIONS: Reviewed. LABORATORY STUDIES: per chart MICROBIOLOGY: Blood culture negative. RADIOLOGY STUDIES: No new radiology studies available. ASSESSMENT AND PLAN: 1. Left lower extremity cellulitis, improved. 2. Chronic on acute renal insufficiency. 3. Diabetes. 4. History of chronic deep venous thrombosis, left lower extremity. 5. Hypertension. 6. Obesity. Repeat labs in AM Clindamycin and Cefepime leg clinically improved d/c home with oral Doxy and Cipro (renal dosed) if continues to improve when okay with others Sissy Santos MSN, AUTOMOTIVE LIGHT MECHANIC, AGACNP-BC Mj Cabrera M.D
[2020-08-19] MEDS: ATORVASTATIN 20 MG TAB PO SCH (20:51)
[2020-08-19] MEDS: TRAZODONE HCL 50 MG TAB PO SCH (20:51)
[2020-08-20] VITALS (9 sets, daily range): BP systolic 124–146; BP diastolic 77–100
[2020-08-20] MEDS: CLINDAMYCIN 600MG / 50ML 50 ML IV SCH ×4 (00:20→18:37)
[2020-08-20 05:10] LABS: BASOPHILS # (AUTO) 0.1 (0.0-0.1); BASOPHILS % 0.6 % (0.0-1.0); EOSINOPHILS # (AUTO) 0.1 (0.0-0.4); EOSINOPHILS % 1.6 % (0.0-6.0); HEMATOCRIT 41.1 % (38.2-49.6); LYMPHOCYTES # (AUTO) 1.3 (1.0-3.2); MEAN CORPUSCULAR HEMOGLOBIN 29.1 pg (28-32); MEAN CORPUSCULAR HGB CONC 31.6 g/dL (31-35); MEAN CORPUSCULAR VOLUME 92.2 fL (81-99); MONOCYTES # (AUTO) 0.5 (0.2-0.8); MONOCYTES % 6.1 % (4.4-11.3); NEUTROPHILS # (AUTO) 6.6 (2.1-6.9); NEUTROPHILS % 74.2 % (38.7-80.0); PLATELET COUNT 242 x10e3/uL (140-360); RED BLOOD COUNT 4.46 x10e6/uL (4.3-5.7); RED CELL DISTRIBUTION WIDTH 12.3 % (11.7-14.4)
[2020-08-20 05:37] LABS: ALBUMIN 3.5 g/dL (3.5-5.0); ANION GAP 14.8 mmol/L (8-16); CALCIUM 9.1 mg/dL (8.4-10.2); CREATININE, SERUM 1.78 mg/dL (0.72-1.25); POTASSIUM 4.8 mmol/L (3.5-5.1)
--- NOTE | 2020-08-20 07:04 | NUR ---
Bedside report and walking rounds completed with oncoming nurse. Patient in bed with call light within reach. No issues or concerns noted.
[2020-08-20] MEDS: CEFEPIME 1GM/NS 0.9% 50 ML 50 ML IV SCH (08:12)
[2020-08-20] MEDS: AMIODARONE HCL 200 MG TAB PO SCH (08:12)
[2020-08-20] MEDS: LISINOPRIL 20 MG TAB PO SCH (08:12)
[2020-08-20] MEDS: METOPROLOL TARTRATE 25 MG TAB PO SCH ×2 (08:12→16:44)
[2020-08-20] MEDS: GLIPIZIDE 5 MG TAB PO SCH ×2 (08:12→16:43)
[2020-08-20] MEDS: APIXABAN 5 MG TABLET PO SCH ×2 (08:12→16:44)
[2020-08-20] MEDS: INSULIN LISPRO 100 UNIT/1 ML 3ML VIAL SQ SCH ×4 (08:16→21:51)
--- NOTE | 2020-08-20 09:01 | Progress Note ---
DATE: SUBJECTIVE: Mr. Amin is a 65-year-old man with history of diabetes, hypertension, hyperlipidemia, and acute renal failure who came to the clinic with left lower extremity edema, erythema and pain. He was sent to the hospital and admitted for wound care and IV antibiotics and to rule out DVT. PHYSICAL EXAMINATION: GENERAL: He is awake and alert. VITAL SIGNS: Temperature is 97.5, blood pressure 145/92. HEART: Irregularly irregular. LUNGS: Poor inspiratory effort. ABDOMEN: Soft. EXTREMITIES: The left lower extremity, edema and erythema are slowly improving. LABORATORY DATA: On the blood work, white count is 8.97, hemoglobin 13, and hematocrit 41.1. Glucose 231, potassium 4.8, and creatinine 1.78. COVID test came back negative. The Doppler of the lower extremity shows chronic DVT in the femoral vein and popliteal vein. ASSESSMENT: 1. Lower extremity cellulitis. 2. Acute on chronic renal failure stage 3. 3. Diabetes with hyperglycemia. 4. 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 5. Left lower extremity chronic deep venous thrombosis. 6. Hypertension. 7. Hyperlipidemia. PLAN: At present time is to continue IV antibiotics, ADA diet, sliding scale with insulin. Keep the left lower extremity elevated. Continue Eliquis. All this was discussed in detail with the patient. All questions were answered to satisfaction. If he keeps improving he may go home in one or two days. MD NATALYA Artis/FRANNYL /[id number]
--- NOTE | 2020-08-20 11:31 | NUR ---
INFECTIOUS DISEASE PROGRESS NOTE DR MJ CABRERA SUBJECTIVE: The patient is seen and evaluated. Available labs and notes reviewed. REVIEW OF SYSTEMS: The patient is happy with his progress. Left lower extremity erythema has improved. Edema has improved. Pain improved ALL 14 POINT ROS NEG UNLESS OTHERWISE DOCUMENTED PHYSICAL EXAMINATION: VITAL SIGNS: reviewed GENERAL: Alert and oriented, no acute distress. CV: S1, S2. CHEST: Equal expansion. Clear to auscultation. No acute distress. ABDOMEN: Soft, nontender. No distention. HEENT: Moist. No pallor. No JVD. EXTREMITIES: Left lower extremity cellulitis, improved, erythema and edema, not as tender. MEDICATIONS: Reviewed. LABORATORY STUDIES: per chart MICROBIOLOGY: Blood culture negative. RADIOLOGY STUDIES: No new radiology studies available. ASSESSMENT AND PLAN: 1. Left lower extremity cellulitis, improved. 2. Chronic on acute renal insufficiency. 3. Diabetes. 4. History of chronic deep venous thrombosis, left lower extremity. 5. Hypertension. 6. Obesity. Repeat labs in AM Clindamycin and Cefepime leg clinically improved Would like to keep the pt one more day plans to d/c home with oral Doxy and Cipro (renal dosed) Sissy Santos MSN, TWINE REELING MACHINE OPERATOR, AGACNP-BC Mj Cabrera M.D
[2020-08-20] MEDS ORDERED: ONDANSETRON HCL 4 MG ORAL DISINTEGRATING TAB PO PRN (15:30)
--- NOTE | 2020-08-20 16:41 | NUR ---
Nutrition Screen Note RD Recommendation for Physician: - Continue current diet Plan of Care: RD following, monitoring for tolerance and adequacy Nutrition reason for involvement: LOS Primary Diagnose(s): L lower extremity cellulitis PMH: DM, HTN, HLD, acute renal failure Ht: 70 in Wt: 307.44 lb BMI: 44.1 kg/m2 IBW: [address] Assessment: (08/20) 65 YOM admitted for L lower extremity cellulitis and hyperglycemia. Pt seen today for LOS. Pt continues with cellulitis, on abx. 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 Pt denies any wt loss, can not recall UBW. Pt denies any GI distress. No questions or concerns at time of visit. Pt Chart reviewed. Labs and meds reviewed, elevated BG likely related to infection- no A1C available. Will continue to monitor. Current Diet: 1800 ADA Malnutrition Evaluation (08/20/20) The patient does not meet criteria for a specified degree of malnutrition at this time. Will re-evaluate at follow-up as appropriate. Diet Education Needs Assessment: Diet education not indicated. Diet tolerance: tolerating Nutrition Care Level: low Signed: Giana Lopez RD, LD, [facility]
[2020-08-20] MEDS: ATORVASTATIN 20 MG TAB PO SCH (21:50)
[2020-08-20] MEDS: TRAZODONE HCL 50 MG TAB PO SCH (21:50)
[2020-08-21] VITALS (8 sets, daily range): BP systolic 133–177; BP diastolic 88–109
[2020-08-21] MEDS: CLINDAMYCIN 600MG / 50ML 50 ML IV SCH ×4 (00:17→18:03)
--- NOTE | 2020-08-21 07:05 | NUR ---
Bedside report and walking rounds completed with oncoming nurse. Patient in bed with call light within reach. No issues or concerns noted.
[2020-08-21] MEDS: APIXABAN 5 MG TABLET PO SCH ×2 (08:09→16:33)
[2020-08-21] MEDS: GLIPIZIDE 5 MG TAB PO SCH ×2 (08:09→16:33)
[2020-08-21] MEDS: CEFEPIME 1GM/NS 0.9% 50 ML 50 ML IV SCH (08:09)
[2020-08-21] MEDS: AMIODARONE HCL 200 MG TAB PO SCH (08:09)
[2020-08-21] MEDS: LISINOPRIL 20 MG TAB PO SCH (08:10)
[2020-08-21] MEDS: METOPROLOL TARTRATE 25 MG TAB PO SCH ×2 (08:10→16:33)
[2020-08-21] MEDS: INSULIN LISPRO 100 UNIT/1 ML 3ML VIAL SQ SCH ×4 (09:01→20:35)
--- NOTE | 2020-08-21 09:15 | Progress Note ---
DATE: 08/21/2020 SUBJECTIVE: Mr. Amin is a 65-year-old man with history of diabetes, hypertension, hyperlipidemia, acute renal failure. History of DVT in the past, came to the clinic complaining of left lower extremity edema, erythema, and pain. He was sent to the emergency room, started on IV antibiotics. A venous Doppler showed chronic DVT. PHYSICAL EXAMINATION: GENERAL: Today, he is awake and alert. He is feeling better. VITAL SIGNS: Temperature is 97.8, blood pressure 177/109. HEART: Regular rate. LUNGS: Clear to auscultation. ABDOMEN: Soft. The left lower extremity is slowly getting better, the edema and erythema are going down. LABORATORY DATA: On the blood work, white count 8.87, hemoglobin 13, sugar today 233. COVID test came back negative. ASSESSMENT AND PLAN: 1. Left lower extremity cellulitis. 2. Acute on chronic renal failure. 3. Diabetes with hyperglycemia. 4. 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 5. Left lower extremity chronic deep vein thrombosis. 6. Hypertension. 7. Hyperlipidemia. PLAN: At the present time is to continue ADA diet, sliding scale. Continue Eliquis. Continue IV antibiotics. All this was discussed with the patient. All questions were answered to satisfaction. We will discuss with Dr. Martínez if there is any possibility to switch him in the coming days to p.o. antibiotics, so he can go home. MD NATALYA Artis/MIGUE /[id number]
--- NOTE | 2020-08-21 16:50 | NUR ---
INFECTIOUS DISEASE PROGRESS NOTE DR MJ CABRERA SUBJECTIVE: The patient is seen and evaluated. Available labs and notes reviewed. REVIEW OF SYSTEMS: Left lower extremity erythema has improved. Edema has improved. Pain improved ALL 14 POINT ROS NEG UNLESS OTHERWISE DOCUMENTED PHYSICAL EXAMINATION: VITAL SIGNS: reviewed GENERAL: Alert and oriented, no acute distress. CV: S1, S2. CHEST: Equal expansion. Clear to auscultation. No acute distress. ABDOMEN: Soft, nontender. No distention. HEENT: Moist. No pallor. No JVD. EXTREMITIES: Left lower extremity cellulitis, improved, erythema and edema, not as tender. MEDICATIONS: Reviewed. LABORATORY STUDIES: per chart MICROBIOLOGY: Blood culture negative. RADIOLOGY STUDIES: No new radiology studies available. ASSESSMENT AND PLAN: 1. Left lower extremity cellulitis, improved. 2. Chronic on acute renal insufficiency. 3. Diabetes. 4. History of chronic deep venous thrombosis, left lower extremity. 5. Hypertension. 6. Obesity. plans to d/c home with oral Zyvox, can d[facility] MSN, BUDGET RECORD CLERK, AGACNP-BC Mj Cabrera M.D
--- NOTE | 2020-08-21 16:57 | NUR ---
IMM letter delivered and explained to pt via dietary director. Pt verbalized understanding, states he is ready to go home whenever MD DCs him. [place] copy provided to pt. Signed copy placed in chart.
--- NOTE | 2020-08-21 19:01 | NUR ---
Dr. beavers paged to notify her of ID clearance for discharge. due to elevated blood pressures, she will assess patient tomorrow and possibly discharge at that time.
--- NOTE | 2020-08-21 19:10 | NUR ---
Received the pt in report.lyeing in the bed.bed locked and in lowest position.call light within reach.instructed to call for assistance as needed.pt denied any needs.
[2020-08-21] MEDS: ATORVASTATIN 20 MG TAB PO SCH (21:27)
[2020-08-21] MEDS: TRAZODONE HCL 50 MG TAB PO SCH (21:27)
[2020-08-22] VITALS: BP 135/84
[2020-08-22] MEDS: CLINDAMYCIN 600MG / 50ML 50 ML IV SCH ×2 (00:07→06:04)
[2020-08-22 04:00] VITALS: BP 179/98
[2020-08-22] MEDS: LISINOPRIL 20 MG TAB PO SCH (06:22)
--- NOTE | 2020-08-22 06:28 | NUR ---
BP 179/98 MMOF HG.LISINOPRIL 20 MG PO GIVEN.
--- NOTE | 2020-08-22 07:00 | NUR ---
BED SIDE SHIFT REPORT GIVEN TO ONCOMING RN.STABLE CONDITION.
[2020-08-22 08:00] VITALS: BP 150/90
[2020-08-22] MEDS: INSULIN LISPRO 100 UNIT/1 ML 3ML VIAL SQ SCH (08:03)
[2020-08-22 08:19] VITALS: BP 150/90
[2020-08-22] MEDS: CEFEPIME 1GM/NS 0.9% 50 ML 50 ML IV SCH (09:02)
[2020-08-22] MEDS: AMIODARONE HCL 200 MG TAB PO SCH (09:02)
[2020-08-22] MEDS: GLIPIZIDE 5 MG TAB PO SCH (09:02)
[2020-08-22] MEDS: APIXABAN 5 MG TABLET PO SCH (09:02)
[2020-08-22] MEDS: METOPROLOL TARTRATE 25 MG TAB PO SCH (09:03)
--- NOTE | 2020-08-22 10:20 | Discharge Summary ---
HISTORY: Mr. Amin is a 65-year-old man with history of diabetes, hypertension, hyperlipidemia, renal failure, DVT, came to the clinic complaining of left lower extremity edema, erythema, and pain. He was sent to the emergency room. Venous Doppler shows chronic DVT, but he was found to have cellulitis. He was started on IV antibiotics. He is going to be switched to p.o. antibiotics today and he is going to go home and follow up with me next week. PHYSICAL EXAMINATION: GENERAL: He is awake and alert. VITAL SIGNS: Temperature is 97.4, blood pressure is 179/98. HEART: Regular rate. LUNGS: Clear to auscultation. ABDOMEN: Soft. EXTREMITIES: Left lower extremity still with some edema and erythema, it is looking better. LABORATORY DATA: On the blood work; white count 8.87, hemoglobin 13, hematocrit 41.1. COVID test negative. Sugar 278. Blood cultures negative. DISCHARGE DIAGNOSES: 1. Left lower extremity cellulitis. 2. History of chronic deep venous thrombosis. 3. Nbcjj-cj-gbbeifp renal failure. 4. Diabetes type 2 with hyperglycemia. 5. 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 6. Hypertension. 7. Hyperlipidemia. PLAN: At the present time is to discharge the patient home. Continue ADA diet. Continue home medications. He is also on Eliquis for his chronic DVT. He was switched to p.o. antibiotics, were sent already to the pharmacy. All this was discussed in detail with the patient. All questions were answered to satisfaction. He needs follow up with me next week. Please see home medication reconciliation list. MD NATALYA Artis/MODL /[id number]
--- NOTE | 2020-08-22 10:45 | NUR ---
The pt. was escorted to private for transport home and placed into the care of family member. He has all discharge information in his possession.
== END 2020-08-22 10:49 | disposition home or self-care (01) | DRG 603 ==
LOC: ER 15:23 → ERHOLD 17:38 → MED/SURG2 18:39
PROVIDERS: ADMIT Internal Medicine; ATTEND Internal Medicine
DX: L03.116 Cellulitis of left lower limb (principal); N17.9 Acute kidney failure, unspecified; I82.512 Chronic embolism and thrombosis of left femoral vein; Z68.41 Body mass index [BMI] 40.0-44.9, adult; E11.65 Type 2 diabetes mellitus with hyperglycemia; E11.22 Type 2 diabetes mellitus with diabetic chronic kidney disease; I48.91 Unspecified atrial fibrillation; I12.9 Hypertensive chronic kidney disease with stage 1 through stage 4 chronic kidney disease, or unspecified chronic kidney disease; N18.30 Chronic kidney disease, stage 3 unspecified; E66.9 Obesity, unspecified; E78.5 Hyperlipidemia, unspecified; Z11.59 Encounter for screening for other viral diseases; Z79.84 Long term (current) use of oral hypoglycemic drugs
CPT/HCPCS: 36415; 71045; 80053; 80202; 82550; 82553; 82948; 83605; 83880; 84484; 85025; 85379; 85610; 85730; 87040; 93005; 93971; 99284; J0692; J1817; J3370; J7030; J7050

== ENCOUNTER → 2020-08-28 | Outpatient (CLI) | payer OTHER ==
[~2020-08-28] MED LIST: AMIODARONE HCL200 MG PO; ATORVASTATIN CA20 MG PO; ELIQUIS5 M1 PO; GLIPIZIDE5 MG PO; LISINOPRIL10 MG PO; METOPROLOL TART25 MG PO; TRAZODONE HCL50 MG PO
== END ==
LOC: CARD 08:32
PROVIDERS: ATTEND Internal Medicine
DX: R60.9 Edema, unspecified (principal)
CPT/HCPCS: 93925

== ENCOUNTER → 2021-01-23 | Day surgery (SDC) | payer OTHER ==
[2021-01-20 08:23] LABS: BASOPHILS % 0.6 % (0.0-1.0); EOSINOPHILS # (AUTO) 0.1 (0.0-0.4); HEMATOCRIT 45.5 % (38.2-49.6); HEMOGLOBIN 14.6 g/dL (14.0-18.0); LYMPHOCYTES # (AUTO) 1.4 (1.0-3.2); LYMPHOCYTES % 20.3 % (18.0-39.1); MEAN CORPUSCULAR HEMOGLOBIN 28.9 pg (28-32); MEAN CORPUSCULAR HGB CONC 32.1 g/dL (31-35); MEAN CORPUSCULAR VOLUME 90.1 fL (81-99); MONOCYTES # (AUTO) 0.6 (0.2-0.8); MONOCYTES % 8.9 % (4.4-11.3); NEUTROPHILS # (AUTO) 4.7 (2.1-6.9); NEUTROPHILS % 67.5 % (38.7-80.0); PLATELET COUNT 182 x10e3/uL (140-360); RED BLOOD COUNT 5.05 x10e6/uL (4.3-5.7); RED CELL DISTRIBUTION WIDTH 13.1 % (11.7-14.4)
[~2021-01-23] MED LIST changes: +ACTOS15 MG PO; +FENTANYL CITRATE/PF 100MCG/2 ML INJ ONE; +LEVEMIR FL100 UNIT/1 SC; +LIDOCAINE HCL 2% LOCAL INJ 5 ML SDV VIAL INJ ONE; +LOSARTAN POTASS25 MG PO; +MIDAZOLAM HCL 2 MG/2 ML VIAL ONE; +PROPOFOL IV EMULSION 10 MG/ML 20 ML VIAL ONE
[2021-01-23 08:00] VITALS: BP 144/84
== END | disposition home or self-care (01) ==
LOC: OR 05:43
PROVIDERS: ATTEND Internal Medicine Gastroenterology
DX: Z12.11 Encounter for screening for malignant neoplasm of colon (principal); D12.3 Benign neoplasm of transverse colon; K64.8 Other hemorrhoids; Z71.3 Dietary counseling and surveillance; D64.9 Anemia, unspecified; G47.33 Obstructive sleep apnea (adult) (pediatric); I10 Essential (primary) hypertension; E66.01 Morbid (severe) obesity due to excess calories; E11.9 Type 2 diabetes mellitus without complications; Z01.812 Encounter for preprocedural laboratory examination; Z20.822 Contact with and (suspected) exposure to COVID-19; Z79.02 Long term (current) use of antithrombotics/antiplatelets; Z79.4 Long term (current) use of insulin; Z68.41 Body mass index [BMI] 40.0-44.9, adult; Z86.718 Personal history of other venous thrombosis and embolism
CPT/HCPCS: 36415; 44391; 45378; 45385; 82948; 85025; J2001; J2250; J3010; U0002

== ENCOUNTER 2024-07-16 00:58 | Inpatient (IN) | payer BC, OTHER ==
[~2024-07-16] VITALS: Ht 180.3 cm; Wt 137.0 kg
[2024-07-16] VITALS (11 sets, daily range): BP systolic 100–162; BP diastolic 83–99; PULSE 74–115; RESP 18–22; TEMP 97.5–100.7; O2SAT 91–96
[~2024-07-16 00:58] MED LIST changes: -FENTANYL CITRATE/PF 100MCG/2 ML INJ ONE; -LIDOCAINE HCL 2% LOCAL INJ 5 ML SDV VIAL INJ ONE; -MIDAZOLAM HCL 2 MG/2 ML VIAL ONE; -PROPOFOL IV EMULSION 10 MG/ML 20 ML VIAL ONE
[2024-07-16 01:47] LABS: BASOPHILS % 0.2 % (0.0-1.0); HEMOGLOBIN 12.9 g/dL (14.0-18.0); LYMPHOCYTES # (AUTO) 0.5 (1.0-3.2); LYMPHOCYTES % 5.2 % (18.0-39.1); MEAN CORPUSCULAR HEMOGLOBIN 30.4 pg (28-32); MEAN CORPUSCULAR HGB CONC 32.3 g/dL (31-35); MEAN CORPUSCULAR VOLUME 94.1 fL (81-99); MONOCYTES # (AUTO) 0.7 (0.2-0.8); MONOCYTES % 7.4 % (4.4-11.3); NEUTROPHILS # (AUTO) 7.7 (2.1-6.9); NEUTROPHILS % 86.4 % (38.7-80.0); PLATELET COUNT 144 x10e3/uL (140-360); RED BLOOD COUNT 4.25 x10e6/uL (4.3-5.7); WHITE BLOOD COUNT 8.86 x10e3/uL (4.8-10.8)
[2024-07-16] MEDS: ACETAMINOPHEN 325 MG TAB PO STA (01:55)
[2024-07-16] MEDS: ONDANSETRON HCL INJ 2MG/ML 2ML 2 MG/ML VIAL IV STA (01:56)
[2024-07-16] MEDS: SODIUM CHLORIDE 0.9% 1000ML 1,000 ML IV STA (01:56)
[2024-07-16] MEDS: DILTIAZEM HCL 5 MG/ML 5 ML VIAL IV STA (01:56)
[2024-07-16 01:58] LABS: ALBUMIN 3.4 g/dL (3.5-5.0); ALBUMIN/GLOBULIN RATIO 0.9 (0.8-2.0); ANION GAP 15.1 mmol/L (8-16); BILIRUBIN,TOTAL 1.7 mg/dL (0.2-1.2); CALCIUM 9.6 mg/dL (8.4-10.2); CREATININE, SERUM 1.96 mg/dL (0.72-1.25); POTASSIUM 4.1 mmol/L (3.5-5.1); TOTAL PROTEIN 7.3 g/dL (6.5-8.1)
[2024-07-16] MEDS: DIGOXIN INJ 0.25 MG/ML 2 ML AMP IV STA (02:04)
[2024-07-16] MEDS: METOPROLOL TARTRATE INJ 1 MG/ML VIAL IV STA (02:08)
[2024-07-16 02:15] LABS: B-TYPE NATRIURETIC PEPTIDE2 157.6 pg/mL (0-100)
[2024-07-16] MEDS ORDERED: IOPAMIDOL 370 MG/ML 100 ML INFUS..BTL INJ ONE (02:20)
[2024-07-16 02:49] LABS: TROPONIN I 0.007 ng/mL (0-0.300)
[2024-07-16 03:30] LABS: CLARITY,URINE CLEAR (CLEAR); COLOR,URINE YELLOW (YELLOW); GLUCOSE, URINE 500 (NEGATIVE); LEUKOCYTE ESTERASE ,URINE NEGATIVE (NEGATIVE); NITRITE,URINE NEGATIVE (NEGATIVE); PH,URINE 6 (5 - 7); PROTEIN,URINE DIPSTICK 2+ (NEGATIVE)
[2024-07-16 03:31] LABS: BILIRUBIN,URINE NEGATIVE (NEGATIVE); KETONES,URINE 1+ (NEGATIVE); URINE UROBILINOGEN 1 mg/dL (0.2 - 1)
[2024-07-16 03:46] LABS: BACTERIA,URINE MODERATE /HPF; EPITHELIAL CELLS,URINE FEW /LPF; RBC,URINE >50 /HPF (0-5)
[2024-07-16] MEDS: SODIUM CHLORIDE 0.9% 1000ML 1,000 ML IV SCH (04:43)
[2024-07-16] MEDS ORDERED: CLOPIDOGREL75 MG PO (05:02)
[2024-07-16] MEDS ORDERED: PIOGLITAZONE HC45 MG PO (05:02)
[2024-07-16] MEDS ORDERED: FUROSEMIDE40 MG PO (05:02)
[2024-07-16] MEDS ORDERED: ASPIRIN EC81 MG PO (05:02)
[2024-07-16] MEDS ORDERED: BENZONATATE 100 MG CAP PO PRN (09:00)
[2024-07-16] MEDS ORDERED: DEXTROSE 50% SYRINGE 50 ML IV PRN (09:00)
[2024-07-16] MEDS ORDERED: ALBUTEROL/IPRATROPIUM 3 ML NEB NEB PRN (09:00)
[2024-07-16] MEDS ORDERED: HYDRALAZINE HCL 20 MG/ML VIAL IV PRN (09:00)
[2024-07-16] MEDS ORDERED: ONDANSETRON HCL INJ 2MG/ML 2ML 2 MG/ML VIAL IV PRN (09:00)
[2024-07-16 09:05] LABS: TROPONIN I 0.006 ng/mL (0-0.300)
[2024-07-16] MEDS: APIXABAN 5 MG TABLET PO SCH (09:18)
[2024-07-16] MEDS: AMIODARONE HCL 200 MG TAB PO SCH (09:18)
[2024-07-16] MEDS: CLOPIDOGREL BISULFATE 75 MG TAB PO SCH (09:18)
[2024-07-16] MEDS: INSULIN LISPRO 100 UNIT/1 ML 3ML VIAL SQ SCH (09:19)
[2024-07-16] MEDS: METOPROLOL TARTRATE 25 MG TAB PO SCH (09:22)
[2024-07-16] MEDS: ASPIRIN 81 MG ENTERIC COATED PO SCH (12:11)
[2024-07-16] MEDS: ENOXAPARIN SOD INJ 40 MG/0.4 ML SYR SC SCH (16:19)
[2024-07-16] MEDS: ACETAMINOPHEN 325 MG TAB PO PRN (16:23)
[2024-07-16] MEDS: TRAZODONE HCL 50 MG TAB PO SCH (20:31)
[2024-07-16] MEDS: ATORVASTATIN 20 MG TAB PO SCH (20:32)
[2024-07-16] MEDS: INSULIN GLARGINE 100 UNITS/ML VIAL SQ SCH (20:34)
[2024-07-17] VITALS (10 sets, daily range): BP systolic 100–163; BP diastolic 62–98; PULSE 86–138; RESP 18–22; TEMP 98–100.4; O2SAT 94–100
[2024-07-17] MEDS: METOPROLOL TARTRATE INJ 1 MG/ML VIAL IV PRN (01:46)
[2024-07-17 05:41] LABS: BASOPHILS % 0.2 % (0.0-1.0); HEMATOCRIT 36.6 % (38.2-49.6); HEMOGLOBIN 11.8 g/dL (14.0-18.0); LYMPHOCYTES # (AUTO) 0.6 (1.0-3.2); LYMPHOCYTES % 6.5 % (18.0-39.1); MEAN CORPUSCULAR HEMOGLOBIN 30.7 pg (28-32); MEAN CORPUSCULAR HGB CONC 32.2 g/dL (31-35); MEAN CORPUSCULAR VOLUME 95.3 fL (81-99); MONOCYTES # (AUTO) 0.7 (0.2-0.8); MONOCYTES % 7.4 % (4.4-11.3); NEUTROPHILS # (AUTO) 7.6 (2.1-6.9); NEUTROPHILS % 85.2 % (38.7-80.0); PLATELET COUNT 130 x10e3/uL (140-360); RED BLOOD COUNT 3.84 x10e6/uL (4.3-5.7); RED CELL DISTRIBUTION WIDTH 13.1 % (11.7-14.4); WHITE BLOOD COUNT 8.95 x10e3/uL (4.8-10.8)
[2024-07-17 06:02] LABS: ALBUMIN 2.8 g/dL (3.5-5.0); ALBUMIN/GLOBULIN RATIO 0.8 (0.8-2.0); BILIRUBIN,TOTAL 0.9 mg/dL (0.2-1.2); CALCIUM 8.7 mg/dL (8.4-10.2); CREATININE, SERUM 1.98 mg/dL (0.72-1.25); TOTAL PROTEIN 6.3 g/dL (6.5-8.1)
[2024-07-17 06:28] LABS: PHOSPHORUS 2.9 MG/DL (2.3-4.7)
[2024-07-17 09:35] LABS: TROPONIN I 0.012 ng/mL (0-0.300)
[2024-07-17 09:48] LABS: THYROID STIMULATING HORMONE 0.808 uIU/mL (0.350-4.940)
[2024-07-17 13:35] LABS: CREATININE,URINE RANDOM 48.97 mg/dL (63-166); TOTAL PROTEIN, URINE 39.9 mg/dL (1-14)
[2024-07-17] MEDS: SODIUM BICARBONATE 650 MG TAB PO SCH (17:10)
[2024-07-18] VITALS (11 sets, daily range): BP systolic 96–143; BP diastolic 72–98; PULSE 86–141; RESP 20–22; TEMP 97.4–101; O2SAT 93–98
[2024-07-18 06:06] LABS: ANION GAP 11.7 mmol/L (8-16); CALCIUM 9.9 mg/dL (8.4-10.2); CREATININE, SERUM 2.26 mg/dL (0.72-1.25); POTASSIUM 4.7 mmol/L (3.5-5.1)
[2024-07-18] MEDS: METOPROLOL TARTRATE 50 MG TAB PO SCH (09:56)
[2024-07-18] MEDS: LACTATED RINGER'S 1,000 ML INJ SCH (17:52)
[2024-07-18] MEDS: AMIODARONE HCL 200 MG TAB PO SCH (20:53)
[2024-07-19] VITALS (13 sets, daily range): BP systolic 94–138; BP diastolic 51–97; PULSE 82–119; RESP 20–22; TEMP 97.6–98.4; O2SAT 93–100
[2024-07-19 05:53] LABS: ANION GAP 9.2 mmol/L (8-16); CALCIUM 9.1 mg/dL (8.4-10.2); CREATININE, SERUM 2.1 mg/dL (0.72-1.25)
[2024-07-19 05:55] LABS: POTASSIUM 3.2 mmol/L (3.5-5.1)
[2024-07-19] MEDS: POTASSIUM CHLORIDE 10MEQ EA PO ONE (09:30)
[2024-07-19] MEDS ORDERED: ONDANSETRON HCL 4 MG ORAL DISINTEGRATING TAB PO PRN (11:45)
[2024-07-19] MEDS: ALBUTEROL/IPRATROPIUM 3 ML NEB NEB SCH (13:52)
[2024-07-20 04:00] VITALS: BP 158/98; PULSE 117; RESP 18; TEMP 97.7; O2SAT 97
[2024-07-20 06:35] LABS: BASOPHILS % 0.4 % (0.0-1.0); EOSINOPHILS # (AUTO) 0.2 (0.0-0.4); EOSINOPHILS % 3.3 % (0.0-6.0); HEMATOCRIT 35.9 % (38.2-49.6); LYMPHOCYTES # (AUTO) 0.8 (1.0-3.2); LYMPHOCYTES % 14.1 % (18.0-39.1); MEAN CORPUSCULAR HEMOGLOBIN 29.7 pg (28-32); MEAN CORPUSCULAR HGB CONC 30.6 g/dL (31-35); MONOCYTES # (AUTO) 0.4 (0.2-0.8); MONOCYTES % 7.3 % (4.4-11.3); NEUTROPHILS # (AUTO) 3.9 (2.1-6.9); NEUTROPHILS % 70.9 % (38.7-80.0); PLATELET COUNT 149 x10e3/uL (140-360); RED CELL DISTRIBUTION WIDTH 13.7 % (11.7-14.4); WHITE BLOOD COUNT 5.48 x10e3/uL (4.8-10.8)
[2024-07-20 06:46] VITALS: PULSE 99; RESP 22; O2SAT 95
[2024-07-20 06:58] LABS: ANION GAP 11.2 mmol/L (8-16); CALCIUM 8.9 mg/dL (8.4-10.2); CREATININE, SERUM 1.98 mg/dL (0.72-1.25); POTASSIUM 4.2 mmol/L (3.5-5.1)
[2024-07-20 07:45] VITALS: BP 128/74; PULSE 109; RESP 18; TEMP 97.8; O2SAT 95
[2024-07-20 07:59] VITALS: BP 128/74; PULSE 109; RESP 18; TEMP 97.8; O2SAT 97
[2024-07-20 08:57] VITALS: BP 128/74; PULSE 109
[2024-07-20] MEDS ORDERED: ONDANSETRON ODT4 MG PO (09:30)
[2024-07-20] MEDS ORDERED: AUGMENTIN PO (09:30)
[2024-07-20] MEDS ORDERED: LOPRESSOR25 MG PO (09:31)
[2024-07-20] MEDS ORDERED: tessalon perles PO (09:32)
== END 2024-07-20 10:00 | disposition home or self-care (01) | DRG 871 ==
LOC: ER 01:14 → ERHOLD 03:17 → MED/SURG3 03:59
PROVIDERS: ADMIT Internal Medicine; ATTEND Internal Medicine
PROC: 3E0333Z Introduction of Anti-inflammatory into Peripheral Vein, Percutaneous Approach (ICD-10-PCS; principal; 2024-07-16)
PROC: 4A033R1 Measurement of Arterial Saturation, Peripheral, Percutaneous Approach (ICD-10-PCS; 2024-07-17)
PROC: 5A09357 Assistance with Respiratory Ventilation, Less than 24 Consecutive Hours, Continuous Positive Airway Pressure (ICD-10-PCS; 2024-07-19)
DX: A41.9 Sepsis, unspecified organism (principal); J18.9 Pneumonia, unspecified organism; J96.91 Respiratory failure, unspecified with hypoxia; E87.29 Other acidosis; E66.2 Morbid (severe) obesity with alveolar hypoventilation; Z68.41 Body mass index [BMI] 40.0-44.9, adult; I48.20 Chronic atrial fibrillation, unspecified; I27.20 Pulmonary hypertension, unspecified; E11.51 Type 2 diabetes mellitus with diabetic peripheral angiopathy without gangrene; E11.42 Type 2 diabetes mellitus with diabetic polyneuropathy; E11.22 Type 2 diabetes mellitus with diabetic chronic kidney disease; Z99.81 Dependence on supplemental oxygen; N18.32 Chronic kidney disease, stage 3b; Z86.711 Personal history of pulmonary embolism; Z86.718 Personal history of other venous thrombosis and embolism; Z11.52 Encounter for screening for COVID-19; Z79.4 Long term (current) use of insulin; Z79.01 Long term (current) use of anticoagulants; Z79.84 Long term (current) use of oral hypoglycemic drugs
CPT/HCPCS: 36415; 71046; 71260; 74177; 80048; 80053; 81001; 82550; 82570; 82948; 83036; 83605; 83690; 83735; 83880; 84100; 84156; 84443; 84484; 85025; 87040; 87400; 93005; 93306; 94660; 94799; 96372; 99252; 99284; J1160; J1650; J1815; J2405; J2543; J7030; J7050; Q9967; U0002

== ENCOUNTER → 2025-06-08 | Outpatient (REF) | payer OTHER ==
[~2025-06-08] MED LIST changes: +ASPIRIN EC81 MG PO; +AUGMENTIN PO; +CLOPIDOGREL75 MG PO; +FUROSEMIDE40 MG PO; +LIDOCAINE HCL 1% 30ML-PF VIAL ONE; +LOPRESSOR25 MG PO; +ONDANSETRON ODT4 MG PO; +PIOGLITAZONE HC45 MG PO; +tessalon perles PO
== END ==
LOC: DX 07:57
PROVIDERS: ATTEND Internal Medicine Infectious Disease
DX: Z45.2 Encounter for adjustment and management of vascular access device (principal); M86.20 Subacute osteomyelitis, unspecified site
CPT/HCPCS: 36558; 36589; 71045; J2003

== ENCOUNTER 2025-06-20 08:47 | Outpatient (RCR) | payer BC, OTHER ==
[~2025-06-20 08:47] MED LIST changes: +BALSAM PERU/CASTOR OIL 28.35 GM OINT...G. TP ONE; +COLLAGENASE OINTMENT 30 GM TUBE ONE; -LIDOCAINE HCL 1% 30ML-PF VIAL ONE; +MINERAL OIL/PETROLAT/GLYCERI 6OZ BTL ONE
== END 2025-06-21 | disposition home or self-care (01) ==
LOC: WCC 08:47
PROVIDERS: ATTEND Plastic Surgery
DX: E11.621 Type 2 diabetes mellitus with foot ulcer (principal); M86.19 Other acute osteomyelitis, multiple sites; L97.414 Non-pressure chronic ulcer of right heel and midfoot with necrosis of bone
CPT/HCPCS: 36415 ×13; 82948 ×13; 99213 ×9; G0277 ×14

== ENCOUNTER 2025-07-11 12:00 | Outpatient (RCR) | payer OTHER ==
[~2025-07-11 12:00] MED LIST changes: -BALSAM PERU/CASTOR OIL 28.35 GM OINT...G. TP ONE; -COLLAGENASE OINTMENT 30 GM TUBE ONE; -MINERAL OIL/PETROLAT/GLYCERI 6OZ BTL ONE
== END 2025-07-22 ==
LOC: WCC 12:00
PROVIDERS: ATTEND Internal Medicine Infectious Disease
DX: E11.621 Type 2 diabetes mellitus with foot ulcer (principal); M86.19 Other acute osteomyelitis, multiple sites; L97.414 Non-pressure chronic ulcer of right heel and midfoot with necrosis of bone
CPT/HCPCS: 36415 ×7; 82948 ×7; 99213 ×4; G0277 ×5

== ENCOUNTER 2025-08-06 07:00 | Outpatient (RCR) | payer BC, OTHER | END 2025-08-21 | LOC: WCC 07:00 | PROVIDERS: ATTEND Internal Medicine Infectious Disease | DX: E11.621 Type 2 diabetes mellitus with foot ulcer (principal); M86.19 Other acute osteomyelitis, multiple sites; L97.414 Non-pressure chronic ulcer of right heel and midfoot with necrosis of bone | CPT/HCPCS: 36415 ×2; 82948 ×2; 99213; G0277 ×2 ==